=== PATIENT | female | born 1940 | race Caucasian/White ===

== ENCOUNTER 2017-03-28 12:50 | Emergency (ER) | payer OTHER ==
[~2017-03-28] VITALS: Ht 152.4 cm; Wt 65.9 kg
[~2017-03-28 12:50] MED LIST: ALBUAER9 INH; ASPEC81 PO; BUPR-79 PO; CNT PO; CoQ10 PO; FISHOIL PO; LOVA40TA4 PO; TIOTCAP INH; [UNRECOGNIZED DRUG - REMARK]; echinacea PO
[2017-03-28 12:55] VITALS: TEMP 36.7; Ht 152.4 cm; Wt 65.9 kg
[2017-03-28] MEDS ORDERED: ALBUT/IPRATROP 3MG/0.5MG NEB 3 ML VIAL INH STA (13:07)
--- NOTE | 2017-03-28 13:18 | EMERGENCY ROOM VISIT NOTE ---
History Report prepared by Chau: Holden Koenig Under the Supervision of: Dr. Dago Cherry D.O. First contact with patient: 13:00 Chief Complaint: CHEST PAIN Stated Complaint: CHEST PAIN History of Present Illness The patient is a 76 year old female who presents to the Emergency Room with complaints of persistent and diffuse chest pains that the patient began to experience three days prior to arrival. The patient states that she experienced a very sharp and constant pain throughout the day on Tuesday and Tuesday. Her pain today is not sharp and diffusely spread across her chest diffusely. She rates her current discomfort as a 3/10 in severity. She is also currently short of breath. Her symptoms are worsened with deep inspiration. She denies any history of blood clots, but does have a history of hyperlipidemia. 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 A total of 10 systems reviewed and were otherwise negative. Past Medical & Surgical Medical Problems: (1) HLD (hyperlipidemia) HLD (hyperlipidemia) Family History Heart disease Lung disease Social History Smoking Status: Former Smoker Marital Status: Occupation Status: retired Current/Historical Medications Scheduled Aspirin (Aspirin Ec), 81 MG PO AMPM Atorvastatin (Lipitor), 40 MG PO DAILY Azithromycin (Zithromax), 250 MG PO DAILY Bupropion (Wellbutrin Sr), 150 MG PO BID Esomeprazole Magnesium (Nexium), 40 MG PO DAILY Ipratropium-Albuterol (Combivent Respimat), 1 PUFFS INH QID Multivitamin (Multivitamin), 1 TAB PO DAILY Prednisone (Prednisone Tab), 40 MG PO DAILY Allergies Coded Allergies: No Known Allergies (Unverified , 03/28/17) Physical Exam Vital Signs Date Time Temp Pulse Resp B/P Pulse Ox O2 Delivery O2 Flow Rate FiO2 03/28/17 15:09 96 22 122/73 95 Room Air 03/28/17 14:14 99 20 94 03/28/17 13:25 97 Room Air 03/28/17 13:25 97 Room Air 03/28/17 13:25 97 Room Air 03/28/17 13:14 100 03/28/17 12:55 36.7 108 20 146/74 95 Room Air Physical Exam GENERAL: Patient is awake, alert, and in no acute distress. Patient is resting comfortably and showing no signs of anxiety EYES: The conjunctivae are clear. The pupils are round and reactive. EARS, NOSE, MOUTH AND THROAT: The nose is without any evidence of any deformity. Mucous membranes are moist tongue is midline NECK: The neck is nontender and supple. RESPIRATORY: There is diminished in leg with scattered rhonchi throughout. Mild conversational dyspnea noted. CARDIOVASCULAR: Tachycardiac rate with normal rhythm noted there no murmurs rubs or gallops normal S1 normal S2 GASTROINTESTINAL: The abdomen is soft. Bowel sounds are present in all quadrants. Abdomen is nontender MUSCULOSKELETAL/EXTREMITIES: There is no evidence of gross deformity full range of motion is noted in the hips and shoulders SKIN: There is no obvious evidence of any rash. There are no petechiae, pallor or cyanosis noted. NEUROLOGIC: Patient is awake alert and oriented x3. Medical Decision & Procedures ER Provider Diagnostic Interpretation: Radiology results as stated below per my review and radiologist interpretation: CHEST ONE VIEW PORTABLE CLINICAL HISTORY: Chest pain and respiratory distress COMPARISON STUDY: 02/07/2007 FINDINGS: The cardiac and mediastinal contours are normal. There is no evidence of focal pulmonary consolidation. There is no evidence of failure. No pleural effusions are visualized.[ IMPRESSION: No active disease in the chest. Electronically signed by: Rei Scruggs M.D. 03/28/2017 1:33 PM Dictated Date/Time: 03/28/2017 1:33 PM Laboratory Results 03/28/17 13:10 Red Blood Count 4.99, Mean Corpuscular Volume 96.6, Mean Corpuscular Hemoglobin 34.1, Mean Corpuscular Hemoglobin Concent 35.3, Mean Platelet Volume 8.9, Neutrophils (%) (Auto) 73.5, Lymphocytes (%) (Auto) 14.5, Monocytes (%) (Auto) 10.2, Eosinophils (%) (Auto) 1.2, Basophils (%) (Auto) 0.3, Neutrophils # (Auto ) 9.55, Lymphocytes # (Auto) 1.89, Monocytes # (Auto) 1.32, Eosinophils # (Auto ) 0.16, Basophils # (Auto) 0.04 03/28/17 13:10 Test 03/28/17 13:05 03/28/17 13:10 03/28/17 13:17 Urine Color YELLOW Urine Appearance CLEAR (CLEAR) Urine pH 6.5 (4.5-7.5) Urine Specific [place] 1.007 (1.000-1.030) Urine Protein NEG (NEG) Urine Glucose (UA) NEG (NEG) Urine Ketones NEG (NEG) Urine Occult Blood TRACE (NEG) Urine Nitrite NEG (NEG) Urine Bilirubin NEG (NEG) Urine Urobilinogen NEG (NEG) Urine Leukocyte Esterase SMALL (NEG) Urine WBC (Auto) 1-5 /hpf (0-5) Urine RBC (Auto) 0-4 /hpf (0-4) Urine Hyaline Casts (Auto) 1-5 /lpf (0-5) Urine Epithelial Cells (Auto) 10-20 /lpf (0-5) Urine Bacteria (Auto) NEG (NEG) White Blood Count 13.00 K/uL (4.8-10.8) Red Blood Count 4.99 M/uL (4.2-5.4) Hemoglobin 17.0 g/dL (12.0-16.0) Hematocrit 48.2 % (37-47) Mean Corpuscular Volume 96.6 fL (80-100) Mean Corpuscular Hemoglobin 34.1 pg (25-34) Mean Corpuscular Hemoglobin Concent 35.3 g/dl (32-36) Platelet Count 275 K/uL (130-400) Mean Platelet Volume 8.9 fL (7.4-10.4) Neutrophils (%) (Auto) 73.5 % Lymphocytes (%) (Auto) 14.5 % Monocytes (%) (Auto) 10.2 % Eosinophils (%) (Auto) 1.2 % Basophils (%) (Auto) 0.3 % Neutrophils # (Auto) 9.55 K/uL (1.4-6.5) Lymphocytes # (Auto) 1.89 K/uL (1.2-3.4) Monocytes # (Auto) 1.32 K/uL (0.11-0.59) Eosinophils # (Auto) 0.16 K/uL (0-0.5) Basophils # (Auto) 0.04 K/uL (0-0.2) RDW Standard Deviation 44.3 fL (36.4-46.3) RDW Coefficient of Variation 12.6 % (11.5-14.5) Immature Granulocyte % (Auto) 0.3 % Immature Granulocyte # (Auto) 0.04 K/uL (0.00-0.02) Prothrombin Time 10.2 SECONDS (9.0-12.0) Prothromb Time International Ratio 1.0 (0.9-1.1) Activated Partial Thromboplast Time 26.8 SECONDS (21.0-31.0) Partial Thromboplastin Ratio 1.0 Anion Gap 8.0 mmol/L (3-11) Est Creatinine Clear Calc Drug Dose 45.6 ml/min Estimated GFR () 73.0 Estimated GFR (Non- 63.0 BUN/Creatinine Ratio 17.2 (10-20) Calcium Level 9.3 mg/dl (8.5-10.1) Total Bilirubin 0.7 mg/dl (0.2-1) Aspartate Amino Transf (AST/SGOT) 26 U/L (15-37) Alanine Aminotransferase (ALT/SGPT) 40 U/L (12-78) Alkaline Phosphatase 117 U/L (45-117) Total Creatine Kinase 163 U/L (26-192) Creatine Kinase MB 2.0 ng/ml (0.5-3.6) Creatine Kinase MB Ratio 1.2 (0-3.0) Troponin I < 0.015 ng/ml (0-0.045) Total Protein 8.4 gm/dl (6.4-8.2) Albumin 4.5 gm/dl (3.4-5.0) Globulin 3.9 gm/dl (2.5-4.0) Albumin/Globulin Ratio 1.2 (0.9-2) Bedside D-Dimer 275 ng/mlFEU (0-450) Laboratory results per my review. Medications Administered Medications (Trade) Dose Ordered Sig/Eric Route Start Time Stop Time Status Last Admin Dose Admin Albuterol/ Ipratropium (Duoneb) 3 ml NOW STAT INH 03/28/17 13:07 03/28/17 13:08 DC 03/28/17 13:28 3 ML Prednisone (PredniSONE TAB) 60 mg NOW STAT PO 03/28/17 14:04 03/28/17 14:05 DC 03/28/17 14:12 60 MG Azithromycin (Zithromax Tab) 500 mg NOW STAT PO 03/28/17 14:04 03/28/17 14:05 DC 03/28/17 14:12 500 MG ECG Indication: chest pain Rate (beats per minute): 100 Rhythm: sinus rhythm Findings: Q waves (Inferior), T-wave inversion (height lateral inversion), no acute ischemic change, no ectopy Comparison ECG Date: 12/24/2011 Change: no significant change ED Course 1305: The patient was evaluated in room C4. A complete history and physical examination were performed. 1307: Ordered Duoneb 3 mL INH. 1404: Ordered Azithromycin 500 mg PO, Prednisone 60 mg PO. 1422:: Upon reevaluation, the patient is resting in bed. I discussed the results and treatment plan with her. She verbalized agreement of the treatment plan. The patient was discharged home. Medical Decision The patient's history was concerning for chest pain. Differential diagnosis: Etiologies such as cardiac ischemia, aortic dissection, pulmonary embolism, pneumonia, pneumothorax, musculoskeletal, infections, pericarditis, myocarditis , esophageal rupture, gastrointestinal, as well as others were entertained. nursing notes were reviewed. The patient is a 76-year-old female who presented to the emergency department for an evaluation of pleuritic chest pain. The patient also had shortness of breath. She has a history of smoking and I feel she may have some degree of underlying COPD today. The patient did not have an elevated d-dimer. Her troponin was negative despite having ongoing pain since yesterday. I discussed the patient's laboratory radiographic studies with her. I also discussed the limitations of the emergency department workup for chest pain with her. She was encouraged to rest and avoid any strenuous or Tuesday. She was started on a steroid and an antibiotic for presumed bronchitis. She was also encouraged to continue all medications as prescribed. He was also encouraged to follow-up with her family doctor this week but return to the emergency Department immediately if symptoms change worsen or the need arises. Impression Primary Impression: Bronchitis Additional Impression: Pleurisy Scribe Attestation The scribe's documentation has been prepared under my direction and personally reviewed by me in its entirety. I confirm that the note above accurately reflects all work, treatment, procedures, and medical decision making performed by me. Departure Information Dispostion Home / Self-Care Prescriptions Prednisone (Prednisone Tab) 20 Mg Tab 40 MG PO DAILY, #10 TAB Prov: Dago Cherry, DO 03/28/17 Azithromycin (ZITHROMAX) 250 Mg Tab 250 MG PO DAILY, #4 TAB Start on 03/29 Prov: Dago Cherry, DO 03/28/17 Referrals Dionisio Mayer M.D. (PCP) Forms HOME CARE DOCUMENTATION FORM, IMPORTANT VISIT INFORMATION Patient Instructions My [facility] Additional Instructions Follow-up with Dr. Saha at 1245 PM on Tuesday. Rest and avoid any strenuous activity. Continue all medications as prescribed. Return to the emergency department immediately if symptoms change worsen or the need arises. Problem Qualifiers
[2017-03-28 13:25] VITALS: O2SAT 97
[2017-03-28 13:25] LABS: BASO % 0.3 %; BASO ABS # 0.04 K/uL (0-0.2); COMPLETE YES; EOS % 1.2 %; HEMATOCRIT 48.2 % (37-47); IG% 0.3 %; LYMPH % 14.5 %; LYMPH ABS # 1.89 K/uL (1.2-3.4); MEAN CELL VOLUME 96.6 fL (80-100); MEAN CORPUSCULAR HEMOGLOBIN 34.1 pg (25-34); MEAN CORPUSCULAR HGB CONC 35.3 g/dl (32-36); MEAN PLATELET VOLUME 8.9 fL (7.4-10.4); MONO % 10.2 %; NEUT % 73.5 %; PLATELET COUNT 275 K/uL (130-400); RED BLOOD COUNT 4.99 M/uL (4.2-5.4)
[2017-03-28 13:33] LABS: PROTHROMBIN TIME (PATIENT) 10.2 SECONDS (9.0-12.0)
--- NOTE | 2017-03-28 13:35 | DIAGNOSTIC IMAGING REPORT ---
CHEST ONE VIEW PORTABLE CLINICAL HISTORY: Chest pain and respiratory distress COMPARISON STUDY: 02/07/2007 FINDINGS: The cardiac and mediastinal contours are normal. There is no evidence of focal pulmonary consolidation. There is no evidence of failure. No pleural effusions are visualized.[ IMPRESSION: No active disease in the chest. Electronically signed by: Rei Scruggs M.D. 03/28/2017 1:33 PM Dictated Date/Time: 03/28/2017 1:33 PM
[2017-03-28 13:38] LABS: URINE APPEARANCE CLEAR (CLEAR); URINE BILIRUBIN NEG (NEG); URINE COLOR YELLOW; URINE NITRITE NEG (NEG); URINE PH 6.5 (4.5-7.5); URINE SPECIFIC GRAVITY 1.007 (1.000-1.030); UROBILINOGEN NEG (NEG)
[2017-03-28 13:43] LABS: MANUAL MICROSCOPIC REQUIRED? NO; REVIEW REQ? NO
[2017-03-28 13:47] LABS: ALT/SGPT 40 U/L (12-78); AST/SGOT 26 U/L (15-37); BLOOD UREA NITROGEN 15 mg/dl (7-18); BUN/CREATININE RATIO 17.2 (10-20); CALCIUM 9.3 mg/dl (8.5-10.1); CARBON DIOXIDE 28 mmol/L (21-32); CHLORIDE 104 mmol/L (98-107); CREATININE 0.89 mg/dl (0.60-1.20); GLUCOSE 101 mg/dl (70-99); POTASSIUM 3.9 mmol/L (3.5-5.1); SODIUM 140 mmol/L (136-145)
[2017-03-28] MEDS ORDERED: ASPI81TA28 PO (13:50)
[2017-03-28 13:52] LABS: ALB/GLOB RATIO 1.2 (0.9-2); ALKALINE PHOSPHATASE 117 U/L (45-117); CKMB/CK RATIO 1.2 (0-3.0)
[2017-03-28] MEDS ORDERED: MULT-506 PO (13:52)
[2017-03-28] MEDS ORDERED: IPRA1AER2 INH (13:52)
[2017-03-28] MEDS ORDERED: NXM/40 PO (13:52)
[2017-03-28] MEDS ORDERED: AZITHROMYCIN 250 MG TAB PO STA (14:04)
[2017-03-28] MEDS ORDERED: LPT/40 PO (14:07)
[2017-03-28] MEDS ORDERED: PRED20TA2 PO (14:15)
[2017-03-28] MEDS ORDERED: AZIT-60 PO (14:15)
[2017-03-28 15:09] VITALS: BP 122/73; PULSE 96; O2SAT 95
== END 2017-03-28 15:10 | disposition home or self-care (01) ==
LOC: C.EDB 12:51 → C.EDC 15:10
DX: J40 Bronchitis, not specified as acute or chronic (principal); R09.1 Pleurisy; E78.5 Hyperlipidemia, unspecified; Z82.49 Family history of ischemic heart disease and other diseases of the circulatory system; Z83.6 Family history of other diseases of the respiratory system; Z87.891 Personal history of nicotine dependence; Z79.82 Long term (current) use of aspirin; Z79.899 Other long term (current) drug therapy

== ENCOUNTER 2018-01-17 20:12 | Observation (INO) | payer OTHER ==
[~2018-01-17] VITALS: Ht 165.1 cm; Wt 67.3 kg
[~2018-01-17 20:12] MED LIST changes: -ALBUAER9 INH; -ASPEC81 PO; +ASPI81TA28 PO; -CNT PO; -CoQ10 PO; -FISHOIL PO; +IPRA1AER2 INH; -LOVA40TA4 PO; +LPT/40 PO; +MULT-506 PO; +NXM/40 PO; -TIOTCAP INH; -[UNRECOGNIZED DRUG - REMARK]; -echinacea PO
[2018-01-17] MEDS ORDERED: SODIUM CHLORIDE 0.9% 1000ML 1,000 ML IV STA (20:32)
[2018-01-17] MEDS ORDERED: MECLIZINE HCL 25 MG TAB PO STA (20:32)
--- NOTE | 2018-01-17 20:32 | EMERGENCY ROOM VISIT NOTE ---
History Report prepared by Chau: Don Chacon Under the Supervision of: Dr. Jeremy Cooley M.D. First contact with patient: 20:16 Stated Complaint: HEADACHE, STOMACH ACHE, DRY HEEVES History of Present Illness The patient is a 77 year old white female with a past medical history of HLD and bronchitis who presents to the ED via EMS with a cc of a persistent illness beginning this morning. Positive dry cough, headache, nausea, abdominal pain, dry heaves, dizziness. Negative ear pain, urinary symptoms, recent travels, antibiotic use. She notes that the symptoms started around 1100 this morning, and notes nothing out of the ordinary that would have caused the symptoms. She says that the room is spinning, but she feels better if her eyes are closed. The patient adds that she feels dehydrated. The patient states that she is a current smoker. She adds that she is chronically constipated, and is treating that with Miralax. She notes no prior surgical history. The patient states that over the past few days she has felt a bit of the symptoms she feels today, but it was only episodic and not as bad. Source of History: patient Onset: This morning around 1100 Position: other (global) Quality: other (illness) Timing: other (persistent) Associated Symptoms: + headache, + cough, + nausea, + abdominal pain Note: Positive dry heaves, dizziness. Negative ear pain. Review of Systems See HPI for pertinent positives and negatives. A total of ten systems were reviewed and were otherwise negative. Past Medical & Surgical Medical Problems: (1) Dizziness (2) HLD (hyperlipidemia) Family History Heart disease Lung disease Social History Smoking Status: Current Every Day Smoker Drug Use: none Marital Status: Occupation Status: retired Current/Historical Medications Scheduled Aspirin (Aspirin Ec), 81 MG PO AMPM Atorvastatin (Lipitor), 40 MG PO DAILY Bupropion (Wellbutrin Sr), 150 MG PO BID Esomeprazole Magnesium (Nexium), 40 MG PO DAILY Scheduled PRN Ipratropium-Albuterol (Combivent Respimat), 1 PUFFS INH QID PRN for Shortness of Breath Allergies Coded Allergies: No Known Allergies (Unverified , 01/17/18) Physical Exam Vital Signs Date Time Temp Pulse Resp B/P (MAP) Pulse Ox O2 Delivery O2 Flow Rate FiO2 01/17/18 23:43 87 16 123/61 93 Room Air 01/17/18 22:41 87 20 128/91 95 Room Air 01/17/18 21:47 88 01/17/18 21:45 88 16 169/80 93 Room Air 01/17/18 20:12 36.6 87 18 174/88 95 Room Air Physical Exam GENERAL: Awake, alert, well-appearing, NAD HENT: Normocephalic, atraumatic. EYES: Normal conjunctiva. Sclera non-icteric. No nystagmus. NECK: Supple. No nuchal rigidity. FROM. RESPIRATORY: CTAB, no rhonchi, wheezing, crackles CARDIAC: RRR, no MRG ABDOMEN: Soft, NTND, BS+ MSK: No chest wall TTP, no LE edema NEURO: CN 2-12 intact, 5/5 upper and lower extremity strength, no dysmetria, no drift, good finger to nose, no sensory deficits. SKIN: No rash or jaundice noted. Medical Decision & Procedures ER Provider Diagnostic Interpretation: Radiology results as stated below per my review and radiologist interpretation: CHEST ONE VIEW PORTABLE CLINICAL HISTORY: Abdominal pain. Headache. COMPARISON STUDY: Chest radiograph March 2017. FINDINGS: Lung volumes are normal. There is no pneumothorax or pleural effusion. There is no consolidation to suggest pneumonia. Pulmonary vascularity is normal. Cardiomediastinal silhouette is normal. IMPRESSION: No acute cardiopulmonary findings. Electronically signed by: Marvin Doss M.D. 01/17/2018 9:17 PM Dictated Date/Time: 01/17/2018 9:[address] OF THE HEAD WITHOUT CONTRAST CLINICAL HISTORY: vertiginous symptoms COMPARISON STUDY: Head CT February 07, 2007. CT DOSE: 537.48 mGy.cm TECHNIQUE: Helical axial images of the head were obtained without IV contrast. Automated exposure control was utilized for the study. A dose lowering technique was utilized adhering to the principles of ALARA. FINDINGS: No acute intracranial hemorrhage, midline shift or mass effect is present. An 8 mm densely calcified focus within the right frontal lobe shown on image 17 has mildly increased in size since exam of February 07, 2017 when it measured 6 mm. This has no mass effect or significant edema. Ventricular system is stable. Basilar cisterns are patent. There are no extra-axial collections. There are no findings to suggest acute dural sinus thrombosis or acute territorial infarct. There are no significant calvarial abnormalities. Visual portions of the sinuses and mastoid air cells are clear. IMPRESSION: 1. No acute intracranial findings. 2. Slight increase in size of a densely calcified 8 mm focus within the right frontal lobe since head CT of February 07, 2017. While nonspecific, relatively stability is consistent with a benign etiology. Electronically signed by: Marvin Doss M.D. 01/17/2018 9:41 PM Dictated Date/Time: 01/17/2018 9:36 PM Laboratory Results 01/17/18 20:49 Test 01/17/18 20:49 01/17/18 20:55 01/17/18 21:20 01/17/18 21:25 Anion Gap 6.0 mmol/L (3-11) Est Creatinine Clear Calc Drug Dose 48.6 ml/min Estimated GFR () 78.8 Estimated GFR (Non- 68.0 BUN/Creatinine Ratio 18.3 (10-20) Calcium Level 8.9 mg/dl (8.5-10.1) Phosphorus Level 3.2 mg/dl (2.5-4.9) Magnesium Level 2.0 mg/dl (1.8-2.4) Total Bilirubin 0.6 mg/dl (0.2-1) Direct Bilirubin < 0.1 mg/dl (0-0.2) Aspartate Amino Transf (AST/SGOT) 26 U/L (15-37) Alanine Aminotransferase (ALT/SGPT) 35 U/L (12-78) Alkaline Phosphatase 90 U/L (45-117) Total Protein 6.7 gm/dl (6.4-8.2) Albumin 3.6 gm/dl (3.4-5.0) Lipase 134 U/L (73-393) Bedside Troponin I < 0.030 ng/ml (0-0.045) Influenza Type A (RT-PCR) Neg for Influ A (NEG) Influenza Type A Antigen Neg for Influ A (NEG) Influenza Type B Antigen Neg for Influ B (NEG) Influenza Type B (RT-PCR) Neg for Influ B (NEG) Urine Color YELLOW Urine Appearance CLEAR (CLEAR) Urine pH 6.5 (4.5-7.5) Urine Specific [place] 1.012 (1.000-1.030) Urine Protein NEG (NEG) Urine Glucose (UA) NEG (NEG) Urine Ketones NEG (NEG) Urine Occult Blood TRACE (NEG) Urine Nitrite NEG (NEG) Urine Bilirubin NEG (NEG) Urine Urobilinogen NEG (NEG) Urine Leukocyte Esterase MODERATE (NEG) Urine WBC (Auto) 5-10 /hpf (0-5) Urine RBC (Auto) 0-4 /hpf (0-4) Urine Hyaline Casts (Auto) 0 /lpf (0-5) Urine Epithelial Cells (Auto) >30 /lpf (0-5) Urine Bacteria (Auto) NEG (NEG) Laboratory results reviewed by me Medications Administered Medications (Trade) Dose Ordered Sig/Eric Route Start Time Stop Time Status Last Admin Dose Admin Sodium Chloride 1,000 ml @ 999 mls/hr Q1H1M STAT IV 01/17/18 20:32 01/17/18 21:32 DC 01/17/18 21:13 999 MLS/HR Diazepam (Valium Tab) 5 mg NOW ONCE PO 01/17/18 20:45 01/17/18 20:46 DC 01/17/18 21:12 5 MG Meclizine HCl (Antivert Tab) 25 mg NOW STAT PO 01/17/18 20:32 01/17/18 20:35 DC 01/17/18 21:12 25 MG Diphenhydramine HCl (Benadryl Inj) 25 mg NOW STAT IV 01/17/18 22:29 01/17/18 22:31 DC 01/17/18 22:40 25 MG Prochlorperazine Edisylate (Compazine Inj) 10 mg NOW STAT IV 01/17/18 22:29 01/17/18 22:31 DC 01/17/18 22:40 10 MG ECG Per My Interpretation Indication: nausea Rate (beats per minute): 85 Rhythm: normal sinus Findings: Q waves (lead 3), other (normal intervals, normal axis) Change: no significant change (from 03/28/17) ED Course 2020: The patient was evaluated in room B5. A complete history and physical exam was performed. 2318: Upon reexamination, the patient was still symptomatic. I discussed the test results and treatment plan with her. The patient will be evaluated for further management. 2332: Discussed the patient's case with Dr. Candy Stallings brush and broom clipper. The patient will be evaluated for further treatment and disposition. Medical Decision The patient is a 77 year old white female with a past medical history of HLD and bronchitis who presents to the ED via EMS with a cc of a persistent illness beginning this morning. Positive dry cough, headache, nausea, abdominal pain, dry heaves, dizziness. Negative ear pain, urinary symptoms, recent travels, antibiotic use. Differential diagnosis: Etiologies such as benign positional vertigo, dehydration, hypovolemia, anemia, tumor, infection, hypoglycemia, electrolyte abnormalities, cardiac sources, intracerebral event, toxicologic, neurologic, as well as others were entertained. Patient was seen and evaluated the bedside. Patient was complaining of some dizziness as well as some abdominal pain cough and headache. On exam the patient had an unremarkable neurologic exam. Patient had a fairly benign abdomen. Patient did have blood work completed, EKG, troponin, CT of the brain , flu swab, and the patient was given medications for symptom control. Patient' s blood work is fairly unremarkable. EKG nonischemic with a negative troponin. Do not believe this to be atypical chest pain ACS. The patient CT of the brain was negative. Chest x-ray clear. Upon reassessment the patient was not feeling improved. The patient was given a second round of medications to try to help with her vertiginous symptoms. Upon reassessment approximately 40-45 minutes after being given medications the patient was still unimproved. The patient was not able to ambulate without assistance. This is the only remarkable finding on her neurologic exam. Given this and concern for possible posterior central etiology and to discuss the patient with the on-call hospitalist who agreed to further evaluate and treat the patient. Medication Reconcilliation Current Medication List: was personally reviewed by me Blood Pressure Screening Patient's blood pressure: Normal blood pressure Consults Time Called: [phone] Consulting Physician: Dr. Candy Stallings brush and broom clipper Returned Call: [phone] Discussed the patient's case with Dr. Candy Stallings brush and broom clipper. The patient will be evaluated for further treatment and disposition. Impression Primary Impression: Vertigo Additional Impressions: Nausea Cough Scribe Attestation The scribe's documentation has been prepared under my direction and personally reviewed by me in its entirety. I confirm that the note above accurately reflects all work, treatment, procedures, and medical decision making performed by me. Departure Information Dispostion Being Evaluated By Hospitalist Referrals Dionisio Mayer M.D. (PCP) Problem Qualifiers
[2018-01-17] MEDS ORDERED: DIAZEPAM 5MG TAB PO ONE (20:45)
[2018-01-17 21:13] LABS: BASO % 0.4 %; BASO ABS # 0.03 K/uL (0-0.2); EOS % 2.1 %; EOS ABS # 0.15 K/uL (0-0.5); HEMATOCRIT 42.2 % (37-47); HEMOGLOBIN 15.1 g/dL (12.0-16.0); IG# 0.02 K/uL (0.00-0.02); LYMPH % 22.7 %; LYMPH ABS # 1.59 K/uL (1.2-3.4); MEAN CELL VOLUME 94.4 fL (80-100); MEAN CORPUSCULAR HEMOGLOBIN 33.8 pg (25-34); MEAN CORPUSCULAR HGB CONC 35.8 g/dl (32-36); MEAN PLATELET VOLUME 9.1 fL (7.4-10.4); MONO % 10.4 %; MONO ABS # 0.73 K/uL (0.11-0.59); NEUT % 64.1 %; NEUT ABS # 4.48 K/uL (1.4-6.5); PLATELET COUNT 220 K/uL (130-400); RED CELL DISTRIBUTION WIDTH CV 12.3 % (11.5-14.5)
--- NOTE | 2018-01-17 21:18 | DIAGNOSTIC IMAGING REPORT ---
CHEST ONE VIEW PORTABLE CLINICAL HISTORY: Abdominal pain. Headache. COMPARISON STUDY: Chest radiograph March 2017. FINDINGS: Lung volumes are normal. There is no pneumothorax or pleural effusion. There is no consolidation to suggest pneumonia. Pulmonary vascularity is normal. Cardiomediastinal silhouette is normal. IMPRESSION: No acute cardiopulmonary findings. Electronically signed by: Marvin Doss M.D. 01/17/2018 9:17 PM Dictated Date/Time: 01/17/2018 9:17 PM
[2018-01-17 21:31] LABS: ALBUMIN 3.6 gm/dl (3.4-5.0); ALT/SGPT 35 U/L (12-78); BLOOD UREA NITROGEN 15 mg/dl (7-18); CALCIUM 8.9 mg/dl (8.5-10.1); CARBON DIOXIDE 26 mmol/L (21-32); CREATININE 0.83 mg/dl (0.60-1.20); GLUCOSE 105 mg/dl (70-99); LIPASE 134 U/L (73-393); POTASSIUM 3.9 mmol/L (3.5-5.1); SODIUM 141 mmol/L (136-145)
[2018-01-17 21:35] LABS: ALKALINE PHOSPHATASE 90 U/L (45-117); AST/SGOT 26 U/L (15-37); PHOSPHORUS 3.2 mg/dl (2.5-4.9); TOTAL PROTEIN 6.7 gm/dl (6.4-8.2)
--- NOTE | 2018-01-17 21:43 | DIAGNOSTIC IMAGING REPORT ---
CT OF THE HEAD WITHOUT CONTRAST CLINICAL HISTORY: vertiginous symptoms COMPARISON STUDY: Head CT February 07, 2007. CT DOSE: 537.48 mGy.cm TECHNIQUE: Helical axial images of the head were obtained without IV contrast. Automated exposure control was utilized for the study. A dose lowering technique was utilized adhering to the principles of ALARA. FINDINGS: No acute intracranial hemorrhage, midline shift or mass effect is present. An 8 mm densely calcified focus within the right frontal lobe shown on image 17 has mildly increased in size since exam of February 07, 2017 when it measured 6 mm. This has no mass effect or significant edema. Ventricular system is stable. Basilar cisterns are patent. There are no extra-axial collections. There are no findings to suggest acute dural sinus thrombosis or acute territorial infarct. There are no significant calvarial abnormalities. Visual portions of the sinuses and mastoid air cells are clear. IMPRESSION: 1. No acute intracranial findings. 2. Slight increase in size of a densely calcified 8 mm focus within the right frontal lobe since head CT of February 07, 2017. While nonspecific, relatively stability is consistent with a benign etiology. Electronically signed by: Marvin Doss M.D. 01/17/2018 9:41 PM Dictated Date/Time: 01/17/2018 9:36 PM
[2018-01-17 21:54] LABS: INFLUENZA B ANTIGEN Neg for Influ B (NEG)
[2018-01-17] MEDS ORDERED: DiphenhydrAMINE HCL 50 MG/ML VIAL IV STA (22:29)
[2018-01-17] MEDS ORDERED: PROCHLORPERAZINE 5 MG/ML 2 ML VIAL IV STA (22:29)
[2018-01-18] MEDS ORDERED: PROCHLORPERAZINE INJ 5 MG in SYRINGE 4 ML IV PRN (00:30)
[2018-01-18] MEDS ORDERED: LACTATED RINGER'S 1000ML 1,000 ML IV SCH (00:30)
[2018-01-18] MEDS ORDERED: OPTIRAY 320 IV PRN (00:30)
[2018-01-18] MEDS ORDERED: MECLIZINE HCL 12.5 MG TAB PO PRN (00:30)
[2018-01-18] MEDS ORDERED: ACETAMINOPHEN 325 MG TAB PO PRN (00:30)
[2018-01-18] MEDS ORDERED: TRAMADOL HCL 50 MG TAB PO PRN (00:30)
[2018-01-18 01:22] LABS: INFLUENZA A PCR Neg for Influ A (NEG); INFLUENZA B PCR Neg for Influ B (NEG)
[2018-01-18 01:26] VITALS: BP 156/77; PULSE 87; TEMP 36.6; O2SAT 94; Ht 165.1 cm; Wt 67.3 kg
[2018-01-18] MEDS ORDERED: LACTATED RINGER'S 1000ML 1,000 ML IV ONE (01:30)
[2018-01-18] MEDS: CEFTRIAXONE SOD INJ 1 GM in DEXTROSE 5% ADD-VANTAGE 50ML 50 ML IV SCH (02:45)
--- NOTE | 2018-01-18 04:09 | HISTORY & PHYSICAL EXAMINATION ---
DATE OF ADMISSION: 01/18/2018 PRIMARY CARE DOCTOR: Dr. Mayer. CHIEF COMPLAINT: Dizziness. HISTORY OF PRESENT ILLNESS: History obtained from patient and records. Medical history significant for hypertension, hyperlipidemia, COPD, ongoing tobacco abuse, history of skin cancer per records. Patient woke up yesterday, not feeling well, dizziness worse on head motion. No headache. No unusual hearing loss. Dry cough symptoms, some nausea. Generalized abdominal discomfort with good bowel movement. Denies dysuria. No head trauma. Recalls similar episodes in the past of spinning dizziness on motion when she's dehydrated. MEDICAL HISTORY: As above. SURGERIES: None. HOME MEDICATIONS: Include aspirin, Lipitor, Wellbutrin, Nexium, Combivent. ALLERGIES: No known drug allergies. FAMILY HISTORY: Hypertension. PERSONAL AND SOCIAL HISTORY: Ongoing tobacco abuse. No chronic intake of alcoholic beverages. 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 REVIEW OF SYSTEMS: As per HPI, all 10 systems reviewed. All other ROS negative. PHYSICAL EXAMINATION: VITAL SIGNS: Blood pressure was noted to be 174/88, later 120/80, pulse rate 87, RR 26, temperature 36.6, sats 95 on room air. GENERAL: Noted to be slightly uncomfortable, no respiratory distress, looks younger for stated age. Pleasant SKIN: Normal color, warm. HEENT: [place] palpebral conjunctivae, no ptosis. Dry mucosa. NECK: Short, nontender. CHEST: Decreased breath sounds. No tenderness. HEART: Regular rate and rhythm, systolic murmur. ABDOMEN: Some distention, nontender. EXTREMITIES: No edema. No gross deformities. No tenderness. NEUROLOGIC: Coherent. No gross focality. LABORATORY DATA: Hemoglobin was noted to be 15.1, hematocrit 42.2, white cell count 7, platelets noted to be 220. Sodium 139, K 3.9 chloride 109, CO2 26 , BUN 50, creatinine 0.8, glucose 105. LFTs, lipase normal. EKG as per my interpretation rate 85 NSR, normal axis, no ischemia UA WBC esterase positive, epithelial cells Chest x-ray showed no acute cardiopulmonary findings. CT head, no acute pathology. CT abdomen and pelvis initial read nonenhancing cyst mid right kidney, diverticulosis, no bowel obstruction, aneurysm, infrarenal aorta 4 cm x 4.4, no rupture. ASSESSMENT: 1. Dizziness, likely peripheral secondary to viral illness Possible urinary tract infection, no sepsis. 2. Hypertension, stable 3. Peripheral vascular disease. AAA on initial CT abd pelvis read. 4. Systolic murmur 5. Ongoing tobacco abuse. PLAN: Observation GMF Symptomatic management for vertigo. Follow urine cultures, IV ceftriaxone. Outpatient followup surveillance study for AAA. TTE RE systolic murmur Patient counseled to stop smoking. DVT prophylaxis, Lovenox subQ. Full code. MTDD
[2018-01-18 05:28] LABS: BASO % 0.3 %; BASO ABS # 0.02 K/uL (0-0.2); HEMATOCRIT 42.7 % (37-47); HEMOGLOBIN 14.8 g/dL (12.0-16.0); IG# 0.01 K/uL (0.00-0.02); LYMPH % 33.2 %; LYMPH ABS # 2.21 K/uL (1.2-3.4); MEAN CORPUSCULAR HEMOGLOBIN 33.6 pg (25-34); MEAN CORPUSCULAR HGB CONC 34.7 g/dl (32-36); MEAN PLATELET VOLUME 9.4 fL (7.4-10.4); MONO % 10.7 %; MONO ABS # 0.71 K/uL (0.11-0.59); NEUT % 52.6 %; PLATELET COUNT 206 K/uL (130-400); RED CELL DISTRIBUTION WIDTH CV 12.4 % (11.5-14.5); RED CELL DISTRIBUTION WIDTH SD 43.9 fL (36.4-46.3); WHITE BLOOD COUNT 6.65 K/uL (4.8-10.8)
[2018-01-18 08:03] VITALS: BP 136/84; PULSE 84; TEMP 36.9; O2SAT 96
[2018-01-18] MEDS: ATORVASTATIN 40 MG TAB PO SCH (08:24)
[2018-01-18] MEDS: PANTOprazole SOD 40 MG TAB PO SCH (08:24)
[2018-01-18] MEDS: ASPIRIN 81 MG ECTAB PO SCH (08:24)
[2018-01-18] MEDS: BuPROPion SR 150 MG TABCR PO SCH ×2 (08:24→20:32)
[2018-01-18] MEDS: ENOXAPARIN 40 MG/0.4 ML SYR SQ SCH (08:34)
[2018-01-18 09:08] VITALS: O2SAT 96
--- NOTE | 2018-01-18 11:55 | ECHOCARDIOGRAM REPORT ---
*NOTICE TO RECEIVING LIBERTARIAN AGENCY This information is strictly Confidential and protected under [place] law. [place] law prohibits you from making any further disclosure of this information unless further disclosure is expressly permitted by the written consent of the person to whom it pertains or is authorized by law. A general authorization for the release of medical or other information is not sufficient for this purpose. Hospital accepts no responsibility if the information is made available to any other person, INCLUDING THE PATIENT. Interpretation Summary * Name: JORDI BROOKS Study Date: 01/18/2018 07:17 AM BP: 156/77 mmHg * Patient Location: .[id number]\2 HR: 87 * : 1940 (M/d/yyyy) Gender: Female Height: 60 in * Age: 77 yrs Ethnicity: [place] Weight: 140 lb * Ordering Physician: Cedric Gupta * Referring Physician: Self, Referred * Performed By: Sylvia Sawant RCS * * Reason For Study: Murmurs * BSA: 1.6 m2 * -- Conclusions -- * Normal LV chamber size with mild concentric LVH. * Normal LV systolic function, EF 60-65%. * No segmental left ventricular wall motion abnormalities are noted. * Grade I diastolic dysfunction. * Aortic valve sclerosis moderate, without significant aortic valvular stenosis. Trace aortic regurgitation. * The mitral valve leaflets appear thickened, but open well. There is mild mitral annular calcification. There is trace mitral regurgitation. * Small, loculated anterior pericardial effusion with stranding to suggest chronicity. No hemodynamic compromise. Procedure Details * A complete two-dimensional transthoracic echocardiogram was performed (2D, M-mode, Doppler and color flow Doppler). Left Ventricle * The left ventricle is normal in size. * There is mild concentric left ventricular hypertrophy. * Left ventricular systolic function is normal. * No segmental left ventricular wall motion abnormalities are noted. * Ejection Fraction = 60-65%. * The left ventricular wall motion is normal. Right Ventricle * The right ventricular cavity size is normal (basal dimension <4.2 cm in right ventricular apical 4-chamber view). * The right ventricular systolic function is normal as assessed by tricuspid annular plane systolic excursion (TAPSE) (normal >1.5 cm). Atria * The left atrial size is normal. * Right atrial size is normal. * No ASD detected; PFO is not assessed. Mitral Valve * The mitral valve leaflets appear thickened, but open well. * There is mild mitral annular calcification. * There is trace mitral regurgitation. Tricuspid Valve * The tricuspid valve is normal in structure and function. Aortic Valve * The aortic valve is not well visualized. * Aortic valve sclerosis moderate, without significant aortic valvular stenosis. * Trace aortic regurgitation. Pulmonic Valve * The pulmonary valve is not well seen, but the Doppler examination is normal without significant regurgitation or stenosis. Great Vessels * The aortic root and proximal ascending aorta are normal sized. Pericardium/Pleural * Small pericardial effusion. * A loculated pericardial effusion is noted. Left Ventricular Diastolic Function * Grade I diastolic dysfunction, (abnormal relaxation pattern). MMode 2D Measurements and Calculations IVSd 1.1 cm IVSs 1.3 cm LVIDd 4.5 cm LVIDs 2.9 cm LVPWd 1.1 cm LVPWs 1.4 cm IVS/LVPW 0.99 FS 35.4 % EDV(Teich) 92.4 ml ESV(Teich) 32.3 ml EF(Teich) 65.0 % EDV(cubed) 91.0 ml ESV(cubed) 24.5 ml EF(cubed) 73.1 % % IVS thick 17.6 % % LVPW thick 23.2 % LV mass(C)d 173.0 grams LV mass(C)dI 107.8 grams/m\S\2 LV mass(C)s 121.1 grams LV mass(C)sI 75.5 grams/m\S\2 SV(Teich) 60.0 ml SI(Teich) 37.4 ml/m\S\2 SV(cubed) 66.5 ml SI(cubed) 41.5 ml/m\S\2 Ao root diam 3.1 cm Ao root area 7.5 cm\S\2 LA dimension 3.8 cm asc Aorta Diam 2.8 cm LA/Ao 1.2 LVOT diam 1.8 cm LVOT area 2.6 cm\S\2 EDV(MOD-sp4) 66.3 ml ESV(MOD-sp4) 20.7 ml EF(MOD-sp4) 68.7 % EDV(MOD-sp2) 43.0 ml ESV(MOD-sp2) 13.4 ml EF(MOD-sp2) 68.8 % SV(MOD-sp4) 45.5 ml SI(MOD-sp4) 28.4 ml/m\S\2 SV(MOD-sp2) 29.6 ml SI(MOD-sp2) 18.4 ml/m\S\2 Doppler Measurements and Calculations MV E max jalen 81.4 cm/sec MV A max jalen 113.6 cm/sec MV E/A 0.72 MV P1/2t max jalen 65.7 cm/sec MV P1/2t 87.4 msec MVA(P1/2t) 2.5 cm\S\2 MV dec slope 220.0 cm/sec\S\2 MV dec time 0.21 sec Ao V2 max 225.8 cm/sec Ao max PG 20.4 mmHg Ao max PG (full) 16.3 mmHg Ao V2 mean 155.0 cm/sec Ao mean PG 10.9 mmHg Ao mean PG (full) 9.3 mmHg Ao V2 VTI 45.9 cm SURENDRA(I,A) 1.1 cm\S\2 SURENDRA(I,D) 1.1 cm\S\2 SURENDRA(V,A) 1.2 cm\S\2 SURENDRA(V,D) 1.2 cm\S\2 AI max jalen 363.2 cm/sec AI max PG 52.8 mmHg AI dec slope 228.9 cm/sec\S\2 AI P1/2t 464.7 msec LV V1 max PG 4.1 mmHg LV V1 mean PG 1.6 mmHg LV V1 max 101.0 cm/sec LV V1 mean 57.0 cm/sec LV V1 VTI 20.3 cm SV(Ao) 345.6 ml SI(Ao) 215.5 ml/m\S\2 SV(LVOT) 52.5 ml SI(LVOT) 32.7 ml/m\S\2 PA V2 max 84.6 cm/sec PA max PG 2.9 mmHg PI max jalen 146.6 cm/sec PI max PG 8.6 mmHg PI dec slope 136.0 cm/sec\S\2 PI P1/2t 315.7 msec TR max jalen 186.5 cm/sec
[2018-01-18 14:56] VITALS: BP 124/77; PULSE 78; TEMP 36.6; O2SAT 94
--- NOTE | 2018-01-18 15:22 | Progress Note ---
Medicine Progress Note Date & Time of Visit: Jan 18, 2018 at 15:04. Subjective Pt was seen and examined Lying in bed comfortable with no distress Pt said that she feels fine She said that she does not have anymore dizziness She denies any urinary symptoms Denies any chest pain, palpitation, dizziness and SOB Objective Last 8 Hrs Date Time Temp Pulse Resp B/P (MAP) Pulse Ox O2 Delivery O2 Flow Rate FiO2 01/18/18 14:56 36.6 78 18 124/77 (93) 94 Room Air 01/18/18 09:08 96 Room Air 01/18/18 08:03 36.9 84 22 136/84 (101) 96 Room Air 01/18/18 08:00 Room Air Physical Exam: General- No acute distress Head- atraumatic Eyes- PERRL, EOMI ENT- oropharynx clear Neck- supple, no JVD Lungs- No wheezing Heart- regular rhythm, +systolic murmur Abdomen- normal bowel sounds, soft Extremities- no calf tenderness Neuro- alert, oriented x 3; PERRL, EOMI Skin- warm & dry Laboratory Results: Last 24 Hours Test 01/17/18 20:49 01/17/18 20:55 01/17/18 21:20 01/17/18 21:25 White Blood Count 7.00 K/uL Red Blood Count 4.47 M/uL Hemoglobin 15.1 g/dL Hematocrit 42.2 % Mean Corpuscular Volume 94.4 fL Mean Corpuscular Hemoglobin 33.8 pg Mean Corpuscular Hemoglobin Concent 35.8 g/dl Platelet Count 220 K/uL Mean Platelet Volume 9.1 fL Neutrophils (%) (Auto) 64.1 % Lymphocytes (%) (Auto) 22.7 % Monocytes (%) (Auto) 10.4 % Eosinophils (%) (Auto) 2.1 % Basophils (%) (Auto) 0.4 % Neutrophils # (Auto) 4.48 K/uL Lymphocytes # (Auto) 1.59 K/uL Monocytes # (Auto) 0.73 K/uL Eosinophils # (Auto) 0.15 K/uL Basophils # (Auto) 0.03 K/uL RDW Standard Deviation 42.0 fL RDW Coefficient of Variation 12.3 % Immature Granulocyte % (Auto) 0.3 % Immature Granulocyte # (Auto) 0.02 K/uL Sodium Level 141 mmol/L Potassium Level 3.9 mmol/L Chloride Level 109 mmol/L Carbon Dioxide Level 26 mmol/L Anion Gap 6.0 mmol/L Blood Urea Nitrogen 15 mg/dl Creatinine 0.83 mg/dl Est Creatinine Clear Calc Drug Dose 48.6 ml/min Estimated GFR () 78.8 Estimated GFR (Non- 68.0 BUN/Creatinine Ratio 18.3 Random Glucose 105 mg/dl Calcium Level 8.9 mg/dl Phosphorus Level 3.2 mg/dl Magnesium Level 2.0 mg/dl Total Bilirubin 0.6 mg/dl Direct Bilirubin < 0.1 mg/dl Aspartate Amino Transf (AST/SGOT) 26 U/L Alanine Aminotransferase (ALT/SGPT) 35 U/L Alkaline Phosphatase 90 U/L Total Protein 6.7 gm/dl Albumin 3.6 gm/dl Lipase 134 U/L Bedside Troponin I < 0.030 ng/ml Influenza Type A (RT-PCR) Neg for Influ A Influenza Type A Antigen Neg for Influ A Influenza Type B Antigen Neg for Influ B Influenza Type B (RT-PCR) Neg for Influ B Urine Color YELLOW Urine Appearance CLEAR Urine pH 6.5 Urine Specific [place] 1.012 Urine Protein NEG Urine Glucose (UA) NEG Urine Ketones NEG Urine Occult Blood TRACE Urine Nitrite NEG Urine Bilirubin NEG Urine Urobilinogen NEG Urine Leukocyte Esterase MODERATE Urine WBC (Auto) 5-10 /hpf Urine RBC (Auto) 0-4 /hpf Urine Hyaline Casts (Auto) 0 /lpf Urine Epithelial Cells (Auto) >30 /lpf Urine Bacteria (Auto) NEG Test 01/18/18 04:58 White Blood Count 6.65 K/uL Red Blood Count 4.40 M/uL Hemoglobin 14.8 g/dL Hematocrit 42.7 % Mean Corpuscular Volume 97.0 fL Mean Corpuscular Hemoglobin 33.6 pg Mean Corpuscular Hemoglobin Concent 34.7 g/dl Platelet Count 206 K/uL Mean Platelet Volume 9.4 fL Neutrophils (%) (Auto) 52.6 % Lymphocytes (%) (Auto) 33.2 % Monocytes (%) (Auto) 10.7 % Eosinophils (%) (Auto) 3.0 % Basophils (%) (Auto) 0.3 % Neutrophils # (Auto) 3.50 K/uL Lymphocytes # (Auto) 2.21 K/uL Monocytes # (Auto) 0.71 K/uL Eosinophils # (Auto) 0.20 K/uL Basophils # (Auto) 0.02 K/uL RDW Standard Deviation 43.9 fL RDW Coefficient of Variation 12.4 % Immature Granulocyte % (Auto) 0.2 % Immature Granulocyte # (Auto) 0.01 K/uL Prothrombin Time 10.6 SECONDS Prothromb Time International Ratio 1.0 Date/Time Source Procedure Growth Status 01/17/18 21:25 Urine , Clean Catch Urine Culture Pending Received Assessment & Plan Dizziness Mostly related to peripheral etiology Complaint of recent Upper respiratory viral infection CT head showed no acute intracranial findings. Was starting on meclizine Resolved ECHO done Normal LV chamber size with mild concentric LVH. * Normal LV systolic function, EF 60-65%. * No segmental left ventricular wall motion abnormalities are noted. * Grade I diastolic dysfunction. * Aortic valve sclerosis moderate, without significant aortic valvular stenosis. Trace aortic regurgitation. * The mitral valve leaflets appear thickened, but open well. There is mild mitral annular calcification. There is trace mitral regurgitation. * Small, loculated anterior pericardial effusion with stranding to suggest chronicity. No hemodynamic compromise. Abnormal UA UA on admission was positive for leukocyte Denies any urinary symptoms Has been starting on Rocephin urine cx pending D/C abx if urine cx shows no growth Hypertension Stable Peripheral vascular disease Continue aspirin and statin Tobacco abuse Counseling on smoking cessation Right Frontal Lobe lesion CT head showed slight increase in size of a densely calcified 8 mm focus within the right frontal lobe since head CT of February 07, 2017. Follow up CT head outpatient to ensure stability DVT Px ON Lovenox CODE STATUS FULL CODE Current Inpatient Medications: Current Inpatient Medications Medications (Trade) Dose Ordered Sig/Eric Route Start Time Stop Time Status Last Admin Dose Admin Ioversol (Optiray 320) 100 ml UD PRN IV 01/18/18 00:30 01/22/18 00:29 Enoxaparin Sodium (Lovenox Inj) 40 mg Q24H SQ 01/18/18 08:00 02/17/18 07:59 01/18/18 08:34 40 MG Acetaminophen (Tylenol Tab) 650 mg Q4H PRN PO 01/18/18 00:30 02/17/18 00:29 Aspirin (Ecotrin Tab) 81 mg DAILY PO 01/18/18 09:00 02/17/18 08:59 01/18/18 08:24 81 MG Atorvastatin Calcium (Lipitor Tab) 40 mg DAILY PO 01/18/18 09:00 02/17/18 08:59 01/18/18 08:24 40 MG Bupropion HCl (Wellbutrin-Sr Tab) 150 mg BID PO 01/18/18 09:00 02/17/18 08:59 01/18/18 08:24 150 MG Pantoprazole Sodium (Protonix Tab) 40 mg DAILY PO 01/18/18 09:00 02/17/18 08:59 01/18/18 08:24 40 MG Prochlorperazine Edisylate 5 mg/ Syringe 5 ml @ 5 mls/min Q6H PRN IV 01/18/18 00:30 02/17/18 00:29 Tramadol HCl (Ultram Tab) 25 mg Q6H PRN PO 01/18/18 00:30 02/17/18 00:29 Meclizine HCl (Antivert Tab) 12.5 mg QID PRN PO 01/18/18 00:30 02/17/18 00:29 Miscellaneous (Iv Fluids Completed) 1 ea PRN PRN N/A 01/18/18 01:00 01/18/19 00:59 Ceftriaxone Sodium 1 gm/ Dextrose 50 ml @ 100 mls/hr Q24H IV 01/18/18 02:00 01/23/18 01:59 01/18/18 02:45 100 MLS/HR
[2018-01-18 16:00] VITALS: O2SAT 94
[2018-01-18] MEDS: IV FLUIDS COMPLETED PRN (16:32)
[2018-01-19 00:14] VITALS: BP 120/74; PULSE 86; TEMP 36.8; O2SAT 95
[2018-01-19] MEDS: CEFTRIAXONE SOD INJ 1 GM in DEXTROSE 5% ADD-VANTAGE 50ML 50 ML IV SCH (02:20)
[2018-01-19 07:11] VITALS: BP 128/82; PULSE 79; TEMP 36.6; O2SAT 93
[2018-01-19] MEDS: ATORVASTATIN 40 MG TAB PO SCH (09:03)
[2018-01-19] MEDS: ASPIRIN 81 MG ECTAB PO SCH (09:03)
[2018-01-19] MEDS: PANTOprazole SOD 40 MG TAB PO SCH (09:03)
[2018-01-19] MEDS: BuPROPion SR 150 MG TABCR PO SCH (09:04)
[2018-01-19] MEDS: ENOXAPARIN 40 MG/0.4 ML SYR SQ SCH (09:05)
[2018-01-19 14:56] VITALS: BP 129/74; PULSE 85; TEMP 36.8; O2SAT 92
[2018-01-19 16:00] VITALS: O2SAT 92
[2018-01-19] MEDS ORDERED: CEFTRIAXONE SOD INJ 1 GM in DEXTROSE 5% ADD-VANTAGE 50ML 50 ML IV ONE (16:00)
--- NOTE | 2018-01-19 17:17 | Progress Note ---
Medicine Progress Note Date & Time of Visit: Jan 19, 2018 at 17:09. Subjective Pt was seen and examined Lying in bed with no distress Pt said that she feels fine She said that she does not have any urinary symptoms Pt said that she is ready to go home She said that she walked around with no dizziness Pt wants to go home Denies any fever, palpitation, dizziness, fever and SOB Objective Last 8 Hrs Date Time Temp Pulse Resp B/P (MAP) Pulse Ox O2 Delivery O2 Flow Rate FiO2 01/19/18 16:00 92 Room Air 01/19/18 14:56 36.8 85 18 129/74 (92 92 Physical Exam: General- No acute distress Head- atraumatic Eyes- PERRL, EOMI ENT- oropharynx clear Neck- supple, no JVD Lungs- No wheezing Heart- regular rhythm, +systolic murmur Abdomen- normal bowel sounds, soft Extremities- no calf tenderness Neuro- alert, oriented x 3; PERRL, EOMI Skin- warm & dry Assessment & Plan Dizziness Mostly related to peripheral etiology Complaint of recent Upper respiratory viral infection CT head showed no acute intracranial findings. Was starting on meclizine Resolved ECHO done Normal LV chamber size with mild concentric LVH. * Normal LV systolic function, EF 60-65%. * No segmental left ventricular wall motion abnormalities are noted. * Grade I diastolic dysfunction. * Aortic valve sclerosis moderate, without significant aortic valvular stenosis. Trace aortic regurgitation. * The mitral valve leaflets appear thickened, but open well. There is mild mitral annular calcification. There is trace mitral regurgitation. * Small, loculated anterior pericardial effusion with stranding to suggest chronicity. No hemodynamic compromise. Abnormal UA UA on admission was positive for leukocyte Denies any urinary symptoms Preliminary urine cx growth pin-poin Received Rocephin day#3 Since she never had any urinary symptoms, will discharge her home Will follow up urine cx and call her if there is any growth Advised pt to call her PCP if she develops any urinary symptoms or fever AAA CT abdomen showed Fusiform aneurysmal dilation of the infrarenal abdominal aorta , 4.1 x 4.1 cm. Will need outpatient image follow up in 6 months Result discussed with patient Hypertension Stable Peripheral vascular disease Continue aspirin and statin Tobacco abuse Counseling on smoking cessation Right Frontal Lobe lesion CT head showed slight increase in size of a densely calcified 8 mm focus within the right frontal lobe since head CT of February 07, 2017. Follow up CT head outpatient to ensure stability Result discussed with patient DVT Px ON Lovenox CODE STATUS FULL CODE Disposition Will discharge home today Current Inpatient Medications: Current Inpatient Medications Medications (Trade) Dose Ordered Sig/Eric Route Start Time Stop Time Status Last Admin Dose Admin Ioversol (Optiray 320) 100 ml UD PRN IV 01/18/18 00:30 01/22/18 00:29 Enoxaparin Sodium (Lovenox Inj) 40 mg Q24H SQ 01/18/18 08:00 02/17/18 07:59 01/19/18 09:05 40 MG Acetaminophen (Tylenol Tab) 650 mg Q4H PRN PO 01/18/18 00:30 02/17/18 00:29 Aspirin (Ecotrin Tab) 81 mg DAILY PO 01/18/18 09:00 02/17/18 08:59 01/19/18 09:03 81 MG Atorvastatin Calcium (Lipitor Tab) 40 mg DAILY PO 01/18/18 09:00 02/17/18 08:59 01/19/18 09:03 40 MG Bupropion HCl (Wellbutrin-Sr Tab) 150 mg BID PO 01/18/18 09:00 02/17/18 08:59 01/19/18 09:04 150 MG Pantoprazole Sodium (Protonix Tab) 40 mg DAILY PO 01/18/18 09:00 02/17/18 08:59 01/19/18 09:03 40 MG Prochlorperazine Edisylate 5 mg/ Syringe 5 ml @ 5 mls/min Q6H PRN IV 01/18/18 00:30 02/17/18 00:29 Tramadol HCl (Ultram Tab) 25 mg Q6H PRN PO 01/18/18 00:30 02/17/18 00:29 Meclizine HCl (Antivert Tab) 12.5 mg QID PRN PO 01/18/18 00:30 02/17/18 00:29 Miscellaneous (Iv Fluids Completed) 1 ea PRN PRN N/A 01/18/18 01:00 01/18/19 00:59 01/18/18 16:32 1 EA
[2018-01-19] MEDS ORDERED: ANT25 PO (17:20)
[2018-01-19 17:22] VITALS: BP 129/74; PULSE 85; TEMP 36.8; O2SAT 92
--- NOTE | 2018-01-19 17:29 | Discharge Instructions ---
Discharge Instructions Date of Service Jan 19, 2018. Admission Reason for Admission: Dizziness Discharge Discharge Diagnosis / Problem: Dizziness, Abnormal UA, Right Frontal Lobe lesion Discharge Goals Goal(s): Decrease discomfort, Improve function, Improve disease control Activity Recommendations Activity Limitations: resume your previous activity (as tolerated) . Instructions / Follow-Up Instructions / Follow-Up Follow up with your primary care provider Dr. Rico ( Dr. Mayer's Colleague) on 01/24 @ 12:45 PM We will call you for the final urine culture result Please seek medical attention if you develop any fever or urinary symptoms Fall precaution Use meclizine as needed for the dizziness You will need a follow CT head to monitor the lesion in your brain (that was seen in the CT head) Current Hospital Diet Patient's current hospital diet: AHA Diet (Heart Healthy), Regular Diet Discharge Diet Recommended Diet: AHA Diet (Heart Healthy) Pending Studies Studies pending at discharge: yes List of pending studies: Urine culture Medical Emergencies . Who to Call and When: Medical Emergencies: If at any time you feel your situation is an emergency, please call 911 immediately. . Non-Emergent Contact Non-Emergency issues call your: Primary Care Provider Call Non-Emergent contact if: you have any medication questions . . "Provider Documentation" section prepared by Laverne Zaidi. .
[2018-01-19] MEDS: IV FLUIDS COMPLETED PRN (17:45)
--- NOTE | 2018-01-20 07:57 | DIAGNOSTIC IMAGING REPORT ---
ABDOMEN AND PELVIS CT WITH IV CONTRAST CT DOSE: 711.66 mGycm HISTORY: Acute generalized abdominal pain abd pain TECHNIQUE: Multiaxial CT images of the abdomen and pelvis were performed following the use of intravenous contrast. A dose lowering technique was utilized adhering to the principles of ALARA. COMPARISON STUDY: CTA of the chest 01/30/2010. FINDINGS: Lung bases are generally clear. Minimal subsegmental dependent bibasilar atelectasis. There is no pneumatosis or pneumoperitoneum identified. The imaged inferior cardiac chambers are unremarkable. The liver, gallbladder, spleen, and adrenal glands are within normal limits. Scattered parenchymal calcifications are seen about the pancreas suggesting sequela of chronic pancreatitis. No pancreatic ductal dilation. 1.1 cm low attenuating lesion of the posterior interpolar right kidney suggests benign cyst. Kidneys are otherwise unremarkable. Ureters and urinary bladder are also within normal limits. Uterus and adnexa appear unremarkable. Extensive atherosclerosis of the abdominal aorta and iliac arteries. Fusiform aneurysmal dilation of the infrarenal abdominal aorta measures 4.1 x 4.1 cm in AP and transverse dimension nicely seen on image 148 series 3 for a craniocaudal length of approximately 4.5 cm. No dissection identified. There is narrowing of the distal abdominal aorta to 11 mm just proximal to the iliac bifurcation. There is no pathologic adenopathy identified. Small sliding-type hiatal hernia. No bowel obstruction or focal bowel wall thickening. Mild colonic diverticulosis without CT evidence of acute diverticulitis. Normal appendix. No ascites or mesenteric inflammatory changes. Bones appear intact. Indeterminate sclerotic 1.4 x 1.7 cm lesion is noted involving the greater trochanter demonstrating a nonaggressive appearance and appears to have a chondroid matrix suggesting a possible enchondroma. Severe intervertebral disc space narrowing with posterior disc osteophyte complex formation and facet arthropathy at L5-S1. IMPRESSION: 1. No acute intra-abdominal or intrapelvic abnormality identified. Normal appendix. 2. Colonic diverticulosis without CT evidence of acute diverticulitis. 3. Fusiform aneurysmal dilation of the infrarenal abdominal aorta, 4.1 x 4.1 cm. 4. Small sliding type hiatal hernia. Electronically signed by: Mateusz Gonzales M.D. 01/18/2018 6:55 AM Dictated Date/Time: 01/18/2018 6:41 AM
--- NOTE | 2018-01-22 07:48 | Discharge Summary ---
Discharge Summary Date of Service Jan 22, 2018. Discharge Summary Admission Date: Jan 18, 2018 at 00:09 Discharge Date: Jan 19, 2018 Discharge Disposition: Home Principal Diagnosis: Dizziness Secondary Diagnoses/Problems: AAA Right Frontal Lobe lesion TOBACCO ABUSE ABNORMAL UA PAD HTN Procedures: [~ rep ct add3]] ABDOMEN AND PELVIS CT WITH IV CONTRAST CT DOSE: 711.66 mGycm HISTORY: Acute generalized abdominal pain abd pain TECHNIQUE: Multiaxial CT images of the abdomen and pelvis were performed following the use of intravenous contrast. A dose lowering technique was utilized adhering to the principles of ALARA. COMPARISON STUDY: CTA of the chest 01/30/2010. FINDINGS: Lung bases are generally clear. Minimal subsegmental dependent bibasilar atelectasis. There is no pneumatosis or pneumoperitoneum identified. The imaged inferior cardiac chambers are unremarkable. The liver, gallbladder, spleen, and adrenal glands are within normal limits. Scattered parenchymal calcifications are seen about the pancreas suggesting sequela of chronic pancreatitis. No pancreatic ductal dilation. 1.1 cm low attenuating lesion of the posterior interpolar right kidney suggests benign cyst. Kidneys are otherwise unremarkable. Ureters and urinary bladder are also within normal limits. Uterus and adnexa appear unremarkable. Extensive atherosclerosis of the abdominal aorta and iliac arteries. Fusiform aneurysmal dilation of the infrarenal abdominal aorta measures 4.1 x 4.1 cm in AP and transverse dimension nicely seen on image 148 series 3 for a craniocaudal length of approximately 4.5 cm. No dissection identified. There is narrowing of the distal abdominal aorta to 11 mm just proximal to the iliac bifurcation. There is no pathologic adenopathy identified. Small sliding-type hiatal hernia. No bowel obstruction or focal bowel wall thickening. Mild colonic diverticulosis without CT evidence of acute diverticulitis. Normal appendix. No ascites or mesenteric inflammatory changes. Bones appear intact. Indeterminate sclerotic 1.4 x 1.7 cm lesion is noted involving the greater trochanter demonstrating a nonaggressive appearance and appears to have a chondroid matrix suggesting a possible enchondroma. Severe intervertebral disc space narrowing with posterior disc osteophyte complex formation and facet arthropathy at L5-S1. IMPRESSION: 1. No acute intra-abdominal or intrapelvic abnormality identified. Normal appendix. 2. Colonic diverticulosis without CT evidence of acute diverticulitis. 3. Fusiform aneurysmal dilation of the infrarenal abdominal aorta, 4.1 x 4.1 cm. 4. Small sliding type hiatal hernia. Electronically signed by: Mateusz Gonzales M.D. 01/18/2018 6:55 AM Dictated Date/Time: 01/18/2018 6:[address] OF THE HEAD WITHOUT CONTRAST CLINICAL HISTORY: vertiginous symptoms COMPARISON STUDY: Head CT February 07, 2007. CT DOSE: 537.48 mGy.cm TECHNIQUE: Helical axial images of the head were obtained without IV contrast. Automated exposure control was utilized for the study. A dose lowering technique was utilized adhering to the principles of ALARA. FINDINGS: No acute intracranial hemorrhage, midline shift or mass effect is present. An 8 mm densely calcified focus within the right frontal lobe shown on image 17 has mildly increased in size since exam of February 07, 2017 when it measured 6 mm. This has no mass effect or significant edema. Ventricular system is stable. Basilar cisterns are patent. There are no extra-axial collections. There are no findings to suggest acute dural sinus thrombosis or acute territorial infarct. There are no significant calvarial abnormalities. Visual portions of the sinuses and mastoid air cells are clear. IMPRESSION: 1. No acute intracranial findings. 2. Slight increase in size of a densely calcified 8 mm focus within the right frontal lobe since head CT of February 07, 2017. While nonspecific, relatively stability is consistent with a benign etiology. Electronically signed by: Marvin Doss M.D. 01/17/2018 9:41 PM Dictated Date/Time: 01/17/2018 9:36 PM CHEST ONE VIEW PORTABLE CLINICAL HISTORY: Abdominal pain. Headache. COMPARISON STUDY: Chest radiograph March 2017. FINDINGS: Lung volumes are normal. There is no pneumothorax or pleural effusion. There is no consolidation to suggest pneumonia. Pulmonary vascularity is normal. Cardiomediastinal silhouette is normal. IMPRESSION: No acute cardiopulmonary findings. Electronically signed by: Marvin Doss M.D. 01/17/2018 9:17 PM Dictated Date/Time: 01/17/2018 9:17 PM Medication Reconciliation New Medications: Meclizine HCl (Meclizine HCl) 25 Mg Tab 12.5 MG PO BID PRN for dizziness for 5 Days, #5 TAB Continued Medications: Aspirin (Aspirin Ec) 81 Mg Tab 81 MG PO AMPM Atorvastatin (Lipitor) 40 Mg Tab 40 MG PO DAILY, TAB Bupropion (Wellbutrin Sr) 150 Mg Ertab 150 MG PO BID Esomeprazole Magnesium (Nexium) 40 Mg Capcr 40 MG PO DAILY, CAP Ipratropium-Albuterol (Combivent Respimat) 1 Aer Aer 1 PUFFS INH QID PRN for Shortness of Breath, INH Admission Information HPI (per Admitting provider): CHIEF COMPLAINT: Dizziness. HISTORY OF PRESENT ILLNESS: History obtained from patient and records. Medical history significant for hypertension, hyperlipidemia, COPD, ongoing tobacco abuse, history of skin cancer per records. Patient woke up yesterday, not feeling well, dizziness worse on head motion. No headache. No unusual hearing loss. Dry cough symptoms, some nausea. Generalized abdominal discomfort with good bowel movement. Denies dysuria. No head trauma. Recalls similar episodes in the past of spinning dizziness on motion when she's dehydrated. Physical Exam (per Admitting): VITAL SIGNS: Blood pressure was noted to be 174/88, later 120/80, pulse rate 87 , RR 26, temperature 36.6, sats 95 on room air. GENERAL: Noted to be slightly uncomfortable, no respiratory distress, looks younger for stated age. Pleasant SKIN: Normal color, warm. HEENT: [place] palpebral conjunctivae, no ptosis. Dry mucosa. NECK: Short, nontender. CHEST: Decreased breath sounds. No tenderness. HEART: Regular rate and rhythm, systolic murmur. ABDOMEN: Some distention, nontender. EXTREMITIES: No edema. No gross deformities. No tenderness. NEUROLOGIC: Coherent. No gross focality. Hospital Course Dizziness Mostly related to peripheral etiology Complaint of recent Upper respiratory viral infection CT head showed no acute intracranial findings. Was starting on meclizine Resolved ECHO done Normal LV chamber size with mild concentric LVH. * Normal LV systolic function, EF 60-65%. * No segmental left ventricular wall motion abnormalities are noted. * Grade I diastolic dysfunction. * Aortic valve sclerosis moderate, without significant aortic valvular stenosis. Trace aortic regurgitation. * The mitral valve leaflets appear thickened, but open well. There is mild mitral annular calcification. There is trace mitral regurgitation. * Small, loculated anterior pericardial effusion with stranding to suggest chronicity. No hemodynamic compromise. Abnormal UA UA on admission was positive for leukocyte Denies any urinary symptoms Preliminary urine cx growth pin-poin Received Rocephin day#3 Since she never had any urinary symptoms, will discharge her home Will follow up urine cx and call her if there is any growth Advised pt to call her PCP if she develops any urinary symptoms or fever AAA CT abdomen showed Fusiform aneurysmal dilation of the infrarenal abdominal aorta , 4.1 x 4.1 cm. Will need outpatient image follow up in 6 months Result discussed with patient Hypertension Stable Peripheral vascular disease Continue aspirin and statin Tobacco abuse Counseling on smoking cessation Right Frontal Lobe lesion CT head showed slight increase in size of a densely calcified 8 mm focus within the right frontal lobe since head CT of February 07, 2017. Follow up CT head outpatient to ensure stability Result discussed with patient DVT Px ON Lovenox CODE STATUS FULL CODE Disposition Will discharge home today Total time spent on discharge = 35 MINUTES This includes examination of the patient, discharge planning, medication reconciliation, and communication with other providers. Discharge Instructions Discharge Instructions Date of Service Jan 19, 2018. Admission Reason for Admission: Dizziness Discharge Discharge Diagnosis / Problem: Dizziness, Abnormal UA, Right Frontal Lobe lesion Discharge Goals Goal(s): Decrease discomfort, Improve function, Improve disease control Activity Recommendations Activity Limitations: resume your previous activity (as tolerated) . Instructions / Follow-Up Instructions / Follow-Up Follow up with your primary care provider Dr. Rico ( Dr. Mayer's Colleague) on 01/24 @ 12:45 PM We will call you for the final urine culture result Please seek medical attention if you develop any fever or urinary symptoms Fall precaution Use meclizine as needed for the dizziness You will need a follow CT head to monitor the lesion in your brain (that was seen in the CT head) Current Hospital Diet Patient's current hospital diet: AHA Diet (Heart Healthy), Regular Diet Discharge Diet Recommended Diet: AHA Diet (Heart Healthy) Pending Studies Studies pending at discharge: yes List of pending studies: Urine culture Medical Emergencies . Who to Call and When: Medical Emergencies: If at any time you feel your situation is an emergency, please call 911 immediately. . Non-Emergent Contact Non-Emergency issues call your: Primary Care Provider Call Non-Emergent contact if: you have any medication questions . . "Provider Documentation" section prepared by Laverne Zaidi. . Additional Copies To Dionisio Mayer M.D.
== END 2018-01-19 18:33 | disposition home or self-care (01) ==
LOC: EDBD 20:12 → C.EDB 20:13 → C.MS2W 01-18 00:09 → ENRESERV 01-18 00:39
PROVIDERS: ADMIT Internal Medicine; ATTEND Internal Medicine
DX: R42 Dizziness and giddiness (principal); R11.0 Nausea; I10 Essential (primary) hypertension; I73.9 Peripheral vascular disease, unspecified; I71.4 Abdominal aortic aneurysm, without rupture; R01.1 Cardiac murmur, unspecified; R05 Cough; E78.5 Hyperlipidemia, unspecified; J44.9 Chronic obstructive pulmonary disease, unspecified; F17.200 Nicotine dependence, unspecified, uncomplicated; G93.9 Disorder of brain, unspecified; Z82.49 Family history of ischemic heart disease and other diseases of the circulatory system; Z83.6 Family history of other diseases of the respiratory system; Z79.82 Long term (current) use of aspirin; Z85.820 Personal history of malignant melanoma of skin

== ENCOUNTER 2018-11-25 17:44 | Inpatient (IN) ==
[2018-11-25] MEDS ORDERED: ACETAMINOPHEN 500 MG TAB PO STA (17:59)
[2018-11-25] MEDS ORDERED: SODIUM CHLORIDE 0.9% 1000ML 1,000 ML IV SCH (18:00)
[2018-11-25] MEDS ORDERED: DAPTOmycin 500 MG VIAL IV STA (18:04)
[2018-11-25] MEDS ORDERED: PIPERACILL/TAZOBAC CONSULT ACTIVE PRN (18:04)
[2018-11-25] MEDS ORDERED: PIPERACILLIN/TAZOBACTAM 4.5 GM/120 ML BAG IV ONE (18:04)
[2018-11-25] MEDS ORDERED: DAPTOmycin 425 MG in SYRINGE 0 ML IV SCH (18:04)
[2018-11-25] MEDS ORDERED: SODIUM CHLORIDE 0.9% 500 ML IV SCH (18:15)
[2018-11-25 18:23] LABS: Appearance Urine Turbid (Clear); Bacteria Urine Automated 2+ (Negative); Bilirubin Urine Negative (Negative); Color Urine Dark Yellow; Epithelial Cell Urine Auto 0-5 /lpf (0-5); Glucose Urine UA Negative (Negative); Ketones Urine Negative (Negative); Leukocyte Esterase Urine 3+ (Negative); Nitrite Urine Positive (Negative); Protein Urine 2+ (Negative); Specific Gravity Urine 1.019 (1.000-1.030); Urobilinogen Urine Negative (Negative); WBC Urine Automated >30 /hpf (0-5); pH Urine 5.5 (4.5-7.5)
[2018-11-25 18:25] LABS: Basophils # (auto) 0.01 K/uL (0-0.2); Basophils % (auto) 0.1 %; Eosinophils # (auto) 0.04 K/uL (0-0.5); Eosinophils % (auto) 0.3 %; Hemoglobin 11.7 g/dL (12.0-16.0); Immature Granulocytes # (auto) 0.03 K/uL (0.00-0.02); Immature Granulocytes % (auto) 0.3 %; Lymphocytes # (auto) 0.34 K/uL (1.2-3.4); Lymphocytes % (auto) 2.9 %; Mean Corpuscular Hgb Conc 32.5 g/dL (32-36); Mean Corpuscular Volume 89.3 fL (80-100); Mean Platelet Volume 9.5 fL (7.4-10.4); Monocytes # (auto) 0.36 K/uL (0.11-0.59); Monocytes % (auto) 3.1 %; Neutrophils % (auto) 93.3 %; Platelet Count 207 K/uL (130-400); RDW Coefficient of Variation 15.1 % (11.5-14.5); RDW Standard Deviation 49.2 fL (36.4-46.3); Red Blood Count 4.03 M/uL (4.2-5.4); White Blood Count 11.68 K/uL (4.8-10.8)
[2018-11-25 18:33] LABS: Alanine Aminotransferase 25 U/L (12-78); Albumin Level 2.6 gm/dl (3.4-5.0); Aspartate Aminotransferase 20 U/L (15-37); Blood Urea Nitrogen 34 mg/dl (7-18); Calcium 8.7 mg/dl (8.5-10.1); Carbon Dioxide 26 mmol/L (21-32); Chloride 100 mmol/L (98-107); Creatinine Clr Calc Pharmacy 24.9 ml/min; Est GFR (African American) 35.4; Est GFR (Non-African American) 30.5; Glucose 88 mg/dl (70-99); Potassium 3.8 mmol/L (3.5-5.1); Sodium 131 mmol/L (136-145)
[2018-11-25 18:37] LABS: Albumin Globulin Ratio 0.6 (0.9-2); Alkaline Phosphatase 164 U/L (45-117); Bilirubin,Total 0.8 mg/dl (0.2-1); Globulin 4.5 gm/dl (2.5-4.0); Total Protein 7.1 gm/dl (6.4-8.2); Troponin I < 0.015 ng/ml (0-0.045)
--- NOTE | 2018-11-25 19:24 | XRay Report ---
XR chest 1V portable CLINICAL HISTORY: fever dyspnea COMPARISON STUDY: 08/30/2018 FINDINGS: The bones soft tissues and hemidiaphragms are normal. The cardiomediastinal silhouette is n ormal. The lungs are clear. The pulmonary vasculature is normal. IMPRESSION: Negative chest. The above report was generated using voice recognition software. It may contain grammatical, syntax or spelling errors. Electronically signed by: Dm Puente M.D. 11/25/2018 7:23 PM
--- NOTE | 2018-11-25 20:30 | Ultrasound Report ---
US gallbladder HISTORY: Pain. Nausea. fever, recent MRCP, RUQ pain COMPARISON: Prior examinations of 22, 23, and 11/13/2018 FINDINGS: Mild hepatomegaly. Gallbladder slightly distended. No evidence for shadowing gallstones. Gallbladder wall 2 mm. Common bile duct 5.5 mm overall. Pancreas is poorly seen. Right kidney is negative for hydronephrosis . IMPRESSION: 1. Mild gallbladder distention.. 2. No evidence for gallstones. 3. Normal caliber bile ducts. 4. Mild hepatomegaly. The above report was generated using voice recognition software. It may contain grammatical, syntax or spelling errors. Electronically signed by: mD Puente M.D. 11/25/2018 8:29 PM
--- NOTE | 2018-11-25 22:07 | History & Physical Report ---
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 ARF secondary to illness Hypertension, BP on the lower side COPD, ongoing tobacco abuse Lung status at baseline anemia subacute Hemoglobin at baseline from recent confinement GMF CS, IV Cefepime (hx E. coli, Enterobacter on previous outpatient urine cultures) Urology consult RE left hydronephrosis on abdominal CT October 2018 predisposing to UTI enterococcus (baseline hemoglobin of 11) Monitor creatinine response to IV fluids PT OT eval Nicotine patch as needed counseled DVT prophylaxis. Heparin subcu Full code History of Present Illness Chief Complaint: Generalized weakness Primary Care Provider: Dionisio Mayer History obtained from patient and records. Medical history significant for hypertension, hyperlipidemia, AAA, COPD, ongoing tobacco abuse, history of skin cancer per records, GERD, anemia (baseline hemoglobin of 11) Recent confinement 2 weeks ago for acute pancreatitis. 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 Ring encases the proximal left ureter and results in moderate left hydronephrosis with delayed left nephrogram. on imaging. Follow-up CT and [place] [facility] [place] for [place] 2018. Outpatient [facility] [place] Urology appointment contemplated end of the month for evaluation of hematuria as per outpatient records. Last 2 days patient noted generalized weakness, unable to stand, increased urinary frequency, fever and chills. Denies abdominal, flank pain, chest pain, S OB. At the ER patient received IV daptomycin and Zosyn for sepsis Allergies Allergy/AdvReac Type Severity Reaction Status Date / Time No Known Allergies Allergy Verified 11/11/18 22:51 Home Medications Home Medications Medication Instructions Recorded Confirmed Type aspirin [Aspir-81] 81 mg PO DAILY 08/30/18 11/25/18 History atorvastatin 40 mg PO DAILY 08/30/18 11/25/18 History bupropion HCl 150 mg PO BID 08/30/18 11/25/18 History esomeprazole magnesium [Nexium] 40 mg PO DAILY 08/30/18 11/25/18 History ipratropium-albuterol 1 puff INHALATION QID PRN 08/30/18 11/25/18 History calcium carbonate-vitamin D3 1 tab PO DAILY 11/11/18 11/25/18 History [Caltrate 600 + D] denosumab [Prolia] 1 dose SUBCUT DIRECTED 11/11/18 11/25/18 History meclizine 25 mg PO TID PRN 11/11/18 11/25/18 History ondansetron HCl [Zofran] 4 mg PO Q6 PRN 11/11/18 11/25/18 History ascorbic acid (vitamin C) [Vitamin 500 mg PO DAILY 30 Days #30 cap 11/14/1804/08 Rx C] ferrous sulfate [FerrouSul] 325 mg PO UD 30 Days #30 tab 11/14/18 11/25/18 Rx ciprofloxacin HCl [Cipro] 250 mg PO Q12 11/25/18 11/25/18 History Past Med/Surg History Medical History AAA (abdominal aortic aneurysm) (Acute) HLD (hyperlipidemia) (Chronic) CVA (cerebral vascular accident) Peripheral vascular disease Social History Current Living Situation: Spouse current occupation: [employer] Other Information That Helps Us Care for You: No Feels Safe at Home: Yes Safety Concerns: Feels Safe At This Time Smoking Status: Former smoker Tobacco Type: cigarettes Tobacco Cessation Education Requested by Patient: No Hx Alcohol Use: Yes Alcohol type: wine Alcohol Intake Frequency: 0-2 drinks per day Hx Substance Use: No Beliefs That Will Affect Care: None Communication Ability: Effective Review of Systems As per HPI, all 10 systems reviewed, all other ROS negative Physical Exam 2 Vital Signs (Past 24 Hours): Last Vital Signs Temp 37.1 C 11/25/18 19:26 Pulse 99 H 11/25/18 21:18 Resp 20 11/25/18 21:18 BP 99/50 L 11/25/18 21:18 Pulse Ox 96 11/25/18 21:18 Physical Exam: GENERAL: wane, no respiratory distress, slightly hard of hearing SKIN: Pallor , warm HEENT: pale palpebral conjunctivae, no ptosis, dry buccal mucosa NECK : Supple, short, no tenderness CHEST : Decreased breath sounds, no tenderness HEART : RRR, systolic murmur ABDOMEN: distention, minimal hypogastric tenderness EXTREMITIES : min LE swelling, no tenderness, no other conspicuous deformities noted NEUROLOGIC : Coherent, no facial asymmetry, mild hearing impairment Results & Data Laboratory Results Laboratory Results WBC 11.68 K/uL (4.8-10.8) H 11/25/18 17:50 RBC 4.03 M/uL (4.2-5.4) L 11/25/18 17:50 Hgb 11.7 g/dL (12.0-16.0) L 11/25/18 17:50 Hct 36.0 % (37-47) L 11/25/18 17:50 MCV 89.3 fL (80-100) 11/25/18 17:50 MCH 29.0 pg (25-34) 11/25/18 17:50 MCHC 32.5 g/dL (32-36) 11/25/18 17:50 RDW Std Deviation 49.2 fL (36.4-46.3) H 11/25/18 17:50 RDW Coeff of Kristel 15.1 % (11.5-14.5) H 11/25/18 17:50 Plt Count 207 K/uL (130-400) 11/25/18 17:50 MPV 9.5 fL (7.4-10.4) 11/25/18 17:50 Immature Gran % (Auto) 0.3 % 11/25/18 17:50 Neut % (Auto) 93.3 % 11/25/18 17:50 Lymph % (Auto) 2.9 % 11/25/18 17:50 [place] % (Auto) 3.1 % 11/25/18 17:50 Eos % (Auto) 0.3 % 11/25/18 17:50 Baso % (Auto) 0.1 % 11/25/18 17:50 Immature Gran # (Auto) 0.03 K/uL (0.00-0.02) H 11/25/18 17:50 Neut # (Auto) 10.90 K/uL (1.4-6.5) H 11/25/18 17:50 Lymph # (Auto) 0.34 K/uL (1.2-3.4) L 11/25/18 17:50 [place] # (Auto) 0.36 K/uL (0.11-0.59) 11/25/18 17:50 Eos # (Auto) 0.04 K/uL (0-0.5) 11/25/18 17:50 Baso # (Auto) 0.01 K/uL (0-0.2) 11/25/18 17:50 Sodium 131 mmol/L (136-145) L 11/25/18 17:50 Potassium 3.8 mmol/L (3.5-5.1) 11/25/18 17:50 Chloride 100 mmol/L (98-107) 11/25/18 17:50 Carbon Dioxide 26 mmol/L (21-32) 11/25/18 17:50 Anion Gap 5.0 (3-11) 11/25/18 17:50 BUN 34 mg/dl (7-18) H 11/25/18 17:50 Creatinine 1.61 mg/dl (0.6-1.2) H 11/25/18 17:50 Est Cr Clr Drug Dosing 24.9 ml/min 11/25/18 17:50 Est GFR ( Amer) 35.4 11/25/18 17:50 Est GFR (Non-Af Amer) 30.5 11/25/18 17:50 BUN/Creatinine Ratio 21.0 (10-20) H 11/25/18 17:50 Glucose 88 mg/dl (70-99) 11/25/18 17:50 POC Lactic Acid Remi 1.05 mmol/L (0.90-1.70) 11/25/18 18:46 Calcium 8.7 mg/dl (8.5-10.1) 11/25/18 17:50 Total Bilirubin 0.8 mg/dl (0.2-1) 11/25/18 17:50 AST 20 U/L (15-37) 11/25/18 17:50 ALT 25 U/L (12-78) 11/25/18 17:50 Alkaline Phosphatase 164 U/L (45-117) H 11/25/18 17:50 Troponin I < 0.015 ng/ml (0-0.045) 11/25/18 17:50 Total Protein 7.1 gm/dl (6.4-8.2) 11/25/18 17:50 Albumin 2.6 gm/dl (3.4-5.0) L 11/25/18 17:50 Globulin 4.5 gm/dl (2.5-4.0) H 11/25/18 17:50 Albumin/Globulin Ratio 0.6 (0.9-2) L 11/25/18 17:50 Procalcitonin 4.45 ng/ml (0-0.5) H 11/25/18 17:50 Urine Color Dark Yellow 11/25/18 18:00 Urine Appearance Turbid (Clear) H 11/25/18 18:00 Urine pH 5.5 (4.5-7.5) 11/25/18 18:00 Ur Specific [place] 1.019 (1.000-1.030) 11/25/18 18:00 Urine Protein 2+ (Negative) H 11/25/18 18:00 Urine Glucose (UA) Negative (Negative) 11/25/18 18:00 Urine Ketones Negative (Negative) 11/25/18 18:00 Urine Blood 2+ (Negative) H 11/25/18 18:00 Urine Nitrite Positive (Negative) H 11/25/18 18:00 Urine Bilirubin Negative (Negative) 11/25/18 18:00 Urine Urobilinogen Negative (Negative) 11/25/18 18:00 Ur Leukocyte Esterase 3+ (Negative) H 11/25/18 18:00 Urine WBC (Auto) >30 /hpf (0-5) H 11/25/18 18:00 Urine RBC (Auto) 10-30 /hpf (0-4) H 11/25/18 18:00 U Hyaline Cast (Auto) 1-5 /lpf (0-5) 11/25/18 18:00 U Epithel Cells (Auto) 0-5 /lpf (0-5) 11/25/18 18:00 Urine Bacteria (Auto) 2+ (Negative) H 11/25/18 18:00 Influenza Type A Ag Neg for Influ A (Neg) 11/25/18 18:00 Influenza Type B Ag Neg for Influ B (Neg) 11/25/18 18:00 Diagnostic Findings Chest x-ray: No acute disease Gallbladder ultrasound: Gallbladder distention, no stones _ (1) Sepsis Sepsis type: sepsis due to unspecified organism Qualified Code(s): A41.9 - Sepsis, unspecified organism
[2018-11-25 22:14] LABS: Magnesium 2.4 mg/dl (1.8-2.4)
[2018-11-25] MEDS ORDERED: LEVALBUTEROL 1.25MG/0.5ML NEB INH PRN (23:24)
[2018-11-25] MEDS ORDERED: IPRATROPIUM BROMIDE NEB SOLN 0.02% 2.5 ML VIAL INH PRN (23:24)
[2018-11-25] MEDS ORDERED: PROCHLORPERAZINE 5 MG in SYRINGE 4 ML IV PRN (23:24)
[2018-11-25] MEDS ORDERED: MECLIZINE HCL 25 MG TAB PO PRN (23:24)
[2018-11-25] MEDS ORDERED: XOPENEX/ATROVENT 1.25mg/0.5MG NEB COMBO NEB PRN (23:24)
[2018-11-26] MEDS ORDERED: NSS + 20MEQ KCL 20 MEQ/1,000 ML BAG IV ONE
[2018-11-26] MEDS: BuPROPion SR 150 MG TABCR PO SCH ×3 (00:05→20:57)
--- NOTE | 2018-11-26 01:20 | Emergency Department Note ---
Entered by Viviana Villegas acting as a scribe for ED Provider Note CHIEF COMPLAINT: Weakness HISTORY OF PRESENT ILLNESS: The patient is a 77 year old female presenting to the Emergency Department complaining of persistent weakness starting 1 day ago. The patient reports that she began to feel weak 1 day ago. She states that she has a mild headache, fever and her urine output has increased. The patient reports that she was last in the hospital around [place] and was diagnosed with pancreatitis. 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 EMS reports that the patient was in the hospital around [place] time for gallstones and was Cipro that the patient never picked up. Pt denies LOC, diaphoresis, visual changes, neck pain, chest pain, breathing difficulties, nausea, vomiting, abdominal pain, back pain, melena, hematochezia , numbness, lymphadenopathy, rash, or other complaints. REVIEW OF SYSTEMS: See HPI for pertinent positives and negatives. A total of ten systems were reviewed and were otherwise negative. PMHx/PSHx: AAA, HLD, Pancreatitis, CVA. SOCIAL HISTORY: Patient lives at home. PHYSICAL EXAM: GENERAL: Awake, alert, ill-appearing, in no distress. HENT: Normocephalic, atraumatic. Oropharynx unremarkable. EYES: Normal conjunctiva. Sclera non-icteric. NECK: Inspection normal. Non-tender. Supple. No nuchal rigidity. FROM. No masses. RESPIRATORY: Clear to auscultation. No wheezes. No rales. Normal respiratory effort. CARDIAC: Tachycardic rate. Normal rhythm. No murmurs. No rubs. Extremities warm and well perfused. Pulses equal. No JVD. GI: Soft, non-distended. RUQ tenderness to palpation. No rebound or guarding. No masses. RECTAL: Deferred. MUSCULOSKELETAL: Atraumatic. Chest examination reveals no tenderness. The back is symmetrical on inspection without obvious abnormality. There is no CVA tenderness to palpation. No joint edema. LOWER EXTREMITIES: Calves are equal size bilaterally and non-tender. No edema. No discoloration. NEURO: Normal sensorium. No sensory or motor deficits noted. SKIN: No rash or jaundice noted. EMERGENCY DEPARTMENT COURSE: 1755: Past medical records reviewed. The patient was evaluated in room B6, and a complete history and physical examination were performed. 1899: I reevaluated the patient at this time. 2100: I reviewed the patient's case with Dr. Candy Stallings hospitalist. He will evaluate the patient for further management. 2101: I spoke with the patient at this time and updated her on her disposition. MEDICAL DECISION MAKING: Triage Nursing notes reviewed. The patient's presentation and history were concerning for fever Etiologies such as viral syndrome, otitis, pharyngitis, pneumonia, urinary tract infection, sepsis, bacteremia, meningitis, as well as others were entertained. Patient was evaluated. She had a high fever and was tachycardic. She was hydrated. Blood work, cultures and urinalysis performed. The patient was found to have an elevated white blood cell count of 11.6. Chest x-ray is negative. Pro-calcitonin was elevated. Lactate was normal. Urinalysis very concerning for infection. Patient was treated with broad-spectrum antibiotics through the IV. She was reassessed and was feeling better. She had an ultrasound performed to evaluate her gallbladder given the recent testing raising some concerns about the gallbladder. This was unremarkable. Her LFTs were unremarkable. A consultation was placed with the hospital service. The patient was evaluated in the ER for further management. IMPRESSION: Sepsis Urinary tract infection 34-year-old PLAN: Being Evaluated by Hospitalist The scribe's documentation has been prepared under my direction and personally reviewed by me in its entirety. I confirm that the note above accurately reflects all work, treatment, procedures, and medical decision making performed by me. 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 Other Information That Helps Us Care for You: No Feels Safe at Home: Yes Safety Concerns: Feels Safe At This Time Smoking Status: Former smoker Tobacco Type: cigarettes Tobacco Cessation Education Requested by Patient: No Hx Alcohol Use: Yes Alcohol type: wine Alcohol Intake Frequency: 0-2 drinks per day Hx Substance Use: No Beliefs That Will Affect Care: None Preferred Language: Afghan Communication Ability: Effective Furniture Maker Required: No Results & Data Vital Signs Vital Signs - 24 hr 11/25/18 17:26 11/25/18 17:58 11/25/18 19:26 Temperature 39.2 C H 37.1 C Temperature Source Oral Oral Sepsis Recent Fever Within 48 Hours Yes Sepsis New/Unexplained Change in Mental Status No Sepsis Action Taken by Nursing No Action Required Pulse Rate 114 H Pulse Rate [Left Finger] 102 H Pulse Rhythm Regular Pulse Rhythm [Left Finger] Regular Pulse Strength Normal Pulse Strength [Left Finger] Normal Respiratory Rate 20 20 Respiratory Effort / Characteristics Non-Labored Spontaneous Non-Labored Spontaneous Respiratory Depth Normal Normal Respiratory Pattern Regular Regular Blood Pressure 114/62 Blood Pressure [Right Arm] 110/55 L Blood Pressure Mean 79 Blood Pressure Mean [Right Arm] 73 Blood Pressure Position Sitting Blood Pressure Position [Right Arm] Sitting Pulse Oximetry 91 91 94 Oxygen Delivery Method Room Air Room Air Room Air 11/25/18 20:33 11/25/18 21:18 11/25/18 22:49 Temperature Temperature Source Sepsis Recent Fever Within 48 Hours Sepsis New/Unexplained Change in Mental Status Sepsis Action Taken by Nursing Pulse Rate 90 Pulse Rate [Left Finger] 101 H 99 H Pulse Rhythm Pulse Rhythm [Left Finger] Regular Pulse Strength Pulse Strength [Left Finger] Normal Respiratory Rate 18 20 20 Respiratory Effort / Characteristics Non-Labored Spontaneous Respiratory Depth Normal Respiratory Pattern Regular Blood Pressure 94/39 L Blood Pressure [Right Arm] 109/58 L 99/50 L Blood Pressure Mean Blood Pressure Mean [Right Arm] 75 66 Blood Pressure Position Blood Pressure Position [Right Arm] Sitting Pulse Oximetry 94 96 94 Oxygen Delivery Method Room Air Room Air 11/25/18 22:55 Temperature 36.7 C Temperature Source Oral Sepsis Recent Fever Within 48 Hours Sepsis New/Unexplained Change in Mental Status Sepsis Action Taken by Nursing Pulse Rate Pulse Rate [Left Finger] 92 H Pulse Rhythm Pulse Rhythm [Left Finger] Pulse Strength Pulse Strength [Left Finger] Respiratory Rate 16 Respiratory Effort / Characteristics Respiratory Depth Respiratory Pattern Blood Pressure Blood Pressure [Right Arm] 100/53 L Blood Pressure Mean Blood Pressure Mean [Right Arm] 68 Blood Pressure Position Blood Pressure Position [Right Arm] Pulse Oximetry 97 Oxygen Delivery Method Room Air Home Medications Current Medication List: was personally reviewed by me Laboratory Data Attestation: I reviewed the patient's lab results. Result diagrams: 11/25/18 17:50 11/25/18 17:50 Lab Results 11/25/18 11/25/18 11/25/18 Range/Units 17:50 17:50 17:50 WBC 11.68 H (4.8-10.8) K/uL RBC 4.03 L (4.2-5.4) M/uL Hgb 11.7 L (12.0-16.0) g/dL Hct 36.0 L (37-47) % MCV 89.3 (80-100) fL MCH 29.0 (25-34) pg MCHC 32.5 (32-36) g/dL RDW Std Deviation 49.2 H (36.4-46.3) fL RDW Coeff of Kristel 15.1 H (11.5-14.5) % Plt Count 207 (130-400) K/uL MPV 9.5 (7.4-10.4) fL Immature Gran % (Auto) 0.3 % Neut % (Auto) 93.3 % Lymph % (Auto) 2.9 % Banner % (Auto) 3.1 % Eos % (Auto) 0.3 % Baso % (Auto) 0.1 % Immature Gran # (Auto) 0.03 H (0.00-0.02) K/uL Neut # (Auto) 10.90 H (1.4-6.5) K/uL Lymph # (Auto) 0.34 L (1.2-3.4) K/uL Banner # (Auto) 0.36 (0.11-0.59) K/uL Eos # (Auto) 0.04 (0-0.5) K/uL Baso # (Auto) 0.01 (0-0.2) K/uL Sodium 131 L (136-145) mmol/L Potassium 3.8 (3.5-5.1) mmol/L Chloride 100 (98-107) mmol/L Carbon Dioxide 26 (21-32) mmol/L Anion Gap 5.0 (3-11) BUN 34 H (7-18) mg/dl Creatinine 1.61 H (0.6-1.2) mg/dl Est Cr Clr Drug Dosing 24.9 ml/min Est GFR ( Amer) 35.4 Est GFR (Non-Af Amer) 30.5 BUN/Creatinine Ratio 21.0 H (10-20) Glucose 88 (70-99) mg/dl POC Lactic Acid Remi (0.90-1.70) mmol/L Calcium 8.7 (8.5-10.1) mg/dl Magnesium (1.8-2.4) mg/dl Total Bilirubin 0.8 (0.2-1) mg/dl AST 20 (15-37) U/L ALT 25 (12-78) U/L Alkaline Phosphatase 164 H (45-117) U/L Troponin I < 0.015 (0-0.045) ng/ml Total Protein 7.1 (6.4-8.2) gm/dl Albumin 2.6 L (3.4-5.0) gm/dl Globulin 4.5 H (2.5-4.0) gm/dl Albumin/Globulin Ratio 0.6 L (0.9-2) Procalcitonin 4.45 H (0-0.5) ng/ml TSH (0.300-4.500) uIu/ml Urine Color Urine Appearance (Clear) Urine pH (4.5-7.5) Ur Specific [place] (1.000-1.030) Urine Protein (Negative) Urine Glucose (UA) (Negative) Urine Ketones (Negative) Urine Blood (Negative) Urine Nitrite (Negative) Urine Bilirubin (Negative) Urine Urobilinogen (Negative) Ur Leukocyte Esterase (Negative) Urine WBC (Auto) (0-5) /hpf Urine RBC (Auto) (0-4) /hpf U Hyaline Cast (Auto) (0-5) /lpf U Epithel Cells (Auto) (0-5) /lpf Urine Bacteria (Auto) (Negative) Influenza Type A Ag (Neg) Influenza Type B Ag (Neg) 11/25/18 11/25/18 11/25/18 Range/Units 17:50 18:00 18:00 WBC (4.8-10.8) K/uL RBC (4.2-5.4) M/uL Hgb (12.0-16.0) g/dL Hct (37-47) % MCV (80-100) fL MCH (25-34) pg MCHC (32-36) g/dL RDW Std Deviation (36.4-46.3) fL RDW Coeff of Kristel (11.5-14.5) % Plt Count (130-400) K/uL MPV (7.4-10.4) fL Immature Gran % (Auto) % Neut % (Auto) % Lymph % (Auto) % Banner % (Auto) % Eos % (Auto) % Baso % (Auto) % Immature Gran # (Auto) (0.00-0.02) K/uL Neut # (Auto) (1.4-6.5) K/uL Lymph # (Auto) (1.2-3.4) K/uL Banner # (Auto) (0.11-0.59) K/uL Eos # (Auto) (0-0.5) K/uL Baso # (Auto) (0-0.2) K/uL Sodium (136-145) mmol/L Potassium (3.5-5.1) mmol/L Chloride (98-107) mmol/L Carbon Dioxide (21-32) mmol/L Anion Gap (3-11) BUN (7-18) mg/dl Creatinine (0.6-1.2) mg/dl Est Cr Clr Drug Dosing ml/min Est GFR ( Amer) Est GFR (Non-Af Amer) BUN/Creatinine Ratio (10-20) Glucose (70-99) mg/dl POC Lactic Acid Remi (0.90-1.70) mmol/L Calcium (8.5-10.1) mg/dl Magnesium 2.4 (1.8-2.4) mg/dl Total Bilirubin (0.2-1) mg/dl AST (15-37) U/L ALT (12-78) U/L Alkaline Phosphatase (45-117) U/L Troponin I (0-0.045) ng/ml Total Protein (6.4-8.2) gm/dl Albumin (3.4-5.0) gm/dl Globulin (2.5-4.0) gm/dl Albumin/Globulin Ratio (0.9-2) Procalcitonin (0-0.5) ng/ml TSH 2.820 (0.300-4.500) uIu/ml Urine Color Dark Yellow Urine Appearance Turbid H (Clear) Urine pH 5.5 (4.5-7.5) Ur Specific [place] 1.019 (1.000-1.030) Urine Protein 2+ H (Negative) Urine Glucose (UA) Negative (Negative) Urine Ketones Negative (Negative) Urine Blood 2+ H (Negative) Urine Nitrite Positive H (Negative) Urine Bilirubin Negative (Negative) Urine Urobilinogen Negative (Negative) Ur Leukocyte Esterase 3+ H (Negative) Urine WBC (Auto) >30 H (0-5) /hpf Urine RBC (Auto) 10-30 H (0-4) /hpf U Hyaline Cast (Auto) 1-5 (0-5) /lpf U Epithel Cells (Auto) 0-5 (0-5) /lpf Urine Bacteria (Auto) 2+ H (Negative) Influenza Type A Ag Neg for Influ A (Neg) Influenza Type B Ag Neg for Influ B (Neg) 11/25/18 Range/Units 18:46 WBC (4.8-10.8) K/uL RBC (4.2-5.4) M/uL Hgb (12.0-16.0) g/dL Hct (37-47) % MCV (80-100) fL MCH (25-34) pg MCHC (32-36) g/dL RDW Std Deviation (36.4-46.3) fL RDW Coeff of Kristel (11.5-14.5) % Plt Count (130-400) K/uL MPV (7.4-10.4) fL Immature Gran % (Auto) % Neut % (Auto) % Lymph % (Auto) % Banner % (Auto) % Eos % (Auto) % Baso % (Auto) % Immature Gran # (Auto) (0.00-0.02) K/uL Neut # (Auto) (1.4-6.5) K/uL Lymph # (Auto) (1.2-3.4) K/uL Banner # (Auto) (0.11-0.59) K/uL Eos # (Auto) (0-0.5) K/uL Baso # (Auto) (0-0.2) K/uL Sodium (136-145) mmol/L Potassium (3.5-5.1) mmol/L Chloride (98-107) mmol/L Carbon Dioxide (21-32) mmol/L Anion Gap (3-11) BUN (7-18) mg/dl Creatinine (0.6-1.2) mg/dl Est Cr Clr Drug Dosing ml/min Est GFR ( Amer) Est GFR (Non-Af Amer) BUN/Creatinine Ratio (10-20) Glucose (70-99) mg/dl POC Lactic Acid Remi 1.05 (0.90-1.70) mmol/L Calcium (8.5-10.1) mg/dl Magnesium (1.8-2.4) mg/dl Total Bilirubin (0.2-1) mg/dl AST (15-37) U/L ALT (12-78) U/L Alkaline Phosphatase (45-117) U/L Troponin I (0-0.045) ng/ml Total Protein (6.4-8.2) gm/dl Albumin (3.4-5.0) gm/dl Globulin (2.5-4.0) gm/dl Albumin/Globulin Ratio (0.9-2) Procalcitonin (0-0.5) ng/ml TSH (0.300-4.500) uIu/ml Urine Color Urine Appearance (Clear) Urine pH (4.5-7.5) Ur Specific [place] (1.000-1.030) Urine Protein (Negative) Urine Glucose (UA) (Negative) Urine Ketones (Negative) Urine Blood (Negative) Urine Nitrite (Negative) Urine Bilirubin (Negative) Urine Urobilinogen (Negative) Ur Leukocyte Esterase (Negative) Urine WBC (Auto) (0-5) /hpf Urine RBC (Auto) (0-4) /hpf U Hyaline Cast (Auto) (0-5) /lpf U Epithel Cells (Auto) (0-5) /lpf Urine Bacteria (Auto) (Negative) Influenza Type A Ag (Neg) Influenza Type B Ag (Neg) Administered Medications Bupropion HCl (Wellbutrin-Sr) 150 mg PO BID ELENITA Stop: 12/26/18 00:00 Last Admin: 11/26/18 00:05 Dose: 150 mg Potassium Chloride/Sodium Chloride (Normal Saline W/20 Meq Kcl) 20 meq in 1, 000 mls @ 80 mls/hr IV .[id number] ONE Stop: 11/26/18 12:29 Last Admin: 11/26/18 00:05 Dose: 80 mls/hr Discontinued Medications Acetaminophen (Tylenol) 1,000 mg PO ONE STA Stop: 11/25/18 18:00 Last Admin: 11/25/18 19:00 Dose: 1,000 mg Daptomycin (Cubicin) 420 mg IV NOW STA Stop: 11/25/18 18:05 Last Admin: 11/25/18 19:27 Dose: 420 mg Sodium Chloride (Nss 1000ml) 1,000 mls @ 999 mls/hr IV .[id number] ELENITA Stop: 11/25/18 19:00 Last Admin: 11/25/18 19:00 Dose: 999 mls/hr Piperacillin Sod/Tazobactam Sod (Zosyn) 4.5 gm in 120 mls @ 240 mls/hr IV NOW ONE Stop: 11/25/18 18:33 Last Infusion: 11/25/18 19:35 Dose: Admin: 11/25/18 19:00 Dose: 240 mls/hr Daptomycin 425 mg/ Syringe 8.5 mls @ 4.25 mls/min IV 1804 ELENITA; Protocol Stop: 11/25/18 19:00 Last Admin: 11/25/18 19:30 Dose: Not Given Imaging Data Radiologist's Impression: Radiology results as stated below per my review and the radiologist's interpretation: XR chest 1V portable CLINICAL HISTORY: fever dyspnea COMPARISON STUDY: 08/30/2018 FINDINGS: The bones soft tissues and hemidiaphragms are normal. The cardiomediastinal silhouette is normal. The lungs are clear. The pulmonary vasculature is normal. IMPRESSION: Negative chest. The above report was generated using voice recognition software. It may contain grammatical, syntax or spelling errors. Electronically signed by: Dm Puente M.D. 11/25/2018 7:23 PM US gallbladder HISTORY: Pain. Nausea. fever, recent MRCP, RUQ pain COMPARISON: Prior examinations of , , and 11/13/2018 FINDINGS: Mild hepatomegaly. Gallbladder slightly distended. No evidence for shadowing gallstones. Gallbladder wall 2 mm. Common bile duct 5.5 mm overall. Pancreas is poorly seen. Right kidney is negative for hydronephrosis. IMPRESSION: 1. Mild gallbladder distention.. 2. No evidence for gallstones. 3. Normal caliber bile ducts. 4. Mild hepatomegaly. The above report was generated using voice recognition software. It may contain grammatical, syntax or spelling errors. Electronically signed by: Dm Puente M.D. 11/25/2018 8:29 PM ECG Data Attestation: I personally reviewed and interpreted this ECG as follows: Indication: weakness Rate (beats per minute): 113 Rhythm: sinus tachycardia Findings: no PAC, no PVC, no ST depression and no ST elevation Blood Pressure Blood Pressure Findings: Low blood pressure Blood Pressure Disposition: further management by hospitalist Discharge Plan Visit Data *Final* Discharge Date/Time: 11/25/18 22:49 Chief Complaint: Weakness ED Provider: Zach Porter Discharge Problem: Sepsis Patient Disposition: Admitted As Inpatient Discharge Instructions Interventions: ED Discharge Assessment Last Done: 11/25/18 22:49 The scribe's documentation has been prepared under my direction and personally reviewed by me in its entirety. I confirm that the note above accurately reflects all work, treatment, procedures, and medical decision making performed by me.
[2018-11-26] MEDS: ACETAMINOPHEN 325 MG TAB PO PRN ×2 (03:01→18:11)
[2018-11-26] MEDS: CEFEPIME 1,000 MG in SYRINGE 0 ML IV SCH (03:13)
[2018-11-26] MEDS: HEPARIN SOD 5,000 UNIT/0.5 ML VIAL SQ SCH ×3 (05:59→20:35)
[2018-11-26 06:07] LABS: Eosinophils # (auto) 0.05 K/uL (0-0.5); Eosinophils % (auto) 0.8 %; Hematocrit (blood only) 32.4 % (37-47); Hemoglobin 10.7 g/dL (12.0-16.0); Immature Granulocytes # (auto) 0.02 K/uL (0.00-0.02); Immature Granulocytes % (auto) 0.3 %; Lymphocytes # (auto) 0.41 K/uL (1.2-3.4); Lymphocytes % (auto) 6.4 %; Mean Corpuscular Volume 90.3 fL (80-100); Mean Platelet Volume 9.5 fL (7.4-10.4); Monocytes % (auto) 4.7 %; Neutrophils # (auto) 5.61 K/uL (1.4-6.5); Neutrophils % (auto) 87.8 %; Platelet Count 161 K/uL (130-400); RDW Coefficient of Variation 15.3 % (11.5-14.5); RDW Standard Deviation 50.5 fL (36.4-46.3); Red Blood Count 3.59 M/uL (4.2-5.4); White Blood Count 6.39 K/uL (4.8-10.8)
[2018-11-26 06:44] LABS: Albumin Level 2.1 gm/dl (3.4-5.0); BUN Creatinine Ratio 23.6 (10-20); Calcium 7.9 mg/dl (8.5-10.1); Creatinine Clr Calc Pharmacy 25.5 ml/min; Est GFR (African American) 40.2; Est GFR (Non-African American) 34.6; Potassium 3.6 mmol/L (3.5-5.1)
[2018-11-26 06:47] LABS: Albumin Globulin Ratio 0.6 (0.9-2); Bilirubin,Total 0.7 mg/dl (0.2-1); Globulin 3.8 gm/dl (2.5-4.0); Total Protein 5.9 gm/dl (6.4-8.2)
[2018-11-26] MEDS: ASPIRIN 81 MG ECTAB PO SCH (08:09)
[2018-11-26] MEDS: PANTOprazole 40 MG TAB PO SCH (08:09)
[2018-11-26] MEDS: FERROUS SULFATE 325 MG TAB PO SCH (08:10)
[2018-11-26] MEDS: ATORVASTATIN 40 MG TAB PO SCH (08:10)
[2018-11-26] MEDS ORDERED: CEFEPIME CONSULT ACTIVE PRN (09:00)
--- NOTE | 2018-11-26 15:15 | Hospitalist Progress Note ---
Date of Service November 26, 2018 Assessment & Plan (1) Sepsis: (2) UTI (urinary tract infection): (3) Bacteremia: Meet sepsis criteria on admission with presentation of Elevated WBC, Febrile and tachycardia UA positive for nitrite, leukocytes and bacteria CT abd/pelvis back on 11/07 showed perianeurysmal structure impinging on left ureter and causing moderate left hydronephrosis Blood cx positive for gram negative bacilli Urine cx positive for Ecoli Receives dapto and zosyn in the ER Starting on Cefepime IV Will repeat blood cx ID consult Monitor CBC (4) Hydronephrosis of left kidney: Creatinine on admission 1.6 CT abd/pelvis back on 11/07 showed perianeurysmal structure impinging on left ureter and causing moderate left hydronephrosis Received IVF Creatinine improves to 1.4 today Urology consult Continue IV abx with Cefepime (5) Acute kidney failure: Possible related to Hydronephrosis Creatinine improves to 1.4 Received IVF Will continue gentle IV (6) AAA (abdominal aortic aneurysm): Follow-up with outpatient [facility] vascular evaluation scheduled for December 2018. Stable (7) Anemia: Hgb 10.7 today Continue monitor CBC Generalized Weakness PT/OT eval Fall precaution DVT px on heparin subq CODE STATUS FULL CODE Subjective Pt was seen and examined Lying in bed with daughter at bedside Pt said that she feels weak and chills Denies any chest pain, palpitation, dizziness and SOB Physical Exam 2 Vital Signs (Past 24 Hours): Last Vital Signs Temp 36.3 C L 11/26/18 14:07 Pulse 106 H 11/26/18 14:07 Resp 22 11/26/18 14:07 BP 146/74 H 11/26/18 14:07 Pulse Ox 97 11/26/18 14:07 Physical Exam: General- No acute distress Head- atraumatic Eyes- PERRL, EOMI, ENT- oropharynx clear Neck- supple, no JVD Lungs- poor air entry due to unable to take deep breath Heart- regular rhythm; +systolic murmur Abdomen- normal bowel sounds, nontender Extremities- no calf tenderness Neuro- alert, oriented x 3; PERRL, EOMI; no facial palsy; no dysarthria Skin- warm & dry _ (1) AAA (abdominal aortic aneurysm) Presence of rupture: without rupture Qualified Code(s): I71.4 - Abdominal aortic aneurysm, without rupture (2) Sepsis Sepsis type: sepsis due to unspecified organism Qualified Code(s): A41.9 - Sepsis, unspecified organism
[2018-11-27] MEDS: CEFEPIME 1,000 MG in SYRINGE 0 ML IV SCH (03:17)
[2018-11-27] MEDS: ACETAMINOPHEN 325 MG TAB PO PRN (03:54)
[2018-11-27] MEDS: HEPARIN SOD 5,000 UNIT/0.5 ML VIAL SQ SCH ×3 (06:01→20:59)
[2018-11-27] MEDS ORDERED: SODIUM CHLORIDE 0.9% 1000ML 1,000 ML IV SCH (07:45)
[2018-11-27] MEDS: BuPROPion SR 150 MG TABCR PO SCH ×2 (07:45→20:58)
[2018-11-27] MEDS: ATORVASTATIN 40 MG TAB PO SCH (07:46)
[2018-11-27] MEDS: PANTOprazole 40 MG TAB PO SCH (07:46)
[2018-11-27] MEDS: ASPIRIN 81 MG ECTAB PO SCH (07:46)
[2018-11-27 08:40] LABS: BUN Creatinine Ratio 20.9 (10-20); Calcium 8.4 mg/dl (8.5-10.1); Creatinine Clr Calc Pharmacy 29.1 ml/min; Est GFR (African American) 47.1; Est GFR (Non-African American) 40.7; Potassium 3.6 mmol/L (3.5-5.1)
--- NOTE | 2018-11-27 10:08 | Infectious Disease Consult ---
Date of Consultation November 27, 2018 Assessment & Plan (1) Sepsis due to Escherichia coli with no resultant organ failure: will continue IV abx for now, pending repeat cultures. If negative, can be changed to po abx to complete 14 days. (2) UTI (urinary tract infection): History of Present Illness Attending Physician: Laverne Zaidi MD pt admitted with weakness, urinary frequency and f/c. tmax on 11/25 - 39.2. was placed on vanco and zosyn in ER, now on cefepime. tolerating well. she was ambulating with PT in halls this am. states she was unable to sit up in bed yesterday, feeling much better today. no additional fever noted. wbc initially 11, 6 today. 11/25 UA >30 wbc, +2 bacteria, no urine culture done but blood cultures 3/3 sets from ER are growing pansensitive E. coli. CXR negative in ER. no cough, sob, cp, no abd pain, no n/v/d. denies frequency, hematuria, dysuria on my exam. CT of abd in ER revealed known infrarenal AAA with narrowing of L ureter with left hydronephrosis. She is feeling much better, ate breakfast without difficulty. asking to go home by wed as she has a sick cat at home. ID consulted for bacteremia. Allergies Allergy/AdvReac Type Severity Reaction Status Date / Time No Known Allergies Allergy Verified 11/11/18 22:51 Home Medications Home Medications Medication Instructions Recorded Confirmed Type aspirin [Aspir-81] 81 mg PO DAILY 08/30/18 11/25/18 History atorvastatin 40 mg PO DAILY 08/30/18 11/25/18 History bupropion HCl 150 mg PO BID 08/30/18 11/25/18 History esomeprazole magnesium [Nexium] 40 mg PO DAILY 08/30/18 11/25/18 History ipratropium-albuterol 1 puff INHALATION QID PRN 08/30/18 11/25/18 History calcium carbonate-vitamin D3 1 tab PO DAILY 11/11/18 11/25/18 History [Caltrate 600 + D] denosumab [Prolia] 1 dose SUBCUT DIRECTED 11/11/18 11/25/18 History meclizine 25 mg PO TID PRN 11/11/18 11/25/18 History ondansetron HCl [Zofran] 4 mg PO Q6 PRN 11/11/18 11/25/18 History ascorbic acid (vitamin C) [Vitamin 500 mg PO DAILY 30 Days #30 cap 11/14/1804/08 Rx C] ferrous sulfate [FerrouSul] 325 mg PO UD 30 Days #30 tab 11/14/18 11/25/18 Rx ciprofloxacin HCl [Cipro] 250 mg PO Q12 11/25/18 11/25/18 History Patient History Medical History AAA (abdominal aortic aneurysm) (Acute) HLD (hyperlipidemia) (Chronic) CVA (cerebral vascular accident) Peripheral vascular disease Family History Other Heart disease Social History Current Living Situation: Spouse 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 Physical Exam 2 Vital Signs (Past 24 Hours): Last Vital Signs Temp 36.7 C 11/27/18 07:58 Pulse 81 11/27/18 07:58 Resp 16 11/27/18 07:58 BP 113/64 11/27/18 07:58 Pulse Ox 97 11/27/18 07:58 Constitutional: WD/WN, vitals as above Eyes: PERRL, conjunctivae normal, anicteric sclerae ENMT: external ear and nose normal, oropharynx normal Neck: normal visual inspection Respiratory: normal respiratory effort, lungs clear to auscultation Cardiovascular: RRR, no murmur, no edema Gastrointestinal (Abdomen): normal bowel sounds, soft, nontender, no hepatosplenomegaly Musculoskeletal: no cyanosis or clubbing, extremities motor strength 5/5 Skin: no rashes, warm and dry Psychiatric: A+Ox3, euthymic affect Results & Data Laboratory Results Microbiology 11/25/18 18:52 Blood Blood Culture - Preliminary Gram negative bacilli 11/25/18 18:37 Blood Blood Culture - Preliminary Gram negative bacilli 11/25/18 18:00 Urine,Straight Cath Urine Culture - Final Escherichia coli
[2018-11-27] MEDS: AMPICILLIN/SULBACTAM SOD 3,000 MG in 0.9 % SODIUM CHLORIDE 100 ML IV SCH ×2 (12:04→18:04)
--- NOTE | 2018-11-27 13:39 | Hospitalist Progress Note ---
Date of Service November 27, 2018 Assessment & Plan (1) Sepsis: (2) UTI (urinary tract infection): (3) Bacteremia: Meet sepsis criteria on admission with presentation of Elevated WBC, Febrile and tachycardia UA positive for nitrite, leukocytes and bacteria CT abd/pelvis back on 11/07 showed perianeurysmal structure impinging on left ureter and causing moderate left hydronephrosis Blood cx positive for gram negative bacilli Urine cx positive for Ecoli Receives dapto and zosyn in the ER ID on board recommended to continue IV cefepime for now Repeat blood cx pending Will need 14 days course of abx. if repeat blood cx negative, will change to oral abx Monitor CBC (4) Hydronephrosis of left kidney: Creatinine on admission 1.6 CT abd/pelvis back on 11/07 showed perianeurysmal structure impinging on left ureter and causing moderate left hydronephrosis Received IVF Creatinine improves to 1.4 to 1.2 today Urology consult - pending Continue IV abx with Cefepime (5) Acute kidney failure: Hx CKD stage 3 Possible related to Hydronephrosis Creatinine improves to 1.4 Received IVF -->1.2 Will continue gentle IV x 1bag (6) AAA (abdominal aortic aneurysm): Follow-up with outpatient [facility] [place] vascular evaluation scheduled for December 2018. Stable (7) Anemia: Hgb 10.7 yesterday Continue monitor CBC Generalized Weakness PT/OT eval Fall precaution DVT px on heparin subq CODE STATUS FULL CODE Subjective Pt was seen and examined Lying in bed with no distress Pt said that she feels much better today She said that she walked with therapy today and did better than yesterday Denies any chest pain, palpitation, dizziness and SOB Physical Exam 2 Vital Signs (Past 24 Hours): Last Vital Signs Temp 36.7 C 11/27/18 07:58 Pulse 81 11/27/18 07:58 Resp 16 11/27/18 07:58 BP 113/64 11/27/18 07:58 Pulse Ox 97 11/27/18 07:58 Physical Exam: General- No acute distress Head- atraumatic Eyes- PERRL, EOMI, ENT- oropharynx clear Neck- supple, no JVD Lungs- poor air entry due to unable to take deep breath Heart- regular rhythm; +systolic murmur Abdomen- normal bowel sounds, nontender Extremities- no calf tenderness Neuro- alert, oriented x 3; PERRL, EOMI; no facial palsy; no dysarthria Skin- warm & dry _ (1) AAA (abdominal aortic aneurysm) Presence of rupture: without rupture Qualified Code(s): I71.4 - Abdominal aortic aneurysm, without rupture (2) Sepsis Sepsis type: sepsis due to unspecified organism Qualified Code(s): A41.9 - Sepsis, unspecified organism
[2018-11-28] MEDS: ACETAMINOPHEN 325 MG TAB PO PRN (00:30)
[2018-11-28] MEDS: AMPICILLIN/SULBACTAM SOD 3,000 MG in 0.9 % SODIUM CHLORIDE 100 ML IV SCH ×4 (00:32→18:31)
[2018-11-28] MEDS: HEPARIN SOD 5,000 UNIT/0.5 ML VIAL SQ SCH ×3 (05:51→21:01)
[2018-11-28 07:58] LABS: BUN Creatinine Ratio 16.2 (10-20); Calcium 8.5 mg/dl (8.5-10.1); Creatinine Clr Calc Pharmacy 31.6 ml/min; Est GFR (African American) 52.1; Est GFR (Non-African American) 44.9; Potassium 3.4 mmol/L (3.5-5.1)
[2018-11-28] MEDS ORDERED: POTASSIUM CHLORIDE 10 MEQ TABCR PO STA (08:28)
[2018-11-28] MEDS: BuPROPion SR 150 MG TABCR PO SCH ×2 (08:56→21:01)
[2018-11-28] MEDS: PANTOprazole 40 MG TAB PO SCH (08:56)
[2018-11-28] MEDS: ATORVASTATIN 40 MG TAB PO SCH (08:56)
[2018-11-28] MEDS: FERROUS SULFATE 325 MG TAB PO SCH (08:56)
[2018-11-28] MEDS: ASPIRIN 81 MG ECTAB PO SCH (08:57)
[2018-11-28] MEDS: TRAMADOL HCL 50 MG TABLET PO PRN ×2 (09:04→18:31)
--- NOTE | 2018-11-28 14:45 | Hospitalist Progress Note ---
Date of Service November 28, 2018 Assessment & Plan (1) Sepsis: (2) UTI (urinary tract infection): (3) Bacteremia: Meet sepsis criteria on admission with presentation of Elevated WBC, Febrile and tachycardia UA positive for nitrite, leukocytes and bacteria CT abd/pelvis back on 11/07 showed perianeurysmal structure impinging on left ureter and causing moderate left hydronephrosis Blood cx positive for gram negative bacilli (Ecoli pansensitive) Urine cx positive for Ecoli Receives dapto and zosyn in the ER ID on board recommended to continue IV cefepime for now Preliminary repeat blood cx no growth for now If repeat blood cx negative, will change to oral abx. Will need 14 days course of oral abx from the date of the repeat blood cx on discharge ID on board (4) Hydronephrosis of left kidney: Creatinine on admission 1.6 CT abd/pelvis back on 11/07 showed perianeurysmal structure impinging on left ureter and causing moderate left hydronephrosis Received IVF Creatinine improves to 1.4 to 1.2-->1.17 today e Case discussed with urology dr. Gomes Pt already had an appt on 12/21 with urology outpatient Pt will need to complete 14 days of oral abx Renal function back to baseline OK with urologist to be seen as an outpatient Dr. Gomes said that if pt decompensates and kidney function worsening, to call her that she can see her. Official consult cancelled Please monitor BMP in am (5) Acute kidney failure: Hx CKD stage 3 Possible related to Hydronephrosis Creatinine improves to 1.4 Received IVF -->1.2--->1.17 today Monitor BMP Check BMP in 1 week after discharge (6) AAA (abdominal aortic aneurysm): Follow-up with outpatient [facility] [place] vascular evaluation scheduled for December 2018. Stable (7) Anemia: Stable Continue monitor CBC Generalized Weakness PT/OT eval Fall precaution DVT px on heparin subq CODE STATUS FULL CODE Disposition Possible discharge tomorrow if repeat blood cx negative Will need 14 days course of oral abx Subjective Pt was seen and examined Sitting at the edge of the bed with no distress Pt said that she feels fine now Denies any chest, pain, palpitation, dizziness and SOB Physical Exam 2 Vital Signs (Past 24 Hours): Last Vital Signs Temp 36.7 C 11/28/18 13:10 Pulse 101 H 11/28/18 07:39 Resp 20 11/28/18 07:39 BP 153/83 H 11/28/18 07:39 Pulse Ox 96 11/28/18 07:39 Physical Exam: General- No acute distress Head- atraumatic Eyes- PERRL, EOMI, ENT- oropharynx clear Neck- supple, no JVD Lungs- poor air entry due to unable to take deep breath Heart- regular rhythm; +systolic murmur Abdomen- normal bowel sounds, nontender Extremities- no calf tenderness Neuro- alert, oriented x 3; PERRL, EOMI; no facial palsy; no dysarthria Skin- warm & dry _ (1) AAA (abdominal aortic aneurysm) Presence of rupture: without rupture Qualified Code(s): I71.4 - Abdominal aortic aneurysm, without rupture (2) Sepsis Sepsis type: sepsis due to unspecified organism Qualified Code(s): A41.9 - Sepsis, unspecified organism
--- NOTE | 2018-11-28 15:13 | Infectious Disease Progress Nt ---
Date of Service November 28, 2018 Assessment & Plan (1) Sepsis due to Escherichia coli with no resultant organ failure: will continue IV abx for now, pending repeat cultures. If negative, can be changed to po augmentin to complete 14 days. ok for d/c when otherwise stable. (2) UTI (urinary tract infection): Subjective repeat cultures negative to date. afebrile. tolerating abx. no new labs. Physical Exam 2 Vital Signs (Past 24 Hours): Last Vital Signs Temp 36.7 C 11/28/18 13:10 Pulse 101 H 11/28/18 07:39 Resp 20 11/28/18 07:39 BP 153/83 H 11/28/18 07:39 Pulse Ox 96 11/28/18 07:39 Results & Data Laboratory Results Microbiology 11/26/18 15:52 Blood Blood Culture - Preliminary No growth to date. 11/26/18 15:52 Blood Blood Culture - Preliminary No growth to date. 11/25/18 18:52 Blood Blood Culture - Final Escherichia coli 11/25/18 18:37 Blood Blood Culture - Final Escherichia coli 11/25/18 18:00 Urine,Straight Cath Urine Culture - Final Escherichia coli
[2018-11-29] MEDS: AMPICILLIN/SULBACTAM SOD 3,000 MG in 0.9 % SODIUM CHLORIDE 100 ML IV SCH ×3 (00:12→13:01)
[2018-11-29] MEDS: HEPARIN SOD 5,000 UNIT/0.5 ML VIAL SQ SCH ×2 (06:19→13:02)
[2018-11-29 06:31] LABS: Hematocrit (blood only) 29.7 % (37-47); Hemoglobin 9.7 g/dL (12.0-16.0); Mean Corpuscular Hgb Conc 32.7 g/dL (32-36); Mean Corpuscular Volume 87.9 fL (80-100); Mean Platelet Volume 9.7 fL (7.4-10.4); Platelet Count 143 K/uL (130-400); RDW Coefficient of Variation 15.6 % (11.5-14.5); RDW Standard Deviation 50.5 fL (36.4-46.3); Red Blood Count 3.38 M/uL (4.2-5.4); White Blood Count 10.97 K/uL (4.8-10.8)
[2018-11-29 07:01] LABS: BUN Creatinine Ratio 17.1 (10-20); Creatinine Clr Calc Pharmacy 38.1 ml/min; Est GFR (African American) 65.3; Est GFR (Non-African American) 56.3; Potassium 3.2 mmol/L (3.5-5.1)
[2018-11-29] MEDS: PANTOprazole 40 MG TAB PO SCH (08:43)
[2018-11-29] MEDS: BuPROPion SR 150 MG TABCR PO SCH (08:43)
[2018-11-29] MEDS: ASPIRIN 81 MG ECTAB PO SCH (08:43)
[2018-11-29] MEDS: ATORVASTATIN 40 MG TAB PO SCH (08:44)
--- NOTE | 2018-11-29 14:26 | Hospitalist Progress Note ---
Date of Service November 29, 2018 Assessment & Plan (1) Sepsis: Meet sepsis criteria on admission with presentation of Elevated WBC, Febrile and tachycardia UA positive for nitrite, leukocytes and bacteria CT abdomen/pelvis done back on 11/07 clay-aneurysmal structure impinging on left ureter and causing moderate left hydronephrosis on CT imaging from recent confinement. ARF secondary to illness Hypertension, BP on the lower side COPD, ongoing tobacco abuse Lung status at baseline anemia subacute Hemoglobin at baseline from recent confinement CS, IV Cefepime (hx E. coli, Enterobacter on previous outpatient urine cultures) Urology consult RE left hydronephrosis on abdominal CT October 2018 predisposing to UTI enterococcus (baseline hemoglobin of 11) Blood culture : postive for E Coli pt is was treated with IV Abx repeat blood culture shows no growth abx changed to PO Augmentin (2) UTI (urinary tract infection): (3) Bacteremia: Meet sepsis criteria on admission with presentation of Elevated WBC, Febrile and tachycardia UA positive for nitrite, leukocytes and bacteria CT abd/pelvis back on 11/07 showed perianeurysmal structure impinging on left ureter and causing moderate left hydronephrosis Blood cx positive for gram negative bacilli (Ecoli pansensitive) Urine cx positive for Ecoli Receives dapto and zosyn in the ER ID on board recommended to continue IV cefepime for now Preliminary repeat blood cx no growth for now If repeat blood cx negative, will change to oral abx. Will need 14 days course of oral abx from the date of the repeat blood cx on discharge Abx changed to PO Augmentin , complete 10 more days of course ID on board (4) Hydronephrosis of left kidney: Creatinine on admission 1.6 CT abd/pelvis back on 11/07 showed perianeurysmal structure impinging on left ureter and causing moderate left hydronephrosis Received IVF Creatinine improves to 1.4 to 1.2-->1.17 today e Case discussed with urology dr. Gomes Pt already had an appt on 12/21 with urology outpatient Pt will need to complete 14 days of oral abx Renal function back to baseline OK with urologist to be seen as an outpatient Dr. Gomes said that if pt decompensates and kidney function worsening, to call her that she can see her. Official consult cancelled (5) Acute kidney failure: Hx CKD stage 3 Possible related to Hydronephrosis Creatinine improves to 1.4 Received IVF -->1.2--->1.17 Monitor BMP out pt follow up with Urology (6) AAA (abdominal aortic aneurysm): Follow-up with outpatient [facility] [place] vascular evaluation scheduled for December 2018. Stable (7) Anemia: Stable Continue monitor CBC DVT px on heparin subq CODE STATUS FULL CODE Disposition stable to be discharged home today Subjective no fever or chills feels fine no nausea , appetite fair wondering is she can be discharged home today Physical Exam 2 Vital Signs (Past 24 Hours): Last Vital Signs Temp 36.8 C 11/29/18 07:18 Pulse 86 11/29/18 07:18 Resp 18 11/29/18 07:18 BP 130/71 11/29/18 07:18 Pulse Ox 98 11/29/18 07:18 Physical Exam: GENERAL: No sign of distress, HEENT: Sclera nonicteric, pink-purple bilateral equal reactive to light extraocular muscle intact Normal oral mucosa, neck: No JVD, no thyromegaly, trachea midline Lungs: Clear to auscultate, no wheeze or rales Cardiovascular: Regular S1 and S2, no murmur or gallop, no JVD, no lower extremity edema Abdomen: Soft, nontender, bowel sounds active, no hepatosplenomegaly Extremities: No rash or deformity, normal joint, Neuro: No focal neurological deficit, no dysarthria, no facial droop Psych: Alert awake oriented x3: Euthymic Skin: No rash LYMPH NODES: No cervical lymphadenopathy Constitutional: WD/WN, vitals as above Eyes: PERRL, conjunctivae normal, anicteric sclerae ENMT: external ear and nose normal, oropharynx normal Neck: normal visual inspection Respiratory: normal respiratory effort, lungs clear to auscultation Cardiovascular: RRR, no murmur, no edema Gastrointestinal (Abdomen): normal bowel sounds, soft, nontender, no hepatosplenomegaly Musculoskeletal: no cyanosis or clubbing, extremities motor strength 5/5 Skin: no rashes, warm and dry Psychiatric: A+Ox3, euthymic affect _ (1) AAA (abdominal aortic aneurysm) Presence of rupture: without rupture Qualified Code(s): I71.4 - Abdominal aortic aneurysm, without rupture (2) Sepsis Sepsis type: sepsis due to unspecified organism Qualified Code(s): A41.9 - Sepsis, unspecified organism
[2018-11-29] MEDS ORDERED: AMOXICILLIN/CLAVULANATE 875 MG TAB PO ONE (14:45)
--- NOTE | 2018-11-30 14:26 | Discharge Summary ---
Date of Service November 30, 2018 Admission HPI Per Admitting Provider History obtained from patient and records. Medical history significant for hypertension, hyperlipidemia, AAA, COPD, ongoing tobacco abuse, history of skin cancer per records, GERD, anemia (baseline hemoglobin of 11) Recent confinement 2 weeks ago for acute pancreatitis. 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 Ring encases the proximal left ureter and results in moderate left hydronephrosis with delayed left nephrogram. on imaging. Follow-[place] CT and [place] [facility] [place] for [place] 2018. [place] [facility] [place] contemplated end of the month for evaluation of hematuria as per outpatient records. Last 2 days patient noted generalized weakness, unable to stand, increased urinary frequency, fever and chills. Denies abdominal, flank pain, chest pain, S OB. At the ER patient received IV daptomycin and Zosyn for sepsis Principal Diagnosis SEPSIS /E COLI BACTEREMIA Discharge Exam Constitutional WD/WN, vitals as above Eyes PERRL, conjunctivae normal, anicteric sclerae ENMT external ear and nose normal, oropharynx normal Neck normal visual inspection Respiratory normal respiratory effort, lungs clear to auscultation Cardiovascular RRR, no murmur, no edema Gastrointestinal (Abdomen) normal bowel sounds, soft, nontender, no hepatosplenomegaly Musculoskeletal no cyanosis or clubbing, extremities motor strength 5/5 Skin no rashes, warm and dry Psychiatric A+Ox3, euthymic affect Discharge Data Allergies Allergy/AdvReac Type Severity Reaction Status Date / Time No Known Allergies Allergy Verified 11/11/18 22:51 Consultations 11/25/18 21:37 ED Decision to Admit Stat 11/25/18 23:24 Consult Case Management - Discharge Planning Routine 11/26/18 15:41 Consult Infectious Diseases Routine Ordered Studies 11/25/18 18:03 US gallbladder Stat Hospital Course (1) Sepsis: Meet sepsis criteria on admission with presentation of Elevated WBC, Febrile and tachycardia UA positive for nitrite, leukocytes and bacteria CT abdomen/pelvis done back on 11/07 clay-aneurysmal structure impinging on left ureter and causing moderate left hydronephrosis on CT imaging from recent confinement. ARF secondary to illness Hypertension, BP on the lower side COPD, ongoing tobacco abuse Lung status at baseline anemia subacute Hemoglobin at baseline from recent confinement CS, IV Cefepime (hx E. coli, Enterobacter on previous outpatient urine cultures) Urology consult RE left hydronephrosis on abdominal CT October 2018 predisposing to UTI enterococcus (baseline hemoglobin of 11) Blood culture : postive for E Coli pt is was treated with IV Abx repeat blood culture shows no growth abx changed to PO Augmentin (2) UTI (urinary tract infection): (3) Bacteremia: Meet sepsis criteria on admission with presentation of Elevated WBC, Febrile and tachycardia UA positive for nitrite, leukocytes and bacteria CT abd/pelvis back on 11/07 showed perianeurysmal structure impinging on left ureter and causing moderate left hydronephrosis Blood cx positive for gram negative bacilli (Ecoli pansensitive) Urine cx positive for Ecoli Receives dapto and zosyn in the ER ID on board recommended to continue IV cefepime for now Preliminary repeat blood cx no growth for now If repeat blood cx negative, will change to oral abx. Will need 14 days course of oral abx from the date of the repeat blood cx on discharge Abx changed to PO Augmentin , complete 10 more days of course ID on board (4) Hydronephrosis of left kidney: Creatinine on admission 1.6 CT abd/pelvis back on 11/07 showed perianeurysmal structure impinging on left ureter and causing moderate left hydronephrosis Received IVF Creatinine improves to 1.4 to 1.2-->1.17 today e Case discussed with urology dr. Thakur Pt already had an appt on 12/21 with urology outpatient Pt will need to complete 14 days of oral abx Renal function back to baseline OK with urologist to be seen as an outpatient Dr. Thakur said that if pt decompensates and kidney function worsening, to call her that she can see her. Official consult cancelled (5) Acute kidney failure: Hx CKD stage 3 Possible related to Hydronephrosis Creatinine improves to 1.4 Received IVF -->1.2--->1.17 Monitor BMP out pt follow up with Urology (6) AAA (abdominal aortic aneurysm): [place] [facility] [place] scheduled for December 2018. Stable (7) Anemia: Stable Continue monitor CBC DVT px on heparin subq CODE STATUS FULL CODE Disposition stable to be discharged home today Total Time Total Time Spent Total Time Spent (In Minutes): 35MINS Total Time Includes: Examination of the Patient, Discharge Planning and Medication Reconciliation Discharge Plan Discharge Items Patient Disposition: Home - Self-Care Reason For Visit: SEPSIS Discharge Diagnosis: SEPSIS /E COLI INFECTION IN URINE Discharge Goals: Decrease discomfort, Diagnostic testing and Therapeutic intervention Activity: Resume your previous activity Non-emergency contact: Primary Care Provider Call non-emergency contact if: you have any medication questions and you have a fever Follow-up/Referrals: Dionisio Mayer [Primary Care Provider] - 12/04/18 10:45 am Jo-Ann Thakur MD [Physician] - 12/21/18 9:30 am Diet: Heart Healthy Addtl Provider Instructions: TAKE PROBIOTIC FOR 3-4 WEEKS PLEASE NOTIFY YOUR FAMILY PHYSICIAN WITH ANY EVENT OF DIARRHEA ABDOMINAL PAIN , NAUSEA/VOMITING WHILE OR AFTER COMPLETING 10 DAYS OF ANTIBIOTIC FOLLOW UP WITH UROLOGY DR THAKUR ON 12/21/18 @ 9: 30 AM Prescriptions: New ferrous sulfate 325 mg (65 mg iron) Tablet,Delayed Release (Dr/Ec) 325 mg PO Q48H 30 Days Qty: 15 RF: 0 amoxicillin-pot clavulanate [Augmentin] 875-125 mg tablet 1 tab PO BID 10 Days Qty: 20 RF: 0 Continue atorvastatin 40 mg tablet 40 mg PO DAILY RF: 0 bupropion HCl 150 mg tablet sustained-release 12 hr 150 mg PO BID RF: 0 aspirin [Aspir-81] 81 mg Tablet,Delayed Release (Dr/Ec) 81 mg PO DAILY RF: 0 esomeprazole magnesium [Nexium] 40 mg Capsule,Delayed Release(Dr/Ec) 40 mg PO DAILY RF: 0 ipratropium-albuterol 20-100 mcg/actuation mist 1 puff Inhalation QID PRN (Reason: Shortness Of Breath Or Wheezing) RF: 0 ondansetron HCl [Zofran] 4 mg Tablet 4 mg PO Q6 PRN (Reason: Nausea) RF: 0 meclizine 25 mg Tablet 25 mg PO TID PRN (Reason: Dizziness) RF: 0 denosumab [Prolia] 60 mg/mL Syringe 1 dose subcut DIRECTED RF: 0 calcium carbonate-vitamin D3 [Caltrate 600 + D] 600 mg (1,500 mg)-800 unit Tablet,Chewable 1 tab PO DAILY RF: 0 ascorbic acid (vitamin C) [Vitamin C] 500 mg capsule, extended release 500 mg PO DAILY 30 Days Qty: 30 RF: 0 Discontinued ciprofloxacin HCl [Cipro] 250 mg tablet 250 mg PO Q12 RF: 0 ferrous sulfate [FerrouSul] 325 mg (65 mg iron) tablet 325 mg PO UD 30 Days Qty: 30 RF: 3 Visit Report Forms: [facility] Stand-Alone Forms: [facility] Discharge Orders: Discharge Order (Routine); Ordered 11/29/18 Ordered By: Elle Tate Admission Data Admit Date/Time: 11/25/18 22:08 Attending Provider: Elle Tate Admit Provider: Cedric Gupta Primary Care Provider: Dionisio Mayer Other Providers: Jo-Ann Sauceda Service: Medical Other Interventions: Discharge Summary Assessment (RN) Last Done: 11/29/18 14:50 DC Date/Time DO NOT enter until pt leaves facility: 11/29/18 16:20
== END 2018-11-29 16:20 | disposition home or self-care (01) | DRG 872 ==
LOC: ED 17:44 → 4E 22:08 → SUATTDRO 22:08 → 4E 22:49
DX: N17.9 Acute kidney failure, unspecified; J44.9 Chronic obstructive pulmonary disease, unspecified; N18.3 Chronic kidney disease, stage 3 (moderate); N39.0 Urinary tract infection, site not specified; Z79.82 Long term (current) use of aspirin; Z79.899 Other long term (current) drug therapy; A41.51 Sepsis due to Escherichia coli [E. coli]; D64.9 Anemia, unspecified; N13.30 Unspecified hydronephrosis

== ENCOUNTER 2018-12-30 19:31 | Inpatient (IN) ==
[2018-12-30] MEDS ORDERED: MoRPHine SULFATE 4 MG/ML 1 ML CARP\\VIAL IV STA (19:57)
[2018-12-30] MEDS ORDERED: SODIUM CHLORIDE 0.9% 1000ML 1,000 ML IV SCH (20:00)
[2018-12-30 20:19] LABS: Basophils # (auto) 0.02 K/uL (0-0.2); Basophils % (auto) 0.1 %; Eosinophils # (auto) 0.15 K/uL (0-0.5); Hematocrit (blood only) 35.8 % (37-47); Hemoglobin 11.5 g/dL (12.0-16.0); Immature Granulocytes # (auto) 0.05 K/uL (0.00-0.02); Immature Granulocytes % (auto) 0.3 %; Lymphocytes # (auto) 1.45 K/uL (1.2-3.4); Mean Corpuscular Hgb Conc 32.1 g/dL (32-36); Mean Corpuscular Volume 91.3 fL (80-100); Mean Platelet Volume 9.2 fL (7.4-10.4); Monocytes # (auto) 1.49 K/uL (0.11-0.59); Monocytes % (auto) 10.2 %; Neutrophils % (auto) 78.4 %; Platelet Count 244 K/uL (130-400); RDW Coefficient of Variation 16.5 % (11.5-14.5); RDW Standard Deviation 55.6 fL (36.4-46.3); Red Blood Count 3.92 M/uL (4.2-5.4); White Blood Count 14.56 K/uL (4.8-10.8)
[2018-12-30 20:23] LABS: iSTAT Hemoglobin 11.6 g/dl (12.0-16.0); iSTAT Ionized Calcium 1.15 mmol/l (1.12-1.32)
--- NOTE | 2018-12-30 20:28 | XRay Report ---
SINGLE VIEW CHEST CLINICAL HISTORY: Atypical chest pain. FINDINGS: An AP, portable, upright chest radiograph is compared to study dated 11/25/2018. Correlation is made with chest CT dated 11/11/2018. The examination is degraded by portable technique and patient rotation. The heart is top normal for projection and there is atherosclerotic calcification of the thoracic aorta. The pulmonary vasculature is noncongested. Emphysema and chronic interstitial thicken ing are similar to previous. Patchy airspace consolidation is noted at the left lung base. No large p leural effusion or pneumothorax is seen. The skeletal structures are osteopenic. The bony thorax is g rossly intact. Degenerative change is noted throughout the thoracic spine. IMPRESSION: 1. Emphysema. 2. Patchy airspace consolidation is identified at the left lung base, which could represent atelectas is versus pneumonia. Clinical correlation will be required and radiographic follow-up to resolution i s recommended. Electronically signed by: Reinier Parr M.D. 12/30/2018 8:26 PM
[2018-12-30 20:37] LABS: Alanine Aminotransferase 19 U/L (12-78); Aspartate Aminotransferase 14 U/L (15-37); BUN Creatinine Ratio 17.4 (10-20); Blood Urea Nitrogen 18 mg/dl (7-18); Calcium 9.1 mg/dl (8.5-10.1); Carbon Dioxide 24 mmol/L (21-32); Chloride 103 mmol/L (98-107); Creatinine Clr Calc Pharmacy 33.8 ml/min; Est GFR (African American) 58.2; Est GFR (Non-African American) 50.3; Glucose 112 mg/dl (70-99); Magnesium 1.8 mg/dl (1.8-2.4); Potassium 4.1 mmol/L (3.5-5.1); Sodium 136 mmol/L (136-145)
[2018-12-30 20:42] LABS: Albumin Globulin Ratio 0.7 (0.9-2); Alkaline Phosphatase 126 U/L (45-117); Bilirubin,Total 0.6 mg/dl (0.2-1); Globulin 4.3 gm/dl (2.5-4.0); Total Protein 7.3 gm/dl (6.4-8.2); Troponin I < 0.015 ng/ml (0-0.045)
[2018-12-30] MEDS ORDERED: OPTIRAY 320 125ml IV PRN (20:45)
--- NOTE | 2018-12-30 21:12 | CT Scan Report ---
CT ANGIOGRAM OF THE CHEST; CT SCAN OF THE ABDOMEN AND PELVIS WITH IV CONTRAST CLINICAL HISTORY: Atypical chest pain. Generalized abdominal pain. COMPARISON STUDY: Chest x-ray dated 12/30/2018. Chest CT dated 11/11/2018 and 01/30/2010. Abdominal CT dated 11/12/2018. TECHNIQUE: Following the IV administration of 120 of Optiray 320, CT angiogram of the chest is perfor med from the upper abdomen to the thoracic inlet utilizing the pulmonary embolus protocol. Images are reviewed in the axial, sagittal, coronal planes. 3-D MIPS images are created and assessed. Subsequen tly, CT scan of the abdomen and pelvis was performed from the lung bases to the proximal femora. Imag es are reviewed in the axial, sagittal, and coronal planes. IV contrast was administered without comp lication. A dose lowering technique was utilized adhering to the principles of ALARA. CT DOSE: 535.04 mGy.cm FINDINGS: CHEST: Thyroid: Imaged portions of the thyroid gland are normal in size and attenuation. Thoracic aorta: There is atherosclerotic calcification of the thoracic aorta, which is normal in [place] and demonstrates standard 3-vessel arch anatomy. No dissection is seen. There is high-grade steno sis at the origin of the left subclavian artery. Pulmonary vasculature: The pulmonary trunk is normal in caliber. There are no filling defects identif ied in the main, lobar, or segmental pulmonary arteries to indicate pulmonary embolus. Heart: The heart is normal in size and there is a moderate pericardial effusion, which is new from . There is mild pericardial thickening and enhancement. There are coronary artery calcificati ons. Lungs and pleural spaces: Evaluation of the lung parenchyma is compromised by motion artifact. The tr achea and central airways are clear. Emphysematous change is again noted. There is a small left pleur al effusion with left basilar atelectasis. There are two 4 mm pulmonary nodules in the left lower lob e seen on images #95 and #98. Mediastinum: There is no mediastinal lymphadenopathy. Katerine: Clear. Axillae: There is no axillary lymphadenopathy. Bony thorax: The skeletal structures are osteopenic. Mild degenerative change is noted in the thoraci c spine. No lytic or blastic lesions are identified. Arthritic changes noted in the right shoulder. ABDOMEN AND PELVIS: Liver: The contrast-enhanced liver is enlarged, measuring 20.5 cm in length. The liver is normal in c ontour and attenuation. There is no intrahepatic or ductal dilatation. The hepatic veins and portal v eins are patent. Gallbladder: Unremarkable. Spleen: Normal in size and attenuation. Pancreas: There are parenchymal calcifications seen throughout the pancreas indicating chronic pancre atitis. The gland is mildly atrophic. The pancreatic duct is normal in caliber. No peripancreatic inf lammation fluid is identified. Adrenal glands: Unremarkable. Kidneys: The contrast enhanced kidneys are normal in size. There is mild to moderate left-sided hydro ureteronephrosis. The ureter is dilated to the periaortic inflammatory stranding discussed below. The re is no right-sided hydronephrosis. The left kidney enhances heterogeneously, and there is mild left -sided perinephric stranding. Abdominal vasculature: There is advanced atherosclerotic calcification of the abdominal aorta. An inf rarenal abdominal aortic aneurysm measures 4.2 cm in AP diameter and 4.4 cm in transverse diameter. A rind of abnormal soft tissue/stranding is again seen around the aneurysm sac and proximal iliac crista brigido, which also encases the left ureter. No extraluminal contrast is identified. The abdominal aorta is patent, as are the iliac vessels. Stomach and bowel: There is a small hiatal hernia. The duodenum is normal in configuration. There is moderate to severe constipation. No bowel obstruction is identified. There are scattered colonic dive rticula without CT evidence of acute diverticulitis. The appendix is well-visualized and normal. Peritoneum: There is no intraperitoneal free air or abdominal ascites. Lymphadenopathy: None. Pelvic viscera: The bladder, uterus, and adnexa are normal as visualized. Skeletal structures: The skeletal structures are osteopenic. There is mild lumbosacral spondylosis. N o lytic or blastic lesions are seen. A benign-appearing sclerotic lesion is seen within the right pro ximal femur, likely representing an enchondroma. Arthritic change is seen in the hips, left greater t kapadia right. IMPRESSION: 1. There is no evidence of pulmonary embolus in the main, lobar, or segmental pulmonary arteries. 2. Emphysema. 3. There is a moderate pericardial effusion with associated pericardial thickening and enhancement. T his is new from 11/11/2018. Correlate cortically for evidence of pericarditis. Echocardiography may p rovide further information. 4. There is a small left pleural effusion with associated atelectasis. No airspace consolidation is s een typical for pneumonia. 5. There are two 4 mm left lower lobe pulmonary nodules. These are unchanged from 11/11/2018 but were not seen on the 2010 examination. These are pathologically indeterminant and should be followed as p er the Fleischner criteria. 6. There is a 4.2 x 4.4 cm infrarenal abdominal aortic aneurysm, similar in size to 11/12/2018. 7. Again seen is a rind of abnormal soft tissue/infiltration around the aneurysm sac and proximal nasreen ac arteries. 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 No contrast extravasation is identified. Leaking aneurysm is considered less likely but would be impossible to completely exclude . Vascular surgical assessment is recommended. 8. The abnormal periaortic soft tissue encases the left ureter and causes [id number] left-sided hydronephrosis. 9. There is heterogeneous enhancement of the left kidney, likely related to obstruction/hydronephrosi s. Correlation with urinalysis will be required. 10. Hepatomegaly. 11. Moderate to severe constipation. 12. There is evidence of chronic pancreatitis. 13. Additional findings as above. Please refer to below summary of Fleischner criteria recommendations for follow-up of incidental CT n odules (Noelle Childers, Guidelines for management of small pulmonary nodules detected on CT scans: A sta tement from the Fleischner Society, Radiology 237: [id number].) SOLID NODULES Solitary nodule size: <6 mm * low risk patients: no follow-up needed * high risk patients: optional CT at 12 months Solitary nodule size: 6-8 mm * low risk patients: follow-up at 6-12 months, then consider further follow-up at 18-24 months * high risk patients: initial follow-up CT at 6-12 months and then at 18-24 months if no change Solitary nodule size: >8 mm * either low or high risk patients - consider follow-up CT at 3 months, and/or CT-PET, and/or biopsy Multiple nodules size: <6 mm * low risk patients: no routine follow-up * high risk patients: optional CT at 12 months Multiple nodules size: 6-8 mm * low risk patients: follow-up at 3-6 months, then consider further follow-up at 18-24 months * high risk patients: follow-up at 3-6 months, then at 18-24 months if no change Multiple nodules size: >8 mm * low risk patients: follow-up at 3-6 months, then consider further follow-up at 18-24 months * high risk patients: follow-up at 3-6 months, then at 18-24 months if no change Note: newly detected indeterminate nodule in persons 35 years of age or older. * low risk patients: minimal or absent history of smoking and/or other known risk factors * high risk patients: history of smoking or of other known risk factors (e.g. first degree relative with lung cancer, or exposure to asbestos, radon, uranium) * if a nodule up to 8 mm is partly solid or is ground glass further follow-up is required after 24 m onths to exclude possible slow growing adenocarcinoma (LOIS) SUBSOLID NODULES Solitary pure ground-glass nodule * nodule size <6 mm - no CT follow-up required * nodule size >=6 mm - follow-up CT at 6-12 months, then every 2 years until 5 years Solitary part-solid nodule * nodule size <6 mm - no CT follow-up required * nodule size >=6 mm - follow-up CT at 3-6 months. If unchanged, and solid component remains <6 mm, then annual follow-up for 5 years Multiple subsolid nodules * nodule size <6 mm - follow-up CT at 3-6 months, consider further follow-up at 2 and 4 years if sta ble * nodule size >=6 mm - follow-up CT at 3-6 months, subsequent management based on the most suspiciou s nodule(s) Electronically signed by: Reinier Parr M.D. 12/30/2018 9:10 PM
[2018-12-30] MEDS ORDERED: KETOROLAC 30 MG/ML VIAL IV STA (21:15)
[2018-12-30] MEDS ORDERED: CEFEPIME 1,000 MG in SYRINGE 0 ML IV STA (21:21)
[2018-12-30] MEDS ORDERED: SODIUM CHLORIDE 0.9% 1000ML 1,000 ML IV ONE (21:22)
--- NOTE | 2018-12-30 21:26 | Emergency Department Note ---
Entered by Gildardo Salvador acting as a scribe for Jeremy Cooley MD History of Present Illness General Chief complaint: Pain (Generalized) Stated complaint: CHEST PAIN Time Seen by Provider: 12/30/18 19:40 Source: patient History of Present Illness Onset (ago): day(s) (yesterday) Location: chest Pain Consistency: + constant Maximum Pain Intensity: 6 Quality: + sharp Associated symptoms: + other (Positive for a cough. Negative for nausea, vomiting, fever, chills, abdominal pain, and calf pain.) The patient is a 78 year old female w/ PMHx of pancreatitis, HLD, and an AAA who presents to the ED w/ CC of constant sharp chest pain beginning yesterday. The patient states that her pain started yesterday in her left shoulder. She notes that her pain is now in her right shoulder and under her left breast. She reports that her pain worsens when she breathes but does not worsen when she walks. She also complains of a cough. The patient states that her cough is both dry and productive. She denies any nausea, vomiting, fever, chills, abdominal pain, and calf pain. She notes that she has had similar symptoms in the past. She reports that she went to the doctor yesterday and had lab work and an X-RAY done at that time. The patient states that her WBC count was high. She notes that she has been taking Motrin with no relief of her symptoms. She denies any history of blood clots and shingles. She also denies any recent travel and known sick contacts. She reports that she occasionally drinks alcohol but she states that she does not use tobacco. Home Medications Home Medications Medication Instructions Recorded Confirmed Type aspirin [Aspir-81] 81 mg PO BID 08/30/18 12/30/18 History atorvastatin 40 mg PO DAILY 08/30/18 12/30/18 History bupropion HCl 150 mg PO BID 08/30/18 12/30/18 History esomeprazole magnesium [Nexium] 40 mg PO DAILY 08/30/18 12/30/18 History calcium carbonate-vitamin D3 1 tab PO DAILY 11/11/18 12/30/18 History [Caltrate 600 + D] denosumab [Prolia] 1 dose SUBCUT DIRECTED 11/11/18 12/30/18 History meclizine 25 mg PO TID PRN 11/11/18 12/30/18 History ascorbic acid (vitamin C) [Vitamin 500 mg PO DAILY 12/30/18 12/30/18 History C] ferrous sulfate 325 mg PO Q2D 12/30/18 12/30/18 History ipratropium-albuterol [Combivent 1 puff INHALATION QID PRN 12/30/18 12/30/18 History Respimat] ondansetron HCl 4 mg PO Q6H PRN 12/30/18 12/30/18 History Allergies Allergy/AdvReac Type Severity Reaction Status Date / Time No Known Allergies Allergy Verified 12/30/18 20:56 Past Med/Surg History Social History marital status: Current Living Situation: Spouse 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 and A total of 10 systems reviewed and were otherwise negative Physical Exam Vital Signs Vital Signs - 24 hr 12/30/18 19:35 12/30/18 20:05 12/30/18 20:59 Temperature 36.6 C Temperature Source Oral Sepsis Recent Fever Within 48 Hours No Sepsis Action Taken by Nursing No Action Required Pulse Rate 122 H 109 H Pulse Rate [Apical] 102 H Pulse Rhythm Regular Pulse Rhythm [Apical] Regular Pulse Strength [Apical] Normal Respiratory Rate 22 19 20 Respiratory Effort / Characteristics Non-Labored Non-Labored Respiratory Depth Normal Normal Respiratory Pattern Regular Blood Pressure 153/76 H Blood Pressure [Right Arm] 119/58 L Blood Pressure Mean 101 Blood Pressure Mean [Right Arm] 78 Blood Pressure Position Sitting Blood Pressure Position [Right Arm] Sitting Pulse Oximetry 96 92 94 Oxygen Delivery Method Room Air Room Air Room Air 12/30/18 23:07 12/30/18 23:22 12/31/18 02:05 Temperature 37.2 C Temperature Source Oral Sepsis Recent Fever Within 48 Hours Sepsis Action Taken by Nursing Pulse Rate Pulse Rate [Apical] 105 H 109 H 102 H Pulse Rhythm Pulse Rhythm [Apical] Pulse Strength [Apical] Respiratory Rate 18 19 20 Respiratory Effort / Characteristics Non-Labored Spontaneous Non-Labored Respiratory Depth Normal Respiratory Pattern Regular Blood Pressure Blood Pressure [Right Arm] 105/69 109/68 Blood Pressure Mean Blood Pressure Mean [Right Arm] 81 81 Blood Pressure Position Blood Pressure Position [Right Arm] Sitting Pulse Oximetry 94 93 93 Oxygen Delivery Method Room Air Room Air Room Air 12/31/18 04:15 12/31/18 06:59 12/31/18 07:21 Temperature 36.7 C 36.3 C L Temperature Source Oral Oral Sepsis Recent Fever Within 48 Hours Sepsis Action Taken by Nursing Pulse Rate Pulse Rate [Apical] 94 H 97 H 84 Pulse Rhythm Pulse Rhythm [Apical] Pulse Strength [Apical] Respiratory Rate 18 18 18 Respiratory Effort / Characteristics Non-Labored Spontaneous Respiratory Depth Respiratory Pattern Blood Pressure Blood Pressure [Right Arm] 110/66 114/73 Blood Pressure Mean Blood Pressure Mean [Right Arm] 80 86 Blood Pressure Position Blood Pressure Position [Right Arm] Lying Pulse Oximetry 92 94 97 Oxygen Delivery Method Room Air Room Air Room Air 12/31/18 08:00 12/31/18 11:46 Temperature 36.7 C Temperature Source Oral Sepsis Recent Fever Within 48 Hours Sepsis Action Taken by Nursing Pulse Rate Pulse Rate [Apical] 100 H Pulse Rhythm Pulse Rhythm [Apical] Pulse Strength [Apical] Respiratory Rate 18 Respiratory Effort / Characteristics Respiratory Depth Respiratory Pattern Blood Pressure Blood Pressure [Right Arm] 103/60 Blood Pressure Mean Blood Pressure Mean [Right Arm] 74 Blood Pressure Position Blood Pressure Position [Right Arm] Lying Pulse Oximetry 92 Oxygen Delivery Method Room Air Room Air GENERAL: Well appearing, well nourished, NAD, non-toxic, wearing glasses. EYE EXAM: Normal conjunctiva. PERRL, no anisocoria and EOM's grossly intact w/o pain. OROPHARYNX: No exudate, posterior pharynx is clear, no tonsillar/uvular deviation or swelling. NECK: Supple, no nuchal rigidity, no adenopathy, non-tender. No signs of meningismus. LUNGS: Clear to auscultation bilaterally. Normal chest wall mechanics. HEART: Tachycardic rhythm with a regular rate, no MRG. CHEST: No overlying skin changes over ribs or under left breast, no crepitus, no vesicles, no rash. ABDOMEN: Abdomen soft, non-tender, normo-active bowel sounds, no masses, no rebound or guarding. BACK: No CVA TTP. SKIN: No rashes and no bruising. UPPER EXTREMITIES: Upper extremities are grossly normal. LOWER EXTREMITIES: No pitting edema. No calf pain. Negative Kike's sign. NEURO EXAM: Cranial nerves II-XII grossly intact, normal speech, 5/5 strength in bilateral upper and lower extremities, no sensory deficits, moves all 4 extremities on command w/o issue. Course 1941: Past medical records reviewed. The patient was evaluated in room A3, and a complete history and physical examination were performed. 1999: Per review of records from yesterday, the patient had a negative chest X- RAY and a WBC count of 14. She had a normal platelet count, normal kidney function, normal electrolytes, normal LFTs, and a normal lipase. The patient had an elevated ESR at 76. 2143: Upon reevaluation, the patient is stable. I discussed the results and treatment plan with the patient. She verbalizes understanding and agreement. I discussed the patient's case with Chandrakant Manrique. The patient will be evaluated for further management and care. 2199: I reevaluated and updated the patient. Consultations Consultation #1: I reviewed the patient's case with Chandrakant Manrique. He will evaluate the patient for further management. Time: 21:43 Administered Medications Acetaminophen (Tylenol) 650 mg PO Q4H PRN PRN Reason: Pain or Fever Stop: 01/29/19 23:28 Last Admin: 12/31/18 00:34 Dose: 650 mg Ascorbic Acid (Vitamin C) 500 mg PO DAILY ELENITA Stop: 01/30/19 08:59 Last Admin: 12/31/18 08:37 Dose: 500 mg Aspirin (Ecotrin Ectab) 81 mg PO BID ELENITA Stop: 01/30/19 08:59 Last Admin: 12/31/18 08:37 Dose: 81 mg Atorvastatin Calcium (Lipitor) 40 mg PO DAILY ELENITA Stop: 01/30/19 08:59 Last Admin: 12/31/18 08:38 Dose: 40 mg Bupropion HCl (Wellbutrin-Sr) 150 mg PO BID ELENITA Stop: 01/30/19 08:59 Last Admin: 12/31/18 08:38 Dose: 150 mg Doxycycline Hyclate (Vibramycin) 100 mg PO BID ELENITA Stop: 01/06/19 23:28 Last Admin: 12/31/18 08:37 Dose: 100 mg Admin: 12/31/18 00:33 Dose: 100 mg Methylprednisolone 40 mg/ (Syringe) 0.64 mls @ 1.5 mls/min IV Q12H ELENITA Stop: 01/30/19 00:00 Last Admin: 12/31/18 11:03 Dose: 1.5 mls/min Admin: 12/31/18 00:34 Dose: 1.5 mls/min Multivitamins/Minerals (Caltrate Plus) 1 tab PO DAILY ELENITA Stop: 01/30/19 08:59 Last Admin: 12/31/18 08:37 Dose: 1 tab Pantoprazole Sodium (Protonix) 40 mg PO DAILY ELENITA Stop: 01/30/19 08:59 Last Admin: 12/31/18 11:03 Dose: 40 mg Sennosides (Senokot) 8.6 mg PO QAM ELENITA Stop: 01/30/19 09:29 Last Admin: 12/31/18 11:03 Dose: 8.6 mg Discontinued Medications Bisacodyl (Dulcolax) 10 mg ID ONE ONE Stop: 12/31/18 08:01 Last Admin: 12/31/18 08:39 Dose: Not Given Sodium Chloride (Nss 1000ml) 1,000 mls @ 999 mls/hr IV .Q1H1M ELENITA Stop: 12/30/18 21:00 Last Infusion: 12/30/18 21:25 Dose: 0 mls/hr Admin: 12/30/18 20:06 Dose: 999 mls/hr Cefepime HCl 1,000 mg/ Syringe 11.3 mls @ 5.5 mls/min IV NOW STA Stop: 12/30/18 21:23 Last Admin: 12/30/18 21:39 Dose: 5.5 mls/min Sodium Chloride (Nss 1000ml) 1,000 mls @ 999 mls/hr IV .Q1H1M ONE Stop: 12/30/18 22:22 Last Infusion: 12/30/18 22:42 Dose: 0 mls/hr Admin: 12/30/18 21:39 Dose: 999 mls/hr Cefepime HCl 1,000 mg/ Syringe 11.3 mls @ 5.5 mls/min IV Q12 ELENITA; Protocol Stop: 12/31/18 12:00 Last Admin: 12/31/18 08:44 Dose: 5.5 mls/min Ioversol (Optiray 320 125ml) 120 ml IV ONCE PRN PRN Reason: Interaction Checking Stop: 01/03/19 20:44 Last Admin: 12/30/18 20:45 Dose: 120 ml Ipratropium [place] (Atrovent 0.02% 0.5mg/2.5ml) 0.5 mg INH Q6R ELENITA Stop: 01/30/19 01:59 Last Admin: 12/31/18 07:21 Dose: 0.5 mg Admin: 12/31/18 02:02 Dose: 0.5 mg Ketorolac Tromethamine (Toradol) 30 mg IV NOW STA Stop: 12/30/18 21:16 Last Admin: 12/30/18 21:21 Dose: 30 mg Lactulose (Chronulac) 30 gm PO BID ELENITA Stop: 01/30/19 08:59 Last Admin: 12/31/18 08:42 Dose: Not Given Levalbuterol HCl (Xopenex 1.25mg/0.5ml Neb) 1.25 mg INH Q6R ELENITA Stop: 01/30/19 01:59 Last Admin: 12/31/18 07:21 Dose: 1.25 mg Admin: 12/31/18 02:02 Dose: 1.25 mg Morphine Sulfate (Morphine Sulfate) 4 mg IV NOW STA Stop: 12/30/18 19:58 Last Admin: 12/30/18 20:05 Dose: 4 mg Medical Decision Making Medical Records Attestation: I reviewed the patient's medical records. Home Medications Current Medication List: was personally reviewed by me Laboratory Data Attestation: I reviewed the patient's lab results. Result diagrams: 12/31/18 06:24 12/31/18 06:24 Lab Results 12/30/18 12/30/18 12/30/18 Range/Units 20:05 20:05 20:09 WBC 14.56 H (4.8-10.8) K/uL RBC 3.92 L (4.2-5.4) M/uL Hgb 11.5 L (12.0-16.0) g/dL POC Hgb 11.6 L (12.0-16.0) g/dl Hct 35.8 L (37-47) % POC Hct 34 L (37-47) % MCV 91.3 (80-100) fL MCH 29.3 (25-34) pg MCHC 32.1 (32-36) g/dL RDW Std Deviation 55.6 H (36.4-46.3) fL RDW Coeff of Kristel 16.5 H (11.5-14.5) % Plt Count 244 (130-400) K/uL MPV 9.2 (7.4-10.4) fL Immature Gran % (Auto) 0.3 % Neut % (Auto) 78.4 % Lymph % (Auto) 10.0 % [place] % (Auto) 10.2 % Eos % (Auto) 1.0 % Baso % (Auto) 0.1 % Immature Gran # (Auto) 0.05 H (0.00-0.02) K/uL Neut # (Auto) 11.40 H (1.4-6.5) K/uL Lymph # (Auto) 1.45 (1.2-3.4) K/uL [place] # (Auto) 1.49 H (0.11-0.59) K/uL Eos # (Auto) 0.15 (0-0.5) K/uL Baso # (Auto) 0.02 (0-0.2) K/uL POC Sodium 137 (135-144) mEq/L Sodium 136 (136-145) mmol/L POC Potassium 4.2 (3.3-5.0) mEq/L Potassium 4.1 (3.5-5.1) mmol/L POC Chloride 102 (101-112) mEq/L Chloride 103 (98-107) mmol/L Carbon Dioxide 24 (21-32) mmol/L POC Total CO2 24 (24-31) mEq/l Anion Gap 8.0 (3-11) POC Anion Gap 16.0 (16-25) mmol/L POC BUN 18 (7-18) mg/dl BUN 18 (7-18) mg/dl Creatinine 1.06 (0.6-1.2) mg/dl POC Creatinine 0.9 (0.6-1.3) mg/dl Est Cr Clr Drug Dosing 33.8 ml/min Est GFR ( Amer) 58.2 Est GFR (Non-Af Amer) 50.3 BUN/Creatinine Ratio 17.4 (10-20) Glucose 112 H (70-99) mg/dl POC Glucose (other) 115 H (70-99) mg/dl Calcium 9.1 (8.5-10.1) mg/dl POC Ioniz Calcium Alexander 1.15 (1.12-1.32) mmol/l Magnesium 1.8 (1.8-2.4) mg/dl Total Bilirubin 0.6 (0.2-1) mg/dl AST 14 L (15-37) U/L ALT 19 (12-78) U/L Alkaline Phosphatase 126 H (45-117) U/L Troponin I < 0.015 (0-0.045) ng/ml Total Protein 7.3 (6.4-8.2) gm/dl Albumin 3.0 L (3.4-5.0) gm/dl Globulin 4.3 H (2.5-4.0) gm/dl Albumin/Globulin Ratio 0.7 L (0.9-2) Lipase 106 (73-393) U/L Urine Color Urine Appearance (Clear) Urine pH (4.5-7.5) Ur Specific [place] (1.000-1.030) Urine Protein (Negative) Urine Glucose (UA) (Negative) Urine Ketones (Negative) Urine Blood (Negative) Urine Nitrite (Negative) Urine Bilirubin (Negative) Urine Urobilinogen (Negative) Ur Leukocyte Esterase (Negative) Urine RBC (0-4) /hpf Urine WBC (0-5) /hpf Ur Epithelial Cells (0-5) /lpf Urine Bacteria (Negative) 12/30/18 12/30/18 12/31/18 Range/Units 23:36 Unknown 06:24 WBC 11.52 H (4.8-10.8) K/uL RBC 3.82 L (4.2-5.4) M/uL Hgb 11.5 L (12.0-16.0) g/dL POC Hgb (12.0-16.0) g/dl Hct 35.7 L (37-47) % POC Hct (37-47) % MCV 93.5 (80-100) fL MCH 30.1 (25-34) pg MCHC 32.2 (32-36) g/dL RDW Std Deviation 57.3 H (36.4-46.3) fL RDW Coeff of Kristel 16.7 H (11.5-14.5) % Plt Count 237 (130-400) K/uL MPV 9.2 (7.4-10.4) fL Immature Gran % (Auto) 0.2 % Neut % (Auto) 91.9 % Lymph % (Auto) 4.4 % [place] % (Auto) 3.3 % Eos % (Auto) 0.1 % Baso % (Auto) 0.1 % Immature Gran # (Auto) 0.02 (0.00-0.02) K/uL Neut # (Auto) 10.59 H (1.4-6.5) K/uL Lymph # (Auto) 0.51 L (1.2-3.4) K/uL [place] # (Auto) 0.38 (0.11-0.59) K/uL Eos # (Auto) 0.01 (0-0.5) K/uL Baso # (Auto) 0.01 (0-0.2) K/uL POC Sodium (135-144) mEq/L Sodium (136-145) mmol/L POC Potassium (3.3-5.0) mEq/L Potassium (3.5-5.1) mmol/L POC Chloride (101-112) mEq/L Chloride (98-107) mmol/L Carbon Dioxide (21-32) mmol/L POC Total CO2 (24-31) mEq/l Anion Gap (3-11) POC Anion Gap (16-25) mmol/L POC BUN (7-18) mg/dl BUN (7-18) mg/dl Creatinine (0.6-1.2) mg/dl POC Creatinine (0.6-1.3) mg/dl Est Cr Clr Drug Dosing ml/min Est GFR ( Amer) Est GFR (Non-Af Amer) BUN/Creatinine Ratio (10-20) Glucose (70-99) mg/dl POC Glucose (other) (70-99) mg/dl Calcium (8.5-10.1) mg/dl POC Ioniz Calcium [place] (1.12-1.32) mmol/l Magnesium (1.8-2.4) mg/dl Total Bilirubin (0.2-1) mg/dl AST (15-37) U/L ALT (12-78) U/L Alkaline Phosphatase (45-117) U/L Troponin I < 0.015 (0-0.045) ng/ml Total Protein (6.4-8.2) gm/dl Albumin (3.4-5.0) gm/dl Globulin (2.5-4.0) gm/dl Albumin/Globulin Ratio (0.9-2) Lipase (73-393) U/L Urine Color Yellow Urine Appearance Clear (Clear) Urine pH 6.5 (4.5-7.5) Ur Specific [place] 1.009 (1.000-1.030) Urine Protein Negative (Negative) Urine Glucose (UA) Negative (Negative) Urine Ketones Negative (Negative) Urine Blood Trace H (Negative) Urine Nitrite Positive H (Negative) Urine Bilirubin Negative (Negative) Urine Urobilinogen Negative (Negative) Ur Leukocyte Esterase 3+ H (Negative) Urine RBC 0-4 (0-4) /hpf Urine WBC >30 H (0-5) /hpf Ur Epithelial Cells 20-30 H (0-5) /lpf Urine Bacteria 2+ H (Negative) 12/31/18 12/31/18 Range/Units 06:24 12:08 WBC (4.8-10.8) K/uL RBC (4.2-5.4) M/uL Hgb (12.0-16.0) g/dL POC Hgb (12.0-16.0) g/dl Hct (37-47) % POC Hct (37-47) % MCV (80-100) fL MCH (25-34) pg MCHC (32-36) g/dL RDW Std Deviation (36.4-46.3) fL RDW Coeff of Kristel (11.5-14.5) % Plt Count (130-400) K/uL MPV (7.4-10.4) fL Immature Gran % (Auto) % Neut % (Auto) % Lymph % (Auto) % [place] % (Auto) % Eos % (Auto) % Baso % (Auto) % Immature Gran # (Auto) (0.00-0.02) K/uL Neut # (Auto) (1.4-6.5) K/uL Lymph # (Auto) (1.2-3.4) K/uL [place] # (Auto) (0.11-0.59) K/uL Eos # (Auto) (0-0.5) K/uL Baso # (Auto) (0-0.2) K/uL POC Sodium (135-144) mEq/L Sodium 139 (136-145) mmol/L POC Potassium (3.3-5.0) mEq/L Potassium 4.7 (3.5-5.1) mmol/L POC Chloride (101-112) mEq/L Chloride 108 H (98-107) mmol/L Carbon Dioxide 25 (21-32) mmol/L POC Total CO2 (24-31) mEq/l Anion Gap 6.0 (3-11) POC Anion Gap (16-25) mmol/L POC BUN (7-18) mg/dl BUN 20 H (7-18) mg/dl Creatinine 1.26 H (0.6-1.2) mg/dl POC Creatinine (0.6-1.3) mg/dl Est Cr Clr Drug Dosing 30.1 ml/min Est GFR ( Amer) 47.3 Est GFR (Non-Af Amer) 40.8 BUN/Creatinine Ratio 16.1 (10-20) Glucose 208 H (70-99) mg/dl POC Glucose (other) (70-99) mg/dl Calcium 8.9 (8.5-10.1) mg/dl POC Ioniz Calcium [place] (1.12-1.32) mmol/l Magnesium 1.9 (1.8-2.4) mg/dl Total Bilirubin (0.2-1) mg/dl AST (15-37) U/L ALT (12-78) U/L Alkaline Phosphatase (45-117) U/L Troponin I < 0.015 < 0.015 (0-0.045) ng/ml Total Protein (6.4-8.2) gm/dl Albumin (3.4-5.0) gm/dl Globulin (2.5-4.0) gm/dl Albumin/Globulin Ratio (0.9-2) Lipase (73-393) U/L Urine Color Urine Appearance (Clear) Urine pH (4.5-7.5) Ur Specific [place] (1.000-1.030) Urine Protein (Negative) Urine Glucose (UA) (Negative) Urine Ketones (Negative) Urine Blood (Negative) Urine Nitrite (Negative) Urine Bilirubin (Negative) Urine Urobilinogen (Negative) Ur Leukocyte Esterase (Negative) Urine RBC (0-4) /hpf Urine WBC (0-5) /hpf Ur Epithelial Cells (0-5) /lpf Urine Bacteria (Negative) Imaging Data Radiologist's Impression: Radiology results as stated below per my review and the radiologist's interpretation: SINGLE VIEW CHEST FINDINGS: An AP, portable, upright chest radiograph is compared to study dated . Correlation is made with chest CT dated 11/11/2018. The examination is degraded by portable technique and patient rotation. The heart is top normal for projection and there is atherosclerotic calcification of the thoracic aorta. The pulmonary vasculature is noncongested. Emphysema and chronic interstitial thickening are similar to previous. Patchy airspace consolidation is noted at the left lung base. No large pleural effusion or pneumothorax is seen. The skeletal structures are osteopenic. The bony thorax is grossly intact. Degenerative change is noted throughout the thoracic spine. IMPRESSION: 1. Emphysema. 2. Patchy airspace consolidation is identified at the left lung base, which could represent atelectasis versus pneumonia. Clinical correlation will be required and radiographic follow-up to resolution is recommended. Electronically signed by: Reinier Parr M.D. 12/30/2018 8:[address] ANGIOGRAM OF THE CHEST; CT SCAN OF THE ABDOMEN AND PELVIS WITH IV CONTRAST FINDINGS: CHEST: Thyroid: Imaged portions of the thyroid gland are normal in size and attenuation. Thoracic aorta: There is atherosclerotic calcification of the thoracic aorta, which is normal in caliber and demonstrates standard 3-vessel arch anatomy. No dissection is seen. There is high-grade stenosis at the origin of the left subclavian artery. Pulmonary vasculature: The pulmonary trunk is normal in caliber. There are no filling defects identified in the main, lobar, or segmental pulmonary arteries to indicate pulmonary embolus. Heart: The heart is normal in size and there is a moderate pericardial effusion , which is new from 11/11/2018. There is mild pericardial thickening and enhancement. There are coronary artery calcifications. Lungs and pleural spaces: Evaluation of the lung parenchyma is compromised by motion artifact. The trachea and central airways are clear. Emphysematous change is again noted. There is a small left pleural effusion with left basilar atelectasis. There are two 4 mm pulmonary nodules in the left lower lobe seen on images #95 and #98. Mediastinum: There is no mediastinal lymphadenopathy. Katerine: Clear. Axillae: There is no axillary lymphadenopathy. Bony thorax: The skeletal structures are osteopenic. Mild degenerative change is noted in the thoracic spine. No lytic or blastic lesions are identified. Arthritic changes noted in the right shoulder. ABDOMEN AND PELVIS: Liver: The contrast-enhanced liver is enlarged, measuring 20.5 cm in length. The liver is normal in contour and attenuation. There is no intrahepatic or ductal dilatation. The hepatic veins and portal veins are patent. Gallbladder: Unremarkable. Spleen: Normal in size and attenuation. Pancreas: There are parenchymal calcifications seen throughout the pancreas indicating chronic pancreatitis. The gland is mildly atrophic. The pancreatic duct is normal in caliber. No peripancreatic inflammation fluid is identified. Adrenal glands: Unremarkable. Kidneys: The contrast enhanced kidneys are normal in size. There is mild to moderate left-sided hydroureteronephrosis. The ureter is dilated to the periaortic inflammatory stranding discussed below. There is no right-sided hydronephrosis. The left kidney enhances heterogeneously, and there is mild left -sided perinephric stranding. Abdominal vasculature: There is advanced atherosclerotic calcification of the abdominal aorta. An infrarenal abdominal aortic aneurysm measures 4.2 cm in AP diameter and 4.4 cm in transverse diameter. A rind of abnormal soft tissue/ stranding is again seen around the aneurysm sac and proximal iliac arteries, which also encases the left ureter. No extraluminal contrast is identified. The abdominal aorta is patent, as are the iliac vessels. Stomach and bowel: There is a small hiatal hernia. The duodenum is normal in configuration. There is moderate to severe constipation. No bowel obstruction is identified. There are scattered colonic diverticula without CT evidence of acute diverticulitis. The appendix is well-visualized and normal. Peritoneum: There is no intraperitoneal free air or abdominal ascites. Lymphadenopathy: None. Pelvic viscera: The bladder, uterus, and adnexa are normal as visualized. Skeletal structures: The skeletal structures are osteopenic. There is mild lumbosacral spondylosis. No lytic or blastic lesions are seen. A benign- appearing sclerotic lesion is seen within the right proximal femur, likely representing an enchondroma. Arthritic change is seen in the hips, left greater than right. IMPRESSION: 1. There is no evidence of pulmonary embolus in the main, lobar, or segmental pulmonary arteries. 2. Emphysema. 3. There is a moderate pericardial effusion with associated pericardial thickening and enhancement. This is new from 11/11/2018. Correlate cortically for evidence of pericarditis. Echocardiography may provide further information. 4. There is a small left pleural effusion with associated atelectasis. No airspace consolidation is seen typical for pneumonia. 5. There are two 4 mm left lower lobe pulmonary nodules. These are unchanged from 11/11/2018 but were not seen on the 2010 examination. These are pathologically indeterminant and should be followed as per the Fleischner criteria. 6. There is a 4.2 x 4.4 cm infrarenal abdominal aortic aneurysm, similar in size to 11/12/2018. 7. Again seen is a rind of abnormal soft tissue/infiltration around the aneurysm sac and proximal iliac arteries. 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 No contrast extravasation is identified. Leaking aneurysm is considered less likely but would be impossible to completely exclude. Vascular surgical assessment is recommended. 8. The abnormal periaortic soft tissue encases the left ureter and causes mild- to-moderate left-sided hydronephrosis. 9. There is heterogeneous enhancement of the left kidney, likely related to obstruction/hydronephrosis. Correlation with urinalysis will be required. 10. Hepatomegaly. 11. Moderate to severe constipation. 12. There is evidence of chronic pancreatitis. 13. Additional findings as above. Please refer to below summary of Fleischner criteria recommendations for follow- up of incidental CT nodules (Noelle Childers, Guidelines for management of small pulmonary nodules detected on CT scans: A statement from the Fleischner Society , Radiology 237: [id number].) SOLID NODULES Solitary nodule size: <6 mm * low risk patients: no follow-up needed * high risk patients: optional CT at 12 months Solitary nodule size: 6-8 mm * low risk patients: follow-up at 6-12 months, then consider further follow- up at 18-24 months * high risk patients: initial follow-up CT at 6-12 months and then at 18-24 months if no change Solitary nodule size: >8 mm * either low or high risk patients - consider follow-up CT at 3 months, and/or CT-PET, and/or biopsy Multiple nodules size: <6 mm * low risk patients: no routine follow-up * high risk patients: optional CT at 12 months Multiple nodules size: 6-8 mm * low risk patients: follow-up at 3-6 months, then consider further follow-up at 18-24 months * high risk patients: follow-up at 3-6 months, then at 18-24 months if no change Multiple nodules size: >8 mm * low risk patients: follow-up at 3-6 months, then consider further follow-up at 18-24 months * high risk patients: follow-up at 3-6 months, then at 18-24 months if no change Note: newly detected indeterminate nodule in persons 35 years of age or older. * low risk patients: minimal or absent history of smoking and/or other known risk factors * high risk patients: history of smoking or of other known risk factors (e.g. first degree relative with lung cancer, or exposure to asbestos, radon, uranium) * if a nodule up to 8 mm is partly solid or is ground glass further follow-up is required after 24 months to exclude possible slow growing adenocarcinoma (LOIS ) SUBSOLID NODULES Solitary pure ground-glass nodule * nodule size <6 mm - no CT follow-up required * nodule size >=6 mm - follow-up CT at 6-12 months, then every 2 years until 5 years Solitary part-solid nodule * nodule size <6 mm - no CT follow-up required * nodule size >=6 mm - follow-up CT at 3-6 months. If unchanged, and solid component remains <6 mm, then annual follow-up for 5 years Multiple subsolid nodules * nodule size <6 mm - follow-up CT at 3-6 months, consider further follow-up at 2 and 4 years if stable * nodule size >=6 mm - follow-up CT at 3-6 months, subsequent management based on the most suspicious nodule(s) Electronically signed by: Reinier Parr M.D. 12/30/2018 9:10 PM ECG Data Attestation: I personally reviewed and interpreted this ECG as follows: Indication: chest pain Rate (beats per minute): 117 Rhythm: sinus tachycardia Findings: no ST depression and no ST elevation Additional Comments: Normal axis, normal intervals. Blood Pressure Blood Pressure Findings: Normal blood pressure Blood Pressure Disposition: did not require urgent referral MDM Narrative The patient is a 78 year old female w/ PMHx of pancreatitis and a previous aneurysm who presents to the ED w/ CC of constant sharp chest pain beginning yesterday. Differential diagnosis: Etiologies such as shingles, musculoskeletal pain, pericarditis, myocarditis, cardiac ischemia, pericardial tamponade, pneumonia, pneumothorax, pleural effusion, hemothorax, pleurisy, aortic pathology, pulmonary embolism, intra- abdominal process, as well as others were considered. Patient was seen and evaluated the bedside. The patient was presenting with some left-sided chest wall pain. There is no evidence of any abnormalities. Patient denies any recent trauma. The patient was admitted last month for E. coli bacteremia. Patient also does have a prior history of a AAA which is currently being watched via surveillance. Patient blood work did show an elevated white count. The patient did get IV fluids. Blood cultures were ordered and cefepime was ordered as the patient's prior sensitivities were sensitive to this. The patient was feeling improved. The patient CTs of the chest abdomen pelvis did show a new pericardial effusion. There is no evidence of any ID depression or ST elevation consistent with necessarily a pericarditis based on EKG. Troponin is not elevated. Patient's heart rate has improved with IV fluids. Given the patient's new pericardial effusion and associated UTI related sepsis believe the patient would benefit from further evaluation and treatment. Patient was admitted to the medicine service. Impression & Plan Sepsis, Chest pain, Pericardial effusion Discharge Plan Visit Data *Final* Discharge Date/Time: 12/30/18 23:10 Chief Complaint: Pain (Generalized) Stated Complaint: CHEST PAIN Other Complaint: Chest Pain ED Provider: Jeremy Cooley Discharge Problem: Sepsis, Chest pain, Pericardial effusion Patient Disposition: Admitted As Inpatient Discharge Instructions Interventions: ED Discharge Assessment Last Done: 12/30/18 23:10 The scribe's documentation has been prepared under my direction and personally reviewed by me in its entirety. I confirm that the note above accurately reflects all work, treatment, procedures, and medical decision making performed by me.
[2018-12-30 21:28] LABS: Appearance Urine Clear (Clear); Bilirubin Urine Negative (Negative); Color Urine Yellow; Glucose Urine UA Negative (Negative); Ketones Urine Negative (Negative); Leukocyte Esterase Urine 3+ (Negative); Nitrite Urine Positive (Negative); Protein Urine Negative (Negative); Specific Gravity Urine 1.009 (1.000-1.030); Urobilinogen Urine Negative (Negative); pH Urine 6.5 (4.5-7.5)
[2018-12-30 21:45] LABS: Bacteria Urine 2+ (Negative); RBC Urine 0-4 /hpf (0-4); WBC Urine >30 /hpf (0-5)
[2018-12-30] MEDS ORDERED: ONDANSETRON 4 MG TAB PO PRN (23:29)
[2018-12-30] MEDS ORDERED: NITROGLYCERIN SL 0.4 MG/TAB TAB SL PRN (23:29)
[2018-12-30] MEDS ORDERED: ALUMINUM/MAGNESIUM SUSP 30 ML UDC PO PRN (23:29)
[2018-12-30] MEDS ORDERED: CEFEPIME 2,000 MG in SYRINGE 7.5 ML IV SCH (23:29)
[2018-12-30] MEDS ORDERED: ONDANSETRON INJ 2 MG/ML 2 ML VIAL IV PRN (23:29)
[2018-12-30] MEDS ORDERED: MECLIZINE HCL 25 MG TAB PO PRN (23:29)
[2018-12-30] MEDS ORDERED: KETOROLAC TROMETHAMINE 15 MG/ML VIAL IV PRN (23:29)
[2018-12-30] MEDS ORDERED: CEFEPIME CONSULT ACTIVE PRN (23:49)
[2018-12-31] MEDS: DOXYCYCLINE HYCLATE 100 MG CAP PO SCH ×2 (00:33→08:37)
[2018-12-31] MEDS: methylPREDNISolone 40 MG in SYRINGE 0 ML IV SCH ×2 (00:34→11:03)
[2018-12-31] MEDS: ACETAMINOPHEN 325 MG TAB PO PRN ×2 (00:34→17:36)
[2018-12-31] MEDS ORDERED: XOPENEX/ATROVENT 1.25mg/0.5MG NEB COMBO NEB SCH (02:00)
[2018-12-31] MEDS: IPRATROPIUM BROMIDE NEB SOLN 0.02% 2.5 ML VIAL INH SCH ×2 (02:02→07:21)
[2018-12-31] MEDS: LEVALBUTEROL 1.25MG/0.5ML NEB INH SCH ×2 (02:02→07:21)
--- NOTE | 2018-12-31 02:35 | History and Physical Report ---
DATE OF ADMISSION: 12/30/2018 CHIEF COMPLAINT: Shoulder pain, chest pain on taking deep breath, and shortness of breath. HISTORY OF PRESENT ILLNESS: This is a 78-year-old female with past medical history significant for COPD, hyperparathyroidism, hyperlipidemia, history of tobacco abuse, history of abdominal aneurysm without rupture, GERD, senile osteoporosis, depression, presents with shoulder pain in both shoulders and chest pain on taking deep breaths, and shortness of breath, cough since last couple of days. The patient was here in [facility] from 11/25/2018 and was discharged on 11/30/2018. At that time, she was found to have sepsis with UTI and bacteremia with E. coli and treated with cefepime and discharged on Augmentin, which she completed the course about a couple of weeks ago and at that time CAT scan also showed left hydronephrosis, thought to be from abdominal aortic aneurysm, supposed to follow with urology and she has an appointment with urology on Tuesday . She has scheduled followup appointment on 01/06/2019 with Cardiovascular surgery at [place] for AAA.Today in the ER Imaging studies were done, which showed moderate pericardial effusion and abdominal aortic aneurysm of same size. The patient denies any abdominal pain, no nausea, no vomiting. Constipated. No burning micturition. No headaches, no blurred vision, no earache, no runny nose, no sore throat, no difficulty swallowing. Appetite is okay. Lives with her and ambulating okay, but on her ambulation, she is getting these chest pains and shoulder pain and this is more when she is taking deep breath and also some shortness of breath and cough with some occasional phlegm. She is afebrile. ALLERGIES: ALENDRONATE SODIUM. PAST MEDICAL HISTORY: As mentioned above. PAST SURGICAL HISTORY: Colonoscopy, EGD upper endoscope. MEDICATIONS: The patient currently on bupropion 150 mg p.o. b.i.d., Zofran 4 mg p.o. q. 6 hours p.r.n., ferrous sulfate 325 mg p.o. every other day, ascorbic acid 500 mg p.o. daily, Antivert 125 mg p.o. t.i.d. p.r.n., Combivent Respimat 1 puff q.i.d., Lipitor 40 mg p.o. daily, Nexium 10 mg p.o. daily, Prolia 60 mg subcutaneous every 6 months, Caltrate plus D 1 tablet b.i.d., aspirin 81 mg 2 tablets daily. FAMILY HISTORY: Significant for mother had emphysema and heart disorder and alcoholism. Paternal grandmother had diabetes. SOCIAL HISTORY: , lives with her , smokes quarter pack a day for 44 years. Alcohol: A glass of wine with dinner. No drug use. REVIEW OF SYMPTOMS: As per HPI. Rest of review of the systems negative. PHYSICAL EXAMINATION: GENERAL: The patient is of moderate built, not in acute distress. VITAL SIGNS: Temperature 36.6, pulse 102, respiratory rate 20, blood pressure 119/58, oxygen 94% room air. HEENT: No pallor, no icterus. Pupils equal, round, and react to light. NECK: No JVD, no neck masses, no carotid bruits. CARDIOVASCULAR: S1, S2 heard, regular rate and rhythm, no murmur, no gallop. RESPIRATORY SYSTEM: Normal AP diameter. No accessory muscle use. No wheezing, no crackles. RESPIRATORY: Diminished breath sounds. No wheezing, no crackles. ABDOMEN: Soft, bowel sounds present. Nontender. No distention. CENTRAL NERVOUS SYSTEM: Nonfocal. EXTREMITIES: No edema, no erythema. LABS: WBC 14.5, hemoglobin 11.5, hematocrit 35, platelets 244. Sodium 136, potassium 4.1, chloride 103, bicarbonate 24, BUN 18, creatinine 1.06, serum glucose 112, calcium 9.1, magnesium 1.8, total bilirubin 0.6, AST 14, ALT 19, alkaline phosphatase is 126. Troponin I less than 0.015. Lipase 106. Urinalysis, positive for nitrate and leukocyte esterase. Chest x-ray: Patchy airspace consolidation at left lung base, which could represent atelectasis versus pneumonia. CT of the chest: No PE, emphysema, moderate pericardial effusion with pericardial thickening and enhancement. This is new from 11/11/2018. Correlate with the evidence of pericarditis, small left pleural effusion also atelectasis. No airspace consolidation is seen typical for pneumonia. There is 4 mm left lower lobe pulmonary nodule, unchanged from 10/2018. CTA of the abdomen and pelvis 4.2 x 4.4 cm infrarenal abdominal aortic aneurysm similar to size from 11/12/2018 .Again shows rind of abnormal soft tissue infiltration around the aneurysm sac and proximal iliac arteries. 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 No contrast extravasation identified, aneurysmal leak less likely but could be impossible to exclude. The abdominal periaortic soft tissue encases left ureter and cause [id number] left-sided hydronephrosis. Hepatomegaly severe constipation, chronic pancreatitis. EKG: Sinus tachycardia at a rate of 170, no significant change found. ASSESSMENT AND PLAN: This is a 78-year-old female who presents with pain in the shoulder and the chest, which is more with deep breath and found to have pericardial effusion and urinary tract infection, recurrent. 1. Shoulder pain, chest pain more on deep breath, pericardial effusion and possible pericarditis. Received Toradol in the Emergency Room. We will continue with Toradol . We will follow echocardiogram, repeat EKG, and serial cardiac enzymes, consult cardiology in morning for further recommendations. 2. Possible mild chronic obstructive pulmonary disease exacerbation. The patient is having some shortness of breath. Received steroids in the Emergency Room. Currently diminished breath sounds but no wheezing heard. We will empirically place her on nebs around the clock, IV methylprednisone 40 mg p.o. b.i.d., doxycycline 100 mg p.o. b.i.d., and monitor for response. 3. Recurrent urinary tract infection. Was recently in the hospital in November with his Escherichia coli bacteremia and urinary tract infection. Was treated with IV Cefepime and discharged on p.o. Augmentin.Was seen by infectious disease at that time. We will place her on IV cefepime and follow the cultures and also will urology consult for recurrent urinary tract infection.Has appointment with urology on Tuesday 4. History of abdominal aortic aneurysm about 4.4 cm The CAT scan shows similar to last CAT scan done in November, has an appointment cardiovascular surgery of [place]. We will closely monitor, also causing left hydronephrosis. Consulting urology, supposed to see urology in the coming Tuesday. 5. Severe constipation. Placed on lactulose b.i.d. and hold lactulose when the patient's constipation is resolved. 6. Lung nodules, 4 mm in left lower lobe similar to 10/2018. Follow up with primary care physician. 7. Chronic kidney disease stage III. We will follow the labs. 8. Anemia, stable. 9. Depression, continue Wellbutrin. 10. Hyperlipidemia. Continue statin. 11. Gastroesophageal reflux disease. Continue proton pump inhibitors. 12. Deep vein thrombosis prophylaxis, sequential compression devices for now. DISPOSITION: Closely monitor in the tele floor. Level I full code. MTDD
[2018-12-31 06:33] LABS: Basophils # (auto) 0.01 K/uL (0-0.2); Basophils % (auto) 0.1 %; Eosinophils # (auto) 0.01 K/uL (0-0.5); Eosinophils % (auto) 0.1 %; Hematocrit (blood only) 35.7 % (37-47); Hemoglobin 11.5 g/dL (12.0-16.0); Immature Granulocytes # (auto) 0.02 K/uL (0.00-0.02); Immature Granulocytes % (auto) 0.2 %; Lymphocytes # (auto) 0.51 K/uL (1.2-3.4); Lymphocytes % (auto) 4.4 %; Mean Corpuscular Hgb Conc 32.2 g/dL (32-36); Mean Corpuscular Volume 93.5 fL (80-100); Mean Platelet Volume 9.2 fL (7.4-10.4); Monocytes # (auto) 0.38 K/uL (0.11-0.59); Monocytes % (auto) 3.3 %; Neutrophils # (auto) 10.59 K/uL (1.4-6.5); Neutrophils % (auto) 91.9 %; Platelet Count 237 K/uL (130-400); RDW Coefficient of Variation 16.7 % (11.5-14.5); RDW Standard Deviation 57.3 fL (36.4-46.3); Red Blood Count 3.82 M/uL (4.2-5.4); White Blood Count 11.52 K/uL (4.8-10.8)
[2018-12-31 07:08] LABS: BUN Creatinine Ratio 16.1 (10-20); Blood Urea Nitrogen 20 mg/dl (7-18); Calcium 8.9 mg/dl (8.5-10.1); Carbon Dioxide 25 mmol/L (21-32); Chloride 108 mmol/L (98-107); Creatinine Clr Calc Pharmacy 30.1 ml/min; Est GFR (African American) 47.3; Est GFR (Non-African American) 40.8; Glucose 208 mg/dl (70-99); Magnesium 1.9 mg/dl (1.8-2.4); Potassium 4.7 mmol/L (3.5-5.1); Sodium 139 mmol/L (136-145)
[2018-12-31 07:13] LABS: Troponin I < 0.015 ng/ml (0-0.045)
[2018-12-31] MEDS ORDERED: BISACODYL 10 MG SUPP PR ONE (08:00)
[2018-12-31] MEDS: ASCORBIC ACID 500 MG TAB PO SCH (08:37)
[2018-12-31] MEDS: ASPIRIN 81 MG ECTAB PO SCH ×2 (08:37→21:17)
[2018-12-31] MEDS: CALCIUM 600MG + VIT D 400 IU TAB PO SCH (08:37)
[2018-12-31] MEDS: ATORVASTATIN 40 MG TAB PO SCH (08:38)
[2018-12-31] MEDS: BuPROPion SR 150 MG TABCR PO SCH ×2 (08:38→21:17)
[2018-12-31] MEDS ORDERED: LACTULOSE SYRUP 30 GM/45 ML UDP PO SCH (09:00)
[2018-12-31] MEDS ORDERED: CEFEPIME 1,000 MG in SYRINGE 0 ML IV SCH (09:00)
[2018-12-31] MEDS ORDERED: SENNA 8.6 MG TAB PO SCH (09:30)
[2018-12-31] MEDS ORDERED: IPRATROPIUM BROMIDE NEB SOLN 0.02% 2.5 ML VIAL INH PRN (11:03)
[2018-12-31] MEDS: PANTOprazole 40 MG TAB PO SCH (11:03)
[2018-12-31] MEDS ORDERED: LEVALBUTEROL 1.25MG/0.5ML NEB INH PRN (11:03)
--- NOTE | 2018-12-31 12:31 | Urology Consultation ---
Date of Consultation December 31, 2018 Assessment & Plan (1) UTI (urinary tract infection): frequent uti I instructed patient on proper light perineal hygiene she will add topical estrogen cream 3 nights per week still seek treatment for symptomatic infections see her in clinic 6 months Left hydronephrosis- mild on ct and similar on last 3 ct scans no plan to stent left ureter now if she has a AAA repair she can have the ureter stented pre-op. I think the poor perfusion of the left kidney has more to do with left renal artery disease than the ureteral obstruction. Present on Admission?: No History of Present Illness Reason for Consultation: utis and hydronephrosis Requesting Physician: Dr Bolanos Attending Physician: Elle Tate MD History of Present Illness I am asked by Dr Vaughn and Dr Tate to evaluate and treat patient for utis. She also has left hydronephrosis on her last several ct scans. her symptoms of cystitis arfe frequency and dysuria. She has had then almost monthly last many months. She has early sepsis in November with her UTi. She seems to have cleared that one with augmentin. She does not have cystitis symptoms now but is admitted with chest pain. She dose use wet wipes. She is not on oral estrogen. she does not have a h/o breast cancer. Allergies Allergy/AdvReac Type Severity Reaction Status Date / Time No Known Allergies Allergy Verified 12/30/18 20:56 Home Medications Home Medications Medication Instructions Recorded Confirmed Type aspirin [Aspir-81] 81 mg PO BID 08/30/18 12/30/18 History atorvastatin 40 mg PO DAILY 08/30/18 12/30/18 History bupropion HCl 150 mg PO BID 08/30/18 12/30/18 History esomeprazole magnesium [Nexium] 40 mg PO DAILY 08/30/18 12/30/18 History calcium carbonate-vitamin D3 1 tab PO DAILY 11/11/18 12/30/18 History [Caltrate 600 + D] denosumab [Prolia] 1 dose SUBCUT DIRECTED 11/11/18 12/30/18 History meclizine 25 mg PO TID PRN 11/11/18 12/30/18 History ascorbic acid (vitamin C) [Vitamin 500 mg PO DAILY 12/30/18 12/30/18 History C] ferrous sulfate 325 mg PO Q2D 12/30/18 12/30/18 History ipratropium-albuterol [Combivent 1 puff INHALATION QID PRN 12/30/18 12/30/18 History Respimat] ondansetron HCl 4 mg PO Q6H PRN 12/30/18 12/30/18 History Patient History Social History marital status: Current Living Situation: Spouse 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 Feels Safe at Home: Yes Safety Concerns: Feels Safe At This Time Smoking Status: Former smoker Tobacco Type: cigarettes Hx Alcohol Use: Yes ("occasional glass of wine") Alcohol type: wine Alcohol Intake Frequency: 0-2 drinks per day Hx Substance Use: No Beliefs That Will Affect Care: None Communication Ability: Effective Review of Systems PMH- cad, emphysema, copd, gerd, htn, dyslipidemia, thyroid dz Soc- retired, , former tobacco, no alcohol Fam Hx- no kidney stones no cancer, +CAD ROS- no fever no chills, + fatigue, no seizures, + chest pain, + shortness of breath, + diarrhea and occassional constipation, appetite fair, no numbness Physical Exam 2 Vital Signs (Past 24 Hours): Last Vital Signs Temp 36.3 C L 12/31/18 06:59 Pulse 84 12/31/18 07:21 Resp 18 12/31/18 07:21 BP 114/73 12/31/18 06:59 Pulse Ox 97 12/31/18 07:21 Constitutional: WD/WN, vitals as above average body habitus and healthy appearing; no acute distress Eyes: PERRL, conjunctivae normal, anicteric sclerae Gastrointestinal (Abdomen): normal bowel sounds, soft, nontender, no hepatosplenomegaly Psychiatric: A+Ox3, euthymic affect Genitourinary: external genitalia normal, urethral meatus open at rest, stage 2 support, no stool palpable posteriorly, empty supine stress test normal. Bladder base not tender and normal to palpation, urethra lenght normal to palpation I showed patient where to apply the estrogen cream at home.
--- NOTE | 2018-12-31 14:34 | Consultation Report ---
DATE OF CONSULTATION: 12/31/2018 INPATIENT CARDIOLOGY CONSULTATION CONSULTATION REQUESTED BY: Dr. Bolanos. REASON FOR CONSULTATION: Pericardial effusion. HISTORY OF PRESENT ILLNESS: Ms. Ontiveros is a very pleasant 78-year-old woman who has not followed by our cardiology practice who presented to [facility] Emergency Department on 12/30/2018 with complaints of shoulder pain and pleuritic chest pain. The patient was recently admitted to [facility] with UTI and sepsis. She was discharged home with a course of antibiotics. She presented back to the ER on 12/30/2018 with complaints of bilateral shoulder pain and chest pain on deep inhalation. The patient states her pain was reproducible with movement of her upper extremities as well as turning and did not appear to be exertional in nature. She states the pain would start in her shoulders and radiated all across her chest and she describes a sharp stabbing pain. She denied any associated shortness of breath, diaphoresis, nausea, palpitations, lightheadedness, dizziness, or syncope. A CTA of the chest was performed in the Emergency Department which showed moderate pericardial effusion and cardiology was consulted for further evaluation. Currently, the patient states that she is feeling better and that she has not had any more discomfort overnight since receiving Toradol. PAST SURGICAL HISTORY: 1. Upper endoscopy. 2. Colonoscopy. MEDICAL ILLNESSES: 1. Infrarenal abdominal aortic aneurysm. 2. Hiatal hernia. 3. COPD. 4. Tobacco abuse. 5. Depression. 6. Dyslipidemia. 7. GERD. FAMILY HISTORY: Noncontributory given her age. SOCIAL HISTORY: The patient is a former smoker. Denies any alcohol or recreational drug use. 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 REVIEW OF SYSTEMS: As per HPI, all other review of systems reviewed and negative at this time. ALLERGIES: ALENDRONATE SODIUM. MEDICATIONS AN OUTPATIENT: 1. Aspirin 81 mg daily. 2. Nexium daily. 3. Lipitor 40 mg daily. 4. Combivent. 5. Iron. 6. Wellbutrin. 7. Prolia. PHYSICAL EXAMINATION: VITALS: Temperature 36.7, pulse 89, respiratory rate 12, blood pressure 103/60. GENERAL: Awake, alert, oriented x3 in no acute distress, ambulating in her hospital room. HEENT: Normocephalic, atraumatic. Pupils equal, round, and reactive to light and accommodation. Extraocular muscles intact. Anicteric sclerae. Moist mucous membranes. NECK: No JVD, no bruit. CARDIOVASCULAR: Regular. Positive S4. Normal S1 and S2. No S3. No murmurs or rubs. PULMONARY: Clear to auscultation bilaterally. No rales, rhonchi, or wheezing. ABDOMEN: Bowel sounds x4, soft. No rebound, guarding, tenderness. No organomegaly. EXTREMITIES: No clubbing, cyanosis or edema. +2 pedal pulses bilaterally. SKIN: Warm and dry with a very large nevi on her back. TEST RESULTS: A 2D echocardiogram was read as no significant change compared to previous study of 01/18/2018, normal LV chamber size with mild concentric LVH, normal LV systolic function, EF 60-65%, no segmental left ventricle wall motion abnormalities are noted, grade 1 diastolic dysfunction, moderate aortic valve sclerosis without stenosis, mild aortic regurgitation, small loculated anterior pericardial effusion with stranding to suggest chronicity, no hemodynamic compromise. LABORATORY TEST OF SIGNIFICANCE: Troponin negative x4. IMPRESSION: 1. Asymptomatic small chronic anterior pericardial effusion. 2. Musculoskeletal chest pain. 3. Hernia. 4. Abdominal aortic aneurysm. 5. Hypertension. 6. Dyslipidemia. RECOMMENDATIONS: It was my pleasure to see Mrs. Ontiveros in consultation today. Given the fact that the patient is now asymptomatic and the fact that her pericardial effusion has not changed and does show chronicity compared to last year, no further cardiac testing or intervention is necessary at this time. No medication changes will be made and it is okay to discharge the patient to home from a cardiac standpoint.
--- NOTE | 2018-12-31 17:29 | Hospitalist Progress Note ---
Date of Service December 31, 2018 Assessment & Plan (1) Pericardial effusion: chronic /small pericardial effusion ECHO shows no evidence of cardiac temponade appreciate input from Cardiology no further medication change needed (2) Acute kidney failure: possible secondary dehydration , poor PO intake baseline CKD stage 3 ordered IV fluid avoid NSAID's repeat Lab in am (3) Hydronephrosis of left kidney: chronic no complain left flank FULL CODE DVT PROPHYLAXIS : sub q heparin DISPOSITION : discharge home in AM if renal function improved to baseline Subjective complains of pluritic chest pain on left chest wall with radiation to shoulder no fever or chills no SOB , DASH , no hypoxia no cough or fever /chills Physical Exam 2 Vital Signs (Past 24 Hours): Last Vital Signs Temp 36.5 C 12/31/18 15:04 Pulse 104 H 12/31/18 15:04 Resp 18 12/31/18 15:04 BP 109/63 12/31/18 15:04 Pulse Ox 91 12/31/18 15:04 Constitutional: WD/WN, vitals as above no acute distress Eyes: PERRL, conjunctivae normal, anicteric sclerae ENMT: external ear and nose normal, oropharynx normal Neck: trachea midline, no thyromegaly Respiratory: normal respiratory effort; no respiratory distress Auscultation: + diminished lung sounds; no crackles, no rales and no wheezes Cardiovascular: Rate/Rhythm: regular rate and regular rhythm Extremities: + pedal edema (trace) Gastrointestinal (Abdomen): Inspection/Auscultation: abdomen normal to inspection and normal bowel sounds; abdomen not distended Percussion/ Palpation: abdomen soft; abdomen nontender Musculoskeletal: Head/Neck/Chest: normocephalic and head atraumatic Extremities: no cyanosis Gait: normal gait Shoulder: + shoulder abnormal to inspection; no deformity and no skin erythema Skin: no rashes, warm and dry Neurologic: PERRL, EOMI, accommodation nl, no face palsy, no dysarthria Psychiatric: A+Ox3, euthymic affect _ (1) Acute kidney failure Acute renal failure type: unspecified Qualified Code(s): N17.9 - Acute kidney failure, unspecified
[2018-12-31] MEDS: POLYETHYLENE (MIRALAX) 17 GM PACK PO PRN (17:30)
[2018-12-31] MEDS ORDERED: NORMOSOL-R 1,000 ML IV SCH (18:15)
[2018-12-31] MEDS ORDERED: DOCUSATE SODIUM/SENNA 50/8.6MG TAB PO SCH (21:00)
[2018-12-31] MEDS ORDERED: PREMARIN VAG CRM 14 APPLN/30 GM TUBE PV SCH (21:00)
[2019-01-01 06:03] LABS: Creatinine Clr Calc Pharmacy 33.2 ml/min; Est GFR (African American) 53.3; Potassium 4.8 mmol/L (3.5-5.1)
[2019-01-01] MEDS: ATORVASTATIN 40 MG TAB PO SCH (07:59)
[2019-01-01] MEDS: BuPROPion SR 150 MG TABCR PO SCH (07:59)
[2019-01-01] MEDS: ASPIRIN 81 MG ECTAB PO SCH (07:59)
[2019-01-01] MEDS: PANTOprazole 40 MG TAB PO SCH (07:59)
[2019-01-01] MEDS: ASCORBIC ACID 500 MG TAB PO SCH (08:00)
[2019-01-01] MEDS: CALCIUM 600MG + VIT D 400 IU TAB PO SCH (08:00)
[2019-01-01] MEDS ORDERED: CEFEPIME 1,000 MG in SYRINGE 0 ML IV SCH (09:00)
[2019-01-01] MEDS ORDERED: SENNA 8.6 MG TAB PO SCH (09:00)
[2019-01-01] MEDS ORDERED: predniSONE 20 MG TAB PO SCH (09:00)
--- NOTE | 2019-01-01 09:32 | Consultation ---
Date of Consultation January 01, 2019 Assessment & Plan (1) AAA (abdominal aortic aneurysm): Pt with known AAA, approx 4.4cm, unchanged from previous imaging, no concern for rupture. Pt already has follow up scheduled at [facility] and wishes to keep that appt. No indications for vascular surgery intervention at this time. Please call if needed. Presence of rupture: without rupture Qualified Code(s): I71.4 - Abdominal aortic aneurysm, without rupture Present on Admission?: Yes History of Present Illness Reason for Consultation: AAA Attending Physician: Elle Tate MD History of Present Illness 78yo f with multiple medical problems, including anemia, hyperlipidemia, and recent kidney injury d/t hydronephrosis, as well as AAA, admitted with chest pain, seen in consultation today for her AAA. Pt states she has seen [facility] surgery in past and has an appt with them soon for follow up. Denies ANTONY, fever, chills, chest pain presently, abd pain, N/V, rest pain, claudication, other complaints. CT scan demonstrates AAA approx 4.4cm, unchanged from previous. Allergies Allergy/AdvReac Type Severity Reaction Status Date / Time No Known Allergies Allergy Verified 12/30/18 20:56 Home Medications Home Medications Medication Instructions Recorded Confirmed Type aspirin [Aspir-81] 81 mg PO BID 08/30/18 12/30/18 History atorvastatin 40 mg PO DAILY 08/30/18 12/30/18 History bupropion HCl 150 mg PO BID 08/30/18 12/30/18 History esomeprazole magnesium [Nexium] 40 mg PO DAILY 08/30/18 12/30/18 History calcium carbonate-vitamin D3 1 tab PO DAILY 11/11/18 12/30/18 History [Caltrate 600 + D] denosumab [Prolia] 1 dose SUBCUT DIRECTED 11/11/18 12/30/18 History meclizine 25 mg PO TID PRN 11/11/18 12/30/18 History ascorbic acid (vitamin C) [Vitamin 500 mg PO DAILY 12/30/18 12/30/18 History C] ferrous sulfate 325 mg PO Q2D 12/30/18 12/30/18 History ipratropium-albuterol [Combivent 1 puff INHALATION QID PRN 02/09/19 02/09/19 History Respimat] ondansetron HCl 4 mg PO Q6H PRN 12/30/18 12/30/18 History Patient History Medical History Sepsis due to Escherichia coli with no resultant organ failure Acute kidney failure Hydronephrosis of left kidney Bacteremia UTI (urinary tract infection) Sepsis (Acute) Anemia Chest pain (Acute) Acute pancreatitis (Acute) AAA (abdominal aortic aneurysm) (Acute) HLD (hyperlipidemia) (Chronic) Dizziness CVA (cerebral vascular accident) Peripheral vascular disease Family History Other Heart disease Social History marital status: Current Living Situation: Spouse 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 Feels Safe at Home: Yes Safety Concerns: Feels Safe At This Time Smoking Status: Former smoker Tobacco Type: cigarettes Hx Alcohol Use: Yes ("occasional glass of wine") Alcohol type: wine Alcohol Intake Frequency: 0-2 drinks per day Hx Substance Use: No Beliefs That Will Affect Care: None Communication Ability: Effective Review of Systems Constitutional: no fever, no chills, no sweats, no fatigue, no malaise and no weight loss Eyes: no blind spots and no problem reported Ear, Nose, Mouth, Throat: no hearing loss and no sore throat Respiratory: no cough, no dyspnea, no dyspnea on exertion and no hemoptysis Cardiovascular: + chest pain (resolved); no palpitations, no syncope, no claudication and no problem reported Gastrointestinal: no abdominal pain, no early satiety, no nausea, no vomiting, no cramping, no change in bowel habits, no diarrhea/loose stools and no blood in stools Musculoskeletal: no back pain, no joint pain, no swelling and no muscle weakness Integumentary: no rash, no non-healing lesions, no skin ulcer, no wounds and no erythema Neurologic: no localized weakness, no generalized weakness, no paralysis, no loss of sensation, no tingling, no numbness, no paresthesia, no seizure-like activity, no syncope, no headache(s) and no confusion Psychiatric: as per Subjective / HPI Hematologic / Lymphatic: no easy bleeding, no easy bruising, no coagulopathy, no night sweats and no unexplained weight loss Physical Exam 2 Vital Signs (Past 24 Hours): Last Vital Signs Temp 36.3 C L 01/01/19 07:03 Pulse 93 H 01/01/19 08:00 Resp 18 01/01/19 07:03 BP 116/67 01/01/19 07:03 Pulse Ox 94 01/01/19 07:03 Constitutional: WD/WN, vitals as above well developed, well nourished, healthy appearing, well groomed, cooperative and comfortable; not disheveled Eyes: PERRL, conjunctivae normal, anicteric sclerae EOM intact bilaterally ENMT: external ear and nose normal, oropharynx normal Ears: no hearing impairment Nose: no nasal discharge Neck: trachea midline, no thyromegaly no tracheal deviation, no neck crepitus and neck nontender Respiratory: normal respiratory effort, lungs clear to auscultation able to speak in complete sentences; does not use accessory muscles, no cough, not tachypneic and no audible wheezes Auscultation: lungs clear to auscultation bilaterally and + diminished lung sounds; no rhonchi and no wheezes Cardiovascular: RRR, no murmur, no edema Heart Sounds: no gallop and no murmur Vessels: femoral pulses present, posterior tibial pulses present, dorsalis pedis pulses present, brachial pulses present and radial pulses present ; no carotid bruit and no femoral bruit Extremities: normal capillary refill ; no edema Chest (Breasts): Chest: normal inspection of chest Gastrointestinal (Abdomen): normal bowel sounds, soft, nontender, no hepatosplenomegaly Inspection/Auscultation: abdomen normal to inspection and normal bowel sounds; abdomen not distended and no abdominal edema Percussion/ Palpation: abdomen soft; abdomen nontender, no guarding and abdomen not rigid Musculoskeletal: no cyanosis or clubbing, extremities motor strength 5/5 Head/Neck/Chest: normocephalic, head atraumatic and neck supple; no chest tenderness Extremities: extremities normal to inspection and strength 5/5 throughout; full ROM of extremities, no lower leg abnormality and no foot abnormality Skin: no rashes, warm and dry normal turgor; no rashes, no lesions, no ulcers and no induration Trauma: no hematoma Neurologic: moves all extremities and awake; no focal motor deficits and not confused Speech / Cognition: no expressive aphasia and no receptive aphasia Motor/Sensory: no tremor and no sensory deficit Cranial Nerves: EOM intact bilaterally, normal facial strength and tongue midline Gait: not gait assisted Psychiatric: Orientation: alert, oriented x 3, oriented to person, oriented to place, oriented to time and cooperative Apperance: appropriately dressed, appropriately groomed and appeared stated age; not disheveled Affect: euthymic affect Thought Process: goal directed thought process, linear/ logical thought process and clear/coherent thought process Cognition: recent memory grossly intact, remote memory grossly intact, attention grossly intact and language grossly intact Estimated Intelligence: average estimated intelligence Lymphatic: no lymphedema
[2019-01-01] MEDS ORDERED: FERROUS SULFATE 325 MG TAB PO SCH (11:00)
--- NOTE | 2019-01-01 11:13 | Cardiology Progress Note ---
Date of Service January 01, 2019 Assessment & Plan (1) Chest pain: musculoskeletal in nature no objective findings to suggest ischemia given stretching movements to perform f/u with pcp (2) Pericardial effusion: unchanged reviewed with patient no treatement necessary give lack of symptoms (3) AAA (abdominal aortic aneurysm): f/u as outpatient with vascular surgery Subjective Pt seen and examined, states that she feels well. No recurrence of chest pain overnight. Denies sob, palpitations, lightheadedness or dizziness. tele reviewed: sinus rhythm without arrhythmia Review of Systems All systems reviewed & are unremarkable except as noted in HPI & below Physical Exam 2 Vital Signs (Past 24 Hours): Last Vital Signs Temp 36.3 C L 01/01/19 07:03 Pulse 93 H 01/01/19 08:00 Resp 18 01/01/19 07:03 BP 116/67 01/01/19 07:03 Pulse Ox 94 01/01/19 07:03 Physical Exam: General: Awake, alert and oriented x 3. No acute distress. HEENT: Normocephalic, atraumatic. Pupils equal, round and reactive to light and accommodation. Extraocular muscles are intact. Anicteric sclera. Moist mucous membranes. Neck: No JVD. No bruit. Cardiovascular: Regular. Positive S-4. Normal S-1 and S-2. No S-3. No murmurs or rubs. Pulmonary: Clear to auscultation B/L. No rales, rhonchi or wheezing Abdomen: Bowel sounds x 4, soft. No rebound, guarding or tenderness. No organomegaly. Extremities: No clubbing, cyanosis or edema. +2 pedal pulses bilaterally. Skin: Warm and dry. _ (1) Chest pain Chest pain type: unspecified Ischemic chest pain type: Qualified Code(s): R07.9 - Chest pain, unspecified (2) AAA (abdominal aortic aneurysm) Presence of rupture: without rupture Qualified Code(s): I71.4 - Abdominal aortic aneurysm, without rupture
[2019-01-01] MEDS: POLYETHYLENE (MIRALAX) 17 GM PACK PO PRN (11:55)
--- NOTE | 2019-01-01 15:57 | Discharge Summary ---
Date of Service January 01, 2019 Admission HPI Per Admitting Provider DICTATED BY: Yousif Bolanos MD DATE OF ADMISSION: 12/30/2018 CHIEF COMPLAINT: Shoulder pain, chest pain on taking deep breath, and shortness of breath. HISTORY OF PRESENT ILLNESS: This is a 78-year-old female with past medical history significant for COPD, hyperparathyroidism, hyperlipidemia, history of tobacco abuse, history of abdominal aneurysm without rupture, GERD, senile osteoporosis, depression, presents with shoulder pain in both shoulders and chest pain on taking deep breaths, and shortness of breath, cough since last couple of days. The patient was here in [facility] from 11/25/2018 and was discharged on 11/30/2018. At that time, she was found to have sepsis with UTI and bacteremia with E. coli and treated with cefepime and discharged on Augmentin, which she completed the course about a couple of weeks ago and at that time CAT scan also showed left hydronephrosis, thought to be from abdominal aortic aneurysm, supposed to follow with urology and she has an appointment with urology on Tuesday . She has scheduled followup appointment on 01/06/2019 with Cardiovascular surgery at [place] for AAA.Today in the ER Imaging studies were done, which showed moderate pericardial effusion and abdominal aortic aneurysm of same size. The patient denies any abdominal pain, no nausea, no vomiting. Constipated. No burning micturition. No headaches, no blurred vision, no earache, no runny nose, no sore throat, no difficulty swallowing. Appetite is okay. Lives with her and ambulating okay, but on her ambulation, she is getting these chest pains and shoulder pain and this is more when she is taking deep breath and also some shortness of breath and cough with some occasional phlegm. She is afebrile. ALLERGIES: ALENDRONATE SODIUM. PAST MEDICAL HISTORY: As mentioned above. PAST SURGICAL HISTORY: Colonoscopy, EGD upper endoscope. MEDICATIONS: The patient currently on bupropion 150 mg p.o. b.i.d., Zofran 4 mg p.o. q. 6 hours p.r.n., ferrous sulfate 325 mg p.o. every other day, ascorbic acid 500 mg p.o. daily, Antivert 125 mg p.o. t.i.d. p.r.n., Combivent Respimat 1 puff q.i.d., Lipitor 40 mg p.o. daily, Nexium 10 mg p.o. daily, Prolia 60 mg subcutaneous every 6 months, Caltrate plus D 1 tablet b.i.d., aspirin 81 mg 2 tablets daily. FAMILY HISTORY: Significant for mother had emphysema and heart disorder and alcoholism. Paternal grandmother had diabetes. SOCIAL HISTORY: , lives with her , smokes quarter pack a day for 44 years. Alcohol: A glass of wine with dinner. No drug use. REVIEW OF SYMPTOMS: As per HPI. Rest of review of the systems negative. Admission Exam Per Admitting Provider PHYSICAL EXAMINATION: GENERAL: The patient is of moderate built, not in acute distress. VITAL SIGNS: Temperature 36.6, pulse 102, respiratory rate 20, blood pressure 119/58, oxygen 94% room air. HEENT: No pallor, no icterus. Pupils equal, round, and react to light. NECK: No JVD, no neck masses, no carotid bruits. CARDIOVASCULAR: S1, S2 heard, regular rate and rhythm, no murmur, no gallop. RESPIRATORY SYSTEM: Normal AP diameter. No accessory muscle use. No wheezing, no crackles. RESPIRATORY: Diminished breath sounds. No wheezing, no crackles. ABDOMEN: Soft, bowel sounds present. Nontender. No distention. CENTRAL NERVOUS SYSTEM: Nonfocal. EXTREMITIES: No edema, no erythema. Principal Diagnosis SHORTNESS OF BREATH /SMALL PERICARDIAL EFFUSION / AAA/RECURRENT UTI Discharge Exam Constitutional WD/WN, vitals as above no acute distress Eyes PERRL, conjunctivae normal, anicteric sclerae ENMT external ear and nose normal, oropharynx normal Neck trachea midline, no thyromegaly Respiratory normal respiratory effort; no respiratory distress Auscultation: + diminished lung sounds; no crackles, no rales and no wheezes Cardiovascular Rate/Rhythm: regular rate and regular rhythm Extremities: + pedal edema (trace) Gastrointestinal (Abdomen) Inspection/Auscultation: abdomen normal to inspection and normal bowel sounds; abdomen not distended Percussion/Palpation: abdomen soft; abdomen nontender Musculoskeletal Head/Neck/Chest: normocephalic and head atraumatic Extremities: no cyanosis Gait: normal gait Shoulder: + shoulder abnormal to inspection; no deformity and no skin erythema Skin no rashes, warm and dry Neurologic PERRL, EOMI, accommodation nl, no face palsy, no dysarthria Psychiatric A+Ox3, euthymic affect Discharge Data Allergies Allergy/AdvReac Type Severity Reaction Status Date / Time No Known Allergies Allergy Verified 12/30/18 20:56 Consultations 12/30/18 21:23 ED Decision to Admit Stat 12/30/18 23:29 Consult Case Management - Discharge Planning Routine 12/31/18 08:00 Consult Cardiology Routine Consult Urology Routine 01/01/19 01:53 Consult Vascular Surgery Routine Ordered Studies 12/30/18 19:57 CT abd pelvis IV con only Stat CT angio chest PE protocol Stat Hospital Course (1) Recurrent UTI (urinary tract infection): recent UTI with pansensitive E coli presents with urinary frequency urgency /dysuria appreciate input from Urology Dr Thakur was started on IV rocephin will be discharged home with Cipro 250 mg BID for 5 days will need assessment for chronic urinary retention out pt follow up with Urology in 6 months t (2) Pericardial effusion: chronic /small pericardial effusion ECHO shows no evidence of cardiac temponade appreciate input from Cardiology no further medication change needed (3) Acute kidney failure: possible secondary dehydration , poor PO intake baseline CKD stage 3 cr improved to baseline with IVF avoid NSAIDs (4) Hydronephrosis of left kidney: chronic no complain left flank pain FULL CODE DVT PROPHYLAXIS : sub q heparin DISPOSITION : stable to be discharged home today Total Time Total Time Spent Total Time Spent (In Minutes): approx 35 mins Total Time Includes: Discharge Planning and Medication Reconciliation Discharge Plan Discharge Items Patient Disposition: Home - Self-Care Reason For Visit: CHEST PAIN, SHOULDER PAIN, SOB Discharge Diagnosis: SHORTNESS OF BREATH /SMALL PERICARDIAL EFFUSION / AAA/RECURRENT UTI Discharge Goals: Decrease discomfort and Therapeutic intervention Activity: Resume your previous activity Non-emergency contact: Primary Care Provider Call non-emergency contact if: you have any medication questions Follow-up/Referrals: Dionisio Mayer [Primary Care Provider] - 01/03/19 11:05 am Jo-Ann Thakur MD [Physician] - (IN 6 MONTHS ) Diet: Heart Healthy Addtl Provider Instructions: FOLLOW UP UROLOGY DR THAKUR IN 6 MONTHS FOLLOW UP WITH VASCULAR SURGERY IN [facility] COM[facility]TE CIPROFLOXACIN( ANTIBIOTIC FOR UTI ) FOR 5 DAYS DO NOT TAKE ALEVE, ADVIL , MOTRIN , NAPROXEN , IBUPROPHEN -AVOID NSAID'S WILL CAUSE URINE CULTURE TO WORSEN Prescriptions: New conjugated estrogens [Premarin] 0.625 mg/gram Cream 1 applic Vaginal 3XWK 30 Days Qty: 1 RF: 0 ciprofloxacin HCl 250 mg tablet 250 mg PO BID 5 Days Qty: 10 RF: 0 Continue atorvastatin 40 mg tablet 40 mg PO DAILY RF: 0 bupropion HCl 150 mg tablet sustained-release 12 hr 150 mg PO BID RF: 0 aspirin [Aspir-81] 81 mg Tablet,Delayed Release (Dr/Ec) 81 mg PO BID RF: 0 esomeprazole magnesium [Nexium] 40 mg Capsule,Delayed Release(Dr/Ec) 40 mg PO DAILY RF: 0 meclizine 25 mg Tablet 25 mg PO TID PRN (Reason: Dizziness) RF: 0 denosumab [Prolia] 60 mg/mL Syringe 1 dose subcut DIRECTED RF: 0 calcium carbonate-vitamin D3 [Caltrate 600 + D] 600 mg (1,500 mg)-800 unit Tablet,Chewable 1 tab PO DAILY RF: 0 ondansetron HCl 4 mg tablet 4 mg PO Q6H PRN (Reason: Nausea) RF: 0 ferrous sulfate 325 mg (65 mg iron) tablet 325 mg PO Q2D RF: 0 ipratropium-albuterol 20-100 mcg/actuation mist 1 puff Inhalation QID PRN (Reason: Shortness Of Breath) RF: 0 ascorbic acid (vitamin C) 500 mg capsule, extended release 500 mg PO DAILY RF: 0 Stand-Alone Forms: [employer] [facility] [employer] [facility]/Other Patient Handouts: Shortness of Breath Control Stress Discharge Orders: Discharge Order (Routine); Ordered 01/01/19 Ordered By: Elle Tate Admission Data Admit Date/Time: 12/30/18 22:45 Attending Provider: Elle Tate Admit Provider: Yousif Bolanos Primary Care Provider: Dionisio Mayer Other Providers: Yousif Bolanos ; Kal Powell ; Dominic Mckee ; Joey Baird ; Tyrone Dejesus ; Lisandro Silverman ; Dm Shaver ; Baylee Martinez ; Ev Rodriguez ; Jo-Ann Thakur ; Khoa Owens Service: Telemetry Other Interventions: Discharge Summary Assessment (RN) Last Done: 01/01/19 15:05 DC Date/Time DO NOT enter until pt leaves facility: 01/01/19 15:26
== END 2019-01-01 15:26 | disposition home or self-care (01) | DRG 315 ==
LOC: ED 19:31 → 2S 22:45

== ENCOUNTER 2023-10-26 23:37 | Observation (INO) ==
--- NOTE | 2023-10-26 23:58 | Emergency Department Note ---
Impression & Plan Atypical chest pain, History of abdominal aortic aneurysm (AAA) ED Provider Note NAME: JORDI BROOKS AGE: 82 SEX: F : 1940 ARRIVES VIA: Ambulance INFORMANT: Patient, ED PROVIDER(S): Jeremy Cooley MD CHIEF COMPLAINT: Chest pain MEDICAL DECISION MAKING: Patient presents due to concern for chest pain. IV was established and blood was obtained along with an EKG troponin and chest x-ray. Chest x-ray with no changes from comparison. EKG without overt signs of ischemia and negative troponin. Blood work shows mild leukocytosis of 12 with a normal H&H and platelet count. The patient's kidney function with a creatinine 1.27. This is close to visual baseline. Troponin is not elevated LFTs and lipase normal. Given the patient's known history with left-sided chest pain that radiated to the neck improvement with aspirin and nitro I do believe the patient would benefit from observation and treatment. Patient is comfortable with this plan of care. I did speak Dr. Bolanos and the patient was admitted to the medicine service. Discussion w/ other healthcare providers: None Prior /Outside records reviewed: I reviewed a chest CTA from December 2018. The patient does have a noted 4 x 4 infrarenal AAA. I reviewed a discharge summary from Dr. Tate from December 2018. The patient was seen due to concern for chest pain and associated shortness of breath at that time. Differential diagnosis: Cardiac ischemia, aortic dissection, pulmonary embolism, pneumothorax, pneumonia, pericarditis, myocarditis, GERD, cholecystitis, pancreatitis, musculoskeletal, as well as other pathologies were considered. Diagnostics, as interpreted by me: ECG: Normal sinus rhythm, rate 94, normal intervals, normal axis no ST elevations. Cardiac monitoring: An order was placed for continuous cardiac monitoring. The monitor shows a rate of 87 with sinus rhythm. Patient was placed on pulse oximetry Medical decision rules: Heart score Imaging studies: I informally interpreted the patient's chest x-ray which does not show obvious pneumonia or pneumothorax with formal report to follow. HPI: Patient presents due to concern for chest pain. Patient chest pain began around 8 PM this evening while watching television. Patient's pain did not go away so she called EMS 3 hours later. Initially 8 out of 10 and then 3 out of 10 and was given aspirin and nitro with improvement in symptoms. Patient does have a prior history of a AAA which she does not follow anymore and states she would not want this treated as "if it bursts it will be fast." Patient does not want any treatment or surveillance for that. Patient denies any current chest pain or shortness of breath no leg swelling or calf pain. PAST MEDICAL HISTORY: See Below PAST SURGICAL HISTORY: See Below SOCIAL HISTORY: See Below HOME MEDICATIONS: See Below ALLERGIES: See Below VITALS: See Below PHYSICAL EXAMINATION: GENERAL: NAD, non-toxic. Wearing glasses. EYE EXAM: Normal conjunctiva. PERRL, no anisocoria and EOM's grossly intact w/o pain. OROPHARYNX: Moist mucus membranes, grossly normal dentition. NECK: Supple, no nuchal rigidity, no adenopathy, non-tender. No signs of meningismus. FROM of the neck with good chin to chest and neck extension. No stridor. LUNGS: Clear to auscultation. Normal chest wall mechanics. HEART: NSR, no MRG. ABDOMEN: Abdomen soft, non-tender, no masses, no rebound or guarding. BACK: No CVA TTP. SKIN: No rashes and no bruising. UPPER EXTREMITIES: Upper extremities are grossly normal. LOWER EXTREMITIES: Grossly normal, no edema. Negative Homans' sign bilaterally. NEURO EXAM: A&O x3, cranial nerves II-XII grossly intact, normal speech, moves all 4 extremities. Past Med/Surg History Medical History (Updated 10/27/23 @ 02:14 by Jeremy Cooley MD) Sepsis due to Escherichia coli with no resultant organ failure Acute kidney failure Hydronephrosis of left kidney Bacteremia UTI (urinary tract infection) Sepsis Anemia Acute pancreatitis Chest pain Peripheral vascular disease CVA (cerebral vascular accident) AAA (abdominal aortic aneurysm) Dizziness HLD (hyperlipidemia) Family History Other Heart disease Social History Smoking Status: Former smoker Tobacco Type: Cigarettes Cigarettes Per Day: 3; Do You Dip or Chew Tobacco: No; Hx Alcohol Use: Yes ("occasional glass of wine") Alcohol type: wine Hx Substance Use: No Preferred Language: Hungarian Communication Ability: Effective Affiliate Manager Required: No Beliefs That Will Affect Care: None marital status: Current Living Situation: Spouse 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 Feels Safe at Home: Yes Assistive Devices: None Allergies Allergies Allergy/AdvReac Type Severity Reaction Status Date / Time alendronate sodium AdvReac Severe Vomiting Verified 10/27/23 01:13 Home Meds Home Medications Medication Instructions Recorded Confirmed atorvastatin 40 mg tablet 40 mg PO DAILY 08/30/18 10/27/23 bupropion HCl 150 mg tablet,12 hr 150 mg PO BID 08/30/18 10/27/23 sustained-release calcium carbonate 600 mg-vitamin 1 tab PO DAILY 11/11/18 10/27/23 D3 20 mcg (800 unit) chewable tablet (Caltrate 600 plus D) ascorbic acid (vitamin C) 500 mg 500 mg PO DAILY 12/30/18 10/27/23 capsule,extended release ondansetron HCl 4 mg tablet 4 mg PO Q6H PRN Nausea 12/30/18 10/27/23 albuterol sulfate 90 mcg/actuation 2 puff inhalation Q4 PRN Shortness 10/27/23 10/27/23 aerosol inhaler Of Breath Or Wheezing aspirin 81 mg tablet,delayed 81 mg PO DAILY 10/27/23 10/27/23 release tiotropium 2.5 mcg-olodaterol 2.5 2 puff inhalation DAILY 10/27/23 10/27/23 mcg/actuation mist for inhalation (Stiolto Respimat) Results & Data (ED) Vital Signs Vital Signs - 24 hr 10/26/23 23:42 10/26/23 23:46 10/26/23 23:58 Temperature 36.8 C Temperature Source Oral Pulse Rate 93 H 95 H Pulse Rate [Apical] Pulse Rhythm Regular Pulse Rhythm [Apical] Pulse Strength Normal Pulse Strength [Apical] Respiratory Rate 18 Respiratory Effort / Characteristics Non-Labored Spontaneous Respiratory Depth Normal Respiratory Pattern Regular Blood Pressure 115/63 Blood Pressure [Right Arm] Blood Pressure Mean 80 Blood Pressure Mean [Right Arm] Blood Pressure Position Semi-fowlers Blood Pressure Position [Right Arm] Pulse Oximetry 92 92 Oxygen Delivery Method Room Air Room Air Oxygen Flow Rate 0 Sepsis Recent Fever Within 48 Hours No Sepsis New/Unexplained Change in Mental Status No Sepsis Action Taken by Nursing No Action Required 10/27/23 00:00 10/27/23 00:00 10/27/23 00:04 Temperature 36.8 C Temperature Source Oral Pulse Rate 91 H 91 H Pulse Rate [Apical] 89 Pulse Rhythm Regular Pulse Rhythm [Apical] Regular Pulse Strength Pulse Strength [Apical] Normal Respiratory Rate 17 17 18 Respiratory Effort / Characteristics Non-Labored Spontaneous Respiratory Depth Normal Respiratory Pattern Regular Blood Pressure 115/63 Blood Pressure [Right Arm] 114/78 Blood Pressure Mean 80 Blood Pressure Mean [Right Arm] 90 Blood Pressure Position Blood Pressure Position [Right Arm] Semi-fowlers Pulse Oximetry 93 93 93 Oxygen Delivery Method Room Air Room Air Oxygen Flow Rate Sepsis Recent Fever Within 48 Hours Sepsis New/Unexplained Change in Mental Status Sepsis Action Taken by Nursing 10/27/23 00:30 10/27/23 01:00 10/27/23 01:30 Temperature Temperature Source Pulse Rate 86 85 87 Pulse Rate [Apical] Pulse Rhythm Pulse Rhythm [Apical] Pulse Strength Pulse Strength [Apical] Respiratory Rate 19 19 16 Respiratory Effort / Characteristics Respiratory Depth Respiratory Pattern Blood Pressure 125/59 L 131/67 149/70 H Blood Pressure [Right Arm] Blood Pressure Mean 81 88 96 Blood Pressure Mean [Right Arm] Blood Pressure Position Blood Pressure Position [Right Arm] Pulse Oximetry 91 92 93 Oxygen Delivery Method Oxygen Flow Rate Sepsis Recent Fever Within 48 Hours Sepsis New/Unexplained Change in Mental Status Sepsis Action Taken by Nursing 10/27/23 02:00 Temperature Temperature Source Pulse Rate 90 Pulse Rate [Apical] Pulse Rhythm Pulse Rhythm [Apical] Pulse Strength Pulse Strength [Apical] Respiratory Rate 17 Respiratory Effort / Characteristics Respiratory Depth Respiratory Pattern Blood Pressure 139/61 Blood Pressure [Right Arm] Blood Pressure Mean 87 Blood Pressure Mean [Right Arm] Blood Pressure Position Blood Pressure Position [Right Arm] Pulse Oximetry 93 Oxygen Delivery Method Oxygen Flow Rate Sepsis Recent Fever Within 48 Hours Sepsis New/Unexplained Change in Mental Status Sepsis Action Taken by [facility] Medications Current Medication List: was personally reviewed by me Laboratory Data Attestation: I reviewed the patient's lab results. 10/26/23 23:45 10/26/23 23:45 Lab Results 10/26/23 Range/Units 23:45 WBC 12.75 H (4.8-10.8) K/ul RBC 4.51 (4.20-5.40) M/uL Hgb 14.7 (12.0-16.0) g/dl Hct 43.5 (37.0-47.0) % MCV 96.5 (80.0-100.0) fL MCH 32.6 (25.0-34.0) pg MCHC 33.8 (32.0-36.0) g/dL RDW Std Deviation 44.9 (36.4-46.3) fL RDW Coeff of Kristel 12.6 (11.5-14.5) % Plt Count 226 (130-400) K/uL MPV 9.6 (9.4-12.4) fL Immature Gran % (Auto) 0.5 % Neut % (Auto) 69.6 % Lymph % (Auto) 16.7 % [place] % (Auto) 9.5 % Eos % (Auto) 3.1 % Baso % (Auto) 0.6 % Neut # (Auto) 8.87 H (1.40-6.50) K/uL Lymph # (Auto) 2.13 (1.20-3.40) K/uL [place] # (Auto) 1.21 H (0.11-0.59) K/uL Eos # (Auto) 0.40 (0.00-0.50) K/uL Baso # (Auto) 0.08 (0.00-0.20) K/uL Immature Gran # (Auto) 0.06 (0.01-0.20) K/uL Sodium 139 (136-145) mmol/L Potassium 4.2 (3.5-5.1) mmol/L Chloride 107 (98-107) mmol/L Carbon Dioxide 23 (21-32) mmol/L Anion Gap 9 (3-11) BUN 23 (6-23) mg/dl Creatinine 1.27 H (0.6-1.2) mg/dl Est Cr Clr Drug Dosing 29.5 ml/min Est GFR ( Amer) 45.5 ml/min Est GFR (Non-Af Amer) 39.3 ml/min BUN/Creatinine Ratio 18.1 (10-20) Glucose 131 H (70-99(Fasting)) mg/dl Calcium 9.1 (8.6-10.3) mg/dl Phosphorus 3.7 (2.5-4.9) mg/dl Magnesium 2.0 (1.7-2.4) mg/dl Total Bilirubin 0.3 (0.2-1.0) mg/dl AST 25 (13-39) U/L ALT 24 (7-52) U/L Alkaline Phosphatase 87 (34-104) U/L Troponin I High Sens 6.3 (0-14) pg/ml Total Protein 6.6 (6.0-8.3) gm/dl Albumin 3.9 (3.4-5.0) gm/dl Globulin 2.7 (2.5-4.0) gm/dl Albumin/Globulin Ratio 1.4 (0.9-2) Lipase 31 (11-82) U/L Discharge Plan Visit Data Chief Complaint: Chest Pain ED Provider: Jeremy Cooley Discharge Problem: Atypical chest pain, History of abdominal aortic aneurysm (AAA) Forms Stand Alone Forms: [facility] Prescriptions Prescriptions: No Action atorvastatin 40 mg tablet 40 mg PO DAILY bupropion HCl 150 mg tablet sustained-release 12 hr 150 mg PO BID Caltrate 600 plus D 600 mg (1,500 mg)-800 unit Tablet,Chewable 1 tab PO DAILY ondansetron HCl 4 mg tablet 4 mg PO Q6H PRN (Reason: Nausea) ascorbic acid (vitamin C) 500 mg capsule, extended release 500 mg PO DAILY Stiolto Respimat 2.5-2.5 mcg/actuation mist 2 puff INHALATION DAILY aspirin 81 mg Tablet,Delayed Release (Dr/Ec) 81 mg PO DAILY albuterol sulfate 90 mcg/actuation HFA aerosol inhaler 2 puff INHALATION Q4 PRN (Reason: Shortness Of Breath Or Wheezing) Referrals Referrals: Dionisio Mayer MD [Primary Care Provider] -
[2023-10-27 00:20] LABS: Albumin Globulin Ratio 1.4 (0.9-2); Albumin Level 3.9 gm/dl (3.4-5.0); BUN Creatinine Ratio 18.1 (10-20); Bilirubin,Total 0.3 mg/dl (0.2-1.0); Calcium 9.1 mg/dl (8.6-10.3); Creatinine Clr Calc Pharmacy 29.5 ml/min; Est GFR (African American) 45.5 ml/min; Est GFR (Non-African American) 39.3 ml/min; Globulin 2.7 gm/dl (2.5-4.0); Phosphorus 3.7 mg/dl (2.5-4.9); Potassium 4.2 mmol/L (3.5-5.1); Total Protein 6.6 gm/dl (6.0-8.3)
[2023-10-27 00:25] LABS: Basophils # (auto) 0.08 K/uL (0.00-0.20); Basophils % (auto) 0.6 %; Eosinophils % (auto) 3.1 %; Hematocrit (blood only) 43.5 % (37.0-47.0); Hemoglobin 14.7 g/dl (12.0-16.0); Immature Granulocytes # (auto) 0.06 K/uL (0.01-0.20); Immature Granulocytes % (auto) 0.5 %; Lymphocytes # (auto) 2.13 K/uL (1.20-3.40); Lymphocytes % (auto) 16.7 %; Mean Corpuscular Hemoglobin 32.6 pg (25.0-34.0); Mean Corpuscular Hgb Conc 33.8 g/dL (32.0-36.0); Mean Corpuscular Volume 96.5 fL (80.0-100.0); Mean Platelet Volume 9.6 fL (9.4-12.4); Monocytes # (auto) 1.21 K/uL (0.11-0.59); Monocytes % (auto) 9.5 %; Neutrophils # (auto) 8.87 K/uL (1.40-6.50); Neutrophils % (auto) 69.6 %; Platelet Count 226 K/uL (130-400); RDW Coefficient of Variation 12.6 % (11.5-14.5); RDW Standard Deviation 44.9 fL (36.4-46.3); Red Blood Count 4.51 M/uL (4.20-5.40); White Blood Count 12.75 K/ul (4.8-10.8)
[2023-10-27 00:27] LABS: Troponin I High Sensitivity 6.3 pg/ml (0-14)
--- NOTE | 2023-10-27 02:10 | History & Physical Report ---
Date of Service October 27, 2023 Assessment & Plan (1) Chest pain: Plan: 82-year-old female with past medical significant for hyperlipidemia, COPD, history of chronic tobacco mucositis, abdominal aortic aneurysm, GERD, stage III chronic kidney disease, history of elevated LFTs, history of depression, presents with chest pain. Chest pain Improved with nitro Initial workup unremarkable Will follow serial cardiac enzymes and echo Monitor on telemetry Consult cardiology in a.m. History of COPD Continue home inhalers Chronic kidney stage III Presented creatinine 1.2 Will follow the labs History of abdominal aortic aneurysm Patient seems has no interest for follow-up Hyperlipidemia On statin History of depression On bupropion DVT prophylaxis SCDs Disposition Med/telemetry Full code History of Present Illness Chief Complaint: Chest pain Primary Care Provider: Dionisio Mayer MD 82-year-old female with past medical significant for hyperlipidemia, COPD, history of chronic tobacco mucositis, abdominal aortic aneurysm, GERD, stage III chronic kidney disease, history of elevated LFTs, history of depression, presents with chest pain. Patient states she noticed chest pain around 8 PM radiating to left jaw. She was sitting when it happened.She gets chest pain on and off but this pain lasted for 3 hours when she decided come to the hospital. It was of 8 / 10 in severity. Not associated wth shortness of breath or nausea. No dizziness. After nitro the pain got much improved. Currently pain is 1 /10 severity. Has chronic cough. No fevers. Currently has some headache with nitro. Vision is okay. No runny nose. Appetite is okay. No difficulty swallowing. No abdominal pain. Normal bowel and bladder movements. No hematuria. No blood in stools or black stools. Current resting comfortably and hemodynamically stable.. Past medical history. As mentioned above Past surgical history. Colonoscopy. EGD. Social history. Former smoker. Smoked quarter pack a day for 44 years. Alcohol :glass of wine with dinner. No drug use. Family history. Paternal grandmother had diabetes. Mother had emphysema, heart disorder, alcoholism. Allergies Allergy/AdvReac Type Severity Reaction Status Date / Time alendronate sodium AdvReac Severe Vomiting Verified 10/27/23 01:13 Home Medications Medication Instructions Recorded Confirmed Type atorvastatin 40 mg tablet 40 mg PO DAILY 08/30/18 10/27/23 History bupropion HCl 150 mg tablet,12 hr 150 mg PO BID 08/30/18 10/27/23 History sustained-release calcium carbonate 600 mg-vitamin 1 tab PO DAILY 11/11/18 10/27/23 History D3 20 mcg (800 unit) chewable tablet (Caltrate 600 plus D) ascorbic acid (vitamin C) 500 mg 500 mg PO DAILY 12/30/18 10/27/23 History capsule,extended release ondansetron HCl 4 mg tablet 4 mg PO Q6H PRN Nausea 12/30/18 10/27/23 History albuterol sulfate 90 mcg/actuation 2 puff inhalation Q4 PRN Shortness 10/27/23 10/27/23 History aerosol inhaler Of Breath Or Wheezing aspirin 81 mg tablet,delayed 81 mg PO DAILY 10/27/23 10/27/23 History release tiotropium 2.5 mcg-olodaterol 2.5 2 puff inhalation DAILY 10/27/23 10/27/23 History mcg/actuation mist for inhalation (Stiolto Respimat) Past Med/Surg History Medical History (Updated 10/27/23 @ 02:14 by Jeremy Cooley MD) Sepsis due to Escherichia coli with no resultant organ failure Acute kidney failure Hydronephrosis of left kidney Bacteremia UTI (urinary tract infection) Sepsis Anemia Acute pancreatitis Chest pain Peripheral vascular disease CVA (cerebral vascular accident) AAA (abdominal aortic aneurysm) Dizziness HLD (hyperlipidemia) Family History Other Heart disease Social History Smoking Status: Former smoker Tobacco Type: Cigarettes Cigarettes Per Day: 3; Do You Dip or Chew Tobacco: No; Hx Alcohol Use: Yes ("occasional glass of wine") Alcohol type: wine Hx Substance Use: No Preferred Language: Maori Communication Ability: Effective Optical Goods Drill Operator Required: No Beliefs That Will Affect Care: None marital status: Current Living Situation: Spouse 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 ENT- oropharynx clear Neck- supple, no JVD. Lungs- clear to auscultation , no wheezing or crackles. Heart- regular rhythm; no murmur, no gallop. Abdomen- normal bowel sounds, soft, nontender, no distension. Extremities- no pretibial edema, no erythema seen. Neuro- alert, oriented x 3; PERRL, no facial palsy; no dysarthria; moves extremities. Skin- warm & dry Results & Data Results & Data Vital Signs (Past 12 Hours) Vital Signs Temp Pulse Pulse Resp BP BP Pulse Ox 10/27/23 00:30 86 19 125/59 L 91 10/27/23 00:04 91 H 18 93 10/27/23 00:00 91 H 17 115/63 93 10/27/23 00:00 36.8 C 89 17 114/78 93 10/26/23 23:58 92 10/26/23 23:46 95 H 10/26/23 23:42 36.8 C 93 H 18 115/63 92 O2 Del Method O2 Flow Rate 10/27/23 00:30 10/27/23 00:04 Room Air 10/27/23 00:00 10/27/23 00:00 Room Air 10/26/23 23:58 Room Air 0 10/26/23 23:46 10/26/23 23:42 Room Air Diagnostic Findings Laboratory Results WBC 12.75 K/ul (4.8-10.8) H 10/26/23 23:45 RBC 4.51 M/uL (4.20-5.40) 10/26/23 23:45 Hgb 14.7 g/dl (12.0-16.0) 10/26/23 23:45 Hct 43.5 % (37.0-47.0) 10/26/23 23:45 MCV 96.5 fL (80.0-100.0) 10/26/23 23:45 MCH 32.6 pg (25.0-34.0) 10/26/23 23:45 MCHC 33.8 g/dL (32.0-36.0) 10/26/23 23:45 RDW Std Deviation 44.9 fL (36.4-46.3) 10/26/23 23:45 RDW Coeff of Kristel 12.6 % (11.5-14.5) 10/26/23 23:45 Plt Count 226 K/uL (130-400) 10/26/23 23:45 MPV 9.6 fL (9.4-12.4) 10/26/23 23:45 Immature Gran % (Auto) 0.5 % 10/26/23 23:45 Neut % (Auto) 69.6 % 10/26/23 23:45 Lymph % (Auto) 16.7 % 10/26/23 23:45 [place] % (Auto) 9.5 % 10/26/23 23:45 Eos % (Auto) 3.1 % 10/26/23 23:45 Baso % (Auto) 0.6 % 10/26/23 23:45 Neut # (Auto) 8.87 K/uL (1.40-6.50) H 10/26/23 23:45 Lymph # (Auto) 2.13 K/uL (1.20-3.40) 10/26/23 23:45 [place] # (Auto) 1.21 K/uL (0.11-0.59) H 10/26/23 23:45 Eos # (Auto) 0.40 K/uL (0.00-0.50) 10/26/23 23:45 Baso # (Auto) 0.08 K/uL (0.00-0.20) 10/26/23 23:45 Immature Gran # (Auto) 0.06 K/uL (0.01-0.20) 10/26/23 23:45 Sodium 139 mmol/L (136-145) 10/26/23 23:45 Potassium 4.2 mmol/L (3.5-5.1) 10/26/23 23:45 Chloride 107 mmol/L (98-107) 10/26/23 23:45 Carbon Dioxide 23 mmol/L (21-32) 10/26/23 23:45 Anion Gap 9 (3-11) 10/26/23 23:45 BUN 23 mg/dl (6-23) 10/26/23 23:45 Creatinine 1.27 mg/dl (0.6-1.2) H 10/26/23 23:45 Est Cr Clr Drug Dosing 29.5 ml/min 10/26/23 23:45 Est GFR ( Amer) 45.5 ml/min 10/26/23 23:45 Est GFR (Non-Af Amer) 39.3 ml/min 10/26/23 23:45 BUN/Creatinine Ratio 18.1 (10-20) 10/26/23 23:45 Glucose 131 mg/dl (70-99(Fasting)) H 10/26/23 23:45 Calcium 9.1 mg/dl (8.6-10.3) 10/26/23 23:45 Phosphorus 3.7 mg/dl (2.5-4.9) 10/26/23 23:45 Magnesium 2.0 mg/dl (1.7-2.4) 10/26/23 23:45 Total Bilirubin 0.3 mg/dl (0.2-1.0) 10/26/23 23:45 AST 25 U/L (13-39) 10/26/23 23:45 ALT 24 U/L (7-52) 10/26/23 23:45 Alkaline Phosphatase 87 U/L (34-104) 10/26/23 23:45 Troponin I High Sens 6.3 pg/ml (0-14) 10/26/23 23:45 Total Protein 6.6 gm/dl (6.0-8.3) 10/26/23 23:45 Albumin 3.9 gm/dl (3.4-5.0) 10/26/23 23:45 Globulin 2.7 gm/dl (2.5-4.0) 10/26/23 23:45 Albumin/Globulin Ratio 1.4 (0.9-2) 10/26/23 23:45 Lipase 31 U/L (11-82) 10/26/23 23:45 ECG Additional Comments: ECG. Normal sinus rhythm at 94. No acute ST changes seen. Code Status & VTE Plan VTE Prophylaxis Plan VTE Prophylaxis will be ordered: Yes (1) Chest pain Chest pain type: unspecified Qualified Code(s): R07.9 - Chest pain, unspecified
[2023-10-27] MEDS ORDERED: ALBUTEROL HFA 8 GM INHALER INH PRN (03:49)
[2023-10-27] MEDS ORDERED: NITROGLYCERIN SL 0.4 MG/TAB TAB SL PRN (03:49)
[2023-10-27] MEDS ORDERED: POLYETHYLENE (MIRALAX) 17 GM PACK PO PRN (03:49)
[2023-10-27] MEDS ORDERED: ACETAMINOPHEN 325 MG TAB PO PRN (03:49)
[2023-10-27 04:57] LABS: Basophils # (auto) 0.06 K/uL (0.00-0.20); Basophils % (auto) 0.5 %; Eosinophils % (auto) 3.3 %; Hematocrit (blood only) 42.1 % (37.0-47.0); Hemoglobin 14.1 g/dl (12.0-16.0); Immature Granulocytes # (auto) 0.03 K/uL (0.01-0.20); Immature Granulocytes % (auto) 0.2 %; Lymphocytes # (auto) 2.56 K/uL (1.20-3.40); Lymphocytes % (auto) 21.1 %; Mean Corpuscular Hgb Conc 33.5 g/dL (32.0-36.0); Mean Corpuscular Volume 95.7 fL (80.0-100.0); Mean Platelet Volume 9.4 fL (9.4-12.4); Monocytes # (auto) 1.24 K/uL (0.11-0.59); Monocytes % (auto) 10.2 %; Neutrophils # (auto) 7.85 K/uL (1.40-6.50); Neutrophils % (auto) 64.7 %; Platelet Count 201 K/uL (130-400); RDW Coefficient of Variation 12.5 % (11.5-14.5); RDW Standard Deviation 44.1 fL (36.4-46.3); White Blood Count 12.14 K/ul (4.8-10.8)
[2023-10-27 05:10] LABS: BUN Creatinine Ratio 19.3 (10-20); Calcium 9.2 mg/dl (8.6-10.3); Creatinine Clr Calc Pharmacy 31.5 ml/min; Est GFR (African American) 49.2 ml/min; Est GFR (Non-African American) 42.5 ml/min; Magnesium 1.9 mg/dl (1.7-2.4); Potassium 4.1 mmol/L (3.5-5.1)
--- NOTE | 2023-10-27 07:15 | XRay Report ---
XR chest 1V portable CLINICAL HISTORY: Chest pain, nonspecific. COMPARISON STUDY: Chest radiograph and chest CT December 30, 2018. FINDINGS: Lung volumes are normal. Lungs are clear. There is no pneumothorax or pleural effusion. Car diac size is stable. Mediastinal contours are normal. There is no evidence for pulmonary edema. IMPRESSION: No acute cardiopulmonary findings. No change in appearance of the chest. ACT 112: Negative or not required by law. Electronically signed by: Marvin Doss M.D. 10/27/2023 7:13 AM
[2023-10-27] MEDS ORDERED: ASPIRIN 81 MG ECTAB PO SCH (09:00)
[2023-10-27] MEDS ORDERED: CALCIUM 600MG + VIT D 400 IU TAB PO SCH (09:00)
[2023-10-27] MEDS ORDERED: ASCORBIC ACID 500 MG TAB PO SCH (09:00)
[2023-10-27] MEDS ORDERED: buPROPion SR 150 MG TABCR PO SCH (09:00)
[2023-10-27] MEDS ORDERED: ATORVASTATIN 40 MG TAB PO SCH (09:00)
[2023-10-27] MEDS ORDERED: UMECLIDINIUM/VILANTEROL 62.5/25MCG 7 PUFFS/INHALER INH SCH (09:00)
--- OUTSIDE RECORDS SUMMARY | 2023-10-27 09:11 | External Medical Summary | Summary of Care ---
Author Name Unknown Organization [facility] Address [address] [place] [address] Phone [phone] Care Team Providers Care Payroll And Benefits Specialist Name Role Phone Dionisio Mayer MD Primary Care Provider [phone]- [phone] Reason for Visit * Reason Onset Date Comments Advice 10/12/2023 Med Request 10/12/2023 Encounter Details Date Type Department Care Team (Late st Contact Info) Description 10/12/2023 Telephone [facility] [address] [place] [address] Dionisio Mayer MD [address] [place] [address] Advice; Med Request Allergies Active Allergy Reactions Criticality Noted Date Comments Alendronate Sodium 04/19/2013 Vomiting documented as of this encounter (statuses as of 10/17/2023) Medications Medication Sig Dispensed Refills Start Date End Date Status ASPIRIN 81 MG PO CHEW Two chewable by mouth once a day with food 100 6 04/17/2008 Active CALTRATE 600+D PLUS 600-800 MG-UNIT PO CHEW 1 TABLET TWICE DAILY WITH FOOD 0 08/16/2014 Active Ascorbic Acid ER 500 MG TBCR Take 500 mg by mouth daily. 0 Active Zoster Vac Recomb Adjuvanted 50 MCG/0.5ML Intramuscular Suspension Reconstituted (SHINGRIX)Indicatio ns:Need for shingles vaccine Inject 0.5 mL into a large muscle now and repeat dose in 60 to 180 days 1 Each 1 09/01/2020 Active buPROPion HCl ER (SR) 150 MG Oral Tablet Extended Release 12 Hour (Wellbutrin SR)Indications:Depr ession, major, in remission (HCC) TAKE 1 TABLET BY MOUTH TWICE A DAY 180 Tablet 3 04/05/2023 Active Stiolto Respimat 2.5-2.5 MCG/ACT Inhalation Aerosol Solution (Tiotropium-Olodate rol) INHALE 2 PUFFS BY MOUTH EVERY DAY 12 g 3 04/05/2023 Active Atorvastatin Calcium 40 MG Oral Tablet (Lipitor) TAKE 1 TABLET BY MOUTH EVERY DAY 90 Tablet 1 06/07/2023 Active Ondansetron HCl 4 MG Oral Tablet (Zofran)Indications :Dizziness TAKE 1 TABLET BY MOUTH EVERY 6 HOURS NEEDED FOR NAUSEA 30 Tablet 2 06/14/2023 Active Albuterol Sulfate HFA 108 (90 Base) MCG/ACT Inhalation Aerosol Solution INHALE 2 PUFFS BY MOUTH EVERY 4 HOURS NEEDED FOR SHORTNESS OF BREATH OR WHEEZING. 8.5 g 1 08/08/2023 Active methylPREDNISolone 4 MG Oral Tablet Therapy Pack (Medrol Dosepack)Indication s:Anterior chest wall pain follow package directions 21 Tablet 0 08/17/2023 Active traMADol HCl 50 MG Oral TabletIndications:A cute right ankle pain Take 1 Tablet by mouth every 8 hours as needed for Pain, Severe for up to [address] Montes supervising. Initial treatment. Has tolerated ultram as recently as 10/2022. 9 Tablet 0 06/16/2023 3 Discontinue d(Medicatio n List Clean Up) documented as of this encounter (statuses as of 10/17/2023) Active Problems Problem Noted Date Diagnosed Date COPD, group B, by GOLD 2017 classification 11/01 Overview: Per COPD GOLD Classification Hx of actinic keratosis 04/16/2021 Overview: actinic keratoses (Efudex face 03/2021) Stage 3b chronic kidney disease 12/01/2020 Overview: Per CKD protocol - Per CKD protocol Senile osteoporosis 12/29/2018 Gastroesophageal reflux disease 05/30/2018 Hx of nonmelanoma skin cancer 05/23/2018 Overview: squamous cell carcinoma (L ankle 2014, R forehead 2016), basal cell carcinoma (R melolabial fold 1998, R alar groove 2017) Abdominal aortic aneurysm (AAA) without rupture 01/24/2018 Depression, major, in remission 08/05/2015 Dyslipidemia, goal LDL below 100 10/26/2013 Vitamin D deficiency 04/04/2013 Elevated LFTs 04/04/2013 CHRONIC TOBACCO MUCOSITIS 12/10/2005 Diaphragmatic hernia 10/22/2005 documented as of this encounter (statuses as of 10/17/2023) Resolved Problems Problem Noted Date Diagnosed Date Resolved Date Stage 3a chronic kidney disease 09/29/2020 12/04/2020 Overview: Per CKD protocol COPD, group A, by GOLD 2017 classification 04/28/2020 11/04/2022 Overview: Per COPD GOLD Classification Kidney disease, chronic, sta ge III (GFR 30-59 ml/min) 01/01/2019 10/02/2020 Overview: Per CKD protocol #1 Advance directive on file 09/23/2015 Overview: Yes, copy scanned at patient level in the electronic medical record. Patient aware they must notify their healthcare provider of changes. (Go to More Activities and Patient Files to view)11/26/2013 Neoplasm of unspecified natu re of bone, soft tissue, and skin 05/07/2015 08/05/2015 Epidermal inclusion cyst 09/19/2014 Inflamed seborrheic keratosis 09/19/2014 08/05/2015 Actinic keratosis 04/02/2014 12/29/2018 Other seborrheic keratosis 04/02/2014 0 08/05/2015 History of basal cell carcinoma 04/02/2014 12/29/2018 COPD, mild 10/30/2013 05/01/2020 Overview: Per COPD GOLD Classification Dyslipidemia, goal to be determined 11/06/2009 10/26/2013 Overview: Per Lipid Taxonomy. COPD, severity to be determined 05/14/2008 10/30/2013 Cough 12/10/2005 08/14/2009 Acute laryngitis 12/10/2005 08/14/2009 Overview: ICD-10 update of inactive term Major depressive disorder 09/01/2005 Overview: ICD-10 update of inactive term ADVANCE DIRECTIVE INFORMATION 07/13/2005 05/30/2018 Overview: Yes, Patient instructed to provide copy of advance directive for provider to review and to be scanned into Electronic Medical Record Menopause 09/24/2002 08/05/2015 Mixed dyslipidemia 06/01/2000 9 Overview: Per Lipid Taxonomy. Encounter for long-term (cur rent) use of medications 06/01/2000 08/05/2015 Overview: ICD-10 update of inactive term Tobacco use disorder 019 documented as of this encounter (statuses as of 10/17/2023) Immunizations Name Administration Dates Next Due COVID-19 mRNA, LNP-s, No Pre serve, 2-Dose Series (Moderna) 09/08/2023,01/31/2021,12/20/2020 COVID-19, mRNA, LNP-s, PF, B ooster, 100mcg/0.5mg (Moderna) 03/05/2022,09/24/2021 Covid-19, Mrna, Lnp-s, Pf, B ivalent, 50 Mcg, IM, 12 yrs and above (Moderna) 09/13/2022 Diptheria/Tetanus (Adult) 06/25/1997 H1N1 2009 Influenza, IM 01/05/2010 PPD 08/10/2005 Pneumococcal Conjugate Vacc, 13 Valent (Prevnar) 09/12/2020,08/05/2015 Pneumococcal Polysaccharide PPV23 (Pneumovax) 08/24/2006 SEASONAL INFLUENZA, PF, 6 M & Above, IM , (FLULAVAL or FLUZONE) 09/06/2019,09/01/2018,08/10/2017 Season Influenza, Quad, PF, Adjuvanted, 65+ Yrs, IM (FLUAD) 08/27/2020 Seasonal Influenza Virus Vac cine, Unspecified Formulation 09/01/1998 Seasonal Influenza, Quadriva lent Hd (Fluzone Hd) 09/15/2022,09/16/2021 Seasonal Influenza, Quadriva lent, No Preserve, IM 09/17/2016,09/12/2015 Seasonal Influenza, Split, I IV3, With Preserve, Inj 09/06/2014,08/27/2013,09/28/2012,09/13,09/18/2010,08/17/2009,09/10/2008 ,09/21/2007,08/24/2006,09/01/2005,09/21,11/30/2001,09/10/1999 TDAP (age 10 and older)(Boostrix) 12/05/2012 Varicella Zoster Vaccine (Adult) 07/03/2012 Zoster Vaccine Recombinant (Shingrix) 09/12/2020 documented as of this encounter Social History Tobacco Use Types Packs/Day Years Used Date Smoking Tobacco: Former Cigarettes 0.3 44 Smokeless Tobacco: Never Alcohol Use Standard Drinks/Week Comments Yes 14 (1 standard drink = 0.6 oz pu re alcohol) Glass of wine with dinner PHQ-2 Answer Date Recorded PHQ Adult Total Score 1 09/15/2022 Hunger Vital Sign Answer Date Recorded Within the past 12 months, y ou worried that your food would run out before you got the money to buy more. Never true 09/15/20 22 Within the past 12 months, t he food you bought just didn't last and you didn't have money to get more. Never true 09/15/2022 Sex and Gender Information Value Date Recorded Sex Assigned at Not on file Gender Identity Female 09/15/2022 3:36 PM EDT Sexual Orientation Straight 04/24/2020 12 :35 PM EDT Job Start Date Occupation Industry Not on file Not on file Not on file documented as of this encounter Miscellaneous Notes * Addendum Note - Lulu Rowan MD - 10/17/2023 10:19 AM ESTAddended by: LULU ROWAN on: 10/17/2023 10:19 AM Modules accepted: Orders * Telephone Encounter - Lulu Rowan MD - 10/17/2023 10:15 AM EST Patient appears to only have used ultram on an as needed basis in the past. Would recommend againststarting this on a regular basis given this is potentially addictive and will increase risk for falls. Recommend use of tylenol 1000 mg four times daily as needed. Can use any of lidocaine patch, Voltaren gel, icy hot, Biofreeze, heat/ice. Avoid NSAIDs as these will increase risk of worsening renalfunction. PT may also be beneficial as discussed previously. Lulu Rowan MD * Telephone Encounter - Alexsandra Soliman LPN - 10/14/2023 10:12 AM EST Patient would like to get a script for Tramadol and take Tylenol with it She would like Dr. Rowan to set up a schedule for how often she is to take the Tramadol and how oftenshe would take the Tylenol and how much, possible 3 Tylenol tablets at a time? She feels that combo might help her She does not need medication on days that she is just sitting and doing nothing But days that she does anything even a load of laundry or dishes she has pain She has got a three prong cane to use She will also keep PT in mind for once she is able to get some relief with medication and feels sheis able to go Pharm selected. Please advise. * Telephone Encounter - Shelli Castillo LPN - 10/14/2023 9:05 AM EST Left generic message on answering machine asking patient to return our call. * Telephone Encounter - Lulu Rowan MD - 10/12/2023 5:29 PM EST Unfortunately very limited options due to kidney function. Could consider physical therapy or sports med referral. Tylenol and tramadol appropriate. Have to avoid NSAIDs due to kidney function. Lulu Rowan MD * Telephone Encounter - Juliane Quezada OSA - 10/12/2023 10:04 AM EST Patient is not getting much relief from the arthritis pain with tylenol. Patient saw Dr Rowan on September 20 for this. Patient states pain level without tylenol is an 8, with tylenol 6. Patient is asking if there is something else she could try or be prescribed? [facility] [place]. Please call regarding this. Thank you. documented in this encounter Plan of Treatment Upcoming Encounters Date Type Department Care Team (Late st Contact Info) Description 01/16/2024 12:00 PM EST Office Visit [facility] [address] [place] [facility] [place] [address] Bela Blulock PA-C [address] [facility] [place] [id number] Health Maintenance Due Date Last Done Comments Alpha-1 Antitrypsin 1958 AAA Monitoring 09/18/2020 09/18/2019, 01/08/2019 Zoster Vaccines (3 of 3) 11/07/2020 09/12/2020, 06/21 *BISPHONATE OR OTHER ACCEPTABLE MEDICATION NEEDED FOR OSTEOPOROSIS (REFER TO SMARTSET #1146) 10/06/2022 DTaP,Tdap,and Td Vaccines (2 - Td or Tdap) 12/05/2022 12/05/2012, 06/25/1997 GFR 07/13/2023 01/13/2023, 12/23, 11/28/2020, Additional history exists Influenza Vaccine (FLU shot) (#1) 2023 09/15/2022, 09/16/2021, 08/27/2020, Additional history exists Depression Screening 09/15/2023 09/15/2022 Albumin/Creatinine Ratio 01/13/2024 01/13/2023, 12/23 CKD HGB USE SMARTSET 97884 01/13/202401/13, 01/12/2022, 07/04/2020, Additional history exists CKD PHOS USE SMARTSET 78853 01/13/202412/23, 01/12/2022, 07/04/2020, Additional history exists DXA Scan 05/03/2024 05/03/2022, 06/21, 06/28/2017, Additional history exists O2 ASSESSMENT COMPLETED IN PAST YEAR FOR COPD 09/20/2024 09/20/2023 Pneumococcal Vaccine: 65+ Years Completed 09/12/2020, 08/05/2015, 08/24/2006 VITAMIN D LEVEL ONCE IN A LIFETIME-USE SMARTSET# [id number] Completed 01/13/2023, 07/24/2015, 02/06/2014, Additional history exists COVID-19 Vaccine Completed 09/08/2023, , 09/13/2022, Additional history exists GARDASIL-HPV IMMUNIZATION SERIES Aged Out No longer eligible based on patient's age to complete this topic Hepatitis B Aged Out No longer eligi ble based on patient's age to complete this topic MENINGOCOCCAL (MENACTRA/MENVEO) Aged Out No longer eligible based on patient's age to complete this topic documented as of this encounter Medical Devices Not on filedocumented as of this encounter Advance Directives Documents on File Type Date Recorded 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
--- OUTSIDE RECORDS SUMMARY | 2023-10-27 09:11 | External Medical Summary | Summary of Care ---
Author Name Unknown Organization [facility] Address [address] [facility] [address] Phone [phone] Care Team Providers Care Residential Program Manager Name Role Phone Dionisio Mayer MD Primary Care Provider +1- [phone] Reason for Visit * Reason Onset Date Comments Advice 10/12/2023 Med Request 10/12/2023 Encounter Details Date Type Department Care Team (Late st Contact Info) Description 10/12/2023 Telephone [facility] [address] [place] [address] Dionisio Mayer MD [address] [place] [address] Advice; Med Request Allergies Active Allergy Reactions Criticality Noted Date Comments Alendronate Sodium 04/19/2013 Vomiting documented as of this encounter (statuses as of 10/14/2023) Medications Medication Sig Dispensed Refills Start Date [...] Recomb Adjuvanted 50 MCG/0.5ML Intramuscular Suspension Reconstituted (SHINGRIX)Indication s:Need for shingles vaccine Inject 0.5 mL into a large muscle now and repeat dose in 60 to 180 days 1 Each 1 09/01/2020 Active buPROPion HCl ER (SR) 150 MG Oral Tablet Extended Release 12 Hour (Wellbutrin SR)Indications:Depre ssion, major, in remission (HCC) TAKE 1 TABLET BY MOUTH TWICE A DAY 180 Tablet 3 04/05/2023 Active Stiolto Respimat 2.5-2.5 MCG/ACT Inhalation Aerosol Solution (Tiotropium-Olodater ol) INHALE 2 PUFFS BY MOUTH EVERY DAY 12 g 3 04/05/2023 Active Atorvastatin Calcium 40 MG Oral Tablet (Lipitor) TAKE 1 TABLET BY MOUTH EVERY DAY 90 Tablet 1 06/07/2023 Active Ondansetron HCl 4 MG Oral Tablet (Zofran)Indications: Dizziness TAKE 1 TABLET BY MOUTH EVERY 6 HOURS NEEDED FOR NAUSEA 30 Tablet 2 06/14/2023 Active Albuterol Sulfate HFA 108 (90 Base) MCG/ACT Inhalation Aerosol Solution INHALE 2 PUFFS BY MOUTH EVERY 4 HOURS NEEDED FOR SHORTNESS OF BREATH OR WHEEZING. 8.5 g 1 08/08/2023 Active methylPREDNISolone 4 MG Oral Tablet Therapy Pack (Medrol Dosepack)Indications :Anterior chest wall pain follow package directions 21 Tablet 0 08/17/2023 Active documented as of this encounter (statuses as of 10/14/2023) Active Problems Problem Noted Date Diagnosed Date [...] as of this encounter (statuses as of 10/14/2023) Resolved Problems Problem Noted Date Diagnosed Date [...] as of this encounter (statuses as of 10/14/2023) Immunizations Name Administration Dates Next Due COVID-19 [...] as of this encounter Miscellaneous Notes * Telephone Encounter - Shelli Castillo LPN - 10/14/2023 9:05 AM EST Left generic message on answering machine asking patient to return our call. * Telephone Encounter - Jeremy Ken MD - 10/12/2023 5:29 PM EST Unfortunately very limited options due to kidney function. Could consider physical therapy or sports med referral. Tylenol and tramadol appropriate. Have to avoid NSAIDs due to kidney function. Jeremy Ken MD * Telephone Encounter - Juliane Quezada OSA - 10/12/2023 10:04 AM EST Patient is not getting much relief from the arthritis pain with tylenol. Patient saw Dr Ken on September 20 for this. Patient states pain level without tylenol is an 8, with tylenol 6. Patient is asking if there is something else she could try or be prescribed? [facility] [place]. Please call regarding this. Thank you. documented in this encounter Plan of Treatment Upcoming Encounters Date Type Department Care Team (Late st Contact Info) Description 01/16/2024 12:00 PM EST Office Visit [facility] [address] [facility] [phone] Bela Bullock PA-C [address] [facility] [place] [address] Health Maintenance Due Date Last Done Comments [...] 01/13/2024 01/13/2023, 12/23 CKD HGB USE SMARTSET 55437 01/13/202401/13, 01/12/2022, 07/04/2020, Additional history exists CKD PHOS USE SMARTSET 36192 01/13/202412/23, 01/12/2022, 07/04/2020, Additional history exists DXA Scan 05/03/2024 05/03/2022, 06/21, 06/28/2017, Additional history exists O2 ASSESSMENT COMPLETED IN PAST YEAR FOR COPD 09/20/2024 09/20/2023 Pneumococcal Vaccine: 65+ Years Completed 09/12/2020, 08/05/2015, 08/24/2006 VITAMIN D LEVEL ONCE IN A LIFETIME-USE SMARTSET# 34063 Completed 01/13/2023, 07/24/2015, 02/06/2014, Additional history exists [...] Documents on File Type Date Recorded 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
--- OUTSIDE RECORDS SUMMARY | 2023-10-27 09:11 | External Medical Summary | Summary of Care ---
Author Name Unknown Organization [facility] Address [address] [place] [address] Phone [phone] Care Team Providers Care Director Of Rotc Name Role Phone Dionisio Mayer MD Primary Care Provider [phone]- [phone] Reason for Visit * Reason Onset Date Comments Advice 10/12/2023 Med Request 10/12/2023 Encounter Details Date Type Department Care Team (Late st Contact Info) Description 10/12/2023 Telephone [facility] [address] [place] [address] Dionisio Mayer MD [address] [place] [address] Advice; Med Request Allergies Active [...] encounter Miscellaneous Notes * Telephone Encounter - Emeli Giordano LPN - 10/17/2023 11:40 AM EST Patient is aware and verbalizes understanding. * Telephone Encounter - Cate Newton OSA - 10/17/2023 11:36 AM EST Reason for patient's call: returning call Caller was transferred to [facility] at the nurse line. * Telephone Encounter - Grace Cervantes LPN - 10/17/2023 11:13 AM EST left message on machine for pt to call office If patient returns call, please relay Dr. Mariscal below message * Addendum Note - Lulu Rowna MD - 10/17/2023 10:19 AM ESTAddended by: [...] or be prescribed? [facility] [place]. Please call regarding this. Thank you. documented in this encounter Plan of Treatment Upcoming Encounters Date Type Department Care Team (Late st Contact Info) Description 01/16/2024 12:00 PM EST [facility] [address] [facility] [phone] Bela Bullock [facility]-C [address] [facility] [phone] Health Maintenance Due Date Last Done Comments [...] 01/13/2024 01/13/2023, 12/23 CKD HGB USE SMARTSET 35939 01/13/202401/13, 01/12/2022, 07/04/2020, Additional history exists CKD PHOS USE SMARTSET 18243 01/13/202412/23, 01/12/2022, 07/04/2020, Additional history exists DXA Scan 05/03/2024 05/03/2022, 06/21, 06/28/2017, Additional history exists O2 ASSESSMENT COMPLETED IN PAST YEAR FOR COPD 09/20/2024 09/20/2023 Pneumococcal Vaccine: 65+ Years Completed 09/12/2020, 08/05/2015, 08/24/2006 VITAMIN D LEVEL ONCE IN A LIFETIME-USE SMARTSET# 52763 Completed 01/13/2023, 07/24/2015, 02/06/2014, Additional history exists [...] Documents on File Type Date Recorded 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
--- OUTSIDE RECORDS SUMMARY | 2023-10-27 09:11 | External Medical Summary | Summary of Care ---
Author Name Unknown Organization [facility] Address [address] [place] [address] Phone [phone] Care Team Providers Care Letterer Name Role Phone Dionisio Mayer MD Primary Care Provider [phone]- [phone] Reason for Visit * Reason Onset Date Comments Advice 10/12/2023 Med Request 10/12/2023 Encounter Details Date Type Department Care Team (Late st Contact Info) Description 10/12/2023 Telephone [facility] [address] [place] [address] Dionisio Mayer MD [address] [place] [address] Advice; Med Request Allergies Active Allergy Reactions Criticality Noted Date Comments Alendronate Sodium 04/19/2013 Vomiting documented as of this encounter (statuses as of 10/12/2023) Medications Medication Sig Dispensed Refills Start Date [...] as of this encounter (statuses as of 10/12/2023) Active Problems Problem Noted Date Diagnosed Date [...] as of this encounter (statuses as of 10/12/2023) Resolved Problems Problem Noted Date Diagnosed Date [...] as of this encounter (statuses as of 10/12/2023) Immunizations Name Administration Dates Next Due COVID-19 mRNA, LNP-s, No Pre serve, 2-Dose Series (Moderna) 09/08/2023,01/31/2021,12/20/2020 COVID-19, mRNA, LNP-s, PF, B ooster, 100mcg/0.5mg (Moderna) 03/05/2022,09/24/2021 Covid-19, Mrna, Lnp-s, Pf, B ivalent, 50 Mcg, IM, 12 yrs and above (Moderna) 09/13/2022 H1N1 2009 Influenza, IM 01/05/2010 Pneumococcal Conjugate Vacc, 13 Valent (Prevnar) 09/12/2020,08/05/2015 Pneumococcal Polysaccharide PPV23 (Pneumovax) 08/24/2006 SEASONAL INFLUENZA, PF, 6 M & Above, IM , (FLULAVAL or FLUZONE) 09/06/2019,09/01/2018,08/10/2017 Season Influenza, Quad, PF, Adjuvanted, 65+ Yrs, IM (FLUAD) 08/27/2020 Seasonal Influenza, Quadriva lent Hd (Fluzone Hd) 09/15/2022,09/16/2021 Seasonal Influenza, Quadriva lent, No Preserve, IM 09/17/2016,09/12/2015 Seasonal Influenza, Split, I IV3, With Preserve, Inj 09/06/2014,08/27/2013,09/28/2012,09/13,09/18/2010,08/17/2009,09/10/2008 ,09/21/2007,08/24/2006 TDAP (age 10 and older)(Boostrix) 12/05/2012 Varicella [...] encounter Miscellaneous Notes * Telephone Encounter - Juliane Quezada OSA - 10/12/2023 10:04 AM EST Patient is not getting much relief from the arthritis pain with tylenol. Patient saw Dr Ken on September 20 for this. Patient states pain level without tylenol is an 8, with tylenol 6. Patient is asking if there is something else she could try or be prescribed? [facility] [place]. Please call regarding this. Thank you. documented in this encounter Plan of Treatment Upcoming Encounters Date Type Department Care Team (Late st Contact Info) Description 01/16/2024 12:00 PM EST Office Visit [facility] [address] [facility] [phone] Bela Bullock PA-C [address] [place] [address] Health Maintenance Due Date Last Done [...] 01/13/2024 01/13/2023, 12/23 CKD HGB USE SMARTSET 43628 01/13/202401/13, 01/12/2022, 07/04/2020, Additional history exists CKD PHOS USE SMARTSET 55667 01/13/202412/23, 01/12/2022, 07/04/2020, Additional history exists DXA Scan 05/03/2024 05/03/2022, 06/21, 06/28/2017, Additional history exists O2 ASSESSMENT COMPLETED IN PAST YEAR FOR COPD 09/20/2024 09/20/2023 Pneumococcal Vaccine: 65+ Years Completed 09/12/2020, 08/05/2015, 08/24/2006 VITAMIN D LEVEL ONCE IN A LIFETIME-USE SMARTSET# [id number] Completed 01/13/2023, 07/24/2015, 02/06/2014, Additional history exists [...] Documents on File Type Date Recorded 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
--- OUTSIDE RECORDS SUMMARY | 2023-10-27 09:11 | External Medical Summary | Summary of Care ---
Author Name Unknown Organization [facility] Address [address] [facility] [place] [address] Phone [phone] Care Team Providers Care Casket Upholsterer Name Role Phone Dionisio Mayer MD Primary Care Provider +1- [phone] Reason for Visit * Reason Comments Acute Pain in groin x 6 mo nths Encounter Details Date Type Department Care Team (Latest Contact Info) Description 09/20/2023 2:40 PM EDT Office Visit [facility] [address] [place] [address] May, Jeremy Bowden MD [address] [place] [address] Primary osteoarthritis of one hip, left*; Stage 3b chronic kidney disease Allergies Active Allergy Reactions Criticality Noted Date Comments Alendronate Sodium 04/19/2013 Vomiting documented as of this encounter (statuses as of 09/20/2023) Medications Medication Sig Dispensed Refills Start Date [...] as of this encounter (statuses as of 09/20/2023) Active Problems Problem Noted Date Diagnosed Date [...] as of this encounter (statuses as of 09/20/2023) Resolved Problems Problem Noted Date Diagnosed Date [...] Record Menopause 09/24/2002 08/05/2015 Mixed dyslipidemia 06/01/2000 12/200 9 Overview: Per Lipid Taxonomy. Encounter for long-term (cur rent) use of medications 06/01/2000 08/05/2015 Overview: ICD-10 update of inactive term Tobacco use disorder 019 documented as of this encounter (statuses as of 09/20/2023) Immunizations Name Administration Dates Next Due COVID-19 [...] Former Cigarettes 0.3 44 Smokeless Tobacco: Never Tobacco Cessation:Counseling Given: Not Answered Alcohol Use Standard Drinks/Week Comments Yes 14 [...] on file documented as of this encounter Last Filed Vital Signs Vital Sign Reading Time Taken Comments Blood Pressure 132/60 09/20/2023 2:35 PM EDT Pulse 72 09/20/2023 2:35 PM EDT Temperature 36.2 C (97.1 F) 09/20/2023 2:35 PM ED T Respiratory Rate 18 09/20/2023 2:35 PM EDT Oxygen Saturation 98% 09/20/2023 2:35 PM EDT Inhaled Oxygen Concentration - - Weight 65.8 kg (145 lb) 09/20/2023 2:35 PM EDT Height - - Body Mass Index 29.29 08/17/2023 2:09 PM EDT documented in this encounter Progress Notes * Jeremy Ken MD - 09/20/2023 2:52 PM EDT Images from the original note were not included. Assessment and Plan Osteoarthritis of the left hip with anterior hip pain and positive log roll. Patient is not interested in imaging, physical therapy, sports Med referral. She was happy to continue her use of tramadoland Tylenol she was cyst when pain flares. She can also use topicals and heat and ice. We discussedher diagnosis of chronic kidney disease and discuss the importance of avoiding nonsteroidal anti-inflammatory medications to reduce risk of worsening renal function. She will notify the office if symptoms worsen at which time imaging and PT referral can be placed. 1. Primary osteoarthritis of one hip, left 2. Stage 3b chronic kidney disease Wrap-Up Follow up as needed. History of Present Illness The patient is an 82-year-old female with past medical history of COPD, dyslipidemia, GERD, CKD stage IIIB, osteoporosis who presents with groin pain of 6 months' duration. 82-year-old female who presents with 6 months of worsening left groin pain. This is clearly musculoskeletal as she notes pain is worse after sitting for a long period of time and becoming mobile again or after being active for an extended period of time. She denies any specific injury to the hip orrecent falls. She takes tramadol along with Tylenol and ibuprofen which does result in improvement in pain. On exam she has definitively positive log roll on the left. She does have a history of CKD stage IIIB. We discussed avoiding nonsteroidal anti- inflammatory medications by mouth to avoid worsening renal function. Physical Exam Vitals: 09/20/23 1435 Temp: 36.2 C (97.1 F) Pulse: 72 Resp: 18 SpO2: 98% BP: 132/60 Physical Exam Physical Exam Vitals reviewed. Constitutional: General: She is not in acute distress. Pulmonary: Effort: Pulmonary effort is normal. No respiratory distress. Musculoskeletal: Comments: Negative straight leg raise on the left. Positive log roll on the left. Positive pain with hip flexion and internal rotation on the left. Ambulating without use of assistive device. Neurological: General: No focal deficit present. Mental Status: She is alert. documented in this encounter Nursing Notes * Shelli Castillo LPN - 09/20/2023 2:40 PM EDT The patient has been properly identified by confirmation of name and date of . Chief Complaint Patient presents with Acute Pain in groin x 6 months documented in this encounter Plan of Treatment Upcoming Encounters Date Type Department Care Team (Late st Contact Info) Description 01/16/2024 12:00 PM EST Office Visit [facility] [place] [address] [facility] [place] [phone] Bel[facility] Bullock [facility]C [address] [facility] [phone] Health Maintenance Due Date Last Done Comments [...] 01/13/2024 01/13/2023, 12/23 CKD HGB USE SMARTSET 85277 01/13/202401/13, 01/12/2022, 07/04/2020, Additional history exists CKD PHOS USE SMARTSET 02271 01/13/202412/23, 01/12/2022, 07/04/2020, Additional history exists DXA Scan 05/03/2024 05/03/2022, 06/21, 06/28/2017, Additional history exists O2 ASSESSMENT COMPLETED IN PAST YEAR FOR COPD 08/17/2024 08/17/2023 Pneumococcal Vaccine: 65+ Years Completed 09/12/2020, 08/05/2015, 08/24/2006 VITAMIN D LEVEL ONCE IN A LIFETIME-USE SMARTSET# [id number] Completed 01/13/2023, 07/24/2015, 02/06/2014, Additional history exists [...] Not on filedocumented as of this encounter Visit Diagnoses Diagnosis Primary osteoarthritis of one hip, left- Primary Stage 3b chronic kidney disease documented in this encounter Advance Directives Documents on File Type Date Recorded 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
--- OUTSIDE RECORDS SUMMARY | 2023-10-27 09:11 | External Medical Summary | Summary of Care ---
Author Name Unknown Organization [facility] Address [address] [place] [address] Phone [phone] Care Team Providers Care Fuel Quality Tech Name Role Phone Griselda Pérez MD Primary Care Provider [phone]- [phone] Reason for Visit * Reason Comments eRx-Medication Refill Encounter Details Date Type Department Care Team Description 08/06/2023 Refill [facility] [address] [place] [address] Griselda Pérez MD [address] [place] [address] Allergies Active Allergy Reactions Severity Noted Date Comments Alendronate Sodium 04/19/2013 Vomiting documented as of this encounter (statuses as of 08/08/2023) Medications Medication Sig Dispensed Refills Start Date [...] 180 days 1 Each 1 09/01/2020 Active predniSONE 10 MG Oral Tablet (Deltasone) Take 5 tabs for 2 days, 4 tabs for 2 days, 3 tabs for 2 days, 2 tabs for 2 days 1 tab for 2 days as needed for rescue kit 30 Tab 3 02/07/2021 Active Spacer/Aero-Holding Chambers DeviceIndications:C OPD, group A, by GOLD 2017 classification ([facility]) Use with inhaler. 1 Each 1 01/12/2022 Active Zoster Vac Recomb Adjuvanted 50 MCG/0.5ML Intramuscular Suspension Reconstituted (Shingrix)Indicatio ns:Need for shingles vaccine Inject 0.5 mL into a large muscle now and repeat dose in 60 to 180 days 1 Each 1 01/13/2023 Active buPROPion HCl ER (SR) 150 MG Oral Tablet Extended Release 12 Hour (Wellbutrin SR)Indications:Depr ession, major, in remission ([facility]) TAKE 1 TABLET BY MOUTH TWICE A [...] OR WHEEZING. 8.5 g 1 08/08/2023 Active Albuterol Sulfate HFA 108 (90 Base) MCG/ACT Inhalation Aerosol Solution INHALE 2 PUFFS BY MOUTH EVERY 4 HOURS NEEDED FOR SHORTNESS OF BREATH OR WHEEZING. 8.5 g 1 01/20/2023 08/08/20 23 Discontinued documented as of this encounter (statuses as of 08/08/2023) Active Problems Problem Noted Date COPD, group B, by GOLD 2017 classificati on 11/01/2022 Overview: Per COPD GOLD Classification Hx of actinic keratosis 04/16/2021 Overview: actinic keratoses (Efudex face 03/2021) Stage 3b chronic kidney disease 12/01/19 21 Overview: Per CKD protocol - Per CKD protocol Senile osteoporosis 12/29/2018 Gastroesophageal reflux disease 05/30/20 18 Hx of nonmelanoma skin cancer 05/23/2018 Overview: squamous cell carcinoma (L ankle 2014, R forehead 2016), basal cell carcinoma (R melolabial fold 1998, R alar groove 2017) Abdominal aortic aneurysm (AAA) without rupture 01/24/2018 Depression, major, in remission 08/05/20 Dyslipidemia, goal LDL below 100 013 Vitamin D deficiency 04/04/2013 Elevated LFTs 04/04/2013 CHRONIC TOBACCO MUCOSITIS 12/10/2005 Diaphragmatic hernia 10/22/2005 documented as of this encounter (statuses as of 08/08/2023) Resolved Problems Problem Noted Date Resolved Date Stage 3a chronic kidney disease 09/29/2020 12/04/2020 Overview: Per CKD protocol COPD, group A, by GOLD 2017 classification 04/2811/04/2022 Overview: Per COPD GOLD Classification Kidney disease, chronic, stage III (GFR 30-59 ml /min) 01/01/2019 10/02/2020 Overview: Per CKD protocol #1 Advance directive on file 09/23/20152017 Overview: Yes, copy scanned at patient level in the electronic medical record. Patient aware they must notify their healthcare provider of changes. (Go to More Activities and Patient Files to view)11/26/2013 Neoplasm of unspecified natu re of bone, soft tissue, and skin 05/07/2015 08/05/2015 Epidermal inclusion cyst 09/19/2014 015 Inflamed seborrheic keratosis 09/19/2014 Actinic keratosis 04/02/2014 12/29/2018 Other seborrheic keratosis 04/02/201408/05 History of basal cell carcinoma 04/02/2014 12/29/2018 COPD, mild 10/30/2013 05/01/2020 Overview: Per COPD GOLD Classification Dyslipidemia, goal to be determined 11/06/2009 10/26/2013 Overview: Per Lipid Taxonomy. COPD, severity to be determined 05/14/2008 10/30/2013 Cough 12/10/2005 08/14/2009 Acute laryngitis 12/10/2005 08/14/2009 Overview: ICD-10 update of inactive term Major depressive disorder 09/01/20052014 Overview: ICD-10 update of inactive term ADVANCE DIRECTIVE INFORMATION 07/13/2005 Overview: Yes, Patient instructed to provide copy of advance directive for provider to review and to be scanned into Electronic Medical Record Menopause 09/24/2002 08/05/2015 Mixed dyslipidemia 06/01/2000 11/06/2009 Overview: Per Lipid Taxonomy. Encounter for long-term (current) use of medicat ions 06/01/2000 08/05/2015 Overview: ICD-10 update of inactive term Tobacco use disorder 01/03/2019 documented as of this encounter (statuses as of 08/08/2023) Immunizations Name Administration Dates Next Due COVID-19 mRNA, LNP-s, No Pre serve, 2-Dose Series (Moderna) 01/31/2021,12/20/2020 COVID-19, mRNA, LNP-s, PF, B ooster, 100mcg/0.5mg (Moderna) 03/05/2022,09/24/2021 Covid-19, Mrna, Lnp-s, Pf, B ivalent, 50 Mcg, IM, 12 yrs and above (Moderna) 09/13/2022 H1N1 2009 Influenza, IM 01/05/2010 Pneumococcal Conjugate Vacc, 13 Valent (Prevnar) 09/12/2020,08/05/2015 Pneumococcal Polysaccharide PPV23 (Pneumovax) 08/24/2006 Season Influenza, Quad, PF, Adjuvanted, 65+ Yrs, IM (FLUAD) 08/27/2020 Seasonal Influenza, PF, 6 mo ns & Above, IM , (Flulaval) 09/06/2019,09/01/2018,08/10/2017 Seasonal Influenza, Quadriva lent Hd (Fluzone Hd) [...] re alcohol) Glass of wine with dinner Food Insecurity Answer Date Recorded Within the past 12 months, y ou worried that your food would run out before you got money to buy more. Never true 09/15/2022 Within the past 12 months, t he food you bought just didn't last and you didn't have money to get more. Never true 09/15/2022 Sex Assigned at Date Recorded Not on file Job Start Date Occupation Industry Not on file Not on file Not on file documented as of this encounter Miscellaneous Notes * Telephone Encounter - Ame Freitas [facility] - 08/08/2023 8:37 AM EDTSigned Prescriptions: Disp Refills Albuterol Sulfate HFA 108 (90 Base) MCG/AC*8.5 g 1 Sig: INHALE 2PUFFS BY MOUTH EVERY 4 HOURS NEEDED FOR SHORTNESS OF BREATH OR WHEEZING.Authorizing Provider: GRISELDA PÉREZ User: AME FREITAS documented in this encounter Plan of Treatment Upcoming Encounters Date Type Specialty Care Team Description 09/16/2023 Nurse Only Nurse [facility] [address] [id number] 01/16/2024 Office Visit Family Medicine Bela Bullock PA-C [address] [id number] Health Maintenance Due Date Last Done Comments [...] 01/13/2024 01/13/2023, 12/23 CKD HGB USE SMARTSET 52096 01/13/202401/13, 01/12/2022, 07/04/2020, Additional history exists CKD PHOS USE SMARTSET 23191 01/13/202412/23, 01/12/2022, 07/04/2020, Additional history exists DXA Scan 05/03/2024 05/03/2022, 06/21, 06/28/2017, Additional history exists O2 ASSESSMENT COMPLETED IN PAST YEAR FOR COPD 06/16/2024 06/16/2023 Pneumococcal Vaccine: 65+ Years Completed 09/12/2020, 08/05/2015, 08/24/2006 COVID-19 Vaccine Completed 09/13/2022, , 09/24/2021, Additional history exists VITAMIN D LEVEL ONCE IN A LIFETIME-USE SMARTSET# [id number] Completed 01/13/2023, 07/24/2015, 02/06/2014, Additional history exists GARDASIL-HPV IMMUNIZATION SERIES Aged [...] Documents on File Type Date Recorded 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
--- OUTSIDE RECORDS SUMMARY | 2023-10-27 09:11 | External Medical Summary | Summary of Care ---
Author Name Unknown Organization [facility] Address [address] [place] [address] Phone [phone] Care Team Providers Care Site Safety Representative Name Role Phone Griselda Pérez MD Primary Care Provider [phone] Reason for Visit * Reason Comments Follow Up 1 year for full skin exam, spot R axilla Encounter Details Date Type Department Care Team Description 06/30/2023 [facility] [address] [place] [address] Heide Reyna PA-C [address] [place] [address] [place] [address] Hx of nonmelanoma skin cancer*; Skin exam, screening for cancer; Seborrheic keratosis; Seborrheic dermatitis; EIC (epidermal inclusion cyst); Scar condition and fibrosis of skin Allergies Active Allergy Reactions Severity Noted Date Comments Alendronate Sodium 04/19/2013 Vomiting documented as of this encounter (statuses as of 07/01/2023) Medications Medication Sig Dispensed Refills Start Date [...] Recomb Adjuvanted 50 MCG/0.5ML Intramuscular Suspension Reconstituted (SHINGRIX)Indications :Need for shingles vaccine Inject 0.5 mL into [...] 30 Tab 3 02/07/2021 Active Spacer/Aero-Holding Chambers DeviceIndications: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 1 Each 1 01/12/2022 Active Zoster Vac Recomb Adjuvanted 50 MCG/0.5ML Intramuscular Suspension Reconstituted (Shingrix)Indications :Need for shingles vaccine Inject 0.5 mL into a large muscle now and repeat dose in 60 to 180 days 1 Each 1 01/13/2023 Active Albuterol Sulfate HFA 108 (90 Base) MCG/ACT Inhalation Aerosol Solution INHALE 2 PUFFS BY MOUTH EVERY 4 HOURS NEEDED FOR SHORTNESS OF BREATH OR WHEEZING. 8.5 g 1 01/20/2023 Active buPROPion HCl ER (SR) 150 MG Oral Tablet Extended Release 12 Hour (Wellbutrin SR)Indications:Depres brittany, major, in remission ([facility]) TAKE 1 TABLET BY MOUTH TWICE A DAY 180 Tablet 3 04/05/2023 Active Stiolto Respimat 2.5-2.5 MCG/ACT Inhalation Aerosol Solution (Tiotropium-Olodatero l) INHALE 2 PUFFS BY MOUTH EVERY DAY 12 g 3 04/05/2023 Active Atorvastatin Calcium 40 MG Oral Tablet (Lipitor) TAKE 1 TABLET BY MOUTH EVERY DAY 90 Tablet 1 06/07/2023 Active Ondansetron HCl 4 MG Oral Tablet (Zofran)Indications:D izziness TAKE 1 TABLET BY MOUTH EVERY 6 HOURS NEEDED FOR NAUSEA 30 Tablet 2 06/14/2023 Active documented as of this encounter (statuses as of 07/01/2023) Active Problems Problem Noted Date COPD, group [...] rupture 01/24/2018 Depression, major, in remission 08/05/20 15 Dyslipidemia, goal LDL below 100 013 Vitamin D deficiency 04/04/2013 Elevated LFTs 04/04/2013 CHRONIC TOBACCO MUCOSITIS 12/10/2005 Diaphragmatic hernia 10/22/2005 documented as of this encounter (statuses as of 07/01/2023) Resolved Problems Problem Noted Date Resolved Date [...] as of this encounter (statuses as of 07/01/2023) Immunizations Name Administration Dates Next Due COVID-19 mRNA, LNP-s, No Pre serve, 2-Dose Series (Moderna) 01/31/2021,12/20/2020 Covid-19 Mrna, Lnp-s, No Pre serve, Booster (Moderna) 03/05/2022,09/24/2021 Covid-19, Mrna, Lnp-s, Pf, B ivalent, 50 Mcg, IM, 12 yrs and above (Moderna) 09/13/2022 Diptheria/Tetanus (Adult) 06/25/1997 H1N1 2009 Influenza, IM 01/05/2010 PPD 08/10/2005 Pneumococcal Conjugate Vacc, 13 Valent (Prevnar) 09/12/2020,08/05/2015 Pneumococcal Polysaccharide PPV23 (Pneumovax) 08/24/2006 Seasonal Influenza Virus Vac cine, Unspecified Formulation 09/01/1998 Seasonal Influenza, Quadriva lent Hd (Fluzone Hd) 09/15/2022,09/16/2021 Seasonal Influenza, Quadriva lent, No Preserve, 6 Mons & Above, IM 09/06/2019,09/01/2018,08/10/2017 Seasonal Influenza, Quadriva lent, No Preserve, Adjuvanted, 65+ Yrs, IM 08/27/2020 Seasonal Influenza, Quadriva lent, No Preserve, IM [...] on file documented as of this encounter Patient Instructions * Patient Instructions* Heide Reyna PA-C - 06/30/2023 2:22 PM EDT SUNSCREEN USE AND SUN PROTECTION: 1. The best protection is sun avoidance. Seek shade if you can, especially between 10am to 4pm (peak sun hours). 2. Use sunscreen with an SPF (Sun Protection Factor - the number on most sunscreen bottles) of 30 or more that protects from Ultraviolet A (UVA) and Ultraviolet B (UVB) wavelength light (strongly recommend SPF 50). This is referred to as broad spectrum sun protection because it protects from most wa velengths in both spectrums of UVA and UVB light. Unfortunately, even though the protection is broad it is not complete, therefore making sun avoidance the best protection. UVB and UVA have both beenimplicated in causing skin cancers. Older sunscreens only protected from UVB and sunscreens with added UVA protection should contain Titanium dioxide, Zinc oxide, or Avobenzone. Other oil free, non-comedogenic lotion with SPF 30 or greater is fine. 3. Use sun protection if outside for 15 minutes or more. Apply 20-30 minutes before going out and reapply every 1-2 hours. No sunscreen is truly water ''proof'' and it will wash away with sweat, swimming and rubbing. 4. Wear tightly woven, loose fitting (cooler) long sleeved clothing, UV-blocking sun glasses (eyes need protection as well) and wide-brimmed hatwear (no straw hats with holes because light still getsthrough). Strongly recommended *Neutrogena Pure and Free Baby SPF 60 (have separate face and body lotions) orCeraVe AM facial lotion (with SPF 30). If looking for non toxic alternatives-look for non-karina particle zinc. Product examples; Think sport, Think baby, [place], [employer], [place] Giveit100, [place] baby. "Baby" products can be used for all ages. documented in this encounter Progress Notes * Char Mesa MD - 07/01/2023 4:03 PM EDT I have reviewed the relevant notes and photographs taken by KARON Randall. I have reviewed and agree with the assessment and plan. Char Mesa MD 07/01/2023 4:03 PM * Heide Reyna PA-C - 06/30/2023 2:20 PM EDT SUBJECTIVE: History of Present Illness: Amanda Ontiveros is a 82 year old female seen today for follow up of lesion/full skin exam. Previous office visit: 08/03/2022 Last attempted treatments include: Efudex for bowenoid AK No vulvar exams performed, no vulvar discoloration and/or lesions to be assessed per pt. Lesion in R axilla, has been present for 2+ years. Asymptomatic, wanted to have it checked. No tx to date. 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 REVIEW OF SYSTEMS: SKIN: No other new or changing moles. HEME/LYMPH: No new or enlarging lumps or bumps. CONSTITUTIONAL: No nausea, vomiting, fevers, chills, diarrhea. No recent unintended weight loss, night sweats, appetite or malaise. 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 MEDICA TIONS: Current Outpatient Medications Medication Sig Dispense Refill ASPIRIN 81 MG PO CHEW Two chewable by mouth once a day with food 100 6 CALTRATE 600+D PLUS 600-800 MG-UNIT PO CHEW 1 TABLET TWICE DAILY WITH FOOD Ascorbic Acid ER 500 MG TBCR Take 500 mg by mouth daily. Zoster Vac Recomb Adjuvanted 50 MCG/0.5ML Intramuscular Suspension Reconstituted (SHINGRIX) Inject 0.5 mL into a large muscle now and repeat dose in 60 to 180 days 1 Each 1 predniSONE 10 MG Oral Tablet (Deltasone) Take 5 tabs for 2 days, 4 tabs for 2 days, 3 tabs for 2 days, 2 tabs for 2 days 1 tab for 2 days as needed for rescue kit 30 Tab 3 Spacer/Aero-Holding Chambers Device Use with inhaler. 1 Each 1 Zoster Vac Recomb Adjuvanted 50 MCG/0.5ML Intramuscular Suspension Reconstituted (Shingrix) Inject 0.5 mL into a large muscle now and repeat dose in 60 to 180 days 1 Each 1 Albuterol Sulfate HFA 108 (90 Base) MCG/ACT Inhalation Aerosol Solution INHALE 2 PUFFS BY MOUTHEVERY 4 HOURS NEEDED FOR SHORTNESS OF BREATH OR WHEEZING. 8.5 g 1 buPROPion HCl ER (SR) 150 MG Oral Tablet Extended Release 12 Hour (Wellbutrin SR) TAKE 1 TABLETBY MOUTH TWICE A DAY 180 Tablet 3 Stiolto Respimat 2.5-2.5 MCG/ACT Inhalation Aerosol Solution (Tiotropium- Olodaterol) INHALE 2 PUFFS BY MOUTH EVERY DAY 12 g 3 Atorvastatin Calcium 40 MG Oral Tablet (Lipitor) TAKE 1 TABLET BY MOUTH EVERY DAY 90 Tablet 1 Ondansetron HCl 4 MG Oral Tablet (Zofran) TAKE 1 TABLET BY MOUTH EVERY 6 HOURS NEEDED FOR NAUSEA 30 Tablet 2 No current facility-administered medications for this visit. ALLERG IES: Alendronate sodium OBJECT CHARLOTTE: GEN: alert, no distress, appears oriented, pleasant and cooperative. SKIN: Detailed exam of hair, face including lids and lips, neck, chest, abdomen, back, bilateral upper ext. (arm, hand, fingers), bilateral lower ext. (leg, foot, toes), palpation of scalp, fingernails, toenails, inguinal areas, groin (mons pubis), buttocks and anus completed: 1. R alar groove-Circular atrophic scar with central 2mm opening. 2. R axilla-About 1.5cm mobile cyst with central punctum. 3. Scalp/medial face-White greasy scale, adherent to hair shafts but not on scalp. Face with extensive scale on erythematous base. 4. Face/trunk/bilat arms and legs-Many Sharply defined, variegated brown, waxy flat papules with velvety to finely verrucous surfaces. ASSESS MENT/PLAN: 1. Scar s/p basal cell carcinoma on R alar groove-Pt states that scar with central opening has beenpresent and stable since Mohs procedure. Will continue to follow at yearly skin exams. 2. Epidermoid inclusion cyst on R axilla-Pt declined excision of lesion at this time. 3. Seborrheic dermatitis on scalp/face-Pt states that areas are asymptomatic and declines treatmentat this time. 4. Seborrheic/Benign Keratosis(-es) on face/trunk/bilat arms and legs-no tx needed, pt given reassurance and written education about diagnosis. Patient alone today. Photo(s) of #1-4 taken, pt verbally consented to having photo(s) taken. Follow-up: 1 year for full skin exam Photos and chart reviewed by Dr. Char Mesa. Presumed diagnoses, expected natural histories, and management options discussed with the patient at length. Questions were addressed and anticipatory guidance provided. They were instructed to contact me if additional questions, concerns, or problems develop in the interim. -There were no barriers to learning and no other pain was related to today's visit. The patient and/or person accompanying patient demonstrates understanding of the visit and treatment. Heide Reyna PA-C 06/30/2023 12:17 PM Ref: SELF[[id number]] NO STREET ADDRESS AVAILABLE None (office) None (fax) PCP: GRISELDA PÉREZ [address] [place] [address] [phone] documented in this encounter Nursing Notes * Courtney Olivarez LPN - 06/30/2023 2:17 PM EDT Patient identified by full name and date of . Chief Complaint Patient presents with Follow Up 1 year for full skin exam, spot R axilla documented in this encounter Plan of Treatment Upcoming Encounters Date Type Specialty Care Team Description 09/16/2023 Nurse Only Nurse [facility] [address] [facility] [address] 01/16/2024 Office Visit Family Medicine Bela Bullock PA-C [address], [place] [id number] Health Maintenance Due Date Last Done Comments [...] 09/15/2022, 09/16/2021, 08/27/2020, Additional history exists Depression Screening, Annual for Pts 12 and Over 09/15/2023 09/15/2022 Albumin/Creatinine Ratio 01/13/2024 01/13/2023, 12/23 CKD HGB USE SMARTSET 16371 01/13/202401/13, 01/12/2022, 07/04/2020, Additional history exists CKD PHOS USE SMARTSET 79820 01/13/202412/23, 01/12/2022, 07/04/2020, Additional history exists DXA Scan 05/03/2024 05/03/2022, 06/21, 06/28/2017, Additional history exists O2 ASSESSMENT COMPLETED IN PAST YEAR FOR COPD 06/16/2024 06/16/2023 Pneumococcal Vaccine: 65+ Years Completed 09/12/2020, 08/05/2015, 08/24/2006 COVID-19 Vaccine Completed 09/13/2022, , 09/24/2021, Additional history exists VITAMIN D LEVEL ONCE IN A LIFETIME-USE SMARTSET# [id number] Completed 01/13/2023, 07/24/2015, 02/06/2014, Additional history exists [...] Not on filedocumented as of this encounter Procedures Procedure Name Priority Date/Time Associated Diagnosis Comments DERM IMAGE (SITE) Routine 06/30/2023 Hx of nonmelanoma skin cancer Skin exam, screening for cancer Seborrheic keratosis Seborrheic dermatitis EIC (epidermal inclusion cyst) Scar condition and fibrosis of skin documented in this encounter Results * DERM IMAGE (SITE) (06/30/2023) 06/30/2023 Heide Reyna PA-C DIGITAL PHOTOG KYLEIGH documented in this encounter Visit Diagnoses Diagnosis Hx of nonmelanoma skin cancer- Primary Personal history of other malignant neoplasm of skin Skin exam, screening for cancer Screening for malignant neoplasm of the skin Seborrheic keratosis Other seborrheic keratosis Seborrheic dermatitis Seborrheic dermatitis, unspecified EIC (epidermal inclusion cyst) Sebaceous cyst Scar condition and fibrosis of skin documented in this encounter Advance Directives Documents on File Type Date Recorded 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
--- OUTSIDE RECORDS SUMMARY | 2023-10-27 09:11 | External Medical Summary | Summary of Care ---
Author Name Unknown Organization [facility] Address [address] [place] [address] Phone [phone] Care Team Providers Care Roll Machine Operator Name Role Phone Dionisio Mayer MD Primary Care Provider [phone]- [phone] Reason for Visit * Reason Onset Date Comments Advice 10/12/2023 Med Request 10/12/2023 Encounter Details Date Type Department Care Team (Late st Contact Info) Description 10/12/2023 Telephone [facility] [address] [place] [address] Dionisio Mayer MD [address] [place] [address] Advice; Med Request Allergies Active [...] encounter Miscellaneous Notes * Telephone Encounter - Alexsandra Soliman, BERT - 10/14/2023 10:12 AM EST Patient would like to get a script for Tramadol and take Tylenol with it She would like Dr. Ken to set up a schedule for how [...] or be prescribed? Patient used [facility] in [place]. Please call regarding this. Thank you. documented in this encounter Plan of Treatment Upcoming Encounters Date Type Department Care Team (Late st Contact Info) Description 01/16/2024 12:00 PM EST Office Visit [facility] [address] [place] [facility] [place] [id number] Bela Bullock PA-C [address], [place] [phone] Health Maintenance Due Date Last Done Comments [...] 01/13/2024 01/13/2023, 12/23 CKD HGB USE SMARTSET 05133 01/13/202401/13, 01/12/2022, 07/04/2020, Additional history exists CKD PHOS USE SMARTSET 07794 01/13/202412/23, 01/12/2022, 07/04/2020, Additional history exists DXA Scan 05/03/2024 05/03/2022, 06/21, 06/28/2017, Additional history exists O2 ASSESSMENT COMPLETED IN PAST YEAR FOR COPD 09/20/2024 09/20/2023 Pneumococcal Vaccine: 65+ Years Completed 09/12/2020, 08/05/2015, 08/24/2006 VITAMIN D LEVEL ONCE IN A LIFETIME-USE SMARTSET# [id number] Completed 01/13/2023, 07/24/2015, 02/06/2014, Additional history exists [...] Documents on File Type Date Recorded Patient 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
--- OUTSIDE RECORDS SUMMARY | 2023-10-27 09:11 | External Medical Summary | Summary of Care ---
Author Name Unknown Organization [facility] Address [address] [address] Phone [phone] Care Team Providers Care Veneer Jointer Operator Name Role Phone Dionisio Mayer MD Primary Care Provider +1- [phone] Reason for Visit * Reason Comments Pain Pain in upper rib ar ea on right side and arm Encounter Details Date Type Department Care Team Description 08/17/2023 Convenient Care Visit [facility] [address] [facility] [place] [address] Humberto Haro PA-C [address] [place] [address] Anterior chest wall pain* Allergies Active Allergy Reactions Severity Noted Date Comments Alendronate Sodium 04/19/2013 Vomiting documented as of this encounter (statuses as of 08/17/2023) Medications Medication Sig Dispensed Refills Start Date [...] package directions 21 Tablet 0 08/17/2023 Active predniSONE 10 MG Oral Tablet (Deltasone) Take 5 tabs for 2 days, 4 tabs for 2 days, 3 tabs for 2 days, 2 tabs for 2 days 1 tab for 2 days as needed for rescue kit 30 Tab 3 02/07/2021 3 Discontinue d(End of Procedure) Spacer/Aero-Holding Chambers DeviceIndications:C OPD, group A, by GOLD 2017 classification ([facility]) Use with inhaler. 1 Each 1 01/12/2022 3 Discontinue d(End of Procedure) Zoster Vac Recomb Adjuvanted 50 MCG/0.5ML Intramuscular Suspension Reconstituted (Shingrix)Indicatio ns:Need for shingles vaccine Inject 0.5 mL into a large muscle now and repeat dose in 60 to 180 days 1 Each 1 01/13/2023 3 Discontinue d(End of Procedure) documented as of this encounter (statuses as of 08/17/2023) Active Problems Problem Noted Date COPD, group [...] as of this encounter (statuses as of 08/17/2023) Resolved Problems Problem Noted Date Resolved Date [...] as of this encounter (statuses as of 08/17/2023) Immunizations Name Administration Dates Next Due COVID-19 [...] Sign Reading Time Taken Comments Blood Pressure 138/60 08/17/2023 2:09 PM EDT Pulse 91 08/17/2023 2:09 PM EDT Temperature 36.6 C (97.9 F) 08/17/2023 2:09 PM ED T Respiratory Rate 20 08/17/2023 2:09 PM EDT Oxygen Saturation 96% 08/17/2023 2:09 PM EDT Inhaled Oxygen Concentration - - Weight 66.9 kg (147 lb 6.4 oz) 08/17/2023 2:09 P M EDT Height 149.9 cm (4' 11") 08/17/2023 2:09 PM EDT Body Mass Index 29.77 08/17/2023 2:09 PM EDT documented in this encounter Patient Instructions * Patient Instructions* Humberto Haro PA-C - 08/17/2023 2:22 PM EDT Medrol dose pack (steroid) Tylenol/motrin as needed Heat to affected area Topicals like lidocaine, voltaren, aspercreme, bengay, biofreeze are okay as well. Follow-up with PCP if no improvement in a week. Sooner if worsens. ER if acutely worsens documented in this encounter Progress Notes * Humberto Haro PA-C - 08/17/2023 2:46 PM EDT Nursing Notes: Gerri Simmons LPN 08/17/23 1412 Signed Amanda Ontiveros is a 82 year old female who presents to walk-in clinic today complaining of Chief Complaint Patient presents with Pain Pain in upper rib area on right side and arm Main Symptoms:pain in right upper rib area on chest and right arm Cause: unknown How long: woke up with it today Tried: tramadol, tylenol, advil Pt accompanied by: self Subjective Amanda Ontiveros is a 82 year old female that presents for Pain (Pain in upper rib area on right side and arm) Chest Pain This is a new problem. The current episode started yesterday. The onset quality is sudden. The problem occurs constantly. The problem has been waxing and waning. The pain is present in the lateral region (R upper anterior chest wall). The pain is moderate. The quality of the pain is described as sharp (worse with certain movements, use of R arm, palpation). The pain does not radiate. Pertinent negatives include no abdominal pain, back pain, claudication, cough, diaphoresis, dizziness, exertional chest pressure, fever, headaches, hemoptysis, irregular heartbeat, leg pain, lower extremity edema, malaise/fatigue, nausea, near-syncope, numbness, orthopnea, palpitations, PND, shortness of breath, sputum production, syncope, vomiting or weakness. She has tried acetaminophen and NSAIDs (Tramadol) for the symptoms. The treatment provided mild relief. Risk factors include being elderly and post-menopausal. Pertinent negatives for past medical history include no RI, no PE and no recent injury. Objective BP 138/60 | Pulse 91 | Temp 36.6 C (97.9 F) (Tympanic) | Resp 20 | Ht 1.499 m (4' 11") | Wt 66.9 kg (147 lb 6.4 oz) | SpO2 96% | BMI 29.77 kg/m | BSA 1.67 m Body mass index is 29.77 kg/m. BP Readings from Last 3 Encounters: 08/17/23 138/60 06/16/23 138/84 01/13/23 122/84 Wt Readings from Last 3 Encounters: 08/17/23 66.9 kg (147 lb 6.4 oz) 06/16/23 65.1 kg (143 lb 9.6 oz) 01/13/23 66.1 kg (145 lb 12.8 oz) Physical Exam Vitals and nursing note reviewed. Constitutional: General: She is not in acute distress. Appearance: She is well-developed. She is not ill-appearing, toxic-appearing or diaphoretic. HENT: Head: Normocephalic and atraumatic. Right Ear: External ear normal. Left Ear: External ear normal. Nose: Nose normal. Mouth/Throat: Mouth: Mucous membranes are moist. Pharynx: Oropharynx is clear. Eyes: Extraocular Movements: Extraocular movements intact. Conjunctiva/sclera: Conjunctivae normal. Pupils: Pupils are equal, round, and reactive to light. Neck: Vascular: No JVD. Trachea: No tracheal deviation. Cardiovascular: Rate and Rhythm: Normal rate and regular rhythm. Pulses: Radial pulses are 2+ on the right side and 2+ on the left side. Heart sounds: Normal heart sounds. No murmur heard. No friction rub. No gallop. Pulmonary: Effort: No accessory muscle usage or respiratory distress. Breath sounds: No decreased breath sounds, wheezing, rhonchi or rales. Chest: Chest wall: No mass, deformity, tenderness or crepitus. Abdominal: General: Bowel sounds are normal. There is no distension. Palpations: Abdomen is soft. There is no hepatomegaly, splenomegaly or mass. Tenderness: There is no abdominal tenderness. There is no right CVA tenderness, left CVA tenderness, guarding or rebound. Hernia: No hernia is present. Musculoskeletal: General: Normal range of motion. Cervical back: Normal range of motion and neck supple. Right lower leg: No tenderness. No edema. Left lower leg: No tenderness. No edema. Skin: General: Skin is warm and dry. Capillary Refill: Capillary refill takes less than 2 seconds. Nails: There is no clubbing. Neurological: General: No focal deficit present. Mental Status: She is alert and oriented to person, place, and time. Psychiatric: Mood and Affect: Mood normal. Mood is not anxious. Behavior: Behavior normal. Behavior is not agitated. Assessment and plan 1. Anterior chest wall pain Consistent with musculoskeletal pain Reproducible Nonexertional No red flags - methylPREDNISolone 4 MG Oral Tablet Therapy Pack (Medrol Dosepack); follow package directions Dispense: 21 Tablet; Refill: 0 Follow up Medrol dose pack (steroid) Tylenol/motrin as needed Heat to affected area Topicals like lidocaine, voltaren, aspercreme, bengay, biofreeze are okay as well. Follow-up with PCP if no improvement in a week. Sooner if worsens. ER if acutely worsens The above was discussed and understanding was expressed. Humberto Haro PA-C documented in this encounter Nursing Notes * Gerri Simmons LPN - 08/17/2023 2:07 PM EDT Amanda Ontiveros is a 82 year old female who presents to walk-in clinic today complaining of Chief Complaint Patient presents with Pain Pain in upper rib area on right side and arm Main Symptoms:pain in right upper rib area on chest and right arm Cause: unknown How long: woke up with it today Tried: tramadol, tylenol, advil Pt accompanied by: self documented in this encounter Plan of Treatment Upcoming Encounters Date Type Specialty Care Team Description 09/16/2023 Nurse Only Ancillary Brian Nurse [facility] [address] [facility] [place] [address] 01/16/2024 Office Visit Family Medicine Bela Bullock PA-C [address] [place] [address] Health Maintenance Due Date Last Done Comments [...] 01/13/2024 01/13/2023, 12/23 CKD HGB USE SMARTSET 76481 01/13/202401/13, 01/12/2022, 07/04/2020, Additional history exists CKD PHOS USE SMARTSET 31068 01/13/202412/23, 01/12/2022, 07/04/2020, Additional history exists DXA Scan 05/03/2024 05/03/2022, 06/21, 06/28/2017, Additional history exists O2 ASSESSMENT COMPLETED IN PAST YEAR FOR COPD 06/16/2024 06/16/2023 Pneumococcal Vaccine: 65+ Years Completed 09/12/2020, 08/05/2015, 08/24/2006 COVID-19 Vaccine Completed 09/13/2022, , 09/24/2021, Additional history exists VITAMIN D LEVEL ONCE IN A LIFETIME-USE SMARTSET# [id number] Completed 01/13/2023, 07/24/2015, 02/06/2014, Additional history exists [...] as of this encounter Visit Diagnoses Diagnosis Anterior chest wall pain- Primary Painful respiration documented in this encounter Advance Directives Documents on File Type Date Recorded Patient Field Tech Expl anation POLST 01/13/2023 [place] OR [facility] FOR LIFE-SUSTAINING TREATMENT Care Teams Veneer Jointer Operator Relationship Specialty Start Date End Date Dionisio Mayer MD [address], [place] [phone] PCP - General Family Medicine 01/08/19 documented as of this encounter
--- OUTSIDE RECORDS SUMMARY | 2023-10-27 09:11 | External Medical Summary | Summary of Care ---
Author Name Unknown Organization [facility] Address [address] [facility] [place] [address] Phone [phone] Care Team Providers Care Market Consultant Name Role Phone Dionisio Mayer MD Primary Care Provider +1- [phone] Encounter Details Date Type Department Care Team Description 07/12/2023 Orders Only Outcomes Research Department [address] [place] [address] Grecia Caballero CHRA MyCode Research Other*[id number] Allergies Active Allergy Reactions Severity Noted Date Comments Alendronate Sodium 04/19/2013 Vomiting documented as of this encounter (statuses as of 07/12/2023) Medications Medication Sig Dispensed Refills Start Date [...] 30 Tab 3 02/07/2021 Active Spacer/Aero-Holding Chambers DeviceIndications: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 1 Each 1 [...] Hour (Wellbutrin SR)Indications:Depres brittany, major, in remission ([facility]) TAKE 1 TABLET BY MOUTH TWICE A [...] as of this encounter (statuses as of 07/12/2023) Active Problems Problem Noted Date COPD, group [...] as of this encounter (statuses as of 07/12/2023) Resolved Problems Problem Noted Date Resolved Date [...] as of this encounter (statuses as of 07/12/2023) Immunizations Name Administration Dates Next Due COVID-19 [...] on file documented as of this encounter Plan of Treatment Upcoming Encounters Date Type Specialty Care Team Description 09/16/2023 Nurse Only Nurse Michael [facility] [address] [address] 01/16/2024 Office Visit Family Medicine Bela Bullock PA-C [address] [address] Scheduled Orders Name Type Priority Associated Diagnoses Orde r Schedule MYCODE SUBSEQUENT ADULT Lab Routine MyCode Research Other*[id number] Every 6 Months for 2 Occurrences starting 07/12/2023 until 07/31/2024 Health Maintenance Due Date Last Done Comments [...] 01/13/2024 01/13/2023, 12/23 CKD HGB USE SMARTSET 49347 01/13/202401/13, 01/12/2022, 07/04/2020, Additional history exists CKD PHOS USE SMARTSET 19566 01/13/202412/23, 01/12/2022, 07/04/2020, Additional history exists DXA Scan 05/03/2024 05/03/2022, 06/21, 06/28/2017, Additional history exists O2 ASSESSMENT COMPLETED IN PAST YEAR FOR COPD 06/16/2024 06/16/2023 Pneumococcal Vaccine: 65+ Years Completed 09/12/2020, 08/05/2015, 08/24/2006 COVID-19 Vaccine Completed 09/13/2022, , 09/24/2021, Additional history exists VITAMIN D LEVEL ONCE IN A LIFETIME-USE SMARTSET# [id number] Completed 01/13/2023, 07/24/2015, 02/06/2014, Additional history exists [...] as of this encounter Visit Diagnoses Diagnosis MyCode Research Other*[id number] documented in this encounter Advance Directives Documents on File Type Date Recorded Patient Bsa Officer Expl emanuel SUAREZ 01/13/2023 [place] OR [facility] FOR LIFE-SUSTAINING TREATMENT Care Teams Market Consultant Relationship Specialty Start Date End Date Dionisio Mayer MD [address] [place], [place] [phone] PCP - General Family Medicine 01/08/19 documented as of this encounter
--- OUTSIDE RECORDS SUMMARY | 2023-10-27 09:11 | External Medical Summary | Summary of Care ---
Author Name Unknown Organization [facility] Address [address] [facility] [place] [address] Phone [phone] Care Team Providers Care Machinery Rigger Name Role Phone Dionisio Mayer MD Primary Care Provider +1- [phone] Reason for Visit * Reason Onset Date Comments Advice 10/12/2023 Med Request 10/12/2023 Encounter Details Date Type Department Care Team (Late st Contact Info) Description 10/12/2023 Telephone [facility] [address] [place] [address] Dionisio Mayer MD [address] [place] [address] Advice; Med Request Allergies Active [...] encounter Miscellaneous Notes * Telephone Encounter - Jeremy Ken MD [...] or be prescribed? [facility] [place]. Please call regarding this. Thank you. documented in this encounter Plan of Treatment Upcoming Encounters Date Type Department Care Team (Late st Contact Info) Description 01/16/2024 12:00 PM EST [facility] [address] [facility] [address] Bela Bullock [facility]-C [address] [facility] [address] Health Maintenance Due Date Last Done [...] 01/13/2024 01/13/2023, 12/23 CKD HGB USE SMARTSET 26455 01/13/202401/13, 01/12/2022, 07/04/2020, Additional history exists CKD PHOS USE SMARTSET 91221 01/13/202412/23, 01/12/2022, 07/04/2020, Additional history exists DXA Scan 05/03/2024 05/03/2022, 06/21, 06/28/2017, Additional history exists O2 ASSESSMENT COMPLETED IN PAST YEAR FOR COPD 09/20/2024 09/20/2023 Pneumococcal Vaccine: 65+ Years Completed 09/12/2020, 08/05/2015, 08/24/2006 VITAMIN D LEVEL ONCE IN A LIFETIME-USE SMARTSET# [id number] Completed 01/13/2023, 07/24/2015, 02/06/2014, Additional history exists [...] Documents on File Type Date Recorded Patient Hash Slinger Expl anation POLST 01/13/2023 [place] OR [facility] FOR LIFE-SUSTAINING TREATMENT Care Teams Machinery Rigger Relationship Specialty Start Date End Date Dionisio Mayer MD [address], [place] [phone] PCP - General Family Medicine 01/08/19 documented as of this encounter
--- OUTSIDE RECORDS SUMMARY | 2023-10-27 09:11 | External Medical Summary | Summary of Care ---
Author Name Unknown Organization [facility] Address [address] [facility] [place] [address] Phone [phone] Care Team Providers Care Mines Safety Engineer Name Role Phone Dionisio Mayer MD Primary Care Provider +1- [phone] Reason for Visit * Reason Onset Date Comments Advice 10/12/2023 Med Request 10/12/2023 Encounter Details Date Type Department Care Team (Late st Contact Info) Description 10/12/2023 Telephone [facility] [address] [place] [address] Dionisio Mayer MD [address] [place] [address] Advice; Med Request Allergies Active [...] encounter Miscellaneous Notes * Telephone Encounter - Grace Cervantes LPN - 10/17/2023 11:13 AM EST left message on machine for pt to call office If patient returns call, please relay Dr. Mariscal below message * Addendum Note - Lulu Rowan MD [...] or be prescribed? [facility] [place]. Please call regarding this. Thank you. documented in this encounter Plan of Treatment Upcoming Encounters Date Type Department Care Team (Late st Contact Info) Description 01/16/2024 12:00 PM EST Office Visit [facility] [address] [place] [facility] [place] [id number] Bela Bullock PA-C [address] [place], [place] [phone] Health Maintenance Due Date Last Done Comments [...] 01/13/2024 01/13/2023, 12/23 CKD HGB USE SMARTSET 64105 01/13/202401/13, 01/12/2022, 07/04/2020, Additional history exists CKD PHOS USE SMARTSET 87115 01/13/202412/23, 01/12/2022, 07/04/2020, Additional history exists DXA Scan 05/03/2024 05/03/2022, 06/21, 06/28/2017, Additional history exists O2 ASSESSMENT COMPLETED IN PAST YEAR FOR COPD 09/20/2024 09/20/2023 Pneumococcal Vaccine: 65+ Years Completed 09/12/2020, 08/05/2015, 08/24/2006 VITAMIN D LEVEL ONCE IN A LIFETIME-USE SMARTSET# [id number] Completed 01/13/2023, 07/24/2015, 02/06/2014, Additional history exists [...] Documents on File Type Date Recorded Patient Sap Security Architect Expl anation POLST 01/13/2023 [place] OR [facility] FOR LIFE-SUSTAINING TREATMENT Care Teams Mines Safety Engineer Relationship Specialty Start Date End Date Dionisio Mayer MD [address] [place] [address] PCP - General Family Medicine 01/08/19 documented as of this encounter
--- OUTSIDE RECORDS SUMMARY | 2023-10-27 09:11 | External Medical Summary | Summary of Care ---
Author Name Unknown Organization [facility] Address [address] [facility] [place] [address] Phone [phone] Care Team Providers Care Humane Officer Name Role Phone Dionisio Mayer MD Primary Care Provider +1- [phone] Reason for Visit * Reason Onset Date Comments Advice 10/12/2023 Med Request 10/12/2023 Encounter Details Date Type Department Care Team (Late st Contact Info) Description 10/12/2023 Telephone [facility] [address] [place] [address] Dionisio Mayer MD [address] [place] [address] Advice; Med Request Allergies Active [...] encounter Miscellaneous Notes * Telephone Encounter - Cate Newton OSA - 10/17/2023 11:36 AM EST Reason for patient's call: returning call Caller was transferred to [facility] at the nurse line. * Telephone Encounter - Eminhizer, Grace, COMPUTING MACHINE OPERATOR - 10/17/2023 11:13 AM EST left message [...] needed basis in the past. Would recommend against starting this on a regular basis given this is potentially addictive and will increase risk for falls. Recommend use of tylenol 1000 mg four times daily as needed. Can use any of lidocaine patch, Voltaren gel, icy hot, Biofreeze, heat/ice. Avoid NSAIDs as these will increase risk of worsening renal function. PT may also be beneficial as discussed [...] or be prescribed? [facility] [place]. Please call regarding this. Thank you. documented in this encounter Plan of Treatment Upcoming Encounters Date Type Department Care Team (Late st Contact Info) Description 01/16/2024 12:00 PM EST Office Visit [facility] [address] [facility] [phone] Bela Bullock [facility]C [address] [facility] [address] Health Maintenance Due Date Last Done Comments [...] 01/13/2024 01/13/2023, 12/23 CKD HGB USE SMARTSET 15853 01/13/202401/13, 01/12/2022, 07/04/2020, Additional history exists CKD PHOS USE SMARTSET 93592 01/13/202412/23, 01/12/2022, 07/04/2020, Additional history exists DXA Scan 05/03/2024 05/03/2022, 06/21, 06/28/2017, Additional history exists O2 ASSESSMENT COMPLETED IN PAST YEAR FOR COPD 09/20/2024 09/20/2023 Pneumococcal Vaccine: 65+ Years Completed 09/12/2020, 08/05/2015, 08/24/2006 VITAMIN D LEVEL ONCE IN A LIFETIME-USE SMARTSET# 83392 Completed 01/13/2023, 07/24/2015, 02/06/2014, Additional history exists [...] Documents on File Type Date Recorded Patient Food Technician Expl emanuel POL 01/13/2023 [facility] FOR LIFE-SUSTAINING TREATMENT Care Teams Humane Officer Relationship Specialty Start Date End Date Dionisio Mayer MD [address] [place] [address] PCP - General Family Medicine 01/08/19 documented as of this encounter
--- OUTSIDE RECORDS SUMMARY | 2023-10-27 09:12 | External Medical Summary | Summary of Care ---
Author Name Unknown Organization [facility] Address [address] [facility] [place] [address] Phone [phone] Care Team Providers Care Performance Reporter Name Role Phone Griselda Pérez MD Primary Care Provider +1- [phone] Reason for Visit * Reason Comments Follow Up 1 year for full skin exam, spot R axilla Encounter Details Date Type Department Care Team Description 06/30/2023 [facility] [address] [place] [address] Heide Reyna PA-C [address] [place] [address] [place] [address] Hx of nonmelanoma skin cancer*; Skin exam, screening for cancer; Seborrheic keratosis; Seborrheic dermatitis; EIC (epidermal inclusion cyst); Scar condition and fibrosis of skin Allergies Active Allergy Reactions Severity Noted Date Comments Alendronate Sodium 04/19/2013 Vomiting documented as of this encounter (statuses as of 06/30/2023) Medications Medication Sig Dispensed Refills Start Date [...] 30 Tab 3 02/07/2021 Active Spacer/Aero-Holding Chambers DeviceIndications: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 1 Each 1 01/12/2022 [...] Hour (Wellbutrin SR)Indications:Depres brittany, major, in remission ([facility]) TAKE 1 TABLET BY MOUTH TWICE A [...] as of this encounter (statuses as of 06/30/2023) Active Problems Problem Noted Date COPD, group [...] as of this encounter (statuses as of 06/30/2023) Resolved Problems Problem Noted Date Resolved Date [...] as of this encounter (statuses as of 06/30/2023) Immunizations Name Administration Dates Next Due COVID-19 mRNA, LNP-s, No Pre serve, 2-Dose Series (Moderna) 01/31/2021,12/20/2020 Covid-19 Mrna, Lnp-s, No Pre serve, Booster (Moderna) 03/05/2022,09/24/2021 Covid-19, Mrna, Lnp-s, Pf, B ivalent, 50 Mcg, IM, 12 yrs and above (Moderna) 09/13/2022 H1N1 2009 Influenza, IM 01/05/2010 Pneumococcal Conjugate Vacc, 13 Valent (Prevnar) 09/12/2020,08/05/2015 Pneumococcal Polysaccharide PPV23 (Pneumovax) 08/24/2006 Seasonal Influenza, Quadriva lent Hd (Fluzone Hd) [...] zinc. Product examples; Think sport, Think baby, [place], Razient, Lenddo, [place] baby. "Baby" products can be used for all ages. documented in this encounter Progress Notes * Heide Reyna PA-C - 06/30/2023 2:20 [...] have it checked. No tx to date. Qi Specialist Documentation Patient offered kinesiology professor and declined. REVIEW OF SYSTEMS: SKIN: No [...] 1998, R alargroove 2017), bowenoid [place] (R religion, Efudex 08/12), actinic keratoses (Efudex face 03/2021) Reviewed, same day as visit, 0 [facility] lab work(s)/pathology report(s) as well as [...] Heide Reyna PA-C 06/30/2023 12:17 PM Ref: SELF[[id number]] NO STREET ADDRESS AVAILABLE None (office) None (fax) PCP: GRISELDA PÉREZ [address] [place] [address] [phone] documented in this encounter Nursing Notes * Courtney Olivarez LPN - 06/30/2023 2:17 PM EDT Patient identified by full name and date of . Chief Complaint Patient presents with Follow Up 1 year for full skin exam, spot R axilla documented in this encounter Plan of Treatment Upcoming Encounters Date Type Specialty Care Team Description 09/16/2023 Nurse Only Carli Torres, Nurse [facility] [address] [place] [address] 01/16/2024 Office Visit Family Medicine Bela Bullock PA-C [address] [place] [address] Health Maintenance Due Date Last Done Comments [...] 01/13/2024 01/13/2023, 12/23 CKD HGB USE SMARTSET 87432 01/13/202401/13, 01/12/2022, 07/04/2020, Additional history exists CKD PHOS USE SMARTSET 33652 01/13/202412/23, 01/12/2022, 07/04/2020, Additional history exists DXA Scan 05/03/2024 05/03/2022, 06/21, 06/28/2017, Additional history exists O2 ASSESSMENT COMPLETED IN PAST YEAR FOR COPD 06/16/2024 06/16/2023 Pneumococcal Vaccine: 65+ Years Completed 09/12/2020, 08/05/2015, 08/24/2006 COVID-19 Vaccine Completed 09/13/2022, , 09/24/2021, Additional history exists VITAMIN D LEVEL ONCE IN A LIFETIME-USE SMARTSET# 12119 Completed 01/13/2023, 07/24/2015, 02/06/2014, Additional history exists [...] Documents on File Type Date Recorded Patient Cooker Soda Expl anation POLST 01/13/2023 [place] OR [facility] FOR LIFE-SUSTAINING TREATMENT Care Teams Performance Reporter Relationship Specialty Start Date End Date Griselda Pérez MD [address] [place], [place] [phone] PCP - General Family Medicine 01/08/19 documented as of this encounter
--- OUTSIDE RECORDS SUMMARY | 2023-10-27 09:12 | External Medical Summary | Summary of Care ---
Author Name Unknown Organization [facility] Address [address] [place] [address] Phone [phone] Care Team Providers Care Medical Lab Assistant Name Role Phone Griselda Pérez MD Primary Care Provider [phone]- [phone] Reason for Visit * Reason Comments eRx-Medication Refill Encounter Details Date Type Department Care Team Description 06/05/2023 Refill [facility] [address] [place] [address] Griselda Pérez MD [address] [place] [address] Allergies Active Allergy Reactions Severity Noted Date Comments Alendronate Sodium 04/19/2013 Vomiting documented as of this encounter (statuses as of 06/07/2023) Medications Medication Sig Dispensed Refills Start Date [...] rescue kit 30 Tab 3 02/07/2021 Active Azithromycin 250 MG Oral Tablet (Zithromax) As needed for Rescue kit 6 Tab 3 02/07/2021 Active Spacer/Aero-Holding Chambers DeviceIndications:C OPD, group A, by GOLD 2017 classification ([facility]) Use with inhaler. 1 Each 1 01/12/2022 Active Ondansetron HCl 4 MG Oral Tablet (Zofran)Indications :Dizziness TAKE 1 TABLET BY MOUTH EVERY 6 HOURS NEEDED FOR NAUSEA 30 Tablet 2 04/13/2022 Active Zoster Vac Recomb Adjuvanted 50 MCG/0.5ML [...] Hour (Wellbutrin SR)Indications:Depr ession, major, in remission ([facility]) TAKE 1 TABLET BY MOUTH TWICE A DAY 180 Tablet 3 04/05/2023 Active Stiolto Respimat 2.5-2.5 MCG/ACT Inhalation Aerosol Solution (Tiotropium-Olodate rol) INHALE 2 PUFFS BY MOUTH EVERY DAY 12 g 3 04/05/2023 Active Atorvastatin Calcium 40 MG Oral Tablet (Lipitor) TAKE 1 TABLET BY MOUTH EVERY DAY 90 Tablet 1 06/07/2023 Active Atorvastatin Calcium 40 MG Oral Tablet (Lipitor) TAKE 1 TABLET BY MOUTH EVERY DAY 90 Tablet 1 01/20/2023 06/07/20 23 Discontinued documented as of this encounter (statuses as of 06/07/2023) Active Problems Problem Noted Date COPD, group [...] as of this encounter (statuses as of 06/07/2023) Resolved Problems Problem Noted Date Resolved Date [...] as of this encounter (statuses as of 06/07/2023) Immunizations Name Administration Dates Next Due COVID-19 [...] encounter Miscellaneous Notes * Telephone Encounter - Donn Lang [facility] - 06/07/2023 10:51 AM EDTSigned Prescriptions: Disp Refills Atorvastatin Calcium 40 MG Oral Tablet (Li*90 Tab*1 Sig: TAKE 1TABLET BY MOUTH EVERY DAYAuthorizing Provider: GRISELDA PÉREZ User: DONN LANG- documented in this encounter Plan of Treatment Upcoming Encounters Date Type Specialty Care Team Description 06/30/2023 Office Visit Dermatology Heide Reyna PA-C [address] [place] [address] [place] [address] 09/16/2023 [facility] [address] [place] [address] 01/16/2024 Office Visit Family Medicine Bela Bullock PA-C [address] [place] [address] Health Maintenance Due Date Last Done Comments Alpha-1 Antitrypsin 1958 AAA MONITORING; CT OR US YEARLY 09/18/2020 09/18/2019, 01/08/2019 AAA ULTRASOUND YEARLY 09/18/2020 09/18/2019, 019 Zoster Vaccines (3 of 3) 11/07/2020 09/12/2020, [...] 01/13/2024 01/13/2023, 12/23 CKD HGB USE SMARTSET 07958 01/13/202401/13, 01/12/2022, 07/04/2020, Additional history exists CKD PHOS USE SMARTSET 25223 01/13/202412/23, 01/12/2022, 07/04/2020, Additional history exists O2 ASSESSMENT COMPLETED IN PAST YEAR FOR COPD 01/13/2024 01/13/2023 DXA Scan 05/03/2024 05/03/2022, 06/21, 06/28/2017, Additional history exists Pneumococcal Vaccine: 65+ Years Completed 09/12/2020, 08/05/2015, 08/24/2006 COVID-19 Vaccine Completed 09/13/2022, , 09/24/2021, Additional history exists VITAMIN D LEVEL ONCE IN A LIFETIME-USE SMARTSET# [id number] Completed 01/13/2023, 07/24/2015, 02/06/2014, Additional history exists [...] Documents on File Type Date Recorded Patient Mutuel Department Manager Expl anation POLST 01/13/2023 [place] OR [facility] FOR LIFE-SUSTAINING TREATMENT Care Teams Medical Lab Assistant Relationship Specialty Start Date End Date Griselda Pérez MD [address], [place] [id number] PCP - General Family Medicine 01/08/19 documented as of this encounter
--- OUTSIDE RECORDS SUMMARY | 2023-10-27 09:12 | External Medical Summary | Summary of Care ---
Author Name Unknown Organization [facility] Address [address] [address] Phone [phone] Care Team Providers Care Stock Control Clerk Name Role Phone Dionisio Mayer MD Primary Care Provider +1- [phone] Reason for Visit * Reason Comments Follow Up Bilateral great toen ails Encounter Details Date Type Department Care Team Description 06/23/2023 Office Visit Podiatry [facility] [address] [facility] [place] [address] Ame Calderón, DPTerrance [address] [facility] [place] [address] Ingrown nail*; Pain in both feet; Stage 3b chronic kidney disease; Paresthesia of both feet Allergies Active Allergy Reactions Severity Noted Date Comments Alendronate Sodium 04/19/2013 Vomiting documented as of this encounter (statuses as of 06/23/2023) Medications Medication Sig Dispensed Refills Start Date [...] 30 Tab 3 02/07/2021 Active Spacer/Aero-Holding Chambers DeviceIndications: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 1 Each 1 [...] Oral Tablet Extended Release 12 Hour (Wellbutrin SR)Indications:Jazmin soto major, in remission ([facility]) TAKE 1 TABLET BY MOUTH TWICE [...] as of this encounter (statuses as of 06/23/2023) Active Problems Problem Noted Date COPD, group [...] as of this encounter (statuses as of 06/23/2023) Resolved Problems Problem Noted Date Resolved Date [...] as of this encounter (statuses as of 06/23/2023) Immunizations Name Administration Dates Next Due COVID-19 [...] on file documented as of this encounter Progress Notes * Ame Calderón DPM - 06/23/2023 1:23 PM EDT Podiatry Established Note [facility] [place] Name: Amanda Ontiveros : 1940 Date: 06/23/2023 REASON FOR VISIT: painful ingrown toenails SUBJECTIVE: This patient is a 82 year old female who presents today with complaints of painful ingrown toenails to both great toes with the right worse than the left. She reports getting routine pedicures. She denies known redness/swelling. She also notes a tingling sensation to the tops of the feet when water hits them in the shower. This is tolerable. 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 Capillary refill time is within normal limits to all toes. Non pitting edema noted to both legs. No significant temperature changes. Neurologic: Sensation (light touch) intact to the bilateral lower extremities. No hypersensitivity. Parasthesias reported to dorsal midfoot. Musculoskeletal: Pain is reported with palpation of the medial and lateral skin folds of both great toes. Dermatological: Toenails 1 bilaterally are incurvated with medial right being most significant. Nails are thickenedwith skin build up beneath. No erythema. Chronic appearing dislocation to lower legs. Class Findings for Routine Foot Care Class A Findings: None Class B Findings: Advanced trophic changes (at least three of the following): hair growth (decreaseor absence), nail changes (thickening) and pigmentary changes (discoloration) Class C Findings: Edema and Paresthesia (abnormal spontaneous sensations in feet) Modifier: Q9 - 1 Class B Finding and 2 Class C Findings DIAGNOSTIC STUDIES: None ASSESSMENT: 1. Ingrown nail TA T5 2. Pain in both feet 3. Stage 3b chronic kidney disease 4. Paresthesia of both feet PLAN: Procedure: After mild cleansing and drying of feet, toenails 1 bilaterally were trimmed to appropriate length with sterile nail cutters. This was performed without incident. The patient tolerated well. I applied bacitracin and DSD to the right great toe as a precaution. She may consider daily vaseline to help soft nail/skin. I discussed dorsal foot parasthesias. I offered a more aggressive work up although I suspect neuralgia. She declines further work up as she feels this may be age related. Follow up: as needed Ame Calderón DPM documented in this encounter Nursing Notes * Elli Covington LPN - 06/23/2023 1:00 PM EDT Pt presents for follow up bilateral first toenails, feels they are ingrown x approx 3 months, the Ris painful. documented in this encounter Plan of Treatment Upcoming Encounters Date Type Specialty Care Team Description 06/30/2023 Office Visit Dermatology Heide Reyna PA-C [address] [place] [address] [place] [address] 09/16/2023 [facility] [address] [facility] [place] [place] [address] 01/16/2024 Office Visit Family Medicine Bela Bullock PA-C [address] [facility] [place] [place] [address] Health Maintenance Due Date Last Done Comments [...] 01/13/2024 01/13/2023, 12/23 CKD HGB USE SMARTSET 39632 01/13/202401/13, 01/12/2022, 07/04/2020, Additional history exists CKD PHOS USE SMARTSET 01552 01/13/202412/23, 01/12/2022, 07/04/2020, Additional history exists DXA Scan 05/03/2024 05/03/2022, 06/21, 06/28/2017, Additional history exists O2 ASSESSMENT COMPLETED IN PAST YEAR FOR COPD 06/16/2024 06/16/2023 Pneumococcal Vaccine: 65+ Years Completed 09/12/2020, 08/05/2015, 08/24/2006 COVID-19 Vaccine Completed 09/13/2022, , 09/24/2021, Additional history exists VITAMIN D LEVEL ONCE IN A LIFETIME-USE SMARTSET# 23595 Completed 01/13/2023, 07/24/2015, 02/06/2014, Additional history exists [...] as of this encounter Visit Diagnoses Diagnosis Ingrown nail- Primary Ingrowing nail Pain in both feet Pain in limb Stage 3b chronic kidney disease Paresthesia of both feet documented in this encounter Advance Directives Documents on File Type Date Recorded Patient Commodities Requirements Analyst Expl anation POLST 01/13/2023 [place] OR [facility] FOR LIFE-SUSTAINING TREATMENT Care Teams Stock Control Clerk Relationship Specialty Start Date End Date Dionisio Mayer MD [address] [place] [address] PCP - General Family Medicine 01/08/19 documented as of this encounter
--- OUTSIDE RECORDS SUMMARY | 2023-10-27 09:12 | External Medical Summary | Summary of Care ---
Author Name Unknown Organization [facility] Address [address] [address] Phone [phone] Care Team Providers Care Law Librarian Name Role Phone Dionisio Mayer MD Primary Care Provider +1- [phone] Reason for Visit * Reason Comments Pain Encounter Details Date Type Department Care Team Description 06/16/2023 Convenient Care Visit [facility] [address] [facility] [place] [address] Dm Berman PA-C [address] [place] [address] Acute right ankle pain* Allergies Active Allergy Reactions Severity Noted Date Comments Alendronate Sodium 04/19/2013 Vomiting documented as of this encounter (statuses as of 06/16/2023) Medications Medication Sig Dispensed Refills Start Date [...] OPD, group A, by GOLD 2017 classification ([facility]) Use with inhaler. 1 Each [...] Hour (Wellbutrin SR)Indications:Depr ession, major, in remission ([facility]) TAKE 1 TABLET BY MOUTH [...] FOR NAUSEA 30 Tablet 2 06/14/2023 Active traMADol HCl 50 MG Oral TabletIndications:A cute right ankle pain Take 1 Tablet by mouth every 8 hours as needed for Pain, Severe for up to [address] Montes supervising. Initial treatment. Has tolerated ultram as recently as 10/2022. 9 Tablet 0 06/16/2023 06/19/20 Active Azithromycin 250 MG Oral Tablet (Zithromax) As needed for Rescue kit 6 Tab 3 02/07/2021 06/16/20 23 Discontinued documented as of this encounter (statuses as of 06/16/2023) Active Problems Problem Noted Date COPD, group [...] as of this encounter (statuses as of 06/16/2023) Resolved Problems Problem Noted Date Resolved Date [...] as of this encounter (statuses as of 06/16/2023) Immunizations Name Administration Dates Next Due COVID-19 [...] Sign Reading Time Taken Comments Blood Pressure 138/84 06/16/2023 2:04 PM EDT Pulse 89 06/16/2023 2:04 PM EDT Temperature 36.9 C (98.5 F) 06/16/2023 2:04 PM ED T Respiratory Rate 18 06/16/2023 2:04 PM EDT Oxygen Saturation 95% 06/16/2023 2:04 PM EDT Inhaled Oxygen Concentration - - Weight 65.1 kg (143 lb 9.6 oz) 06/16/2023 2:04 P M EDT Height - - Body Mass Index 29 01/13/2023 1:00 PM EST documented in this encounter Patient Instructions * Patient Instructions* Dm Berman PA-C - 06/16/2023 2:28 PM EDT Elevate and rest the ankle Ultram sparingly if the pain is keeping you awake but this is a strong pain medication that may make you sleepy - use it sparingly We cannot refill that medication, follow-up with your pcp if symptoms persist documented in this encounter Progress Notes * Dm Berman PA-C - 06/16/2023 2:10 PM EDT SUBJECTIVE: CC: Chief Complaint Patient presents with Pain HPI: Amanda Ontiveros is a 82 year old female who presents with intermittent, sharp right ankle pain since late last night. It kept her up all night. She notes that there was no injury. Weight bearing vs rest does not matter. She can walk on it. She has never had anything like this before. No hx of gout. ? 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 repeat EGD 3 yrs DEPRESSIVE DISORDER NEC 09/01/2005 Gastroesophageal reflux disease 05/30/2018 Menopause 09/24/2002 MIXED HYPERLIPIDEMIA 06/01/2000 PAST SURGICAL Hx: Past Surgical History: Procedure Laterality Date COLONOSCOPY, DIAGNOSTIC (RECTUM) 01/01/2013 COLONOSCOPY FLEXIBLE PROXIMAL DIAGNOSTIC performed by Dago Ozuna MD at ENDOSCOPY [facility] EGD, FLEXIBLE, DIAGNOSTIC 05/07/2014 [place], [facility], repeat 3 yrs/ESOPHAGOGASTRODUODENOSCOPY (EGD), FLEXIBLE, TRANSORAL, DIAGNOSTIC performed by Dago Ozuna MD at END[facility]COPY [facility] GI REFERRAL OP 09/25 hiatal hernia, erythematous gastropathy SOCIAL Hx: Social History Socioeconomic History Marital status: Spouse name: Davidson Number of children: 2 Years of education: Not on file Highest education level: Not on file 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 [employer] Tobacco Use Smoking status: Former Packs/day: 0.25 Years: 44.00 Pack years: 11.00 Types: Cigarettes Smokeless tobacco: Never Vaping Use Vaping Use: Never used Substance and Sexual Activity Alcohol use: Yes Alcohol/week: 14.0 standard drinks Types: 14 5 oz of wine per week Comment: Glass of wine with dinner Drug use: No Sexual activity: Not Currently Partners: Male Other Topics Concern Service Not Asked Blood Transfusions Not Asked Caffeine Concern Not Asked Occupational Exposure Not Asked Hobby Hazards Not Asked Sleep Concern Yes Comment: mostly Stress Concern Not Asked Weight Concern Yes Special Diet Not Asked Back Care Not Asked Exercise Not Asked Bike Helmet Not Asked Seat Belt Yes Self-Exams Yes Social History Narrative [place] were in [place] before moving here in about 1995 because they thought was beautiful and daughter was here. Social Determinants of Health Financial Resource Strain: Not on file Food Insecurity: No Food Insecurity Worried About Running Out of Food in the Last Year: Never true Ran Out of Food in the Last Year: Never true Transportation Needs: Not on file Physical Activity: Not on file Stress: Not on file Social Connections: Not on file Intimate Partner Violence: Not on file Housing Stability: Not on file FAMILY Hx: Family History Problem Relation Age of Onset Heart Disorder Mother emphysema, at 72 Mental Disorder Mother alcohol Diabetes Grandmother (Paternal) in 80's CURRENT PROBLEM LIST: Patient Active Problem List Diagnosis Code Diaphragmatic hernia K44.9 CHRONIC TOBACCO MUCOSITIS J31.0 Vitamin D deficiency E55.9 Elevated LFTs R79.89 Dyslipidemia, goal LDL below 100 E78.5 Depression, major, in remission ([facility]) F32.5 Abdominal aortic aneurysm (AAA) without rupture ([facility]) I71.40 Hx of nonmelanoma skin cancer Z85.828 Gastroesophageal reflux disease K21.9 Senile osteoporosis M81.0 Stage 3b chronic kidney disease N18.32 Hx of actinic keratosis Z87.2 COPD, group B, by GOLD 2017 classification ([facility]) J44.9 MEDS & ALLERGIES: Current Outpatient Medications Medication Sig Dispense Refill [...] HOURS NEEDED FOR NAUSEA 30 Tablet 2 traMADol HCl 50 MG Oral Tablet Take 1 Tablet by mouth every 8 hours as needed for Pain, Severe for up to [address] Montes supervising. Initial treatment. Has tolerated ultram as recently as 10/2022. 9 Tablet 0 No current facility-administered medications for this visit. Review of patient's allergies indicates: Allergen Reactions Alendronate Sodium Vomiting OBJECTIVE: VS: BP 138/84 | Pulse 89 | Temp 36.9 C (98.5 F) | Resp 18 | Wt 65.1 kg (143 lb 9.6 oz) | SpO2 95% | BMI 29.00 kg/m | BSA 1.65 m Wt Readings from Last 1 Encounters: 06/16/23 65.1 kg (143 lb 9.6 oz) General: alert, healthy and no distress Pulses: posterior tibial=2/4, dorsalis pedis=2/4 Extremities: less than 2 second capillary refill, no joint deformities, effusion, or inflammation, no edema, no cyanosis, Full ROM, Pulses Intact, Strength equal bilaterally Neuro Exam: alert & oriented x 3 with fluent speech, no focal motor/sensory deficits, gait normal, reflexes normal and symmetric ASSESSMENT/PLAN(s): Acute right ankle pain (Primary) - traMADol HCl 50 MG Oral Tablet; Take 1 Tablet by mouth every 8 hours as needed for Pain, Severe for up to [address] Montes supervising. Initial treatment. Has tolerated ultram as recently as 10/2022. Sounds neuropathic in nature Patient to follow up with PCP if symptoms persist or worsen. Plan of care & discharge instructions were discussed, & the patient verbalized understanding. Dm Berman PA-C [address] [address] documented in this encounter Nursing Notes * Juli Campbell LPN - 06/16/2023 2:02 PM EDT Amanda Ontiveros is a 82 year old female who presents to walk-in clinic today complaining of intermittent right ankle pain since about midnight. Kept her up last night. Did not try any tylenol, ibuprofen. Wants something stronger than those OTC meds or something to help her sleep. Pt alone in room. . documented in this encounter Plan of Treatment Upcoming Encounters Date Type Specialty Care Team Description 06/30/2023 Office Visit Dermatology Heide Reyna PA-C [address] [place] [address] [place] [address] 09/16/2023 Nurse Only Ancillary Nurse [facility] [address] [place] [address] 01/16/2024 Office Visit Family Medicine Bela Bullock PA-C [address] [place] [address] Health Maintenance Due Date Last Done Comments [...] 01/13/2024 01/13/2023, 12/23 CKD HGB USE SMARTSET 94220 01/13/202401/13, 01/12/2022, 07/04/2020, Additional history exists CKD PHOS USE SMARTSET 03458 01/13/202412/23, 01/12/2022, 07/04/2020, Additional history exists O2 ASSESSMENT COMPLETED IN PAST YEAR FOR COPD 01/13/2024 01/13/2023 DXA Scan 05/03/2024 05/03/2022, 06/21, 06/28/2017, Additional history exists Pneumococcal Vaccine: 65+ Years Completed 09/12/2020, 08/05/2015, 08/24/2006 COVID-19 Vaccine Completed 09/13/2022, , 09/24/2021, Additional history exists VITAMIN D LEVEL ONCE IN A LIFETIME-USE SMARTSET# [id number] Completed 01/13/2023, 07/24/2015, 02/06/2014, Additional history exists [...] as of this encounter Visit Diagnoses Diagnosis Acute right ankle pain- Primary documented in this encounter Advance Directives Documents on File Type Date Recorded Patient Media Services Specialist Expl anation POLST 01/13/2023 [facility] FOR LIFE-SUSTAINING TREATMENT Care Teams Law Librarian Relationship Specialty Start Date End Date Dionisio Mayer MD [address] [place] [address] PCP - General Family Medicine 01/08/19 documented as of this encounter"
--- OUTSIDE RECORDS SUMMARY | 2023-10-27 09:12 | External Medical Summary | Summary of Care ---
Author Name Unknown Organization [facility] Address [address] [place] [address] Phone [phone] Care Team Providers Care Lace Mender Name Role Phone Dionisio Mayer MD Primary Care Provider [phone] Reason for Visit * Reason Comments eRx-Medication Refill Encounter Details Date Type Department Care Team Description 06/12/2023 Refill [facility] [address] [place] [address] Bela Bullock PA-C [address] [place] [address] Dizziness Allergies Active Allergy Reactions Severity Noted Date Comments Alendronate Sodium 04/19/2013 Vomiting documented as of this encounter (statuses as of 06/14/2023) Medications Medication Sig Dispensed Refills Start Date [...] OPD, group A, by GOLD 2017 classification ([facility]) Use with inhaler. 1 Each [...] Hour (Wellbutrin SR)Indications:Depr ession, major, in remission ([facility]) TAKE 1 TABLET BY MOUTH [...] FOR NAUSEA 30 Tablet 2 06/14/2023 Active Ondansetron HCl 4 MG Oral Tablet (Zofran)Indications :Dizziness TAKE 1 TABLET BY MOUTH EVERY 6 HOURS NEEDED FOR NAUSEA 30 Tablet 2 04/13/2022 06/14/20 23 Discontinued documented as of this encounter (statuses as of 06/14/2023) Active Problems Problem Noted Date COPD, group [...] as of this encounter (statuses as of 06/14/2023) Resolved Problems Problem Noted Date Resolved Date [...] as of this encounter (statuses as of 06/14/2023) Immunizations Name Administration Dates Next Due COVID-19 [...] encounter Miscellaneous Notes * Telephone Encounter - Bela Bullock PA-C - 06/14/2023 4:19 PM EDTSigned Prescriptions: Disp Refills Ondansetron HCl 4 MG Oral Tablet (Zofran) 30 Tab*2 Sig: TAKE 1 TABLET BY MOUTH EVERY 6 HOURS NEEDED FOR NAUSEA Authorizing Provider: BELA BULLOCK * Telephone Encounter - Candice Wu, [facility] located [facility] - 06/14/2023 2:39 PM EDT Pending Prescriptions: Disp Refills Ondansetron HCl 4 MG Oral Tablet [Pharmacy*30 Tab*2 Sig: TAKE 1 TABLET BY MOUTH EVERY 6 HOURS NEEDED FOR NAUSEA Electronically signed by Candice Wu [facility] at 06/14/2023 2:39 PM EDT * Telephone Encounter - Candice Wu [facility] - 06/14/2023 2:38 PM EDT Last authorized over a year ago. Please review and issue refills if use appropriate. Did you pend patient's preferred pharmacy and medication before forwarding?yes Pharmacy: [id number] [facility] Pending Prescriptions: Disp Refills Ondansetron HCl 4 MG Oral Tablet (Zofran)*30 Tab*2 Sig: TAKE 1 TABLET BY MOUTH EVERY 6 HOURS NEEDED FOR NAUSEA Last Visit: 01/13/2023 (in office), Visit date not found (telemedicine) Next Visit: 01/16/2024 If no future appointments scheduled, and last appointment is greater than a year ago, please schedule patient for a follow-up appointment Last date the medication was ordered: 04/13/2022 Is this request for a controlled substance?No Urine Drug Screen:No results found for this or any previous visit. Patient Phone Numbers Labs: Lab Results Component Value Date/Time CREAT 1.1 (H) 01/13/2023 12:39 PM CREAT 1.2 (H) 11/28/2020 12:35 PM POTASSIUM 4.5 01/13/2023 12:39 PM POTASSIUM 4.6 11/28/2020 12:35 PM TSH 2.820 11/25/2018 12:00 AM TSH 2.29 10/02/2018 04:39 PM LDLCALC 83 09/01/2018 09:19 AM LDLDIRECT 82 01/13/2023 12:39 PM LDLDIRECT 70 07/04/2020 01:20 PM LDLDIRECT 165 (H) 12/05/2012 09:04 AM ALT 15 12/29/2018 12:47 PM Thank you, Candice Wu, PharmD Clinical Pharmacist [facility] ([facility]) (formerly Telepharmacy) 06/14/23 2:38 PM [phone] Electronically signed by Candice Wu [facility] at 06/14/2023 2:39 PM EDT documented in this encounter Plan of Treatment Upcoming Encounters Date Type Specialty Care Team Description 06/30/2023 Office Visit Dermatology Heide Reyna PA-C [address] [place] [address] [place] [address] 09/16/2023 Nurse Only [facility] Brian, Nurse [facility] [address] [facility] [address] 01/16/2024 Office Visit Family Medicine Bela uBllock PA-C [address] [facility] [place] [address] Health Maintenance Due Date Last Done Comments [...] 01/13/2024 01/13/2023, 12/23 CKD HGB USE SMARTSET 42861 01/13/202401/13, 01/12/2022, 07/04/2020, Additional history exists CKD PHOS USE SMARTSET 48312 01/13/202412/23, 01/12/2022, 07/04/2020, Additional history exists O2 ASSESSMENT COMPLETED IN PAST YEAR FOR COPD 01/13/2024 01/13/2023 DXA Scan 05/03/2024 05/03/2022, 06/21, 06/28/2017, Additional history exists Pneumococcal Vaccine: 65+ Years Completed 09/12/2020, 08/05/2015, 08/24/2006 COVID-19 Vaccine Completed 09/13/2022, , 09/24/2021, Additional history exists VITAMIN D LEVEL ONCE IN A LIFETIME-USE SMARTSET# [id number] Completed 01/13/2023, 07/24/2015, 02/06/2014, Additional history exists [...] as of this encounter Visit Diagnoses Diagnosis Dizziness Dizziness and giddiness documented in this encounter Advance Directives Documents on File Type Date Recorded 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
--- NOTE | 2023-10-27 09:40 | Cardiology Consultation ---
Date of Consultation October 27, 2023 Assessment & Plan (1) Chest pain at rest: (2) HTN (hypertension): (3) Dyslipidemia: (4) History of abdominal aortic aneurysm (AAA): (5) History of tobacco abuse: (6) Fam hx-ischem heart disease: Plan 82-year-old female admitted with atypical chest discomfort. EKG without acute change. High-sensitivity troponin negative x 2. Chest x-ray without acute cardiopulmonary process. Telemetry monitoring benign, revealing sinus rhythm predominantly in the 80s with occasional ventricular ectopy only. Formal resting echocardiography interpretation pending. Options of management discussed with patient who adamantly requests conservative management. Pending echo results and evaluation by Dr. Baird, consideration to be made for pharmacological stress testing likely as an outpatient. Continue aspirin and moderate intensity statin therapy. Patient willing to consider follow-up of the AAA as an outpatient, including vascular surgery follow-up locally if/when needed. Consider addition of PPI therapy. Supervising Physician Co-Signing Physician Notes Patient was seen and personally examined. Full assessment as above 82-year-old female with acute chest pain atypical for angina sharp not exacerbated by activity lasted greater than 3 hours duration. No signs signs of myocardial injury or ischemia by enzyme or EKG Plan as outlined above with patient requesting conservative management. Proton pump inhibitor started History of Present Illness Reason for Consultation: Chest pain Requesting Physician: Dr. Bolanos Attending Physician: Dr. Roberts History of Present Illness Mrs. Amanda Ontiveros is a very pleasant 82-year-old female who presented to the [facility] ER via ambulance on October 26, 2023 with resting chest discomfort. Patient notes sitting in the chair watching television when she developed sharp nonradiating chest discomfort without associated symptoms. Patient notes that this has happened many times before over the last couple of years, typically occurring when lying in bed and usually resolving within 20 minutes. The pain can be located in various areas on the chest and is currently mild around the right lower sternal border as well as epigastric area. She does have a history of reflux and hiatal hernia and notes that taking Gaviscon has helped in the past. Unfortunately, this episode of chest discomfort that brought her to the emergency room was pretty significant and lasted for approximately 3 hours. Patient notes receiving aspirin and nitroglycerin with improvement in symptoms. EKG revealed normal sinus rhythm at 94 bpm with nonspecific T wave abnormality. High-sensitivity troponin I negative x 2 at 6.3 then 7.0 pg/mL. Chest x-ray showed no acute cardiopulmonary findings. Past Medical and Surgical History Reformed smoker, quitting 1 year ago after smoking less than 1 pack/day since her teenage years COPD Hypertension Dyslipidemia GERD Hiatal hernia Infrarenal abdominal aortic aneurysm Stage III chronic kidney disease Depression No history of CAD, CO, CHF, arrhythmia, heart murmur, rheumatic fever, scarlet fever, or diabetes mellitus. Family History: Positive for CAD in mother. Father lived to be 98. Only child. Social History: Reformed smoker, quitting 1 year ago after smoking up to 1 pack/day x 65 years. Alcohol: 1 glass of wine around dinnertime. No illegal drug use. to [place]. 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 2 children. Allergies Allergy/AdvReac Type Severity Reaction Status Date / Time alendronate sodium AdvReac Severe Vomiting Verified 10/27/23 01:13 Home Medications Medication Instructions Recorded Confirmed Type atorvastatin 40 mg tablet 40 mg PO DAILY 08/30/18 10/27/23 History bupropion HCl 150 mg tablet,12 hr 150 mg PO BID 08/30/18 10/27/23 History sustained-release calcium carbonate 600 mg-vitamin 1 tab PO DAILY 11/11/18 10/27/23 History D3 20 mcg (800 unit) chewable tablet (Caltrate 600 plus D) ascorbic acid (vitamin C) 500 mg 500 mg PO DAILY 12/30/18 10/27/23 History capsule,extended release ondansetron HCl 4 mg tablet 4 mg PO Q6H PRN Nausea 12/30/18 10/27/23 History albuterol sulfate 90 mcg/actuation 2 puff inhalation Q4 PRN Shortness 10/27/23 10/27/23 History aerosol inhaler Of Breath Or Wheezing aspirin 81 mg tablet,delayed 81 mg PO DAILY 10/27/23 10/27/23 History release tiotropium 2.5 mcg-olodaterol 2.5 2 puff inhalation DAILY 10/27/23 10/27/23 History mcg/actuation mist for inhalation (Stiolto Respimat) Patient History Medical History Sepsis due to Escherichia coli with no resultant organ failure Acute kidney failure Hydronephrosis of left kidney Bacteremia UTI (urinary tract infection) Sepsis Anemia Acute pancreatitis Chest pain Peripheral vascular disease CVA (cerebral vascular accident) AAA (abdominal aortic aneurysm) Dizziness HLD (hyperlipidemia) Family History Other Heart disease Social History Smoking Status: Former smoker Tobacco Type: Cigarettes Cigarettes Per Day: 3; Do You Dip or Chew Tobacco: No; Hx Alcohol Use: Yes ("occasional glass of wine") Alcohol type: wine Hx Substance Use: No Preferred Language: Bahamian Communication Ability: Effective Machine Egg Washer Required: No Beliefs That Will Affect Care: None marital status: Current Living Situation: Spouse 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 Physical Exam Physical Exam: General: A&Ox3. NAD. Skin: Lesion below the left eye HENT: Normocephalic. Atraumatic. Eyes: PER. Conjunctiva pink, sclera clear. Neck: Neck veins are flat. Bilateral carotid bruits versus transmitted systolic murmur. No HJR. Heart: RRR, 82 bpm. Grade III/ systolic ejection murmur. Soft diastolic murmur at the LLSB. PMI is nondisplaced. Lungs: Diminished. Decreased. Diffuse expiratory wheeze. Abdomen: +BS. Soft. Nontender. No masses or organomegaly. Extremities: No clubbing, cyanosis, or edema. Limited neurological examination is without focal deficits. Pulses: radial=2/4, posterior tibial=2/4. Results & Data Vital Signs (Past 12 Hours) Vital Signs Temp Pulse Pulse Resp BP BP Pulse Ox 10/27/23 06:54 85 10/27/23 06:00 80 17 138/62 91 10/27/23 05:30 82 20 131/66 90 10/27/23 05:00 80 19 122/56 L 91 10/27/23 04:30 85 136/66 95 10/27/23 04:00 90 20 136/72 98 10/27/23 03:49 10/27/23 03:34 82 10/27/23 03:30 90 17 130/62 93 10/27/23 03:00 81 20 129/62 93 10/27/23 02:30 91 H 20 159/78 H 93 10/27/23 02:00 90 17 139/61 93 10/27/23 01:30 87 16 149/70 H 93 10/27/23 01:00 85 19 131/67 92 10/27/23 00:30 86 19 125/59 L 91 10/27/23 00:04 91 H 18 93 10/27/23 00:00 91 H 17 115/63 93 10/27/23 00:00 36.8 C 89 17 114/78 93 10/26/23 23:58 92 10/26/23 23:46 95 H 10/26/23 23:42 36.8 C 93 H 18 115/63 92 Pulse Ox O2 Del Method O2 Del Method O2 Flow Rate 10/27/23 06:54 10/27/23 06:00 10/27/23 05:30 10/27/23 05:00 10/27/23 04:30 10/27/23 04:00 10/27/23 03:49 94 Room Air 10/27/23 03:34 10/27/23 03:30 10/27/23 03:00 10/27/23 02:30 10/27/23 02:00 10/27/23 01:30 10/27/23 01:00 10/27/23 00:30 10/27/23 00:04 Room Air 10/27/23 00:00 10/27/23 00:00 Room Air 10/26/23 23:58 Room Air 0 10/26/23 23:46 10/26/23 23:42 Room Air Laboratory Results Cardiac Enzymes 10/26/23 10/27/23 Range/Units 23:45 04:32 AST 25 (13-39) U/L Troponin I High Sens 6.3 7.0 (0-14) pg/ml CBC 10/26/23 10/27/23 Range/Units 23:45 04:32 WBC 12.75 H 12.14 H (4.8-10.8) K/ul RBC 4.51 4.40 (4.20-5.40) M/uL Hgb 14.7 14.1 (12.0-16.0) g/dl Hct 43.5 42.1 (37.0-47.0) % Plt Count 226 201 (130-400) K/uL Neut # (Auto) 8.87 H 7.85 H (1.40-6.50) K/uL Lymph # (Auto) 2.13 2.56 (1.20-3.40) K/uL Baldwin # (Auto) 1.21 H 1.24 H (0.11-0.59) K/uL Eos # (Auto) 0.40 0.40 (0.00-0.50) K/uL Baso # (Auto) 0.08 0.06 (0.00-0.20) K/uL Comprehensive Metabolic Panel 10/26/23 10/27/23 Range/Units 23:45 04:32 Sodium 139 139 (136-145) mmol/L Potassium 4.2 4.1 (3.5-5.1) mmol/L Chloride 107 108 H (98-107) mmol/L Carbon Dioxide 23 24 (21-32) mmol/L BUN 23 23 (6-23) mg/dl Creatinine 1.27 H 1.19 (0.6-1.2) mg/dl Glucose 131 H 103 H (70-99(Fasting)) mg/dl Calcium 9.1 9.2 (8.6-10.3) mg/dl AST 25 (13-39) U/L ALT 24 (7-52) U/L Alkaline Phosphatase 87 (34-104) U/L Total Protein 6.6 (6.0-8.3) gm/dl Albumin 3.9 (3.4-5.0) gm/dl Intake and Output 10/26/23 10/27/23 10/27/23 22:59 06:59 14:59 Other: Weight 68.4 kg Weight Measurement Method Built in [facility] (2) HTN (hypertension) Hypertension type: primary hypertension Qualified Code(s): I10 - Essential (primary) hypertension
[2023-10-27] MEDS ORDERED: PANTOprazole 40 MG TAB PO STA (10:48)
--- NOTE | 2023-10-27 13:18 | Discharge Summary ---
Date of Service October 27, 2023 Admission HPI Per Admitting Provider 82-year-old female with past medical significant for hyperlipidemia, COPD, history of chronic tobacco mucositis, abdominal aortic aneurysm, GERD, stage III chronic kidney disease, history of elevated LFTs, history of depression, presents with chest pain. Patient states she noticed chest pain around 8 PM radiating to left jaw. She was sitting when it happened.She gets chest pain on and off but this pain lasted for 3 hours when she decided come to the hospital. It was of 8 / 10 in severity. Not associated wth shortness of breath or nausea. No dizziness. After nitro the pain got much improved. Currently pain is 1 /10 severity. Has chronic cough. No fevers. Currently has some headache with nitro. Vision is okay. No runny nose. Appetite is okay. No difficulty swallowing. No abdominal pain. Normal bowel and bladder movements. No hematuria. No blood in stools or black stools. Current resting comfortably and hemodynamically stable.. Past medical history. As mentioned above Past surgical history. Colonoscopy. EGD. Social history. Former smoker. Smoked quarter pack a day for 44 years. Alcohol :glass of wine with dinner. No drug use. Family history. Paternal grandmother had diabetes. Mother had emphysema, heart disorder, alcoholism. Admission Exam Per Admitting Provider General- Not in distress Head- atraumatic Eyes- PERRL. ENT- oropharynx clear Neck- supple, no JVD. Lungs- clear to auscultation , no wheezing or crackles. Heart- regular rhythm; no murmur, no gallop. Abdomen- normal bowel sounds, soft, nontender, no distension. Extremities- no pretibial edema, no erythema seen. Neuro- alert, oriented x 3; PERRL, no facial palsy; no dysarthria; moves extremities. Skin- warm & dry Principal Diagnosis Chest pain, noncardiac, possibly secondary to GERD Discharge Exam General- WD/WN elderly F in NAD Head- atraumatic Eyes- PERRL. ENT- oropharynx clear Neck- supple, no JVD. Lungs- clear to auscultation , no wheezing or crackles. Heart- regular rhythm; + syst. murmur, no gallop. Abdomen- normal bowel sounds, soft, nontender, no distension. Extremities- no pretibial edema, no erythema seen. Neuro- alert, oriented x 3; PERRL, no facial palsy; no dysarthria; moves extremities. Skin- warm & dry Discharge Data Allergies Allergy/AdvReac Type Severity Reaction Status Date / Time alendronate sodium AdvReac Severe Vomiting Verified 10/27/23 01:13 Consultations 10/27/23 01:06 ED Decision to Admit Stat 10/27/23 08:00 Consult Cardiology Routine Hospital Course (1) Chest pain: 82-year-old female with past medical significant for hyperlipidemia, COPD, history of chronic tobacco mucositis, abdominal aortic aneurysm, GERD, stage III chronic kidney disease, history of elevated LFTs, history of depression, presents with chest pain. Chest pain Improved with nitro Initial workup unremarkable serial cardiac enzymes negative and echo without wall motion abnormality Echo -LV is normal in size. Mild concentric LVH. LV wall motion is normal. EF 60 to 65%. Grade 1 diastolic dysfunction. Mild to moderate valvular aortic stenosis. Mild aortic regurg. Doppler findings do not suggest pulmonary hypertension. Monitored on telemetry Consulted cardiology - acute chest pain atypical for angina sharp not exacerbated by activity lasted greater than 3 hours duration. No signs signs of myocardial injury or ischemia by enzyme or EKG. Consideration to be made for pharmacological stress testing likely as an outpatient. Continue aspirin and moderate intensity statin therapy. Patient willing to consider follow-up of the AAA as an outpatient, including vascular surgery follow-up locally if/when needed. Consider addition of PPI therapy. Patient started on pantoprazole - and reports relief, will discharge pt on pantoprazole. outpt follow up. History of COPD Continue home inhalers Chronic kidney stage III Presented creatinine 1.2 cont. to monitor History of abdominal aortic aneurysm Patient should follow-up as outpt Hyperlipidemia On statin History of depression On bupropion Total Time Total Time Spent Total Time Spent (In Minutes): 40 Discharge Plan Discharge Items Patient Disposition: Home - Self-Care Reason For Visit: CHEST PAIN Discharge Diagnosis: Chest pain, noncardiac, possibly secondary to GERD Activity: Per Instructions section Non-emergency contact: Primary Care Provider Call non-emergency contact if: you have any medication questions and your symptoms worsen Follow-up/Referrals: Dionisio Mayer MD [Primary Care Provider] - (Date & Time 11/03/2023 3:00 PM Provider Dionisio Mayer MD [facility] ) Diet: Heart Healthy Addtl Attending Provider Instructions: Follow up with primary care doctor within 1 week. The appointment was scheduled for you for Recommend to take pantoprazole daily in addition to your other medication. You may have a stress test as outpatient. Also recommend to follow up on your abdominal aortic aneurysm. Pending Studies at Discharge: No Stand-Alone Forms: My [facility], Smoking Cessation Medications and DC Order Prescriptions: New pantoprazole 40 mg Tablet,Delayed Release (Dr/Ec) 40 mg PO QAM Qty: 30 0RF Continued atorvastatin 40 mg tablet 40 mg PO DAILY bupropion HCl 150 mg tablet sustained-release 12 hr 150 mg PO BID Caltrate 600 plus D 600 mg (1,500 mg)-800 unit Tablet,Chewable 1 tab PO DAILY ondansetron HCl 4 mg tablet 4 mg PO Q6H PRN (Reason: Nausea) ascorbic acid (vitamin C) 500 mg capsule, extended release 500 mg PO DAILY Stiolto Respimat 2.5-2.5 mcg/actuation mist 2 puff INHALATION DAILY aspirin 81 mg Tablet,Delayed Release (Dr/Ec) 81 mg PO DAILY albuterol sulfate 90 mcg/actuation HFA aerosol inhaler 2 puff INHALATION Q4 PRN (Reason: Shortness Of Breath Or Wheezing) Discharge Orders: Discharge Order (Routine); Ordered 10/27/23 Ordered By: Ambrocio Roberts Admission Data Admit Date/Time: 10/27/23 01:49 Attending Provider: Ambrocio Roberts Admit Provider: Yousif Bolanos Primary Care Provider: Dionisio Mayer Other Providers: Yousif Bolanos; Iona Carcamo; Dominic Mckee; Joey Baird; Tyrone Dejesus; Lisandro Silverman; Dm Shaver; Baylee Martinez; Ev Rodriguez; Iona Mercado; Sony Quigley; Luciano Jamison; Shabana Wan; Aspen Araiza; Syeda Vegas; Galdino Fink
--- NOTE | 2023-10-27 14:17 | Electrocardiogram Report ---
Test Reason : Blood Pressure : / mmHG Vent. Rate : 094 BPM Atrial Rate : 094 BPM P-R Int : 138 ms QRS Dur : 070 ms QT Int : 352 ms P-R-T Axes : 079 066 090 degrees QTc Int : 440 ms Normal sinus rhythm Nonspecific T wave abnormality Abnormal ECG When compared with ECG of 01-JAN-2019 06:25, Nonspecific T wave abnormality no longer evident in Inferior leads T wave inversion now evident in Lateral leads Confirmed by Dago Melendrez ([id number]) on 10/27/2023 2:17:21 PM Referred By: REFERRED SELF Confirmed By:Dago Melendrez
[2023-10-28] MEDS ORDERED: PANTOprazole 40 MG TAB PO SCH (09:00)
== END 2023-10-27 13:18 | disposition home or self-care (01) ==
LOC: EDINP 23:37 → ED 23:37 → EDINP 10-27 03:50

== ENCOUNTER 2024-12-15 07:44 | Inpatient (IN) ==
--- OUTSIDE RECORDS SUMMARY | 2024-12-15 07:49 | External Medical Summary | Summary of Care ---
Author Name Unknown Organization [facility] Address [address] [facility] [place] [place] [address] Phone [phone] Care Team Providers Care Measuring Clerk Name Role Phone Bela Bullock PA-C Primary Care Provider [phone] Reason for Visit * Reason Comments eRx-Medication Refill Encounter Details Date Type Department Care Team (Late st Contact Info) Description 10/25/2024 Refill [facility] [address] [place] [address] Bela Bullock PA-C [address] [facility] [place] [address] Primary osteoarthritis of one hip, left Allergies Active Allergy Reactions Criticality Noted Date Comments Alendronate Sodium 04/19/2013 Vomiting documented as of this encounter (statuses as of 10/25/2024) Medications ASPIRIN 81 MG PO CHEW Two chewable by mouth once a day with food 100 6 04/17/20 08 Active CALTRATE 600+D PLUS 600-800 MG-UNIT PO CHEW 1 TABLET TWICE DAILY WITH FOOD 08/16/20 14 Active Ascorbic Acid ER 500 MG TBCR Take 500 mg by mouth daily. Active Atorvastatin Calcium 40 MG Oral Tablet (Lipitor) TAKE 1 TABLET BY MOUTH EVERY DAY 90 Tablet 2 04/09/20 24 Active traMADol HCl 50 MG Oral Tablet (Ultram)Indicatio ns:Acute right ankle pain,Primary osteoarthritis of one hip, left Take 2 Tablets by mouth every 8 hours as needed for Pain, Severe. 120 Tablet 05/04/20 24 Active buPROPion HCl ER (SR) 150 MG Oral Tablet Extended Release 12 Hour (Wellbutrin SR)Indications:De pression, major, in remission (HCC) TAKE 1 TABLET BY MOUTH TWICE A DAY 180 Tablet 3 05/28/20 24 Active Ondansetron HCl 4 MG Oral Tablet (Zofran)Indicatio ns:Dizziness TAKE 1 TABLET BY MOUTH EVERY 6 HOURS NEEDED FOR NAUSEA 30 Tablet 2 07/24/20 24 Active Albuterol Sulfate HFA 108 (90 Base) MCG/ACT Inhalation Aerosol Solution INHALE 2 PUFFS BY MOUTH EVERY 4 HOURS NEEDED FOR SHORTNESS OF BREATH OR WHEEZING. 54 g 2 07/26/20 24 Active Gabapentin 100 MG Oral Capsule (Neurontin)Indica tions:Bilateral hip pain,Arthralgia, unspecified joint TAKE 1 CAPSULE BY MOUTH EVERY DAY IN THE MORNING , AT NOON, AND BEFORE BEDTIME 90 Capsule 5 09/03/20 24 Active Stiolto Respimat 2.5-2.5 MCG/ACT Inhalation Aerosol Solution (Tiotropium-Oloda terol) INHALE 2 PUFFS BY MOUTH EVERY DAY 12 g 3 10/23/20 24 Active traMADol HCl 50 MG Oral Tablet (Ultram)Indicatio ns:Primary osteoarthritis of one hip, left Take 2 Tablets by mouth 2 times a day as needed for Pain, Severe. 120 Tablet 10/25/20 24 Active traMADol HCl 50 MG Oral Tablet (Ultram)Indicatio ns:Primary osteoarthritis of one hip, left TAKE 2 TABLETS BY MOUTH 2 TIMES A DAY NEEDED FOR PAIN, SEVERE. 120 Tablet 09/24/20 24 024 Discontinued documented as of this encounter (statuses as of 10/25/2024) Active Problems Problem Noted Date Diagnosed Date COPD, group B, by GOLD 2017 classification 11/01 Overview: Per COPD GOLD Classification Hx of actinic keratosis 04/16/2021 Overview (04/16/2021): actinic keratoses (Efudex face 03/2021) Stage 3b chronic kidney disease 12/01/2020 Overview: Per CKD protocol - Per CKD protocol Senile osteoporosis 12/29/2018 Gastroesophageal reflux disease 05/30/2018 Hx of nonmelanoma skin cancer 05/23/2018 Overview (03/12/2021): squamous cell carcinoma (L ankle 2014, R forehead 2016), basal cell carcinoma (R melolabial fold 1998, R alar groove 2017) Abdominal aortic aneurysm (AAA) without rupture 01/24/2018 Depression, major, in remission 08/05/2015 Dyslipidemia, goal LDL below 100 10/26/2013 Vitamin D deficiency 04/04/2013 Elevated LFTs 04/04/2013 CHRONIC TOBACCO MUCOSITIS 12/10/2005 Diaphragmatic hernia 10/22/2005 documented as of this encounter (statuses as of 10/25/2024) Resolved Problems Problem Noted Date Diagnosed Date Resolved Date Stage 3a chronic kidney disease 09/29/2020 12/04/2020 Overview: Per CKD protocol COPD, group A, by GOLD 2017 classification 04/28/2020 11/04/2022 Overview: Per COPD GOLD Classification Kidney disease, chronic, sta ge III (GFR 30-59 ml/min) 01/01/2019 10/02/2020 Overview: Per CKD protocol #1 Advance directive on file 09/23/2015 Overview (09/23/2015): Yes, copy scanned at patient level in [...] Dyslipidemia, goal to be determined 11/06/2009 10/26/2013 Overview (11/06/2009): Per Lipid Taxonomy. COPD, severity to be determined 05/14/2008 10/30/2013 Cough 12/10/2005 08/14/2009 Acute laryngitis 12/10/2005 08/14/2009 Overview (03/02/2016): ICD-10 update of inactive term Major depressive disorder 09/01/2005 Overview (09/13/2017): ICD-10 update of inactive term ADVANCE DIRECTIVE INFORMATION 07/13/2005 05/30/2018 Overview (07/13/2005): Yes, Patient instructed to provide copy of advance directive for provider to review and to be scanned into Electronic Medical Record Menopause 09/24/2002 08/05/2015 Mixed dyslipidemia 06/01/2000 9 Overview (11/06/2009): Per Lipid Taxonomy. Encounter for long-term (cur rent) use of medications 06/01/2000 08/05/2015 Overview (09/13/2017): ICD-10 update of inactive term Tobacco use disorder 019 documented as of this encounter (statuses as of 10/25/2024) Immunizations Name Administration Dates Next Due COVID-19 [...] 65+ Yrs, IM (FLUAD) 08/27/2020 Seasonal Influenza Vac., MDV , IM, 0.5 mL (Fluzone) 09/06/2014,08/27/2013,09/28/2012,09/13,09/18/2010,08/17/2009,09/10/2008 ,09/21/2007,08/24/2006,09/01/2005,09/21,11/30/2001,09/10/1999 Seasonal Influenza Virus Vac cine, Unspecified Formulation 09/01/1998 Seasonal Influenza, High Dos e, Trivalent, PF, IM (Fluzone HD) 08/15/2024,09/05/2023 Seasonal Influenza, PF, 6 M & above, IM , (FluLaval or Fluzone) 09/06/2019,09/01/2018,08/10/2017 Seasonal Influenza, Quadriva lent Hd (Fluzone Hd) 09/15/2022,09/16/2021 Seasonal Influenza, Quadriva lent, No Preserve, IM 09/17/2016,09/12/2015 TDAP (age 10 and older)(Boostrix) 12/05/2012 Varicella [...] the money to buy more. Never true 01/08/20 24 Within the past 12 months, t he food you bought just didn't last and you didn't have money to get more. Never true 01/08/2024 Childcare Answer Date Recorded Do you feel overwhelmed with taking care of a child, family member or friend? No 01/08/2024 Does your family need help f inding childcare? (Household - for ages 0-17 years) Not on file 01/08/2024 Clothing Answer Date Recorded Have you been unable to get clothing when it was really needed? No 01/08/2024 Is your family able to get c lothes or diapers when needed? (Household - for ages 0-17 years) Not on file 01/08/2024 Personal Safety Answer Date Recorded Do you feel unsafe or have concerns for your saf ety? No 01/08/2024 Do you have concerns for you r family's safety? (Household - for ages 0-17 years) Not on file 01/08/2024 Utilities Answer Date Recorded Do you have trouble paying y our heating, water, or electric bill? No 01/08/2024 Is your family able to pay t he heat, water, or electric bill? (Household - for ages 0-17 years) Not on file 01/08/2024 Does your family have access to good internet? (Household - for ages 0-17 years) Not on file 01/08/2024 Employment Status Answer Date Recorded Are you unemployed or without regular income? No 01/08/2024 Does the household have a re gular source of income? (Household - for ages 0-17 years) Not on file 01/08/2024 Social Connections Answer Date Recorded How often do you feel lonely or isolated from those around you? Sometimes 01/08/2024 Financial Resource Strain Answer Date R ecorded Do you have any trouble payi ng for your medications, or do you think you might in the future? No 01/08/2024 Does your family have troubl e paying for medicine? (Household - for ages 0-17 years) Not on file 01/08/2024 Transportation Needs Answer Date Record ed READ ONLY Do you have troubl e getting a ride to medical visits or work? Never True 01/08/2024 Does your family have a hard time getting a ride to doctors visits? (Household - for ages 0-17 years) Not on file 01/08/2024 Has lack of transportation k ept you from medical appointments, meetings, work, or from getting things needed for daily living? Check all that apply. (Adult - for ages 18 years and over) Not on file 01/08/2024 Do you (or your family) have trouble finding or paying for a ride (transportation)? (Household - for ages 0-17 years) Not on file 01/08/2024 Housing Stability Answer Date Recorded Do you currently live in a s helter or have no steady place to sleep at night? No 01/08/2024 READ ONLY Do you think you a re at risk of becoming homeless? No 01/08/2024 Does your family worry about paying for your home or becoming homeless? (Household - for ages 0-17 years) Not on file 0 01/08/2024 Are you homeless or worried that you might be in the future? (Adult - for ages 18 years and over) Not on file Are you (or your family) wei eless or worried that you might be in the future? (Household - for ages 0-17 years) Not on file Food Insecurity Answer Date Recorded Do you need food for this week? Yes 01/08/2024 Are you able to get enough f ood for your family? (Household - for ages 0-17 years) Not on file 01/08/2024 Does your family need food t his week? (Household - for ages 0-17 years) Not on file 01/08/2024 Do you always have enough fo od for your family? (Household - for ages 0-17 years) Not on file 01/08/2024 Comments No Sex and Gender Information Value Date Recorded Sex Assigned at Not on file Legal Sex Female 7:18 AM EST Gender Identity Female 09/15/2022 3:36 PM EDT Sexual Orientation Straight 04/24/2020 12 :35 PM EDT Occupation Industry Job Start Date Job End Date Not on file Not on file Not on file Not on file documented as of this encounter Miscellaneous Notes * Telephone Encounter - Bela Bullock PA-C - 10/25/2024 10:21 AM EST Lease let patient know it was filled As it is a controlled substance,. It is her responsibility to call for refills Primary osteoarthritis of one hip, left - traMADol HCl 50 MG Oral Tablet (Ultram); Take 2 Tablets by mouth 2 times a day as needed for Pain, Severe. 10/25/2024 * Telephone Encounter - Bela Bullock PA-C - 10/25/2024 10:20 AM ESTSigned Prescriptions: Disp Refills traMADol HCl 50 MG Oral Tablet (Ultram) 120 Ta*0 Sig: Take 2 Tablets by mouth 2 times a day as needed for Pain, Severe. Authorizing Provider: BELA BULLOCK * Telephone Encounter - Lisandro Cormier [facility] - 10/25/2024 9:59 AM ESTPending Prescriptions: Disp Refills traMADol HCl 50 MG Oral Tablet (Ultram) 120 Ta*0 Sig: Take 2 Tablets by mouth 2 times a day as needed for Pain, Severe. * Telephone Encounter - Lisandro Cormier [facility] - 10/25/2024 9:57 AM EST I have reviewed the patients controlled substance dispensing history in the Prescription Drug Monitoring Program in compliance with the [facility] regulations before prescribing a controlled substance. PDMP checked on 10/25/2024. Pending Prescriptions: Disp Refills traMADol HCl 50 MG Oral Tablet (Ultram) [*120 Ta*0 Sig: TAKE 2 TABLETS ( 100 MG ) BY MOUTH 2 TIMES A DAY NEEDED FOR SEVERE PAIN. Last Visit: 08/15/2024 (in office), 05/30/2024 (telemedicine) Next Visit: Visit date not found Date medication was last filled: 09/24/24 Date medication is due for refill: 10/23/24 Pharmacy: [id number] [id number] [facility] Is this request for a controlled substance? Yes and Urine Drug Screen Not completed Toxicology results: No results found. However, due to the size of the patient record, not all encounters were searched.Please check Results Review for a complete set of results. Please approve if appropriate. Thank You, Lisandro Stanton [facility] Clinical Pharmacist Centralized Clinical Pharmacy Services ([facility]PS) 10/25/2024, 9:58 AM * Telephone Encounter - Don Parr, residential real estate appraiser - 10/25/2024 9:39 AM EST Pt needs RX Expedited and filled today! She only has a driver courier available to get her medication today! Pt thought pharmacy called it in at appropriate time. Did you pend patient's preferred pharmacy and medication before forwarding?yes Pharmacy: [id number] [address] [place] [address] Pending Prescriptions: Disp Refills traMADol HCl 50 MG Oral Tablet (Ultram) [*120 Ta*0 Sig: TAKE 2 TABLETS ( 100 MG ) BY MOUTH 2 TIMES A DAY NEEDED FOR SEVERE PAIN. Last Visit: 08/15/2024 (in office), 05/30/2024 (telemedicine) Next Visit: Visit date not found If no future appointments scheduled, and last appointment is greater than a year ago, please schedule patient for a follow-up appointment Last date the medication was ordered: 09/24/2024 Is this request for a controlled substance?Yes, What was the last refill date 09/24/2024 w/ [id number] tabs and dosage 50 mg and Urine Drug Screen Not completed Urine Drug Screen:No results found. However, due to the size of the patient record, not all encounters were searched. Please check Results Review for a complete set of results. Patient Phone Numbers Labs: Lab Results Component Value Date/Time CREAT 1.0 01/16/2024 12:55 PM CREAT 1.2 (H) 11/28/2020 12:35 PM POTASSIUM 4.3 01/16/2024 12:55 PM POTASSIUM 4.6 11/28/2020 12:35 PM TSH 2.820 11/25/2018 12:00 AM TSH 2.29 10/02/2018 04:39 PM LDL 82 01/13/2023 12:39 PM LDL 70 07/04/2020 01:20 PM LDL 83 09/01/2018 09:19 AM ALT 15 12/29/2018 12:47 PM documented in this encounter Plan of Treatment Upcoming Encounters Date Type Department Care Team (Late st Contact Info) Description 11/02/2024 2:00 PM EST Office Visit [facility] [address] [facility] [place] [address] Ame Calderón, KADY [address] [facility] [place] [address] 11/22/2024 2:00 PM EST Office Visit [facility] [address] [facility] [place] [address] Malcom Da Silva MD [address] [facility] [place] [address] 06/06/2025 11:00 AM EDT Office Visit [address] [place] [address] Heide Reyna PA-C [address] [place] [address] [place] [address] Health Maintenance Due Date Last Done Comments Alpha-1 Antitrypsin 1958 AAA Monitoring 09/18/2020 09/18/2019, 01/08/2019 Zoster Vaccines (3 of 3) 11/07/2020 09/12/2020, 06/21 *BISPHONATE OR OTHER ACCEPTABLE MEDICATION NEEDED FOR OSTEOPOROSIS (REFER TO SMARTSET #1146) 10/06/2022 DTap/Tdap Vaccines (2 - Td or Tdap) 12/05/2022 12/05/2012, 06/25/1997 Adult Wellness Visit 09/15/2023 09/15/2022 Depression Monitoring 09/15/2023 09/15/2022 Albumin/Creatinine Ratio 01/13/2024 01/13/2023, 12/23 DXA Scan 05/03/2024 05/03/2022, 04/21, 07/02/2019, Additional history exists GFR 07/16/2024 01/16/2024, 12/23, 01/12/2022, Additional history exists COVID-19 Vaccine ( season) 2024 07/19/2024, 07/19/2024, 09/08/2023, Additional history exists CKD HGB USE SMARTSET 54101 01/16/202501/16, 01/13/2023, 01/12/2022, Additional history exists CKD PHOS USE SMARTSET 42692 01/16/202512/23, 01/13/2023, 01/12/2022, Additional history exists O2 ASSESSMENT COMPLETED IN PAST YEAR FOR COPD 08/15/2025 08/15/2024 Pneumococcal Vaccine: 65+ Years Completed 09/12/2020, 08/05/2015, 08/24/2006 VITAMIN D LEVEL ONCE IN A LIFETIME-USE SMARTSET# 28882 Completed 01/13/2023, 07/24/2015, 02/06/2014, Additional history exists Influenza Vaccine (FLU shot) Completed , 09/05/2023, 09/05/2023, Additional history exists HPV (Gardasil) Vaccine Aged Out No lo nger eligible based on patient's age to complete this topic Hepatitis B Vaccine Aged Out No longe r eligible based on patient's age to complete this topic MENINGOCOCCAL (MENACTRA/MENVEO) Aged Out No longer eligible based on patient's age to complete this topic documented as of this encounter Medical Devices Not on filedocumented as of this encounter Visit Diagnoses Diagnosis Primary osteoarthritis of one hip, left documented in this encounter Advance Directives Documents on File Type Date Recorded Patient Bridal Consultant Expl anation POLST 01/13/2023 [place] OR [facility] FOR LIFE-SUSTAINING TREATMENT Care Teams Measuring Clerk Relationship Specialty Start Date End Date Bela Bullock PA-C [address] [place] [address] PCP - General Physician Turn Down Attendant 07/17/24 documented as of this encounter
--- OUTSIDE RECORDS SUMMARY | 2024-12-15 07:49 | External Medical Summary | Summary of Care ---
Author Name Unknown Organization [facility] Address [address] [place] [address] Phone [phone] Care Team Providers Care Sighter Name Role Phone Bela Bullock PA-C Primary Care Provider [phone] Reason for Visit * Reason Comments eRx-Medication Refill Encounter Details Date Type Department Care Team (Late st Contact Info) Description 11/23/2024 Refill [facility] [address] [facility] [place] [address] Bela Bullock PA-C [address] [facility] [place] [address] Primary osteoarthritis of one hip, left Allergies Active Allergy Reactions Criticality Noted Date Comments Alendronate Sodium 04/19/2013 Vomiting documented as of this encounter (statuses as of 11/26/2024) Medications ASPIRIN 81 MG PO CHEW Two [...] WHEEZING. 54 g 2 07/26/20 24 Active Stiolto Respimat 2.5-2.5 MCG/ACT Inhalation Aerosol Solution (Tiotropium-Oloda terol) INHALE 2 PUFFS BY MOUTH EVERY DAY 12 g 3 10/23/20 24 Active Gabapentin 300 MG Oral Capsule (Neurontin)Indica tions:Bilateral hip pain,Arthralgia, unspecified joint Take 1 Capsule by mouth in the morning and 1 Capsule at noon and 1 Capsule before bedtime. 90 Capsule 5 11/15/20 24 Active Gabapentin 100 MG Oral Capsule (Neurontin)Indica tions:Bilateral hip pain,Arthralgia, unspecified joint TAKE 1 CAPSULE BY MOUTH EVERY DAY IN THE MORNING , AT NOON, AND BEFORE BEDTIME with 300 mg for total of 400 mg three times a day 90 Capsule 5 11/15/20 24 Active traMADol HCl 50 MG Oral Tablet (Ultram)Indicatio ns:Primary osteoarthritis of one hip, left Take 2 Tablets by mouth 2 times a day as needed for Pain, Severe. 120 Tablet 11/26/19 25 Active traMADol HCl 50 MG Oral Tablet (Ultram)Indicatio ns:Primary osteoarthritis of one hip, left Take 2 Tablets by mouth 2 times a day as needed for Pain, Severe. 120 Tablet 10/25/20 24 025 Discontinued documented as of this encounter (statuses as of 11/26/2024) Active Problems Problem Noted Date Diagnosed Date [...] as of this encounter (statuses as of 11/26/2024) Resolved Problems Problem Noted Date Diagnosed Date [...] Medical Record Menopause 09/24/2002 08/05/2015 Mixed dyslipidemia 06/01/2000200 9 Overview (11/06/2009): Per Lipid Taxonomy. Encounter for long-term (cur rent) use of medications 06/01/2000 08/05/2015 Overview (09/13/2017): ICD-10 update of inactive term Tobacco use disorder 019 documented as of this encounter (statuses as of 11/26/2024) Immunizations Name Administration Dates Next Due COVID-19 [...] MDV , IM, 0.5 mL (Fluzone) 09/06/2014,08/27/2013,09/28/2012,09/13,09/18/2010,08/17/2009,09/10/2008 ,09/21/2007,08/24/2006 Seasonal Influenza, High Dos e, Trivalent, PF, [...] Telephone Encounter - Bela Bullock PA-C - 11/26/2024 1:39 PM ESTSigned Prescriptions: Disp Refills traMADol HCl 50 MG Oral Tablet (Ultram) 120 Ta*0 Sig: Take 2 Tablets by mouth 2 times a day as needed for Pain, Severe. Authorizing Provider: BELA BULLOCK * Telephone Encounter - Lisandro Cormier, [facility] - 11/26/2024 11:26 AM ESTPending Prescriptions: Disp Refills traMADol HCl 50 MG Oral Tablet (Ultram) 120 Ta*0 Sig: Take 2 Tablets by mouth 2 times a day as needed for Pain, Severe. * Telephone Encounter - Lisandro Cormier, [facility] - 11/26/2024 11:26 AM EST I have reviewed the patients controlled substance dispensing history in the Prescription Drug Monitoring Program in compliance with the [facility] regulations before prescribing a controlled substance. PDMP checked on 11/26/2024. Pending Prescriptions: Disp Refills traMADol HCl 50 MG Oral Tablet (Ultram) [*120 Ta*0 Sig: Take 2 Tablets by mouth 2 times a day as needed for Pain, Severe. Last Visit: Visit date not found (in office), Visit date not found (telemedicine) Next Visit: Visit date not found Date medication was last filled: 10/25/24 Date medication is due for refill: 11/23/24 Pharmacy: [id number] Is this request for a controlled substance? Yes and Urine Drug Screen Not completed Toxicology results: No results found. However, due to the size of the patient record, not all encounters were searched.Please check Results Review for a complete set of results. Please approve if appropriate. Thank You, Lisandro Stanton [facility] Clinical Pharmacist Centralized Clinical Pharmacy Services (CCPS) 11/26/2024, 11:26 AM * Telephone Encounter - Emilia Godoy CPhT - 11/26/2024 11:09 AM EST Did you pend patient's preferred pharmacy and medication before forwarding?yes Pharmacy: [id number] [address] [facility] Pending Prescriptions: Disp Refills traMADol HCl 50 MG Oral Tablet (Ultram) [*120 Ta*0 Sig: TAKE 2 TABLETS ( 100 MG ) BY MOUTH 2 TIMES A DAY NEEDED FOR SEVERE PAIN . Last Visit: Visit date not found (in office), Visit date not found (telemedicine) Next Visit: Visit date not found If no future appointments scheduled, and last appointment is greater than a year ago, please schedule patient for a follow-up appointment Last date the medication was ordered: 10/25/2024 Is this request for a controlled substance?Yes, What was the last refill date 10/25/2024 w/ and dosage 50mg and Urine Drug Screen Not completed Urine [...] Care Team (Late st Contact Info) Description 06/06/2025 11:00 AM EDT Office Visit Dermatology, [address] [place] [address] Heide Reyna PA-C [address] [place] [address] [place] [address] Health Maintenance Due Date Last Done Comments [...] Additional history exists CKD HGB USE SMARTSET 75162 01/16/202501/16, 01/13/2023, 01/12/2022, Additional history exists CKD PHOS USE SMARTSET 26432 01/16/202512/23, 01/13/2023, 01/12/2022, Additional history exists O2 ASSESSMENT COMPLETED IN PAST YEAR FOR COPD 08/15/2025 08/15/2024 Pneumococcal Vaccine: 50+ Years Completed 09/12/2020, 08/05/2015, 08/24/2006 VITAMIN D LEVEL ONCE IN A LIFETIME-USE SMARTSET# 15767 Completed 01/13/2023, 07/24/2015, 02/06/2014, Additional history exists [...] Documents on File Type Date Recorded Patient Agricultural Produce 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
--- OUTSIDE RECORDS SUMMARY | 2024-12-15 07:49 | External Medical Summary | Summary of Care ---
Author Name Unknown Organization [facility] Address [address] [place] [address] Phone [phone] Care Team Providers Care Kiln Stoker Name Role Phone Bela Bullock PA-C Primary Care Provider [phone] [phone] Reason for Visit * Reason Onset Date Comments Med Request 11/15/2024 Encounter Details Date Type Department Care Team (Late st Contact Info) Description 11/15/2024 Telephone [facility] [address] [place] [address] Bela Bullock PA-C [address] [facility] [place] [address] Med Request Allergies Active Allergy Reactions Criticality Noted Date Comments Alendronate Sodium 04/19/2013 Vomiting documented as of this encounter (statuses as of 11/15/2024) Medications ASPIRIN 81 MG PO CHEW Two [...] Active traMADol HCl 50 MG Oral Tablet (Ultram)Indication s:Acute right ankle pain,Primary osteoarthritis of one hip, left Take 2 Tablets by mouth every 8 hours as needed for Pain, Severe. 120 Tablet 05/04/20 24 Active buPROPion HCl ER (SR) 150 MG Oral Tablet Extended Release 12 Hour (Wellbutrin SR)Indications:Dep ression, major, in remission (HCC) TAKE 1 TABLET BY MOUTH TWICE A DAY 180 Tablet 3 05/28/20 24 Active Ondansetron HCl 4 MG Oral Tablet (Zofran)Indication s:Dizziness TAKE 1 TABLET BY MOUTH EVERY 6 HOURS NEEDED FOR NAUSEA 30 Tablet 2 07/24/20 24 Active Albuterol Sulfate HFA 108 (90 Base) MCG/ACT Inhalation Aerosol Solution INHALE 2 PUFFS BY MOUTH EVERY 4 HOURS NEEDED FOR SHORTNESS OF BREATH OR WHEEZING. 54 g 2 07/26/20 24 Active Stiolto Respimat 2.5-2.5 MCG/ACT Inhalation Aerosol Solution (Tiotropium-Olodat jona) INHALE 2 PUFFS BY MOUTH EVERY DAY 12 g 3 10/23/20 24 Active traMADol HCl 50 MG Oral Tablet (Ultram)Indication s:Primary osteoarthritis of one hip, left Take 2 Tablets by mouth 2 times a day as needed for Pain, Severe. 120 Tablet 10/25/20 24 Active Gabapentin 300 MG Oral Capsule (Neurontin)Indicat ions:Bilateral hip pain,Arthralgia, unspecified joint Take 1 Capsule by mouth in the morning and 1 Capsule at noon and 1 Capsule before bedtime. 90 Capsule 5 11/15/20 24 Active Gabapentin 100 MG Oral Capsule (Neurontin)Indicat ions:Bilateral hip pain,Arthralgia, unspecified joint TAKE 1 CAPSULE BY MOUTH EVERY DAY IN THE MORNING , AT NOON, AND BEFORE BEDTIME with 300 mg for total of 400 mg three times a day 90 Capsule 5 11/15/20 24 Active Gabapentin 100 MG Oral Capsule (Neurontin)Indicat ions:Bilateral hip pain,Arthralgia, unspecified joint TAKE 1 CAPSULE BY MOUTH EVERY DAY IN THE MORNING , AT NOON, AND BEFORE BEDTIME 90 Capsule 5 09/03/20 24 024 Discontin ued(Refil l) documented as of this encounter (statuses as of 11/15/2024) Active Problems Problem Noted Date Diagnosed Date [...] as of this encounter (statuses as of 11/15/2024) Resolved Problems Problem Noted Date Diagnosed Date [...] as of this encounter (statuses as of 11/15/2024) Immunizations Name Administration Dates Next Due COVID-19 [...] encounter Miscellaneous Notes * Telephone Encounter - Jacquelyn Mcguire PHARM Tech - 11/15/2024 5:33 PM EST Pt calling to request gabapentin. Informed pt that RX is available at their pharmacy. Pt verbalizedunderstanding and stated they will check with their pharmacy regarding this medication. Thank you, Jacquelyn Mcguire, [facility]) 11/15/2024,5:33 PM * Telephone Encounter - Cary Lopez LPN - 11/15/2024 5:12 PM EST Attempted to call patient, there was no answer, left voicemail. When patient returns call, ok for RADHA to relay message, please refer to below documentation. If needed, can transfer to dedicated nurse line. * Telephone Encounter - Bela Bullock PA-C - 11/15/2024 4:47 PM EST Sent 300 mg caps along with extra 100 mg caps for her Bilateral hip pain - Gabapentin 300 MG Oral Capsule (Neurontin); Take 1 Capsule by mouth in the morning and 1 Capsule at noon and 1 Capsule before bedtime. - Gabapentin 100 MG Oral Capsule (Neurontin); TAKE 1 CAPSULE BY MOUTH EVERY DAY IN THE MORNING , ATNOON, AND BEFORE BEDTIME with 300 mg for total of 400 mg three times a day Arthralgia, unspecified joint - Gabapentin 300 MG Oral Capsule (Neurontin); Take 1 Capsule by mouth in the morning and 1 Capsule at noon and 1 Capsule before bedtime. - Gabapentin 100 MG Oral Capsule (Neurontin); TAKE 1 CAPSULE BY MOUTH EVERY DAY IN THE MORNING , ATNOON, AND BEFORE BEDTIME with 300 mg for total of 400 mg three times a day Mtd * Telephone Encounter - Merlyn Nicholas PHARM Tech - 11/15/2024 3:04 PM EST Pt called stating she needs a refill on gabapentin. Pt said told her it was okay to increase gabapentin. Pt said she has been taking 3 caps three times a day but on occasion she takes 4 caps 3 times a day. Pt will need a new script sent to pharmacy to get it filled. Pt is out of rx. Merlyn Gleason Chinese Medicine Practitioner [facility] ([facility]) 11/15/2024,3:06 PM documented in this encounter Plan of Treatment Upcoming Encounters Date Type Department Care Team (Late st Contact Info) Description 11/22/2024 2:00 PM EST Office Visit Dermatology [facility] [address] [place] [address] Malcom Da Silva MD [address] [place] [address] 06/06/2025 11:00 AM EDT Office Visit [address] [place] [phone] Heide Reyna PA-C [address] [place] [address] [place] [address] Health Maintenance Due Date Last Done Comments [...] Additional history exists CKD HGB USE SMARTSET 71941 01/16/202501/16, 01/13/2023, 01/12/2022, Additional history exists CKD PHOS USE SMARTSET 03945 01/16/202512/23, 01/13/2023, 01/12/2022, Additional history exists O2 ASSESSMENT COMPLETED IN PAST YEAR FOR COPD 08/15/2025 08/15/2024 Pneumococcal Vaccine: 50+ Years Completed 09/12/2020, 08/05/2015, 08/24/2006 VITAMIN D LEVEL ONCE IN A LIFETIME-USE SMARTSET# [id number] Completed 01/13/2023, 07/24/2015, 02/06/2014, Additional history exists [...] as of this encounter Visit Diagnoses Diagnosis Bilateral hip pain Pain in joint, pelvic region and thigh Arthralgia, unspecified joint documented in this encounter Advance Directives Documents on File Type Date Recorded Patient Joist Setter Expl anation POLST 01/13/2023 [place] OR [facility] FOR LIFE-SUSTAINING TREATMENT Care Teams Kiln Stoker Relationship Specialty Start Date End Date Bela Bullock PA-C PCP - General Physician Port Purser 07/17/24 documented as of this encounter
--- OUTSIDE RECORDS SUMMARY | 2024-12-15 07:49 | External Medical Summary | Summary of Care ---
Author Name Unknown Organization [facility] Address [address] [place] [address] Phone [phone] Care Team Providers Care Net Coordinator Name Role Phone Bela Fleming PA-C Primary Care Provider [phone] Reason for Visit * Reason Comments eRx-Medication Refill Encounter Details Date Type Department Care Team (Late st Contact Info) Description 10/25/2024 Refill [facility] [address] [place] [address] Bela Fleming PA-C [address] [facility] [place] [address] Primary osteoarthritis of one hip, [...] encounter Miscellaneous Notes * Telephone Encounter - Laura Márquez LPN - 10/25/2024 2:16 PM EST Called patient went to . Left a message that medication has been sent to the pharmacy. * Telephone Encounter - Jad Peterson [facility] - 10/25/2024 10:56 AM EST Signed Prescriptions: Disp Refills traMADol HCl 50 MG Oral Tablet (Ultram) 120 Ta*0 Sig: Take 2 Tablets by mouth 2 times a day as needed for Pain, Severe.Authorizing Provider: BELA FLEMING------ * Telephone Encounter - Bela Fleming PA-C - 10/25/2024 10:21 AM EST Lease let patient know it was filled As it is a controlled substance,. It is her responsibility to call for refills Primary osteoarthritis of one hip, left - traMADol HCl 50 MG Oral Tablet (Ultram); Take 2 Tablets by mouth 2 times a day as needed for Pain, Severe. 10/25/2024 * Telephone Encounter - Bela Fleming PA-C - 10/25/2024 10:20 AM ESTSigned Prescriptions: Disp Refills traMADol HCl 50 MG Oral Tablet (Ultram) 120 Ta*0 Sig: Take 2 Tablets by mouth 2 times a day as needed for Pain, Severe. Authorizing Provider: BELA FLEMING * Telephone Encounter - Lisandro Cormier [facility] - 10/25/2024 9:59 AM ESTPending Prescriptions: Disp Refills traMADol HCl 50 MG Oral Tablet (Ultram) 120 Ta*0 Sig: Take 2 Tablets by mouth 2 times a day as needed for Pain, Severe. Electronically signed by Lisandro Cormier [facility] at 10/25/2024 9:59 AM EST * Telephone Encounter - Lisandro Cormier [facility] - 10/25/2024 9:57 AM EST I have reviewed the patients controlled substance dispensing history in the Prescription Drug Monitoring Program in compliance with the [facility] regulations before prescribing a controlled substance. [...] medication is due for refill: 10/23/24 Pharmacy: [id number] Is this request for a controlled substance? Yes and Urine Drug Screen Not completed Toxicology results: No results found. However, due to the size of the patient record, not all encounters were searched.Please check Results Review for a complete set of results. Please approve if appropriate. Thank You, Lisandro Stanton [facility] Clinical Pharmacist [facility] Pharmacy Services ([facility]) 10/25/2024, 9:58 AM Electronically signed by Lisandro Cormier [facility] at 10/25/2024 9:59 AM EST * Telephone Encounter - Don Parr, insurance attorney - 10/25/2024 9:39 AM EST Pt needs RX Expedited and filled today! She only has a cement mixer driver available to get her medication today! Pt thought pharmacy called it in at appropriate time. Did you pend patient's preferred pharmacy and medication before forwarding?yes Pharmacy: [id number] [address] [facility] Pending Prescriptions: Disp Refills traMADol HCl 50 [...] was the last refill date 09/24/2024 w/ tabs and dosage 50 mg and Urine [...] 11/02/2024 2:00 PM EST Office Visit Podiatry [address] [place] [address] Ame Calderón, DPM [facility] [place] [address] 11/22/2024 2:00 PM EST Office Visit Dermatology [employer] [address] [place] [address] Malcom Da Silva MD [address] [place] [address] 06/06/2025 11:00 AM EDT Office Visit [facility] [address] [facility] [place] [address] Heide Reyna PA-C [address] [place] [address] [place] [address] Health Maintenance Due Date Last Done Comments [...] Additional history exists CKD HGB USE SMARTSET 48961 01/16/202501/16, 01/13/2023, 01/12/2022, Additional history exists CKD PHOS USE SMARTSET 43008 01/16/20252 04/2024, 01/13/2023, 01/12/2022, Additional history exists O2 ASSESSMENT COMPLETED IN PAST YEAR FOR COPD 08/15/2025 08/15/2024 Pneumococcal Vaccine: 65+ Years Completed 09/12/2020, 08/05/2015, 08/24/2006 VITAMIN D LEVEL ONCE IN A LIFETIME-USE SMARTSET# [id number] Completed 01/13/2023, 07/24/2015, 02/06/2014, Additional history exists [...] on File Type Date Recorded Patient Director Of Community Center Expl anation POLST 01/13/2023 [facility] FOR LIFE-SUSTAINING TREATMENT Care Teams Net Coordinator Relationship Specialty Start Date End Date Bela Fleming PA-C [address] [facility] [place] [address] PCP - General Physician Commutator V Ring Assembler 07/17/24 documented as of this encounter
--- OUTSIDE RECORDS SUMMARY | 2024-12-15 07:49 | External Medical Summary | Summary of Care ---
Author Name Unknown Organization [facility] Address [address] [place] [address] Phone [phone] Care Team Providers Care Health Diagnostics Teacher Name Role Phone Bela Bullock PA-C Primary Care Provider [phone] [phone] Reason for Visit * Reason Comments Follow Up Pt presents for 4th toe (next to pinky toe) callus and ingrown toenail in R foot Encounter Details Date Type Department Care Team (Late st Contact Info) Description 11/02/2024 2:00 PM EST Office Visit Podiatry [facility] [address] [facility] [place] [address] Ame Calderón, DPTerrance 400 [facility] [place] [id number] Stage 3b chronic kidney disease*; Callus of foot; Pain in right foot Allergies Active Allergy Reactions Criticality Noted Date Comments Alendronate Sodium 04/19/2013 Vomiting documented as of this encounter (statuses as of 11/04/2024) Medications ASPIRIN 81 MG PO CHEW Two chewable by mouth once a day with food 100 6 8 Active CALTRATE 600+D PLUS 600-800 MG-UNIT PO CHEW 1 TABLET TWICE DAILY WITH FOOD 4 Active Ascorbic Acid ER 500 MG TBCR Take 500 mg by mouth daily. Active Atorvastatin Calcium 40 MG Oral Tablet (Lipitor) TAKE 1 TABLET BY MOUTH EVERY DAY 90 Tablet 2 4 Active traMADol HCl 50 MG Oral Tablet (Ultram)Indication s:Acute right ankle pain,Primary osteoarthritis of one hip, left Take 2 Tablets by mouth every 8 hours as needed for Pain, Severe. 120 Tablet 4 Active buPROPion HCl ER (SR) 150 MG Oral Tablet Extended Release 12 Hour (Wellbutrin SR)Indications:Dep ression, major, in remission (HCC) TAKE 1 TABLET BY MOUTH TWICE A DAY 180 Tablet 3 4 Active Ondansetron HCl 4 MG Oral Tablet (Zofran)Indication s:Dizziness TAKE 1 TABLET BY MOUTH EVERY 6 HOURS NEEDED FOR NAUSEA 30 Tablet 2 4 Active Albuterol Sulfate HFA 108 (90 Base) MCG/ACT Inhalation Aerosol Solution INHALE 2 PUFFS BY MOUTH EVERY 4 HOURS NEEDED FOR SHORTNESS OF BREATH OR WHEEZING. 54 g 2 4 Active Gabapentin 100 MG Oral Capsule (Neurontin)Indicat ions:Bilateral hip pain,Arthralgia, unspecified joint TAKE 1 CAPSULE BY MOUTH EVERY DAY IN THE MORNING , AT NOON, AND BEFORE BEDTIME 90 Capsule 5 4 Active Stiolto Respimat 2.5-2.5 MCG/ACT Inhalation Aerosol Solution (Tiotropium-Olodat jona) INHALE 2 PUFFS BY MOUTH EVERY DAY 12 g 3 4 Active traMADol HCl 50 MG Oral Tablet (Ultram)Indication s:Primary osteoarthritis of one hip, left Take 2 Tablets by mouth 2 times a day as needed for Pain, Severe. 120 Tablet 4 Active documented as of this encounter (statuses as of 11/04/2024) Active Problems Problem Noted Date Diagnosed Date [...] as of this encounter (statuses as of 11/04/2024) Resolved Problems Problem Noted Date Diagnosed Date [...] as of this encounter (statuses as of 11/04/2024) Immunizations Name Administration Dates Next Due COVID-19 [...] No 01/08/2024 Does the household have a [facility] source of income? (Household - for ages [...] Progress Notes * Ame Calderón DPM - 11/02/2024 2:02 PM EST Podiatry Established Note [facility] Name: Amanda Ontiveros : 1940 Date: 11/02/2024 REASON FOR VISIT: concerns of skin changes to the toe SUBJECTIVE: This patient is a 83 year old female who presents today per the recommendation of her functional director. Amanda reports going for pedicures. More recently, it was recommended she see me due to thickened skin of the end of the right third toe. She denies pain to this area but notes discomfort to a callus on the bottom of this foot at the fifth metatarsal head. She offers no other concerns today. Medical necessity reason: CKD Last primary care appointment: Bela Bullock PA-C 01/16/24 Past Medical History: Diagnosis Date Navarro's esophagus [...] Pain is reported with palpation of the right foot plantar aspect of callus near the fifth metatarsal head Dermatological: Toenails are thickened with skin build up beneath. No erythema. Chronic appearing dislocation to lower legs. Hyperkeratotic skin to the distal aspect of the right third toe and plantar aspect of the right foot at the fifth metatarsal head. Class Findings for Routine Foot Care Class A Findings: None Class B Findings: Advanced trophic changes (at least three of the following): hair growth (decreaseor absence), nail changes (thickening) and pigmentary changes (discoloration) Class C Findings: Edema and Paresthesia (abnormal spontaneous sensations in feet) Modifier: Q9 - 1 Class B Finding and 2 Class C Findings DIAGNOSTIC STUDIES: None ASSESSMENT: 1. Stage 3b chronic kidney disease (Primary) 2. Callus of foot x 2 (right third toe and right plantar foot) 3. Pain in right foot PLAN: Procedure: After prepping the area with alcohol and allowing to dry, the hyperkeratotic lesions to the right third toe and right plantar foot sub met head 5 (two total) were sharply pared of all hyperkeratotic skin without incident. This was performed with a #15 blade. An electrical umbrella bur was used to reduce any remaining edges. Patient tolerated well and noted improvement following procedure. Follow up: as needed Ame Calderón DPM documented in this encounter Nursing Notes * Ethel Grace CMA - 11/02/2024 2:04 PM EST Pt presents for 4th toe (next to pinky toe) callus and ingrown toenail in R foot - Ethel Tran CMA documented in this encounter Plan of Treatment Upcoming Encounters Date Type Department Care Team (Late st Contact Info) Description 11/22/2024 2:00 PM EST Office Visit Dermatology [facility] [address] [facility] [place] [address] Malcom Da Silva MD [address] [facility] [place] [address] 06/06/2025 11:00 AM EDT Office Visit [address] [place] [phone] Heide Reyna PA-C [address] [place] [address] [place] [address] Health Maintenance Due Date Last Done Comments [...] Additional history exists CKD HGB USE SMARTSET 51183 01/16/202501/16, 01/13/2023, 01/12/2022, Additional history exists CKD PHOS USE SMARTSET 10334 01/16/202512/23, 01/13/2023, 01/12/2022, Additional history exists O2 ASSESSMENT COMPLETED IN PAST YEAR FOR COPD 08/15/2025 08/15/2024 Pneumococcal Vaccine: 65+ Years Completed 09/12/2020, 08/05/2015, 08/24/2006 VITAMIN D LEVEL ONCE IN A LIFETIME-USE SMARTSET# [id number] Completed 01/13/2023, 07/24/2015, 02/06/2014, Additional history exists [...] as of this encounter Visit Diagnoses Diagnosis Stage 3b chronic kidney disease- Primary Callus of foot Corns and callosities Pain in right foot Pain in limb documented in this encounter Advance Directives Documents on File Type Date Recorded Patient Core Blower Expl anation POLST 01/13/2023 [place] OR [facility] FOR LIFE-SUSTAINING TREATMENT Care Teams Health Diagnostics Teacher Relationship Specialty Start Date End Date Bela Bullock PA-C [address] [facility] [place] [address] PCP - General Physician Medical Assistant Per Diem 07/17/24 documented as of this encounter
--- OUTSIDE RECORDS SUMMARY | 2024-12-15 07:49 | External Medical Summary | Summary of Care ---
Author Name Unknown Organization [facility] Address [address] [place] [facility] [address] Phone [phone] Care Team Providers Care Bat Boy/Girl Name Role Phone Bela Bullock PA-C Primary Care Provider [phone] Reason for Visit * Reason Comments eRx-Medication Refill Encounter Details Date Type Department Care Team (Late st Contact Info) Description 10/25/[address] [facility] [address] [place] [address] Bela Bullock PA-C [address] [facility] [place] [address] Primary osteoarthritis of one hip, [...] BULLOCK * Telephone Encounter - Lisandro Cormier [facility] - 10/25/2024 9:59 AM ESTPending Prescriptions: Disp Refills traMADol HCl 50 MG Oral Tablet (Ultram) 120 Ta*0 Sig: Take 2 Tablets by mouth 2 times a day as needed for Pain, Severe. * Telephone Encounter - Lisandro Cormier [facility] - 10/25/2024 9:57 AM EST I have reviewed the patients controlled substance dispensing history in the Prescription Drug Monitoring Program in compliance with the [facility] regulations before prescribing a controlled substance. PDMP [...] is due for refill: 10/23/24 Pharmacy: [id number] [facility] Is this request for a controlled substance? Yes and Urine Drug Screen Not completed Toxicology results: No results found. However, due to the size of the patient record, not all encounters were searched.Please check Results Review for a complete set of results. Please approve if appropriate. Thank You, Lisandro Stanton [facility] Clinical Pharmacist Centralized Clinical Pharmacy Services ([facility]) 10/25/2024, 9:58 AM * Telephone Encounter - Don Parr, plant machinist - 10/25/2024 9:39 AM EST Pt needs RX Expedited and filled today! She only has a putaway driver available to get her medication today! Pt thought pharmacy called it in at appropriate time. Did you pend patient's preferred pharmacy and medication before forwarding?yes Pharmacy: [id number] [address] [place] [address] Pending Prescriptions: Disp Refills traMADol HCl 50 [...] was the last refill date 09/24/2024 w/ [id number] tabs and dosage 50 mg and Urine [...] 11/02/2024 2:00 PM EST Office Visit Podiatry [facility] [address] [facility] [place] [address] Ame Calderón, KADY 400 [facility] [place] [address] 11/22/2024 2:00 PM EST Office Visit Dermatology [facility] [address] [facility] [place] [address] Malcom Da Silva MD [address] [facility] [place] [address] 06/06/2025 11:00 AM EDT Office Visit [address] [place] [address] Heide Reyna PA-C [address] [place] [address] [place] [address] Health Maintenance Due Date Last Done Comments [...] Additional history exists CKD HGB USE SMARTSET 91647 01/16/202501/16, 01/13/2023, 01/12/2022, Additional history exists CKD PHOS USE SMARTSET 25257 01/16/202512/23, 01/13/2023, 01/12/2022, Additional history exists O2 ASSESSMENT COMPLETED IN PAST YEAR FOR COPD 08/15/2025 08/15/2024 Pneumococcal Vaccine: 65+ Years Completed 09/12/2020, 08/05/2015, 08/24/2006 VITAMIN D LEVEL ONCE IN A LIFETIME-USE SMARTSET# 33586 Completed 01/13/2023, 07/24/2015, 02/06/2014, Additional history exists [...] Documents on File Type Date Recorded Patient Rubber Liner Expl anation POLST 01/13/2023 [place] OR [facility] FOR LIFE-SUSTAINING TREATMENT Care Teams Bat Boy/Girl Relationship Specialty Start Date End Date Bela Bullock PA-C [address] [place] [address] PCP - General Physician Pickle Processor 07/17/24 documented as of this encounter
--- OUTSIDE RECORDS SUMMARY | 2024-12-15 07:50 | External Medical Summary | Summary of Care ---
Author Name Unknown Organization [facility] Address [address] [place] [address] Phone [phone] Care Team Providers Care Kiln Operator Name Role Phone Bela Bullock PA-C Primary Care Provider [phone] Reason for Visit * Reason Onset Date Comments Returning Call 10/09/2024 Encounter Details Date Type Department Care Team (Late st Contact Info) Description 10/09/2024 Telephone [facility] [address] [place] [address] Bela Bullock PA-C [address] [place] [address] Returning Call Allergies Active Allergy Reactions Criticality Noted Date Comments Alendronate Sodium 04/19/2013 Vomiting documented as of this encounter (statuses as of 10/12/2024) Medications ASPIRIN 81 MG PO CHEW Two chewable by mouth once a day with food 100 6 8 Active CALTRATE 600+D PLUS 600-800 MG-UNIT PO CHEW 1 TABLET TWICE DAILY WITH FOOD 4 Active Ascorbic Acid ER 500 MG TBCR Take 500 mg by mouth daily. Active Stiolto Respimat 2.5-2.5 MCG/ACT Inhalation Aerosol Solution (Tiotropium-Olodat jona) INHALE 2 PUFFS BY MOUTH EVERY DAY 12 g 2 4 Active Atorvastatin Calcium 40 MG Oral Tablet [...] BEFORE BEDTIME 90 Capsule 5 4 Active traMADol HCl 50 MG Oral Tablet (Ultram)Indication s:Primary osteoarthritis of one hip, left TAKE 2 TABLETS BY MOUTH 2 TIMES A DAY NEEDED FOR PAIN, SEVERE. 120 Tablet 4 Active documented as of this encounter (statuses as of 10/12/2024) Active Problems Problem Noted Date Diagnosed Date [...] as of this encounter (statuses as of 10/12/2024) Resolved Problems Problem Noted Date Diagnosed Date [...] as of this encounter (statuses as of 10/12/2024) Immunizations Name Administration Dates Next Due COVID-19 [...] No 01/08/2024 Does the household have a [facility] source of income? (Household - for ages [...] encounter Miscellaneous Notes * Telephone Encounter - Alexia Montemayor CPhT - 10/12/2024 9:38 AM EST Pt calling back regarding UTI. Warm transfer to [facility]yn for further assistance. Thank you, Alexia Montemayor CPhT Yield Improvement Engineer II [facility] 10/12/2024, 9:40 AM * Telephone Encounter - Renetta Dhaliwal PHARM Tech - 10/09/2024 4:14 PM EST Pt returning phone call regarding lab work required for suspected UTI. Warm transferred to [facility]. Thank you, Renetta Dhaliwal, System Operator System Operator I [facility]) 10/09/2024,4:15 PM documented in this encounter Plan of Treatment Upcoming Encounters Date Type Department Care Team (Late st Contact Info) Description 11/02/2024 2:00 PM EST Office Visit Podiatry [facility] 132 [facility] [place] [address] Ame Calderón DPM 400 [facility] [place] [address] 11/22/2024 2:00 PM EST Office Visit Dermatology [facility] 200 [facility] [place] [address] Malcom Da Silva MD [address] [place] [address] 06/06/2025 11:00 AM EDT Office Visit [facility]atology [facility] [address] Heide Reyna PA-C [address] [place] [address] [place] [address] Health Maintenance Due Date Last Done Comments [...] Additional history exists CKD HGB USE SMARTSET 46664 01/16/202501/16, 01/13/2023, 01/12/2022, Additional history exists CKD PHOS USE SMARTSET 47614 01/16/202512/23, 01/13/2023, 01/12/2022, Additional history exists O2 ASSESSMENT COMPLETED IN PAST YEAR FOR COPD 08/15/2025 08/15/2024 Pneumococcal Vaccine: 65+ Years Completed 09/12/2020, 08/05/2015, 08/24/2006 VITAMIN D LEVEL ONCE IN A LIFETIME-USE SMARTSET# [id number] Completed 01/13/2023, 07/24/2015, 02/06/2014, Additional history exists [...] Documents on File Type Date Recorded Patient 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
--- OUTSIDE RECORDS SUMMARY | 2024-12-15 07:50 | External Medical Summary | Summary of Care ---
Author Name Unknown Organization [facility] Address [address] [place] [address] Phone [phone] Care Team Providers Care Hollow Core Door Frame Assembler Name Role Phone Bela Bullock PA-C Primary Care Provider [phone] Reason for Visit * Reason Onset Date Comments Health Maintenance 10/11/2024 Encounter Details Date Type Department Care Team (Late st Contact Info) Description 10/11/2024 Telephone [facility] [address] [place] [address] Bela Bullock PA-C [address] [place] [address] Health Maintenance Allergies Active Allergy Reactions Criticality Noted Date Comments Alendronate Sodium 04/19/2013 Vomiting documented as of this encounter (statuses as of 10/11/2024) Medications ASPIRIN 81 MG PO CHEW Two [...] FOR PAIN, SEVERE. 120 Tablet 4 Active Nitrofurantoin Monohyd Macro 100 MG Oral Capsule (Macrobid)Indicati ons:Suspected urinary tract infection Take 1 Capsule by mouth in the morning and 1 Capsule before bedtime. Do all this for 5 days. 10 Capsule 4 10/14/20 24 Active documented as of this encounter (statuses as of 10/11/2024) Active Problems Problem Noted Date Diagnosed Date [...] as of this encounter (statuses as of 10/11/2024) Resolved Problems Problem Noted Date Diagnosed Date [...] as of this encounter (statuses as of 10/11/2024) Immunizations Name Administration Dates Next Due COVID-19 [...] No 01/08/2024 Does the household have a [facility] source [facility]? (Household - for ages [...] encounter Miscellaneous Notes * Telephone Encounter - Rosa Maria SchneiderBERT - 10/11/2024 8:21 AM EST Care Gaps Comprehensive Care Outreach Last Office/Telemedicine Visit: 08/15/2024 (in office), 05/30/2024 (telemedicine) Next Office Visit: Visit date not found Hemoglobin AIC Results: No results found for: "HEMOGLOBIN A1C" BP Readings from Last 1 Encounters: 08/15/24 124/80 Reviewed Health Maintenance below: Health Maintenance Topic Date Due Alpha-1 Antitrypsin Never done AAA Monitoring 09/18/2020 Zoster Vaccines (3 of 3) 11/07/2020 *BISPHONATE OR OTHER ACCEPTABLE MEDICATION NEEDED FOR OSTEOPOROSIS (REFER TO SMARTSET #1146) Never done DTap/Tdap Vaccines (2 - Td or Tdap) 12/05/2022 Depression Monitoring 09/15/2023 Adult Wellness Visit 09/15/2023 Albumin/Creatinine Ratio 01/13/2024 Ov Aaa moniror Urine feb Care Gap Outreach Action Taken: Left message and MyChart message sent documented in this encounter Plan of Treatment Upcoming Encounters Date Type Department Care Team (Late st Contact Info) Description 11/02/2024 2:00 PM EST Office Visit Podiatry [facility] 132 [facility] [place] [address] Ame Calderón DPM 400 [facility] [place] [address] 11/22/2024 2:00 PM EST Office Visit Dermatology [facility] 200 [facility] [place] [address] Malcom Da Silva MD 200 [facility] [place] [address] 06/06/2025 11:00 AM EDT Office [facility] [address] [place] [id number] Heide Reyna PA-C [address] [place] [address] [place] [address] Health Maintenance Due Date Last Done Comments [...] Additional history exists CKD HGB USE SMARTSET 12666 01/16/202501/16, 01/13/2023, 01/12/2022, Additional history exists CKD PHOS USE SMARTSET 58857 01/16/202512/23, 01/13/2023, 01/12/2022, Additional history exists O2 ASSESSMENT COMPLETED IN PAST YEAR FOR COPD 08/15/2025 08/15/2024 Pneumococcal Vaccine: 65+ Years Completed 09/12/2020, 08/05/2015, 08/24/2006 VITAMIN D LEVEL ONCE IN A LIFETIME-USE SMARTSET# [id number] Completed 01/13/2023, 07/24/2015, 02/06/2014, Additional history exists [...] Documents on File Type Date Recorded Patient Confectionery Maker Expl anation POLST 01/13/2023 [place] OR [facility] FOR LIFE-SUSTAINING TREATMENT Care Teams Hollow Core Door Frame Assembler Relationship Specialty Start Date End Date Bela Bullock PA-C [address] [facility] [place] [id number] PCP - General Physician Tapering Machine Operator 07/17/24 documented as of this encounter
--- OUTSIDE RECORDS SUMMARY | 2024-12-15 07:50 | External Medical Summary | Summary of Care ---
Author Name Unknown Organization [facility] Address [address] [place] [address] Phone [phone] Care Team Providers Care Management Architect Name Role Phone Bela Bullock PA-C Primary Care Provider [phone] Reason for Visit * Reason Onset Date Comments Returning Call 10/09/2024 Encounter Details Date Type Department Care Team (Late st Contact Info) Description 10/09/2024 Telephone [facility] [address] [place] [address] Bela Bullock PA-C [address] [place] [address] Returning Call Allergies Active Allergy Reactions Criticality Noted Date Comments Alendronate Sodium 04/19/2013 Vomiting documented as of this encounter (statuses as of 10/10/2024) Medications ASPIRIN 81 MG PO CHEW Two [...] as of this encounter (statuses as of 10/10/2024) Active Problems Problem Noted Date Diagnosed Date [...] as of this encounter (statuses as of 10/10/2024) Resolved Problems Problem Noted Date Diagnosed Date [...] as of this encounter (statuses as of 10/10/2024) Immunizations Name Administration Dates Next Due COVID-19 [...] encounter Miscellaneous Notes * Telephone Encounter - Renetta Dhaliwal PHARM Tech - 10/09/2024 4:14 PM EST Pt returning phone call regarding lab work required for suspected UTI. Warm transferred to [facility]. Thank you, Renetta Dhaliwal, Vocational Rehabilitation Administrator Vocational Rehabilitation Administrator I [facility] 10/09/2024,4:15 PM documented in this encounter Plan of Treatment Upcoming Encounters Date Type Department Care Team (Late st Contact Info) Description 11/02/2024 2:00 PM EST Office Visit Podiatry [facility] [address] [facility] [place] [address] Ame Calderón, DPM [address] [place] [address] 11/22/2024 2:00 PM EST Office Visit Dermatology [employer] [address] [place] [address] Malcom Da Silva MD [address] [place] [address] 06/06/2025 11:00 AM EDT Office Visit Dermatology [place] [facility] [address] [facility] [place] [address] Heide Reyna PA-C [address] [place] [address] [place] [address] Health Maintenance Due Date Last Done Comments [...] Additional history exists CKD HGB USE SMARTSET 92347 01/16/202501/16, 01/13/2023, 01/12/2022, Additional history exists CKD PHOS USE SMARTSET 62631 01/16/202512/23, 01/13/2023, 01/12/2022, Additional history exists O2 ASSESSMENT COMPLETED IN PAST YEAR FOR COPD 08/15/2025 08/15/2024 Pneumococcal Vaccine: 65+ Years Completed 09/12/2020, 08/05/2015, 08/24/2006 VITAMIN D LEVEL ONCE IN A LIFETIME-USE SMARTSET# 69513 Completed 01/13/2023, 07/24/2015, 02/06/2014, Additional history exists [...] Documents on File Type Date Recorded Patient Medical Videographer Expl anation POLST 01/13/2023 [place] OR [facility] FOR LIFE-SUSTAINING TREATMENT Care Teams Management Architect Relationship Specialty Start Date End Date Bela Bullock PA-C [address] [place] [facility] [place] [place] [address] PCP - General Physician Physician President 07/17/24 documented as of this encounter
--- OUTSIDE RECORDS SUMMARY | 2024-12-15 07:50 | External Medical Summary | Summary of Care ---
Author Name Unknown Organization [facility] Address [address] [place] [address] Phone [phone] Care Team Providers Care Alley Tender Name Role Phone Bela Fleming PA-C Primary Care Provider [phone] Reason for Visit * Reason Comments eRx-Medication Refill Encounter Details Date Type Department Care Team (Late st Contact Info) Description 10/22/2024 Refill [facility] [address] [facility] [place] [address] Dionisio Mayer MD 226 [facility] [place] [address] Allergies Active Allergy Reactions Criticality Noted Date Comments Alendronate Sodium 04/19/2013 Vomiting documented as of this encounter (statuses as of 10/23/2024) Medications ASPIRIN 81 MG PO CHEW Two [...] BEDTIME 90 Capsule 5 09/03/20 24 Active traMADol HCl 50 MG Oral Tablet (Ultram)Indicatio ns:Primary osteoarthritis of one hip, left TAKE 2 TABLETS BY MOUTH 2 TIMES A DAY NEEDED FOR PAIN, SEVERE. 120 Tablet 09/24/20 24 Active Stiolto Respimat 2.5-2.5 MCG/ACT Inhalation Aerosol Solution (Tiotropium-Oloda terol) INHALE 2 PUFFS BY MOUTH EVERY DAY 12 g 3 10/23/20 24 Active Stiolto Respimat 2.5-2.5 MCG/ACT Inhalation Aerosol Solution (Tiotropium-Oloda terol) INHALE 2 PUFFS BY MOUTH EVERY DAY 12 g 2 04/09/20 24 024 Discontinued documented as of this encounter (statuses as of 10/23/2024) Active Problems Problem Noted Date Diagnosed Date [...] as of this encounter (statuses as of 10/23/2024) Resolved Problems Problem Noted Date Diagnosed Date [...] as of this encounter (statuses as of 10/23/2024) Immunizations Name Administration Dates Next Due COVID-19 [...] No 01/08/2024 Does the household have a [facility] source [facility]? (Household - for ages [...] Miscellaneous Notes * Telephone Encounter - Donn Lang, [facility] - 10/23/2024 5:19 PM ESTSigned Prescriptions: Disp Refills Stiolto Respimat 2.5-2.5 MCG/ACT Inhalatio*12 g 3 Sig: INHALE 2 PUFFS BY MOUTH EVERY DAYAuthorizing Provider: BELA F[place] AOrdering User: DONN ALNG---- documented in this encounter Plan of Treatment Upcoming Encounters Date Type Department Care Team (Late st Contact Info) Description 11/02/2024 2:00 PM EST Office Visit Podiatry [facility] 132 [facility] [place] [address] Ame Calderón, KADY 400 [facility] [place] [address] 11/22/2024 2:00 PM EST Office Visit Dermatology [facility] 200 [facility] [place] [address] Malcom Da Silva MD 200 [facility] [place] [address] 06/06/2025 11:00 AM EDT Office [facility] [address] [facility] [place] [address] Heide Reyna PA-C [address] [place] [address] [place] [address] Health Maintenance Due Date Last Done Comments [...] Additional history exists CKD HGB USE SMARTSET 23762 01/16/202501/16, 01/13/2023, 01/12/2022, Additional history exists CKD PHOS USE SMARTSET 21160 01/16/202512/23, 01/13/2023, 01/12/2022, Additional history exists O2 ASSESSMENT COMPLETED IN PAST YEAR FOR COPD 08/15/2025 08/15/2024 Pneumococcal Vaccine: 65+ Years Completed 09/12/2020, 08/05/2015, 08/24/2006 VITAMIN D LEVEL ONCE IN A LIFETIME-USE SMARTSET# [id number] Completed 01/13/2023, 07/24/2015, 02/06/2014, Additional history exists [...] Documents on File Type Date Recorded 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
--- NOTE | 2024-12-15 08:38 | XRay Report ---
XR chest 1V portable CLINICAL HISTORY: SOB COMPARISON STUDY: 10/27/2023 FINDINGS: There is stable mild cardiomegaly without pulmonary vascular congestion. Stable mild reticu lar opacities in the lung bases. No lobar consolidation or pleural effusion. No pneumothorax. IMPRESSION: No lobar pneumonia is seen. ACT 112: Negative or not required by law. Electronically signed by: Kal Sneed M.D. 12/15/2024 8:37 AM
[2024-12-15 08:43] LABS: Basophils # (auto) 0.03 K/uL (0.00-0.20); Basophils % (auto) 0.2 %; Eosinophils # (auto) 0.48 K/uL (0.00-0.50); Eosinophils % (auto) 3.1 %; Hematocrit (blood only) 40.5 % (37.0-47.0); Hemoglobin 13.7 g/dl (12.0-16.0); Immature Granulocytes # (auto) 0.06 K/uL (0.01-0.20); Immature Granulocytes % (auto) 0.4 %; Lymphocytes # (auto) 0.46 K/uL (1.20-3.40); Lymphocytes % (auto) 2.9 %; Mean Corpuscular Hemoglobin 33.3 pg (25.0-34.0); Mean Corpuscular Hgb Conc 33.8 g/dL (32.0-36.0); Mean Corpuscular Volume 98.3 fL (80.0-100.0); Mean Platelet Volume 9.6 fL (9.4-12.4); Monocytes % (auto) 7.7 %; Neutrophils # (auto) 13.41 K/uL (1.40-6.50); Neutrophils % (auto) 85.7 %; Platelet Count 218 K/uL (130-400); RDW Coefficient of Variation 12.6 % (11.5-14.5); RDW Standard Deviation 45.1 fL (36.4-46.3); Red Blood Count 4.12 M/uL (4.20-5.40); White Blood Count 15.64 K/ul (4.8-10.8)
[2024-12-15 08:52] LABS: Albumin Globulin Ratio 1.2 (0.9-2); Albumin Level 3.7 gm/dl (3.4-5.0); C Reactive Protein 14.59 mg/dl (0-0.5); Calcium 9.6 mg/dl (8.6-10.3); Creatinine Clr Calc Pharmacy 33.7 ml/min; Potassium 3.7 mmol/L (3.5-5.1); Total Protein 6.7 gm/dl (6.0-8.3)
[2024-12-15 08:58] LABS: Troponin I High Sensitivity 21.5 pg/ml (0-14)
[2024-12-15 09:00] LABS: INR 0.9 (0.9-1.1); Prothrombin Time 10.3 Seconds (9.0-12.0)
--- NOTE | 2024-12-15 09:05 | CT Scan Report ---
CT head/brain wo con CLINICAL HISTORY: Weakness. TECHNIQUE: Multiple axial CT images of the head were obtained without contrast. A dose lowering tech nique was utilized adhering to the principles of ALARA. CT DOSE: 547.75 mGy.cm COMPARISON: 01/17/2018. FINDINGS: Stable right periventricular calcification. Stable mild chronic small vessel ischemic pollard es. Stable mild prominence of the ventricles mildly out of proportion to the sulci, mild cerebral atr ophy versus mild normal pressure hydrocephalus. No intracranial hemorrhage seen. No mass effect or mi dline shift. No skull fracture seen. Visualized paranasal sinuses are clear. No mastoid effusion. IMPRESSION: No acute findings. ACT 112: Negative or not required by law. The above report was generated using voice recognition software. It may contain grammatical, syntax o r spelling errors. Electronically signed by: Kal Sneed M.D. 12/15/2024 9:02 AM
[2024-12-15 09:09] LABS: Appearance Urine Clear (Clear); Bacteria Urine Automated None Seen (None Seen); Bilirubin Urine Negative (Negative); Blood Urine Negative (Negative); Color Urine Yellow; Glucose Urine UA Negative (Negative); Ketones Urine Trace (Negative); Leukocyte Esterase Urine 2+ (Negative); Nitrite Urine Negative (Negative); Protein Urine Trace (Negative); RBC Urine Automated 0-2 /hpf (0-2); Urobilinogen Urine Negative (Negative); pH Urine 5.5 (4.5-7.5)
[2024-12-15 09:25] LABS: Adenovirus PCR Not Detected (NotDetected); Bordetella parapertussis PCR Not Detected (NotDetected); Bordetella pertussis PCR Not Detected (NotDetected); Chlamydia pneumoniae PCR Not Detected (NotDetected); Coronavirus 229E PCR Not Detected (NotDetected); Coronavirus CoV-2 (COVID19)PCR Not Detected (NotDetected); Coronavirus HKU1 PCR Not Detected (NotDetected); Coronavirus NL63 PCR Not Detected (NotDetected); Coronavirus OC43PCR Not Detected (NotDetected); Human Metapneumovirus PCR Not Detected (NotDetected); Influenza A PCR Not Detected (NotDetected); Influenza B PCR Not Detected (NotDetected); Mycoplasma pneumoniae PCR Not Detected (NotDetected); Parainfluenza Virus 1 PCR Not Detected (NotDetected); Parainfluenza Virus 2 PCR Not Detected (NotDetected); Parainfluenza Virus 3 PCR Not Detected (NotDetected); Parainfluenza Virus 4 PCR Not Detected (NotDetected); Respiratory Syncytial VirusPCR Not Detected (NotDetected); Rhinovirus/Enterovirus PCR Not Detected (NotDetected)
[2024-12-15] MEDS: SODIUM CHLORIDE 0.9% 1,000 ML IV STA (09:57)
[2024-12-15] MEDS: cefTRIAXone SODIUM 2,000 MG/50 ML BAG IV STA (09:57)
--- NOTE | 2024-12-15 10:18 | History & Physical Report ---
Date of Service December 15, 2024 Assessment & Plan (1) Fall: Plan: Fall Generalized weakness Ambulatory dysfunction Likely secondary to urinary tract infection Currently denies any pain from the fall Fall precautions PT OT as able Urinary tract infection Was started on Macrobid on Nov Blood, urine cultures pending Empirically started on Rocephin Gentle IV fluids as needed Suspected URI H/O COPD Ongoing tobacco use Transient hypoxia while in ED CXR showed no signs of pneumonia Mildly elevated procalcitonin Continue home inhalers Advise to quit smoking Nicotine patch Continue Rocephin, added doxycycline Supplemental oxygen to maintain saturations 88 to 92% Mild troponin elevation Likely demand ischemia Troponin trending down Patient denies any chest pain, dyspnea Monitor Chronic transaminitis Will obtain gallbladder ultrasound Monitor LFTs Lower extremity erythematous rash Intermittent, chronic as per patient Arterial Dopplers pending Other chronic conditions: Hyperlipidemia Abdominal aortic aneurysm CKD stage III Depression Vitamin D deficiency Osteoporosis Continue home medications as able DVT Px: Lovenox SQ CODE STATUS Full code Disposition Admit to Med/Surg PT OT prior to discharge History of Present Illness Chief Complaint: Fall Primary Care Provider: Dionisio Mayer MD Patient is an 83-year-old female with history of COPD, tobacco use disorder, abdominal aortic aneurysm, CKD stage III, vitamin D deficiency, chronic LFT elevation, dyslipidemia, depression, GERD and other medical problems presents with history of fall. Patient states having generalized weakness which has been gradually worsening since 2-1/2 weeks. Reports abdominal pressure, cloudy urine which she noticed 2 weeks ago and normal discussion with her PCP, patient was prescribed Macrobid on of this month which has she has been taking. She denies any dysuria, increased urinary frequency but admits to have intermittent fever. She feels very tired and sleepy on most days. Since starting the antibiotic, symptoms slightly better but still urine remains cloudy per patient. While she was trying to go to the bathroom today, patient slid down the bed landing on her buttock. She denies any loss of consciousness, head trauma, dizziness. She could not get up from the floor and family called 911 for further assistance. She reports chronic cough with whitish expectoration which she attributes to her chronic tobacco use. Also reports chronic nausea which is unchanged. Denies any history of chest pain, dyspnea, palpitations, pedal edema, hemoptysis, vomiting, abdominal pain. Allergies Allergy/AdvReac Type Severity Reaction Status Date / Time alendronate sodium AdvReac Severe Vomiting Verified 09/12/24 12:53 Home Medications Medication Instructions Recorded Confirmed Type atorvastatin 40 mg tablet 40 mg PO DAILY 08/30/18 12/15/24 History bupropion HCl 150 mg tablet,12 hr 150 mg PO BID 08/30/18 12/15/24 History sustained-release calcium 600 mg (as carbonate)-vit 1 tab PO DAILY 11/11/18 12/15/24 History D3 20 mcg (800 unit) chewable tablet (Caltrate plus D) ascorbic acid (vitamin C) 500 mg 500 mg PO DAILY 12/30/18 12/15/24 History capsule,extended release ondansetron HCl 4 mg tablet 4 mg PO Q6H PRN Nausea 12/30/18 12/15/24 History albuterol sulfate 90 mcg/actuation 2 puff inhalation Q4 PRN Shortness 10/27/23 12/15/24 History aerosol inhaler Of Breath Or Wheezing tiotropium 2.5 mcg-olodaterol 2.5 2 puff inhalation DAILY 10/27/23 12/15/24 History mcg/actuation mist for inhalation (Stiolto Respimat) Prolia 60 mg/mL subcutaneous 60 mg subcut ONCE #1 mL 03/13/24 12/15/24 Rx syringe (denosumab) aspirin 81 mg tablet,delayed 81 mg PO BID 03/20/24 12/15/24 History release tramadol 50 mg tablet 100 mg PO BID PRN Severe Pain 07/25/24 12/15/24 History (Scale Score 7-10) gabapentin 300 mg capsule See Rx Instructions .Route .COMPLEX 12/15/24 12/15/24 History nitrofurantoin 100 mg PO BID 12/15/24 12/15/24 History monohydrate/macrocrystals 100 mg capsule Past Med/Surg History Problem List (Updated 12/15/24 @ 11:13 by Kalin Marinelli MD) Fall Osteoarthritis of left hip Osteoporosis Fam hx-ischem heart disease History of tobacco abuse Dyslipidemia HTN (hypertension) Chest pain at rest History of abdominal aortic aneurysm (AAA) (Acute) Atypical chest pain (Acute) Recurrent UTI (urinary tract infection) Sepsis (Acute) Chest pain (Acute) Pericardial effusion (Acute) Sepsis due to Escherichia coli with no resultant organ failure Acute kidney failure Hydronephrosis of left kidney Bacteremia UTI (urinary tract infection) Sepsis (Acute) Anemia Chest pain (Acute) Acute pancreatitis (Acute) AAA (abdominal aortic aneurysm) (Acute) HLD (hyperlipidemia) (Chronic) Dizziness Medical History Peripheral vascular disease CVA (cerebral vascular accident) Family History Other Heart disease Social History Smoking Status: Former smoker Tobacco Type: Cigarettes Cigarettes Per Day: 3; Do You Dip or Chew Tobacco: No; Hx Alcohol Use: Yes ("occasional glass of wine") Alcohol type: wine Hx Substance Use: No Preferred Language: Hungarian Communication Ability: Effective Unix Systems Administrator Required: No Beliefs That Will Affect Care: None marital status: Current Living Situation: Spouse 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 Feels Safe at Home: Yes Assistive Devices: None Review of Systems Review of Systems: All systems reviewed & are unremarkable except as noted in Subjective Physical Exam Physical Exam: Physical Exam: Vitals signs as noted above General Appearance:Moderately built and nourished, no apparent distress Head: normocephalic, Atraumatic Eyes: normal inspection, EOMI Neck: supple, Trachea midline Respiratory/Chest: Decreased breath sounds, scant wheezing, No accessory muscle use Cardiovascular: S1, S2, +murmur Abdomen/GI:Soft, Non tender, mildly distended, Bowel sounds present Extremities/Musculoskeletal:normal inspection, no edema, Chronic erythematous rash on B/L LE Neurologic/Psych:AAOX3, grossly no focal neurological deficits Skin: normal color, warm Results & Data Results & Data Vital Signs (Past 12 Hours) Vital Signs Temp Pulse Pulse Resp BP BP Pulse Ox 12/15/24 09:30 88 20 93 12/15/24 09:30 125/59 L 12/15/24 09:09 90 20 94 12/15/24 09:00 117/65 12/15/24 08:54 93 H 18 95 12/15/24 08:52 114/72 12/15/24 08:18 93 H 21 93 12/15/24 08:15 97/64 L 12/15/24 08:12 95 H 20 93 12/15/24 08:12 96 H 12/15/24 08:02 97 H 21 99/60 L 93 12/15/24 08:02 37.3 C 97 H 20 102/53 L 88 L 12/15/24 08:00 99/60 L 12/15/24 08:00 95 H 20 94 12/15/24 07:51 89/72 L O2 Del Method O2 Flow Rate 12/15/24 09:30 12/15/24 09:30 12/15/24 09:09 12/15/24 09:00 12/15/24 08:54 12/15/24 08:52 12/15/24 08:18 12/15/24 08:15 12/15/24 08:12 12/15/24 08:12 12/15/24 08:02 Nasal Cannula 2 12/15/24 08:02 Room Air 12/15/24 08:00 12/15/24 08:00 12/15/24 07:51 Laboratory Results Short CBC 12/15/24 Range/Units 07:57 WBC 15.64 H (4.8-10.8) K/ul Hgb 13.7 (12.0-16.0) g/dl Hct 40.5 (37.0-47.0) % Plt Count 218 (130-400) K/uL BMP 12/15/24 07:57 Sodium 136 Potassium 3.7 Chloride 103 Carbon Dioxide 24 BUN 26 H Creatinine 1.04 Glucose 140 H Calcium 9.6 Liver Function 12/15/24 Range/Units 07:57 Total Bilirubin 1.0 (0.2-1.0) mg/dl AST 124 H (13-39) U/L ALT 115 H (7-52) U/L Alkaline Phosphatase 120 H (34-104) U/L Albumin 3.7 (3.4-5.0) gm/dl Urine 12/15/24 Range/Units 08:45 Urine Color Yellow Urine Appearance Clear (Clear) Urine pH 5.5 (4.5-7.5) Ur Specific [place] 1.010 (1.000-1.030) Urine Protein Trace H (Negative) Urine Glucose (UA) Negative (Negative) Diagnostic Findings --CT head: No acute findings. --CXR:No lobar pneumonia is seen. ECG Additional Comments: --EKG: Normal sinus rhythm, low voltage QRS, nonspecific ST abnormality, QTc 416
--- NOTE | 2024-12-15 10:50 | Emergency Department Note ---
ED Visit Note I was consulted by the Advanced Practice Provider, Delonte Underwood PA-C. I personally made/approved the management plan and take responsibility for the patient management. I performed a substantive portion of the visit. This includes the aspects of case review, laboratory evaluation and imaging studies. Head CT is negative for acute intracranial process. Patient does have evidence of UTI with elevated WBC, CRP, procalcitonin and sed rate. Lactate is normal. Patient was medicated with IV ceftriaxone and 1 L of normal saline solution for initial hydration. Patient does have a history of congestive heart failure and vital signs have remained stable, therefore fluid administration will be slowed from the recommended 30 mL/kg. Patient will be evaluated for admission and further management. Please see Delonte Underwood PA-C's notes for further details of the history, physical and visit. .
[2024-12-15] MEDS ORDERED: ALBUTEROL HFA 8 GM INHALER INH PRN (11:05)
--- NOTE | 2024-12-15 11:27 | Electrocardiogram Report ---
Test Reason : Blood Pressure : */* mmHG Vent. Rate : 96 BPM Atrial Rate : 96 BPM P-R Int : 132 ms QRS Dur : 72 ms QT Int : 330 ms P-R-T Axes : 69 32 75 degrees QTcB Int : 416 ms Normal sinus rhythm Low voltage QRS Nonspecific ST abnormality Abnormal ECG When compared with ECG of 26-Oct-2023 23:42, No significant change was found Confirmed by Pretty Mckee (Alida) on 12/15/2024 11:27:00 AM Referred By: REFERRED SELF Confirmed By: Pretty Mckee
--- NOTE | 2024-12-15 11:41 | Emergency Department Note ---
ED Provider Note History of Present Illness Chief Complaint: Fall Time Seen by Provider: 12/15/24 08:12 83-year-old female who presents the emergency department via EMS for evaluation of a fall this morning while she was trying to get out of bed to go to the bathroom. The patient reports that she slipped and fell. She does not think that she hit her head, and did not have any loss of consciousness. The patient was unable to get up, therefore she called family, who came to the house to assist, but still had difficulty getting her onto the bed. 911 was then called for transport to the emergency department. The patient reports that she has been having urinary symptoms now for the past several weeks. When she noticed that her urine was getting cloudy, she called her family doctor 4 days ago, and provided a prescription for Macrobid antibiotics. The patient reports that symptoms did not improve. She reports weakness over the past few days as well. She denies any nausea, vomiting, chills or known fever. The patient reports that she has been admitted in the past for sepsis from a UTI. The patient currently denies any chest pain, shortness of breath or diarrhea. The patient also reports redness of her legs over the past several months. Upon further questioning, the patient reports a long history of smoking, starting as a child. She denies any pain in her legs. Home Medications Medication Instructions Recorded Confirmed Type atorvastatin 40 mg tablet 40 mg PO DAILY 08/30/18 12/15/24 History bupropion HCl 150 mg tablet,12 hr 150 mg PO BID 08/30/18 12/15/24 History sustained-release calcium 600 mg (as carbonate)-vit 1 tab PO DAILY 11/11/18 12/15/24 History D3 20 mcg (800 unit) chewable tablet (Caltrate plus D) ascorbic acid (vitamin C) 500 mg 500 mg PO DAILY 12/30/18 12/15/24 History capsule,extended release ondansetron HCl 4 mg tablet 4 mg PO Q6H PRN Nausea 12/30/18 12/15/24 History albuterol sulfate 90 mcg/actuation 2 puff inhalation Q4 PRN Shortness 10/27/23 12/15/24 History aerosol inhaler Of Breath Or Wheezing tiotropium 2.5 mcg-olodaterol 2.5 2 puff inhalation DAILY 10/27/23 12/15/24 History mcg/actuation mist for inhalation (Stiolto Respimat) Prolia 60 mg/mL subcutaneous 60 mg subcut ONCE #1 mL 03/13/24 12/15/24 Rx syringe (denosumab) aspirin 81 mg tablet,delayed 81 mg PO BID 03/20/24 12/15/24 History release tramadol 50 mg tablet 100 mg PO BID PRN Severe Pain 07/25/24 12/15/24 History (Scale Score 7-10) gabapentin 300 mg capsule See Rx Instructions .Route .COMPLEX 12/15/24 12/15/24 History nitrofurantoin 100 mg PO BID 12/15/24 12/15/24 History monohydrate/macrocrystals 100 mg capsule Allergies Allergy/AdvReac Type Severity Reaction Status Date / Time alendronate sodium AdvReac Severe Vomiting Verified 09/12/24 12:53 Past Med/Surg History Problem List (Updated 12/15/24 @ 14:35 by Delonte Underwood) Fall from bed (Acute) Weakness (Acute) Transaminitis (Acute) Elevated troponin I level (Acute) Fall Osteoarthritis of left hip Osteoporosis Fam hx-ischem heart disease History of tobacco abuse Dyslipidemia HTN (hypertension) Chest pain at rest History of abdominal aortic aneurysm (AAA) (Acute) Atypical chest pain (Acute) Recurrent UTI (urinary tract infection) Sepsis (Acute) Chest pain (Acute) Pericardial effusion (Acute) Sepsis due to Escherichia coli with no resultant organ failure Acute kidney failure Hydronephrosis of left kidney Bacteremia UTI (urinary tract infection) Sepsis (Acute) Anemia Chest pain (Acute) Acute pancreatitis (Acute) AAA (abdominal aortic aneurysm) (Acute) HLD (hyperlipidemia) (Chronic) Dizziness Medical History Peripheral vascular disease CVA (cerebral vascular accident) Family History Other Heart disease Social History Smoking Status: Former smoker Tobacco Type: Cigarettes Cigarettes Per Day: 3; Do You Dip or Chew Tobacco: No; Hx Alcohol Use: Yes Alcohol type: wine Hx Substance Use: No Preferred Language: Maori Communication Ability: Effective Cardiopulmonary Physical Therapist Required: No Beliefs That Will Affect Care: None marital status: Current Living Situation: Spouse 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 Other Information That Helps Us Care for You: No Feels Safe at Home: Yes Safety Concerns: Feels Safe At This Time Assistive Devices: Glasses and Walker Physical Exam Vital Signs Vital Signs - 24 hr 12/15/24 07:51 12/15/24 08:00 12/15/24 08:00 Temperature Temperature Source Pulse Rate 95 H Pulse Rate [Apical] Pulse Rate from SpO2 Sensor 95 H Respiratory Rate 20 Respiratory Effort / Characteristics Respiratory Depth Respiratory Pattern Blood Pressure 89/72 L 99/60 L Blood Pressure [Right Arm] Blood Pressure Mean 76 75 Blood Pressure Mean [Right Arm] Pulse Oximetry 94 Oxygen Delivery Method Oxygen Flow Rate Sepsis Recent Fever Within 48 Hours Sepsis New/Unexplained Change in Mental Status Sepsis Action Taken by Nursing 12/15/24 08:02 12/15/24 08:02 12/15/24 08:12 Temperature 37.3 C Temperature Source Oral Pulse Rate 97 H 96 H Pulse Rate [Apical] 97 H Pulse Rate from SpO2 Sensor Respiratory Rate 20 21 Respiratory Effort / Characteristics Non-Labored Spontaneous Respiratory Depth Normal Normal Respiratory Pattern Regular Blood Pressure 102/53 L Blood Pressure [Right Arm] 99/60 L Blood Pressure Mean 69 Blood Pressure Mean [Right Arm] 73 Pulse Oximetry 88 L 93 Oxygen Delivery Method Room Air Nasal Cannula Oxygen Flow Rate 2 Sepsis Recent Fever Within 48 Hours No Sepsis New/Unexplained Change in Mental Status No Sepsis Action Taken by Nursing No Action Required 12/15/24 08:12 12/15/24 08:15 12/15/24 08:18 Temperature Temperature Source Pulse Rate 95 H 93 H Pulse Rate [Apical] Pulse Rate from SpO2 Sensor 95 H 93 H Respiratory Rate 20 21 Respiratory Effort / Characteristics Respiratory Depth Respiratory Pattern Blood Pressure 97/64 L Blood Pressure [Right Arm] Blood Pressure Mean 69 Blood Pressure Mean [Right Arm] Pulse Oximetry 93 93 Oxygen Delivery Method Oxygen Flow Rate Sepsis Recent Fever Within 48 Hours Sepsis New/Unexplained Change in Mental Status Sepsis Action Taken by Nursing 12/15/24 08:52 12/15/24 08:54 12/15/24 09:00 Temperature Temperature Source Pulse Rate 93 H Pulse Rate [Apical] Pulse Rate from SpO2 Sensor 95 H Respiratory Rate 18 Respiratory Effort / Characteristics Respiratory Depth Respiratory Pattern Blood Pressure 114/72 117/65 Blood Pressure [Right Arm] Blood Pressure Mean 88 89 Blood Pressure Mean [Right Arm] Pulse Oximetry 95 Oxygen Delivery Method Oxygen Flow Rate Sepsis Recent Fever Within 48 Hours Sepsis New/Unexplained Change in Mental Status Sepsis Action Taken by Nursing 12/15/24 09:09 12/15/24 09:30 12/15/24 09:30 Temperature Temperature Source Pulse Rate 90 88 Pulse Rate [Apical] Pulse Rate from SpO2 Sensor 90 89 Respiratory Rate 20 20 Respiratory Effort / Characteristics Respiratory Depth Respiratory Pattern Blood Pressure 125/59 L Blood Pressure [Right Arm] Blood Pressure Mean 71 Blood Pressure Mean [Right Arm] Pulse Oximetry 94 93 Oxygen Delivery Method Oxygen Flow Rate Sepsis Recent Fever Within 48 Hours Sepsis New/Unexplained Change in Mental Status Sepsis Action Taken by Nursing 12/15/24 09:45 12/15/24 09:54 12/15/24 10:00 Temperature Temperature Source Pulse Rate 90 Pulse Rate [Apical] 90 Pulse Rate from SpO2 Sensor 89 Respiratory Rate 21 20 Respiratory Effort / Characteristics Non-Labored Spontaneous Respiratory Depth Normal Respiratory Pattern Regular Blood Pressure 108/58 L Blood Pressure [Right Arm] Blood Pressure Mean 80 Blood Pressure Mean [Right Arm] Pulse Oximetry 95 96 Oxygen Delivery Method Nasal Cannula Oxygen Flow Rate 1 Sepsis Recent Fever Within 48 Hours Sepsis New/Unexplained Change in Mental Status Sepsis Action Taken by Nursing 12/15/24 10:00 12/15/24 10:00 12/15/24 10:03 Temperature Temperature Source Pulse Rate 88 89 Pulse Rate [Apical] Pulse Rate from SpO2 Sensor 88 89 Respiratory Rate 22 14 Respiratory Effort / Characteristics Respiratory Depth Respiratory Pattern Blood Pressure 127/76 Blood Pressure [Right Arm] Blood Pressure Mean 90 Blood Pressure Mean [Right Arm] Pulse Oximetry 95 96 Oxygen Delivery Method Oxygen Flow Rate Sepsis Recent Fever Within 48 Hours Sepsis New/Unexplained Change in Mental Status Sepsis Action Taken by Nursing 12/15/24 10:15 12/15/24 10:24 12/15/24 10:27 Temperature Temperature Source Pulse Rate 90 91 H Pulse Rate [Apical] Pulse Rate from SpO2 Sensor 90 91 H Respiratory Rate 15 17 Respiratory Effort / Characteristics Respiratory Depth Respiratory Pattern Blood Pressure 126/61 Blood Pressure [Right Arm] Blood Pressure Mean 78 Blood Pressure Mean [Right Arm] Pulse Oximetry 97 98 Oxygen Delivery Method Oxygen Flow Rate Sepsis Recent Fever Within 48 Hours Sepsis New/Unexplained Change in Mental Status Sepsis Action Taken by Nursing 12/15/24 10:30 12/15/24 10:33 12/15/24 10:42 Temperature Temperature Source Pulse Rate 90 92 H Pulse Rate [Apical] Pulse Rate from SpO2 Sensor 90 92 H Respiratory Rate 17 23 Respiratory Effort / Characteristics Respiratory Depth Respiratory Pattern Blood Pressure 132/68 Blood Pressure [Right Arm] Blood Pressure Mean 86 Blood Pressure Mean [Right Arm] Pulse Oximetry 98 98 Oxygen Delivery Method Oxygen Flow Rate Sepsis Recent Fever Within 48 Hours Sepsis New/Unexplained Change in Mental Status Sepsis Action Taken by Nursing 12/15/24 10:45 12/15/24 10:47 12/15/24 10:48 Temperature Temperature Source Pulse Rate 95 H 93 H Pulse Rate [Apical] Pulse Rate from SpO2 Sensor 95 H Respiratory Rate 20 18 Respiratory Effort / Characteristics Respiratory Depth Respiratory Pattern Blood Pressure 143/72 H Blood Pressure [Right Arm] Blood Pressure Mean 94 Blood Pressure Mean [Right Arm] Pulse Oximetry 100 Oxygen Delivery Method Oxygen Flow Rate Sepsis Recent Fever Within 48 Hours Sepsis New/Unexplained Change in Mental Status Sepsis Action Taken by Nursing CONSTITUTIONAL: Healthy and well nourished. Alert and oriented X 3. GCS 15. Patient does not appear in any acute distress. HEENT: Normocephalic, atraumatic. Pupils equal, round and reactive. No scleral icterus or conjunctival injection. Mucous membranes are moist. NECK: Full active range of motion without discomfort. No JVD or carotid bruits. LYMPHATICS: No cervical chain adenopathy. RESPIRATORY: Clear to auscultation bilaterally with no wheezing, crackles, rhonchi or stridor. CARDIOVASCULAR: Regular rate and rhythm with no murmurs, rubs or gallops. GASTROINTESTINAL: Bowel sounds present in all quadrants. Abdomen is soft and nontender to palpation with only minimal suprapubic tenderness to palpation. Negative CVA tenderness. MUSCULOSKELETAL: No erythema or soft tissue edema noted over the major joints. Patient does have generalized erythema without soft tissue edema of the lower extremities. Capillary refill of the toes is delayed at 5 seconds bilaterally. Pedal pulses could not be palpated. INTEGUMENTARY: No rash or other significant dermatologic conditions noted. HEMATOLOGIC: No ecchymosis or petechiae. PSYCHIATRIC: Positive affect. NEUROLOGIC: No focal neurologic deficits noted. Course Course Patient history and physical exam were performed. Nursing notes were reviewed. Vital signs are reviewed, showing hypotension. The patient is not tachycardic, tachypneic or hypoxic on initial presentation. The patient did have an episode of hypoxia of 88% on room air. The patient was placed on a nasal cannula at 2 L/min. An ECG was performed, showing a normal sinus rhythm with low voltage QRS. No ischemic changes or ST elevations noted. Patient was placed on front desk monitor while in the emergency department. Portable chest x-ray was performed and did not show any concerning findings. Review of labs shows a moderate leukocytosis with elevated neutrophil count. Sed rate is also elevated at 67. Coagulation studies were normal. Glucose is elevated at 140. Patient does have transaminitis with elevated alkaline phosphatase. Total bilirubin and lipase are normal. Lactate was normal, however the patient's procalcitonin was elevated at 0.76. Patient also had a mildly elevated troponin. The patient was unable to provide a urine specimen on initial portions of the exam. I did order arterial duplex studies of bilateral lower extremities given skin appearance, poor pedal pulses, and extensive history of tobacco use. Results were delayed, but does show some mild stenosis. An ultrasound right upper quadrant was also performed, and did not show evidence for gallbladder disease. Findings were discussed with the patient, as well as Dr. Mario, ED of the attending physician. At this point, I expressed my concern for some abnormal labs, and recommended admission for further management. The patient was in agreement with this plan. The patient was administered IV Rocephin. [facility] to [facility] the patient. Please see their dictation for further treatment and final disposition. Administered Medications Acetaminophen (Acetaminophen 325 Mg Tab) 650 mg PO Q4H PRN PRN Reason: pain/fever Stop: 01/14/25 12:38 Last Admin: 12/15/24 13:32 Dose: 650 mg Documented By: SEBASTIAN Doxycycline Hyclate (Doxycycline Hyclate 100 Mg Cap) 100 mg PO BID [facility] Stop: 12/20/24 12:38 Last Admin: 12/15/24 13:33 Dose: 100 mg Documented By: SEBASTIAN Gabapentin (Gabapentin 300 Mg Cap) 300 mg PO TID [facility] Stop: 01/14/25 13:59 Last Admin: 12/15/24 13:33 Dose: 300 mg Documented By: SEBASTIAN Sodium Chloride (Nss) 1,000 mls @ 80 mls/hr IV .[id number] ONE Stop: 12/16/24 01:08 Last Admin: 12/15/24 13:18 Dose: 80 mls/hr Documented By: SEBASTIAN Nicotine (Nicotine 14 Mg/24 Hr Patch) 1 patch TD QAM ELENITA Stop: 01/14/25 12:38 Last Admin: 12/15/24 13:33 Dose: 1 patch Documented By: SEBASTIAN Discontinued Medications Ceftriaxone Sodium (Rocephin) 2,000 mg in 50 mls @ 100 mls/hr IV NOW STA Stop: 12/15/24 10:18 Last Infusion: 12/15/24 10:29 Dose: Infused Documented By: Admin: 12/15/24 09:57 Dose: 100 mls/hr Documented By: JIL Sodium Chloride (Nss) 1,000 mls @ 999 mls/hr IV .Q1H1M STA Stop: 12/15/24 10:49 Last Infusion: 12/15/24 11:07 Dose: Infused Documented By: Admin: 12/15/24 09:57 Dose: 999 mls/hr Documented By: JIL Medical Decision Making Medical Records Attestation: I reviewed the patient's medical records. Home Medications was personally reviewed by ok Laboratory Data Attestation: I reviewed the patient's lab results. 12/15/24 07:57 12/15/24 07:57 Lab Results 12/15/24 12/15/24 12/15/24 Range/Units 07:57 08:30 08:45 WBC 15.64 H (4.8-10.8) K/ul RBC 4.12 L (4.20-5.40) M/uL Hgb 13.7 (12.0-16.0) g/dl Hct 40.5 (37.0-47.0) % MCV 98.3 (80.0-100.0) fL MCH 33.3 (25.0-34.0) pg MCHC 33.8 (32.0-36.0) g/dL RDW Std Deviation 45.1 (36.4-46.3) fL RDW Coeff of Kristel 12.6 (11.5-14.5) % Plt Count 218 (130-400) K/uL MPV 9.6 (9.4-12.4) fL Immature Gran % (Auto) 0.4 % Neut % (Auto) 85.7 % Lymph % (Auto) 2.9 % Sevier % (Auto) 7.7 % Eos % (Auto) 3.1 % Baso % (Auto) 0.2 % Neut # (Auto) 13.41 H (1.40-6.50) K/uL Lymph # (Auto) 0.46 L (1.20-3.40) K/uL Sevier # (Auto) 1.20 H (0.11-0.59) K/uL Eos # (Auto) 0.48 (0.00-0.50) K/uL Baso # (Auto) 0.03 (0.00-0.20) K/uL Immature Gran # (Auto) 0.06 (0.01-0.20) K/uL ESR 67 H (0-30) mm/hr PT 10.3 (9.0-12.0) Seconds INR 0.9 (0.9-1.1) Sodium 136 (136-145) mmol/L Potassium 3.7 (3.5-5.1) mmol/L Chloride 103 (98-107) mmol/L Carbon Dioxide 24 (21-32) mmol/L Anion Gap 9 (3-11) BUN 26 H (6-23) mg/dl Creatinine 1.04 (0.6-1.2) mg/dl Est Cr Clr Drug Dosing 33.7 ml/min eGFR 53.33 BUN/Creatinine Ratio 25.0 H (10-20) Glucose 140 H (70-99(Fasting)) mg/dl Lactate 1.1 (0.4-2.0) mmol/L Calcium 9.6 (8.6-10.3) mg/dl Total Bilirubin 1.0 (0.2-1.0) mg/dl AST 124 H (13-39) U/L ALT 115 H (7-52) U/L Alkaline Phosphatase 120 H (34-104) U/L Troponin I High Sens 21.5 H (0-14) pg/ml C-Reactive Protein 14.59 H (0-0.5) mg/dl Total Protein 6.7 (6.0-8.3) gm/dl Albumin 3.7 (3.4-5.0) gm/dl Globulin 3.0 (2.5-4.0) gm/dl Albumin/Globulin Ratio 1.2 (0.9-2) Lipase 31 (11-82) U/L Procalcitonin 0.76 H (0-0.5) ng/ml Urine Color Yellow Urine Appearance Clear (Clear) Urine pH 5.5 (4.5-7.5) Ur Specific Strawn 1.010 (1.000-1.030) Urine Protein Trace H (Negative) Urine Glucose (UA) Negative (Negative) Urine Ketones Trace H (Negative) Urine Blood Negative (Negative) Urine Nitrite Negative (Negative) Urine Bilirubin Negative (Negative) Urine Urobilinogen Negative (Negative) Ur Leukocyte Esterase 2+ H (Negative) Urine WBC (Auto) 11-20 H (0-5) /hpf Urine RBC (Auto) 0-2 (0-2) /hpf U Hyaline Cast (Auto) 3-5 H (0-2) /lpf U Epithel Cells (Auto) 3-5 H (0-2) /hpf Urine Bacteria (Auto) None Seen (None Seen) Adenovirus (PCR) Not Detected (NotDetected) B. pertussis DNA (PCR) Not Detected (NotDetected) B.parapertussis DNA PCR Not Detected (NotDetected) C. pneumoniae DNA (PCR) Not Detected (NotDetected) Coronavirus OC43 (PCR) Not Detected (NotDetected) Coronavirus HKU1 (PCR) Not Detected (NotDetected) Coronavirus 229E (PCR) Not Detected (NotDetected) SARS-CoV-2 (PCR) Not Detected (NotDetected) Coronavirus NL63 (PCR) Not Detected (NotDetected) Human Metapneumovir PCR Not Detected (NotDetected) Influenza Type A (PCR) Not Detected (NotDetected) Influenza Type B (PCR) Not Detected (NotDetected) M. pneumoniae (PCR) Not Detected (NotDetected) Parainfluenza 1 (PCR) Not Detected (NotDetected) Parainfluenza 2 (PCR) Not Detected (NotDetected) Parainfluenza 3 (PCR) Not Detected (NotDetected) Parainfluenza 4 (PCR) Not Detected (NotDetected) RSV (PCR) Not Detected (NotDetected) Entero/Rhino (PCR) Not Detected (NotDetected) 12/15/24 Range/Units 10:14 WBC (4.8-10.8) K/ul RBC (4.20-5.40) M/uL Hgb (12.0-16.0) g/dl Hct (37.0-47.0) % MCV (80.0-100.0) fL MCH (25.0-34.0) pg MCHC (32.0-36.0) g/dL RDW Std Deviation (36.4-46.3) fL RDW Coeff of Kristel (11.5-14.5) % Plt Count (130-400) K/uL MPV (9.4-12.4) fL Immature Gran % (Auto) % Neut % (Auto) % Lymph % (Auto) % Sevier % (Auto) % Eos % (Auto) % Baso % (Auto) % Neut # (Auto) (1.40-6.50) K/uL Lymph # (Auto) (1.20-3.40) K/uL Sevier # (Auto) (0.11-0.59) K/uL Eos # (Auto) (0.00-0.50) K/uL Baso # (Auto) (0.00-0.20) K/uL Immature Gran # (Auto) (0.01-0.20) K/uL ESR (0-30) mm/hr PT (9.0-12.0) Seconds INR (0.9-1.1) Sodium (136-145) mmol/L Potassium (3.5-5.1) mmol/L Chloride (98-107) mmol/L Carbon Dioxide (21-32) mmol/L Anion Gap (3-11) BUN (6-23) mg/dl Creatinine (0.6-1.2) mg/dl Est Cr Clr Drug Dosing ml/min eGFR BUN/Creatinine Ratio (10-20) Glucose (70-99(Fasting)) mg/dl Lactate (0.4-2.0) mmol/L Calcium (8.6-10.3) mg/dl Total Bilirubin (0.2-1.0) mg/dl AST (13-39) U/L ALT (7-52) U/L Alkaline Phosphatase (34-104) U/L Troponin I High Sens 18.8 H (0-14) pg/ml C-Reactive Protein (0-0.5) mg/dl Total Protein (6.0-8.3) gm/dl Albumin (3.4-5.0) gm/dl Globulin (2.5-4.0) gm/dl Albumin/Globulin Ratio (0.9-2) Lipase (11-82) U/L Procalcitonin (0-0.5) ng/ml Urine Color Urine Appearance (Clear) Urine pH (4.5-7.5) Ur Specific Strawn (1.000-1.030) Urine Protein (Negative) Urine Glucose (UA) (Negative) Urine Ketones (Negative) Urine Blood (Negative) Urine Nitrite (Negative) Urine Bilirubin (Negative) Urine Urobilinogen (Negative) Ur Leukocyte Esterase (Negative) Urine WBC (Auto) (0-5) /hpf Urine RBC (Auto) (0-2) /hpf U Hyaline Cast (Auto) (0-2) /lpf U Epithel Cells (Auto) (0-2) /hpf Urine Bacteria (Auto) (None Seen) Adenovirus (PCR) (NotDetected) B. pertussis DNA (PCR) (NotDetected) B.parapertussis DNA PCR (NotDetected) C. pneumoniae DNA (PCR) (NotDetected) Coronavirus OC43 (PCR) (NotDetected) Coronavirus HKU1 (PCR) (NotDetected) Coronavirus 229E (PCR) (NotDetected) SARS-CoV-2 (PCR) (NotDetected) Coronavirus NL63 (PCR) (NotDetected) Human Metapneumovir PCR (NotDetected) Influenza Type A (PCR) (NotDetected) Influenza Type B (PCR) (NotDetected) M. pneumoniae (PCR) (NotDetected) Parainfluenza 1 (PCR) (NotDetected) Parainfluenza 2 (PCR) (NotDetected) Parainfluenza 3 (PCR) (NotDetected) Parainfluenza 4 (PCR) (NotDetected) RSV (PCR) (NotDetected) Entero/Rhino (PCR) (NotDetected) Imaging Data Attestation: I personally reviewed and interpreted this imaging study as follows: My Impression: Interpretation of reportable chest x-ray does not show any pneumonia or pneumothorax. Mild cardiomegaly is noted. My interpretation of a noncontrast CT imaging of the head does not show evidence for any intracranial bleed, midline shift or mass effect. My interpretation of a abdominal ultrasound does not show evidence for gallbladder disease. My interpretation of bilateral lower extremity arterial duplex studies shows moderate narrowing of the superficial femoral arteries bilaterally. Radiologist reports were also reviewed with concurrence. Radiologist's Impression: Chest X-Ray 12/15/24 08:07 XR chest 1V portable CLINICAL HISTORY: SOB COMPARISON STUDY: 10/27/2023 FINDINGS: There is stable mild cardiomegaly without pulmonary vascular congestion. Stable mild reticular opacities in the lung bases. No lobar consolidation or pleural effusion. No pneumothorax. IMPRESSION: No lobar pneumonia is seen. ACT 112: Negative or not required by law. Electronically signed by: Kal Sneed M.D. 12/15/2024 8:[address] 12/15/24 08:22 CT head/brain wo con CLINICAL HISTORY: Weakness. TECHNIQUE: Multiple axial CT images of the head were obtained without contrast. A dose lowering technique was utilized adhering to the principles of ALARA. CT DOSE: 547.75 mGy.cm COMPARISON: 01/17/2018. FINDINGS: Stable right periventricular calcification. Stable mild chronic small vessel ischemic changes. Stable mild prominence of the ventricles mildly out of proportion to the sulci, mild cerebral atrophy versus mild normal pressure hydrocephalus. No intracranial hemorrhage seen. No mass effect or midline shift. No skull fracture seen. Visualized paranasal sinuses are clear. No mastoid effusion. IMPRESSION: No acute findings. ACT 112: Negative or not required by law. The above report was generated using voice recognition software. It may contain grammatical, syntax or spelling errors. Electronically signed by: Kal Sneed M.D. 12/15/2024 9:02 AM Abdomen Ultrasound 12/15/24 10:21 US abdomen limited HISTORY: Elev LFTs, RUQ discomfort. COMPARISON: 11/25/2018 FINDINGS: Pancreatic tail is obscured. Visualized pancreatic body is grossly unremarkable. Liver is unremarkable measuring 18 cm. There is normal direction of flow in the portal vein. Gallbladder is unremarkable with no gallstones or gallbladder wall thickening. No pericholecystic fluid or ascites. Common bile duct measures normal diameter of 6 mm. Right kidney shows no hydronephrosis. Abdominal aortic aneurysm measures 4.2 cm greatest AP dimension, stable compared with the [address] scan. IMPRESSION: 1. No cause for the elevated liver function tests seen. 2. Stable abdominal aortic aneurysm. ACT 112: Negative or not required by law. Electronically signed by: Kal Sneed M.D. 12/15/2024 12:21 PM Duplex Scan Lower Extremity Artery 12/15/24 10:21 US arterial duplex LE BI CLINICAL HISTORY: BLE erythema, weak pedal pulses, tobacco hx COMPARISON STUDY: None FINDINGS: There are elevated velocities at the superficial femoral arteries bilaterally suggesting moderate narrowing. No other evidence of significant arterial narrowing seen at the lower extremities. IMPRESSION: Moderate narrowing at the superficial femoral arteries bilaterally. ACT 112: Negative or not required by law. Electronically signed by: Kal Sneed M.D. 12/15/2024 12:27 PM ECG Data Attestation: I personally reviewed and interpreted this ECG as follows: Indication: + weakness Rate (beats per minute): 96 Rhythm: + normal sinus ECG Intervals/blocks: + Normal QRS, + Normal QT and + Normal [facility] ECG [place]: + Normal ECG ST segments: + Normal ST segments Comparison ECG Date: from (10/26/2023) Change: no significant change MDM Narrative Cardiac monitoring: An order was placed for continuous cardiac monitoring. The monitor shows a rate of 96 bpm with a normal sinus rhythm. cardiac monitor history was reviewed throughout the evaluation, and no dysrhythmias were noted. See ED Course section for further details of today's visit. The patient presents for evaluation of weakness with possible UTI symptoms over the past several weeks. She was treated with Macrobid 4 days ago without relief. Patient did fall while trying to get out of bed this morning, and had difficulty getting up off the floor, therefore EMS was summoned. The patient did have an episode of hypoxia, and was also hypotensive. The patient has not been tachycardic. She is afebrile. At this point, I do not suspect sepsis, however given her preceding UTI symptoms, I was mostly concerned for possible UTI with early sepsis. The patient was treated with IV Rocephin. Patient also had an elevated troponin, although I do not see any concerning findings on ECG. The patient will require further cardiac monitoring. Patient also had elevated liver transaminases and alkaline phosphatase, with abdominal ultrasound being normal. Patient also has skin changes to bilateral lower extremities, and given long history of tobacco abuse, arterial Dopplers about her extremities were performed, showing moderate stenosis. Given the patient's presenting symptoms, I did recommend admission for further management, and the patient was in agreement. The case was also discussed with Dr. Mario, ED attending physician, who agrees with workup and admission planning. Impression Elevated troponin I level, Transaminitis, Weakness, Fall from bed Discharge Plan Visit Data Chief Complaint: Fall ED Provider: Dionne Mario ED Midlevel Provider: Delonte Underwood Discharge Problem: Elevated troponin I level, Transaminitis, Weakness, Fall from bed Patient Disposition: Admitted As Inpatient Discharge Instructions Interventions: ED Discharge Assessment Last Done: 12/15/24 12:09 Discharge Problem: Fall from bed Qualifiers: Encounter type: initial encounter Qualified Code(s): W06.XXXA - Fall from bed, initial encounter
--- NOTE | 2024-12-15 12:22 | Ultrasound Report ---
US abdomen limited HISTORY: Elev LFTs, RUQ discomfort. COMPARISON: 11/25/2018 FINDINGS: Pancreatic tail is obscured. Visualized pancreatic body is grossly unremarkable. Liver is u nremarkable measuring 18 cm. There is normal direction of flow in the portal vein. Gallbladder is unr emarkable with no gallstones or gallbladder wall thickening. No pericholecystic fluid or ascites. Com mon bile duct measures normal diameter of 6 mm. Right kidney shows no hydronephrosis. Abdominal aorti c aneurysm measures 4.2 cm greatest AP dimension, stable compared with the 2019 CT scan. IMPRESSION: 1. No cause for the elevated liver function tests seen. 2. Stable abdominal aortic aneurysm. ACT 112: Negative or not required by law. Electronically signed by: Kal Sneed M.D. 12/15/2024 12:21 PM
--- NOTE | 2024-12-15 12:29 | Ultrasound Report ---
US arterial duplex LE BI CLINICAL HISTORY: BLE erythema, weak pedal pulses, tobacco hx COMPARISON STUDY: None FINDINGS: There are elevated velocities at the superficial femoral arteries bilaterally suggesting mo derate narrowing. No other evidence of significant arterial narrowing seen at the lower extremities. IMPRESSION: Moderate narrowing at the superficial femoral arteries bilaterally. ACT 112: Negative or not required by law. Electronically signed by: Kal Sneed M.D. 12/15/2024 12:27 PM
[2024-12-15] MEDS ORDERED: ONDANSETRON INJ 2 MG/ML 2 ML VIAL IV PRN (12:39)
[2024-12-15] MEDS: SODIUM CHLORIDE 0.9% 1,000 ML IV ONE (13:18)
[2024-12-15] MEDS: ACETAMINOPHEN 325 MG TAB PO PRN (13:32)
[2024-12-15] MEDS: NICOTINE 14 MG/24 HR PATCH TD SCH (13:33)
[2024-12-15] MEDS: GABAPENTIN 300 MG CAP PO SCH (13:33)
[2024-12-15] MEDS: DOXYCYCLINE HYCLATE 100 MG CAP PO SCH (13:33)
[2024-12-15] MEDS: buPROPion SR 150 MG TABCR PO SCH (19:59)
[2024-12-15] MEDS: POLYETHYLENE (MIRALAX) 17 GM PACK PO SCH (20:00)
[2024-12-15] MEDS: diphenhydrAMINE HCL 25 MG/10 ML UDC PO PRN (20:00)
[2024-12-16] MEDS: traMADol HCL 50 MG TABLET PO PRN (00:55)
[2024-12-16 06:57] LABS: Hematocrit (blood only) 35.7 % (37.0-47.0); Hemoglobin 11.9 g/dl (12.0-16.0); Mean Corpuscular Hemoglobin 32.4 pg (25.0-34.0); Mean Corpuscular Hgb Conc 33.3 g/dL (32.0-36.0); Mean Corpuscular Volume 97.3 fL (80.0-100.0); Mean Platelet Volume 9.5 fL (9.4-12.4); Platelet Count 187 K/uL (130-400); RDW Coefficient of Variation 12.8 % (11.5-14.5); RDW Standard Deviation 45.6 fL (36.4-46.3); Red Blood Count 3.67 M/uL (4.20-5.40); White Blood Count 9.06 K/ul (4.8-10.8)
[2024-12-16 07:15] LABS: Albumin Globulin Ratio 1.3 (0.9-2); Albumin Level 3.2 gm/dl (3.4-5.0); BUN Creatinine Ratio 22.4 (10-20); Bilirubin,Total 0.4 mg/dl (0.2-1.0); Calcium 8.6 mg/dl (8.6-10.3); Chol HDL Ratio 4.3 (0-5); Creatinine Clr Calc Pharmacy 35.7 ml/min; Globulin 2.4 gm/dl (2.5-4.0); Magnesium 1.8 mg/dl (1.7-2.4); Potassium 3.8 mmol/L (3.5-5.1); Total Protein 5.6 gm/dl (6.0-8.3)
[2024-12-16] MEDS: ENOXAPARIN INJ 40 MG/0.4 ML SYR SQ SCH (07:40)
[2024-12-16] MEDS: UMECLIDINIUM/VILANTEROL 62.5/25MCG 7 PUFFS/INHALER INH SCH (07:41)
[2024-12-16] MEDS: ASPIRIN 81 MG ECTAB PO SCH (07:42)
[2024-12-16] MEDS: ATORVASTATIN 40 MG TAB PO SCH (07:43)
[2024-12-16] MEDS: CALCIUM 600MG + VIT D 400 IU TAB PO SCH (07:43)
[2024-12-16] MEDS: cefTRIAXone SODIUM 1,000 MG/50 ML BAG IV SCH (07:46)
--- NOTE | 2024-12-16 12:12 | Hospitalist Progress Note ---
Date of Service December 16, 2024 Assessment & Plan (1) Fall from bed: (2) COPD with exacerbation: (3) Suspected urinary tract infection: (4) URI (upper respiratory infection): (5) Transaminitis: (6) HTN (hypertension): (7) Peripheral vascular disease: Plan Patient with acute weakness and slight out of bed due to suspected urinary tract infection and upper respiratory infection with mild exacerbation of his COPD. Suspect mild transaminitis may be due to viral infection as well. Continue antibiotics, follow urine culture Continue home inhalers and short course of oral prednisone for mild exacerbation Titrate oxygen to off as needed. Patient may need to use Oxygen testing to determine if she needs home oxygen Therapies Attempted to contact patient's daughter for update. No answer Admission and Anticipated Discharge Date Admission Date: December 15, 2024 Subjective Patient states she is feeling a bit better. Not usually on oxygen at home but always may be a little wheezy. She is quite adamant that she did not fall. She was weak and slid out of bed to the floor because she could not stand up. Physical Exam Physical Exam: Constitutional: Alert, nontoxic in appearance HEENT: Mucous membranes moist. Lungs: Decreased breath sounds, prolonged expiratory phase, few scattered wheezes, tight airflow CV: S1-S2, regular Abdomen: Soft, nontender, nondistended Extremities: No significant edema, venous stasis dermatitis Neuro: No focal deficits Psych: Cooperative, normal mood Results & Data Results & Data Vital Signs (Past 12 Hours) Vital Signs Temp Pulse Resp BP Pulse Ox O2 Del Method O2 Flow Rate 12/16/24 07:50 Nasal Cannula 2 12/16/24 07:35 36.7 C 89 18 130/64 91 Room Air Diagnostic Findings Reviewed imaging, laboratory and diagnostic studies. Pertinent findings as below. Blood cultures preliminary no growth Urine culture pinpoint growth WBCs 9.0 Hemoglobin 11.9 Electrolytes stable Creatinine 0.98 LFTs improved Arterial lower extremity ultrasound showed moderate narrowing of the superficial femoral arteries bilaterally Abdominal ultrasound showed no acute abnormalities (1) Fall from bed Encounter type: initial encounter Qualified Code(s): W06.XXXA - Fall from bed, initial encounter (6) HTN (hypertension) Hypertension type: primary hypertension Qualified Code(s): I10 - Essential (primary) hypertension
[2024-12-16] MEDS ORDERED: BENZONATATE 100 MG CAPSULE PO PRN (12:18)
[2024-12-16] MEDS: predniSONE 20 MG TAB PO SCH (13:10)
[2024-12-16] MEDS: ALBUT/IPRATROP 3MG/0.5MG NEB 3 ML VIAL NEB SCH (14:57)
[2024-12-16] MEDS: guaiFENesin 600 MG TABCR PO SCH (20:44)
[2024-12-16] MEDS ORDERED: ALBUT/IPRATROP 3MG/0.5MG NEB 3 ML VIAL NEB PRN (20:51)
[2024-12-17 06:57] VITALS: BP 120/68; RESP 16; TEMP 97.7; O2SAT 94
--- NOTE | 2024-12-17 10:56 | Discharge Summary ---
Discharge Summary Date of Service December 17, 2024 Principal Dx & Hospital Course #1 = Principal Diagnosis (1) Fall from bed: (2) COPD with exacerbation: (3) Suspected urinary tract infection: (4) URI (upper respiratory infection): (5) Transaminitis: (6) HTN (hypertension): (7) Peripheral vascular disease: Plan Ms. Ontiveros is an 83-year-old female with history of COPD, tobacco use disorder, abdominal aortic aneurysm, CKD stage III, vitamin D deficiency, chronic LFT elevation, dyslipidemia, depression, GERD and other medical problems presents with history of fall and weakness. Patient started on abx 12/11 for UTI and noted continued weakness, reporting a slip/slide down the side of her bed. She presented with wheezing and SOB. She was noted to have transaminitis as well. Patient overalll improved on steroids and abx. #Weakness suspect in relation to ?UTI/ab/UTI PT/OT--patient independent for home #abnormal UA treatment started for UTI prior to admission, received 4 days po prior to presentation and IV ctx #Transaminitis question if related to macrobid? improvement after IVF, d/c macrobid, supportive care repeat cmp 1 week #COPD exacerbation continue on course pred and doxycycline no oxygen required On day of discharge, patient doing well overall without acute concerns and on room air. No dysuria, cough, chest pain, or other acute concerns Notes For Next Care Provider Medication Changes From Visit -Doxycycline 100mg two times a day, your next dose is this evening -Prednisone 40mg in the morning for 2 more days -Mucinex two times a day to help ease cough and thin mucus please stop the Macrobid prescribed before admission Admission HPI Per Admitting Provider Patient is an 83-year-old female with history of COPD, tobacco use disorder, abdominal aortic aneurysm, CKD stage III, vitamin D deficiency, chronic LFT elevation, dyslipidemia, depression, GERD and other medical problems presents with history of fall. Patient states having generalized weakness which has been gradually worsening since 2-1/2 weeks. Reports abdominal pressure, cloudy urine which she noticed 2 weeks ago and normal discussion with her PCP, patient was prescribed Macrobid on of this month which has she has been taking. She denies any dysuria, increased urinary frequency but admits to have intermittent fever. She feels very tired and sleepy on most days. Since starting the antibiotic, symptoms slightly better but still urine remains cloudy per patient. While she was trying to go to the bathroom today, patient slid down the bed landing on her buttock. She denies any loss of consciousness, head trauma, dizziness. She could not get up from the floor and family called 911 for further assistance. She reports chronic cough with whitish expectoration which she attributes to her chronic tobacco use. Also reports chronic nausea which is unchanged. Denies any history of chest pain, dyspnea, palpitations, pedal edema, hemoptysis, vomiting, abdominal pain. Admission Exam Per Admitting Provider Physical Exam: Vitals signs as noted above General Appearance:Moderately built and nourished, no apparent distress Head: normocephalic, Atraumatic Eyes: normal inspection, EOMI Neck: supple, Trachea midline Respiratory/Chest: Decreased breath sounds, scant wheezing, No accessory muscle use Cardiovascular: S1, S2, +murmur Abdomen/GI:Soft, Non tender, mildly distended, Bowel sounds present Extremities/Musculoskeletal:normal inspection, no edema, Chronic erythematous rash on B/L LE Neurologic/Psych:AAOX3, grossly no focal neurological deficits Skin: normal color, warm Discharge Exam Constitutional WD/WN, vitals as above Respiratory normal respiratory effort, lungs clear to auscultation Cardiovascular RRR, no murmur, no edema Updated Medication List Medication Instructions Recorded Confirmed Type atorvastatin 40 mg tablet 40 mg PO DAILY 08/30/18 12/15/24 History bupropion HCl 150 mg tablet,12 hr 150 mg PO BID 08/30/18 12/15/24 History sustained-release calcium 600 mg (as carbonate)-vit 1 tab PO DAILY 11/11/18 12/15/24 History D3 20 mcg (800 unit) chewable tablet (Caltrate plus D) ascorbic acid (vitamin C) 500 mg 500 mg PO DAILY 12/30/18 12/15/24 History capsule,extended release ondansetron HCl 4 mg tablet 4 mg PO Q6H PRN Nausea 12/30/18 12/15/24 History albuterol sulfate 90 mcg/actuation 2 puff inhalation Q4 PRN Shortness 10/27/23 12/15/24 History aerosol inhaler Of Breath Or Wheezing tiotropium 2.5 mcg-olodaterol 2.5 2 puff inhalation DAILY 10/27/23 12/15/24 History mcg/actuation mist for inhalation (Stiolto Respimat) Prolia 60 mg/mL subcutaneous 60 mg subcut ONCE #1 mL 03/13/24 12/15/24 Rx syringe (denosumab) aspirin 81 mg tablet,delayed 81 mg PO BID 03/20/24 12/15/24 History release tramadol 50 mg tablet 100 mg PO BID PRN Severe Pain 07/25/24 12/15/24 History (Scale Score 7-10) gabapentin 300 mg capsule See Rx Instructions .Route .COMPLEX 12/15/24 12/15/24 History doxycycline hyclate 100 mg capsule 100 mg PO BID 3 days #5 caps 12/17/24 Rx guaifenesin 600 mg tablet, 600 mg PO Q12 5 days #10 tabs 12/17/24 Rx extended release 12 hr (Mucinex) prednisone 20 mg tablet 40 mg (2 x 20 mg) PO DAILY 2 days 12/17/24 Rx #4 tabs Hospital Stay Data Consultations 12/15/24 10:21 ED Decision to Admit Stat Diagnostic Imagining Performed 12/15/24 08:22 CT head/brain wo con Stat 12/15/24 10:21 US abdomen limited Stat US arterial duplex LE BI Stat Pending Results Patient Have Any Pending Studies at Discharge: No Discharge Instructions Given to Patient (Per Discharging Provider) You were admitted for concern of urine infection and upper respiratory infection. You were started on IV antibitoics and a prednisone burst to help with wheezing You were noted to have increased liver levels on admission, but these values improved notably. You did not have any signs of gallbladder stones or cause for elevated enzymes; meaning this could be due to infection given its prompt improvement You will continue the following: -Doxycycline 100mg two times a day, your next dose is this evening -Prednisone 40mg in the morning for 2 more days -Mucinex two times a day to help ease cough and thin mucus please stop the Macrobid prescribed before admission Please follow up with PCP in 1 week for labs to check liver function Your abdominal ultrasound is stable at 4.2cm Total Time Total Time Spent Total Time Spent (In Minutes): 35
[2024-12-17 11:10] VITALS: PULSE 90
== END 2024-12-17 12:09 | disposition home or self-care (01) | DRG 872 ==
LOC: ED 07:44 → 3N 10:56 → SUATTDRO 10:56 → 3N 12:09